=== PATIENT | female | born 1995 | race Caucasian/White ===

== ENCOUNTER 2023-09-02 12:55 | Outpatient (OUT) | payer BC, SELFPAY ==
--- NOTE | 2023-09-02 13:06 | US_ITS ---
The [address] [address] Patient Name: [place] CARTAGENA MRN: [id number] date: 1995 Sex: F Assigned Patient Location: US Current Patient Location: US Accession/Order Number: [id number] Exam Date: 09/02/2023 13:07 Report Date: 09/02/2023 13:57 At the request of: AJ MARSH Procedure: US thyroid EXAMINATION: US thyroid HISTORY: Cervical Lymphadenopathy R59.0 COMPARISON: No relevant comparison available. TECHNIQUE: Sonographic images of the thyroid gland were obtained. FINDINGS: The right thyroid lobe measures 4.5 x 1.9 x 1.9 cm. Heterogeneous echotexture. 2 small colloid cysts measuring up to 4.1 mm The thyroid isthmus measures 3 mm. Heterogeneous. No focal nodule The left thyroid lobe measures 4.8 by 1.5-1.9 m. Heterogeneous echotexture. No focal nodule Or spine to the patient's palpable abnormality along the right parotid gland is a 5.4 x 4.6 mm oval lesion likely representing a lymph node US/US thyroid IMPRESSION: Suspected lymph node in the region of the patient's palpable abnormality No significant thyroid nodule Electronically authenticated by: NELA MEZA Date: 09/02/2023 13:57
== END 2023-09-02 12:56 | disposition home or self-care (01) ==
LOC: US 12:58
PROVIDERS: PCP Family Medicine; Visit Provider Family Medicine
DX: R59.0 Localized enlarged lymph nodes (principal)
CPT/HCPCS: 76536

== ENCOUNTER 2023-12-04 16:24 | Outpatient (OUT) | payer BC, SELFPAY ==
[2023-12-04 16:58] LABS: Basophils Absolute Auto 0.1 10^3/uL (0.0-0.1); Basophils Percent Auto 0.7 % (0.2-2.0); Eosinophils Absolute Auto 0.2 10^3/uL (0.0-0.7); Eosinophils Percent Auto 3.3 % (0.9-7.0); Hematocrit 37.6 % (36.0-48.0); Hemoglobin 12.7 g/dL (12.0-16.0); Immature Granulocytes Abs Auto 0.01 10^3/uL (0.00-0.03); Immature Granulocytes Pct Auto 0.1 % (0.0-0.5); Lymphocytes Percent Auto 28.6 % (20.5-60.0); Mean Corpuscular HGB Conc 33.8 g/dL (29.9-35.2); Mean Corpuscular Hemoglobin 28.1 pg (26.7-34.0); Mean Corpuscular Volume 83.2 fL (81.0-99.0); Mean Platelet Volume 10.2 fL (9.5-13.5); Monocytes Absolute Auto 0.6 10^3/uL (0.3-0.8); Monocytes Percent Auto 7.9 % (1.7-12.0); Neutrophils Absolute Auto 4.2 10^3/uL (1.4-6.5); Neutrophils Percent Auto 59.4 % (43.0-75.0); Platelet Count 275 10^3/uL (150-450); Red Blood Count 4.52 10^6/uL (4.20-5.40); Red Cell Distribution Width 12.9 % (11.0-15.0); White Blood Count 7.1 10^3/uL (4.0-11.0)
[2023-12-04 17:30] LABS: TSH W/ REFLEX FT4 1.374 uIU/mL (0.358-3.740)
[2023-12-08 13:08] LABS: ANA Direct Negative (Negative); Anti-DNA (DS) Ab Qn <1 IU/mL (0-9); Antichromatin Antibodies <0.2 AI (0.0-0.9); Complement C3, Serum 113 mg/dL (82-167); Complement C4, Serum 10 mg/dL (12-38)
[2023-12-08 17:09] LABS: Antinuclear Antibodies, IFA Negative (.)
== END 2023-12-04 16:25 | disposition home or self-care (01) ==
LOC: LAB 16:25
PROVIDERS: PCP Family Medicine; Visit Provider Family Medicine
DX: L65.9 Nonscarring hair loss, unspecified (principal); R76.8 Other specified abnormal immunological findings in serum; R53.83 Other fatigue; R76.0 Raised antibody titer
CPT/HCPCS: 36415; 84443; 85025; 86038; 86160; 86225; 86235

== ENCOUNTER 2024-01-16 06:59 | Outpatient (OUT) | payer BC, SELFPAY ==
--- NOTE | 2024-01-16 07:01 | US_ITS ---
[address] [address] Patient Name: [place] CARTAGENA MRN: [id number] date: 1995 Sex: F Assigned Patient Location: US Current Patient Location: US Accession/Order Number: [id number] Exam Date: 01/16/2024 07:09 Report Date: 01/16/2024 10:51 At the request of: KEKE MEDEL Procedure: US pelvis transvaginal EXAMINATION: US pelvis transvaginal HISTORY: Menorrhagia N92.0 COMPARISON: No relevant comparison available. TECHNIQUE: Transabdominal and/or transvaginal sonographic examination was performed as indicated by examination type. FINDINGS: UTERUS: Normal size and appearance. scar noted within lower anterior uterine wall. A few small nabothian cysts within cervix. Uterus size: 9.6 x 5.1 x 4.3 cm ENDOMETRIUM: Contains a 2 mm hyperdensity, likely dystrophic calcification at posterior endometrial-myometrial junction. Normal thickness and echogenicity of endometrium. Endometrial thickness: 10 mm RIGHT OVARY: Normal size and appearance. Duplex Doppler demonstrates normal waveform and flow; resistive index 0.4. Ovary size: 3.4 x 2.3 x 2.0 cm LEFT OVARY: Contains a 1.6 cm hypoechoic area favoring a cyst. Duplex Doppler demonstrates normal waveform and flow; resistive index 0.6. Ovary size: 3.9 x 2.6 x 2.3 cm CUL-DE-SAC: Unremarkable. No significant free fluid. BLADDER: Unremarkable. OTHER: None. US/US pelvis transvaginal IMPRESSION: 1. No specific findings to account for patient's symptoms. Please see details above. Electronically authenticated by: DI BRIZUELA Date: 01/16/2024 10:51
--- OUTSIDE RECORDS SUMMARY | 2024-01-16 07:03 | XMS_ITS | CCD ---
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 Name Role Phone Sarah Marsh Primary Care Provider [phone] Anson Carson Primary Care Provider Gilbertoconrado RAY Nathan Unavailable Gilberto RAY Nathan Unavailable [phone] CHEMA ., GARRETT Consulting Unavailable MAXIMO, DR SARAH Madrid Primary Care Unavailable CHEMA ., GARRETT Attending Unavailable CHEMA ., GARRETT Admitting Unavailable GIANFRANCO ., DR DAVIES Consulting Unavailable MARSH, DR SARAH [place] Primary Care Unavailable GIANFRANCO ., DR DAVIES Attending Unavailable GIANFRANCO ., DR DAVIES Admitting Unavailable ZIEBER, DR DI Iniguez Consulting Unavailable KARASIK ., DR VILLA Consulting Unavailabl e KARASIK ., DR VILLA Attending Unavailabl e KARASIK ., DR VILLA Admitting Unavailabl e REQUEST, DR NONE LISTED Primary Care Unavaila ble GIANFRANCO ., DR DAVIES Consulting Unavailable ZIEBER, DR DI Iniguez Consulting Unavailable GIANFRANCO ., DR DAVIES Admitting Unavailable GIANFRANCO ., DR DAVIES Attending Unavailable REQUEST, DR NONE LISTED Primary Care Unavaila ble GIANFRANCO ., DR DAVIES Consulting Unavailable ZIEBER, DR DI Iniguez Consulting Unavailable GIANFRANCO ., DR DAVIES Consulting Unavailable REQUEST, NONE LISTED Primary Care Unavaila ble GIANFRANCO ., DR DAVIES Attending Unavailable GIANFRANCO ., DR DAVIES Admitting Unavailable GIANFRANCO ., DR DAVIES Admitting Unavailable GIANFRANCO ., DR DAVIES Attending Unavailable MARSH, DR SARAH Madrid Primary Care Unavailable GIANFRANCO ., DR DAVIES Consulting Unavailable GIANFRANCO ., DR DAVIES Consulting Unavailable REQUEST, DR NONE LISTED Primary Care Unavaila ble GIANFRANCO ., DR DAVIES Attending Unavailable GIANFRANCO ., DR DAVIES Admitting Unavailable ZIEBER, DR DI Iniguez Consulting Unavailable REQUEST, DR NONE LISTED Primary Care Unavaila ble CHEMA ., GARRETT Attending Unavailable CHEMA ., GARRETT Admitting Unavailable CHEMA ., GARRETT Consulting Unavailable KARASIK ., DR VILLA Consulting Unavailabl e KARASIK ., DR VILLA Attending Unavailabl e KARASIK ., DR VILLA Admitting Unavailabl e REQUEST, DR NONE LISTED Primary Care Unavaila ble ZIEBER, DR DI Iniguez Consulting Unavailable CHEMA ., GARRETT Consulting Unavailable KARASIK ., DR VILLA Consulting Unavailabl e KARASIK ., DR VILLA Attending Unavailabl e KARASIK ., DR VILLA Admitting Unavailabl e REQUEST, DR NONE LISTED Primary Care Unavaila ble ZIEBER, DR DI Iniguez Consulting Unavailable CHEMA ., GARRETT Consulting Unavailable WEST, DR NELA Urena Consulting Unavailable GIANFRANCO ., DR DAVIES Attending Unavailable GIANFRANCO ., DR DAVIES Admitting Unavailable REQUEST, DR NONE LISTED Primary Care Unavaila ble GIANFRANCO ., DR DAVIES Consulting Unavailable CHEMA ., GARRETT Consulting Unavailable GIANFRANCO ., DR DAVIES Consulting Unavailable GIANFRANCO ., DR DAVIES Attending Unavailable GIANFRANCO ., DR DAVIES Admitting Unavailable REQUEST, DR NONE LISTED Primary Care Unavaila ble ZIEBER, DR DI Iniguez Consulting Unavailable ZIEBER, DR DI Iniguze Consulting Unavailable MARSH, DR SARAH Madrid Primary Care Unavailable CHEMA ., GARRETT Attending Unavailable CHEMA ., GARRETT Admitting Unavailable CEHMA ., GARRETT Consulting Unavailable REQUEST, DR NONE LISTED Primary Care Unavaila ble GIANFRANCO ., DR DAVIES Attending Unavailable GIANFRANCO ., DR DAVIES Admitting Unavailable GIANFRANCO ., DR DAVIES Consulting Unavailable REQUEST, DR NONE LISTED Primary Care Unavaila ble GIANFRANCO ., DR DAVIES Attending Unavailable GIANFRANCO ., DR DAVIES Admitting Unavailable GIANFRANCO ., DR DAVIES Procedure Practitioner Unavail able SY DE SOUZA Consulting Unavailable ZIEBER, DR DI Iniguez Consulting Unavailable MARSH, DR SARAH [place] Primary Care Unavailable CHEMA ., GARRETT Attending Unavailable CHEMA ., GARRETT Admitting Unavailable CHEMA ., GARRETT Consulting Unavailable GIANFRANCO ., DR DAVIES Consulting Unavailable REQUEST, DR NONE LISTED Primary Care Unavaila ble GIANFRANCO ., DR DAVIES Attending Unavailable GIANFRANCO ., DR DAVIES Admitting Unavailable GIANFRANCO ., DR DAVIES Consulting Unavailable REQUEST, DR NONE LISTED Primary Care Unavaila ble GIANFRANCO ., DR DAVIES Attending Unavailable GIANFRANCO ., DR DAVIES Admitting Unavailable GARRETT PALACIOS Consulting Unavailable REQUEST, NONE LISTED Primary Care Unavaila yani BEAR ., GARRETT Attending Unavailable CHEMA ., GARRETT Admitting Unavailable Chelo Valencia Unavailable TIKA Valencia Attending Provider [phone] MD Sarah Marsh Primary Care Provider [phone] MD Alden Khan Attending Provider Alden Khan Admitting Unavailable Alden Khan Attending Unavailable Sarah Marsh Primary Care Unavailable Chelo Valencia Admitting Unavailable Chelo Valencia Attending Unavailable Sarah Marsh Primary Care Unavailable Allergies Allergy Classification Reported Allergen(s) Allergy Type Date of Onset Reaction(s) Facility Opioid Agonists (1 source) Morphine Drug Allergy 3 Itching, Other: See Comments [facility] (1 source) Morphine Drug Allergy 0 [facility] (2 sources) Morphine Drug Allergy rash [employer] Other (2 sources) Morphine Sulfate (Concentrate) *ANALGESICS - OPIOI Propensity to adverse reactions 0 Unknown [employer] Other (2 sources) Allergies Reconciled Propensity to adverse reactions Unknown [employer] Other (2 sources) patient allergy list reviewed by nurse or physicia Propensity to adverse reactions 4 Comment:Done [employer] Other (1 source) Morphine Drug Allergy 4 [facility] Repository Medications Current Medications Medication Drug Class(es) Dates Sig (Normalized) Sig (Original) Vitamins (2 sources) Start: 04-23-2022 Vitamins Vitamins( Oral ) Active -Hx Entry Oral for 0 *Pick strength-form from [employer] for eRX* Apr, Not-Taking Completed/Discontinued Medications Medication Drug Class(es) Dates Sig (Normalized) Sig (Original) amoxicillin 500 mg oral tablet (2 sources) Penicillin-class Antibacterial Start: 04-23-2022 take 1 capsule by mouth three times daily Amoxicillin 500mg amoxicillin 500mg, 1 (one) Capsule three times daily # 21, 04/23/2022, No Refill. Active oral three times daily for 0 *Pick strength-form from [employer] for eRX* Apr, Not-Taking amoxicillin 875 mg / clavulanate 125 mg oral tablet (3 sources) Penicillin-class Antibacterial Start: 10-21-2023 End: 12-04-2023 take 1 tablet by mouth twice daily Amoxicillin-Pot Clavulanate Discontinued 1 TAB PO Twice daily October 21, 2023 12:00am December 04, 2023 3:55pm aspirin 81 mg delayed release oral tablet (5 sources) Platelet Aggregation Inhibitor, Nonsteroidal Anti-inflammatory Drug Start: 08-06-2023 End: 08-12-2023 Aspirin (Adult Low Dose Aspirin) 81 mg tablet,delayed release (DR/EC) Discontinued 81 MG PO Daily August 06, 2023 1:00am August 12, 2023 12:43pm Start: 04-23-2022 Aspirin Adult Low Dose 81 MG aspirin( 81mg oral 1 daily ) Active -Hx Entry Oral daily for 0 Apr, Not-Taking cefdinir 300 mg oral capsule (3 sources) Cephalosporin Antibacterial Start: 08-12-2023 End: 10-21-2023 take 300 mg by mouth twice daily Cefdinir Discontinued 300 MG PO Twice daily August 12, 2023 1:00am October 21, 2023 3:36pm Compression Socks, Medium Misc (1 source) Start: 03-17-2013 Compression Socks, Medium Misc Knee high at 20-30 mm HG compression stockings for chronic venous insufficiency associated with dizziness: Jobst,Sigvaris or Spa Brand. To be worn while awake and removed while sleeping. 2 Each 3 03/17/2013 Active Comment on above: Knee high at 20-30 m m HG compression stockings for chronic venous insufficiency associated with dizziness: Jobst,Sigvaris or Spa Brand. To be worn while awake and removed while sleeping. Magnesium (3 sources) Start: 08-06-2023 End: 08-12-2023 take 200 mg by mouth once daily Magnesium Discontinued 200 MG PO Daily August 06, 2023 1:00am August 12, 2023 12:43pm Magnesium Oxide 400mg magnesi (2 sources) Start: 03-26-2022 take 1 tablet by mouth once daily Magnesium Oxide 400mg magnesi magnesium oxide 400mg magnesi, 1 (one) tablet tablet daily # 30, 03/26/2022, Ref. x6. Active oral daily for 0 *Pick strength-form from [employer] for eRX* 11 Mar, 2022 Not-Taking oseltamivir 75 mg oral capsule (5 sources) Neuraminidase Inhibitor Start: 08-06-2023 End: 08-12-2023 take 1 capsule by mouth twice daily Oseltamivir (Tamiflu) 75 mg capsule Discontinued 1 CAP PO Twice daily August 06, 2023 1:00am August 12, 2023 12:43pm [employer] capsule Orally Twice a day; Note: Source Status: Not-Taking\PRN; Refills: 0; Provider: Samira Menendez Start: 07-19-2017 take 1 capsule by [facility] every twelve hours Tamiflu 75 MG 1 capsule Orally Twice a day for 5 day(s) Jul, Not-Taking Pnv #05-Gbrp-Nzpcr Acid-Omeg a3 (3 sources) Start: 08-06-2023 End: 08-12-2023 Pnv #40-Hsmf-Yaxjc Acid-Omeg a3 Discontinued CAP PO August 06, 2023 1:00am August 12, 2023 12:43pm Problems Active Problems Problem Classification Problem Date Documented Da te Episodic/Chronic Abdominal pain (3 sources) Abdominal pain; Translations: [Unspecified abdominal pain] Onset: 07-22-2013 07-22-2013 Episodic Anxiety disorders (2 sources) Anxiety disorder; Translations: [Other specified anxiety disorders] Chronic Cardiac dysrhythmias (4 sources) Postural orthostatic tachycardia syndrome ; Translations: [Other specified cardiac arrhythmias] Onset: 01-20-2013 01-20-2013 Chronic Deficiency and other anemia (1 source) Nutritional anemia, unspecified; Translations: [NUTRITIONAL ANEMIA UNSPECIFIED] Onset: 10-07-2022 Episodic Deficiency and other anemia (2 sources) Nutritional anemia; Translations: [Nutritional anemia, unspecified] Episodic Headache; including migraine (8 sources) Migraine with aura; Translations: [Migraine with aura, not intractable, without status migrainosus] Onset: 01-20-2013 01-20-2013 Chronic Immunity disorders (3 sources) Complement 4 deficiency; 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] Onset: 12-16-2023 12-10-2023 Chronic Immunizations and screening for infectious disease (15 sources) Anti-nuclear factor positive; Translations: [Other specified abnormal immunological findings in serum] Onset: 09-18-2012 Resolved: 03-24-2019 09-18-2012 Episodic Lymphadenitis (4 sources) Cervical lymphadenopathy; Translations: [Localized enlarged lymph nodes] 08-12-2023 Episodic Malaise and fatigue (8 sources) Malaise and fatigue; Translations: [Other malaise and fatigue] Onset: 04-28-2014 12-04-2023 Episodic Menstrual disorders (8 sources) Irregular menstruation, unspecified; Translations: [Intermenstrual bleeding - irregular] Onset: 01-30-2022 Chronic Nausea and vomiting (3 sources) Nausea; Translations: [Nausea] Onset: 08-25-2012 08-25-2012 Episodic Other aftercare (2 sources) History and physical examination, follow-up; Translations: [Encounter for follow-up examination after completed treatment for conditions other than malignant neoplasm] Episodic Other circulatory disease (2 sources) Postural orthostatic tachycardia syndrome ; Translations: [Postural orthostatic tachycardia syndrome [POTS]] Episodic Other complications of ; puerperium affecting management of mother (1 source) Other complications of the puerperium, not elsewhere classified; Translations: [OTHER COMPLICATIONS PUERPERIUM NEC] Onset: 10-07-2022 Episodic Other complications of ; puerperium affecting management of mother (1 source) Streptococcus B carrier state complicating childbirth; Translations: [STREP B MÉNDEZ STATE COMP CHILDBIRTH] Onset: 10-07-2022 Episodic Other complications of ; puerperium affecting management of mother (4 sources) Maternal care for other (suspected) abnormality and damage, not applicable or unspecified; Translations: [MAT CARE OTH ABN DAMGE NA/UNS] Onset: 08-07-2022 Episodic Other complications of ; puerperium affecting management of mother (2 sources) Complication of the puerperium; Translations: [Complication of the puerperium, unspecified] Episodic Other complications of (1 source) Anemia complicating , third trimester; Translations: [ANEMIA COMP THIRD TRI] Onset: 10-07-2022 Chronic Other complications of (2 sources) Anemia of ; Translations: [Anemia complicating , second trimester] Chronic Other complications of (1 source) Gestational edema, complicating the puerperium; Translations: [GESTATIONAL EDEMA COMP PUERPERIUM] Onset: 10-07-2022 Episodic Other complications of (5 sources) Other specified related conditions, third trimester; Translations: [OTH SPEC PREG RELATED COND 3RD TRI] Onset: 07-24-2022 Episodic Other complications of (2 sources) Supervision of with history of molar , first trimester; Translations: [Supervision of with history of molar , first trimester] Episodic Other complications of (2 sources) Blighted ovum and nonhydatidiform mole; Translations: [Blighted ovum and nonhydatidiform mole] Episodic Other complications of (2 sources) Vomiting of ; Translations: [Vomiting of , unspecified] Episodic Other connective tissue disease (2 sources) Ganglion cyst of left wrist; Translations: [Ganglion, left wrist] Episodic Other connective tissue disease (5 sources) Fibromyalgia; Translations: [Fibromyalgia] 08-06-2023 Episodic Other female genital disorders (2 sources) Other specified conditions associated with female genital organs and menstrual cycle; Translations: [Oth cond assoc w female genital organs and menstrual cycle] Episodic Other gastrointestinal disorders (5 sources) Irritable bowel syndrome; Translations: [Irritable bowel syndrome without diarrhea] 08-06-2023 Chronic Other gastrointestinal disorders (2 sources) Constipation; Translations: [Constipation] Episodic Other non-traumatic joint disorders (3 sources) Joint pain; Translations: [Pain in unspecified joint] Onset: 09-18-2012 09-18-2012 Episodic Other nutritional; endocrine; and metabolic disorders (1 source) Hyperbilirubinemia; Translations: [Other disorders of bilirubin metabolism] Onset: 07-22-2013 07-22-2013 Chronic Other and delivery including normal (20 sources) Single live ; Translations: [Encounter for supervision of normal , unspecified, unspecified trimester] Onset: 01-09-2022 Episodic Other screening for suspected conditions (not mental disorders or infectious disease) (11 sources) Encounter for screening for malignant neoplasm of cervix; Translations: [Encounter for screening for diabetes mellitus] Onset: 02-15-2022 Resolved: 07-26-2019 Episodic Other skin disorders (2 sources) Loss of hair; Translations: [Nonscarring hair loss, unspecified] 12-04-2023 Episodic Other skin disorders (2 sources) Nonscarring hair loss, unspecified; Translations: [Alopecia, unspecified] 12-04-2023 Episodic Other upper respiratory infections (2 sources) Chronic sinusitis; Translations: [Chronic sinusitis, unspecified] Chronic Other upper respiratory infections (8 sources) Acute upper respiratory infection; Translations: [Acute upper respiratory infection, unspecified] 10-21-2023 Episodic Phlebitis; thrombophlebitis and thromboembolism (1 source) Personal history of other venous thrombosis and embolism; Translations: [PERS HX OTH VENOUS THROMBOSIS AND EMBO] Onset: 10-07-2022 Episodic Previous (3 sources) Maternal care for low transverse scar from previous delivery; Translations: [MAT CARE LW TRANS SCAR PREV C/S DEL] Onset: 09-11-2022 Episodic Residual codes; unclassified (1 source) 39 weeks gestation of ; Translations: [39 WEEKS GESTATION OF ] Onset: 10-07-2022 Episodic Residual codes; unclassified (1 source) 38 weeks gestation of ; Translations: [38 WEEKS GESTATION OF ] Onset: 09-07-2022 Episodic Residual codes; unclassified (1 source) 37 weeks gestation of ; Translations: [37 WEEKS GESTATION OF ] Onset: 09-02-2022 Episodic Residual codes; unclassified (1 source) 36 weeks gestation of ; Translations: [36 WEEKS GESTATION OF ] Onset: 08-23-2022 Episodic Residual codes; unclassified (1 source) 35 weeks gestation of ; Translations: [35 WEEKS GESTATION OF ] Onset: 08-18-2022 Episodic Residual codes; unclassified (1 source) 34 weeks gestation of ; Translations: [34 WEEKS GESTATION OF ] Onset: 08-09-2022 Episodic Residual codes; unclassified (2 sources) Symptom: generalized; Translations: [Other general symptoms and signs] Episodic Residual codes; unclassified (2 sources) Gestation period, 32 weeks; Translations: [32 weeks gestation of ] Episodic Residual codes; unclassified (2 sources) Gestation period, 28 weeks; Translations: [28 weeks gestation of ] Episodic Residual codes; unclassified (2 sources) Gestation period, 30 weeks; Translations: [30 weeks gestation of ] Episodic Residual codes; unclassified (2 sources) Gestation period, 10 weeks; Translations: [10 weeks gestation of ] Episodic Residual codes; unclassified (4 sources) Normal body mass index; Translations: [Body mass index (BMI) 22.0-22.9, adult] Episodic Residual codes; unclassified (2 sources) FH: Arthritis; Translations: [Family history of arthritis] Episodic Residual codes; unclassified (2 sources) Complication occurring during ; Translations: [Personal history of other complications of , childbirth and the puerperium] Episodic Residual codes; unclassified (2 sources) History of uterine scar from previous surgery; Translations: [History of uterine scar from previous surgery] Episodic Residual codes; unclassified (2 sources) FH: Skin disease; Translations: [Family history of diseases of the skin and subcutaneous tissue] Episodic Tuberculosis (3 sources) Tuberculosis of vertebral column; Translations: [Tuberculosis of spine] 08-06-2023 Episodic Unclassified (1 source) POSTURAL ORTHOSTATIC TACHY SYN POTS; Translations: [POSTURAL ORTHOSTATIC TACHY SYN POTS] Onset: 09-07-2022 Unclassified (3 sources) OT SPCF DIS/COND COMPL ; Translations: [OTH SPCF DIS/COND COMPL ] Onset: 08-23-2022 Past or Other Problems Problem Classification Problem Date Documented Date Episodic/Chronic Cardiac dysrhythmias (1 source) Tachycardia; Translations: [Tachycardia, unspecified] Onset: 08-26-2012 08-26-2012 Episodic Contraceptive and procreative management (3 sources) Encounter for sterilization; Translations: [Contraception care education done] Onset: 10-07-2022 Resolved: 11-30-2018 Episodic Deficiency and other anemia (2 sources) Anemia; Translations: [Anemia, unspecified] Onset: 07-05-2013 Resolved: 03-24-2019 Episodic Fever of unknown origin (2 sources) Fever; Translations: [Fever, unspecified] Onset: 04-28-2014 Episodic Genitourinary symptoms and ill-defined conditions (4 sources) Dysuria; Translations: [Dysuria] Onset: 10-12-2013 Resolved: 03-24-2019 Episodic Inflammatory diseases of female pelvic organs (2 sources) Vaginitis and vulvovaginitis; Translations: [Vaginitis and vulvovaginitis in diseases classified elsewhere] Onset: 10-12-2013 Episodic Nervous system congenital anomalies (2 sources) Familial dysautonomia [Jonas-Day]; Translations: [Familial dysautonomia] Onset: 05-30-2015 Resolved: 03-24-2019 Chronic Other circulatory disease (2 sources) Orthostatic hypotension; Translations: [Orthostatic hypotension] Onset: 07-05-2013 Resolved: 03-24-2019 Episodic Other complications of (4 sources) Cervical shortening, third trimester; Translations: [CERVICAL SHORTENING 3RD TRIMESTER] Onset: 07-23-2022 Episodic Other complications of (3 sources) Cervical shortening, second trimester; Translations: [CERVICAL SHORTENING 2ND TRIMESTER] Onset: 07-09-2022 Episodic Other complications of (3 sources) Other specified related conditions, unspecified trimester; Translations: [OTH SPEC PREG RELATED COND UNS TRI] Onset: 06-26-2022 Episodic Other complications of (4 sources) High risk ; Translations: [Supervision of high risk , unspecified, third trimester] Resolved: 12-15-2017 Episodic Other complications of (2 sources) Urinary tract infection in ; Translations: [Unspecified infection of urinary tract in , unspecified trimester] Resolved: 12-15-2017 Episodic Other female genital disorders (2 sources) Noninflammatory disorder of the vagina; Translations: [Other specified noninflammatory disorders of vagina] Resolved: 03-24-2019 Episodic Other nutritional; endocrine; and metabolic disorders (2 sources) Disorders of bilirubin excretion; Translations: [Other disorders of bilirubin metabolism] Onset: 07-05-2013 Resolved: 03-24-2019 Chronic Other nutritional; endocrine; and metabolic disorders (1 source) Weight loss; Translations: [Abnormal weight loss] Onset: 08-25-2012 08-25-2012 Episodic Residual codes; unclassified (1 source) 31 weeks gestation of ; Translations: [31 WEEKS GESTATION OF ] Onset: 07-24-2022 Episodic Residual codes; unclassified (1 source) 29 weeks gestation of ; Translations: [29 WEEKS GESTATION OF ] Onset: 07-10-2022 Episodic Residual codes; unclassified (1 source) 28 weeks gestation of ; Translations: [28 WEEKS GESTATION OF ] Onset: 07-02-2022 Episodic Residual codes; unclassified (1 source) 8 weeks gestation of ; Translations: [8 WEEKS GESTATION OF ] Onset: 02-11-2022 Episodic Residual codes; unclassified (2 sources) Postprocedural state finding; Translations: [Other specified postprocedural states] Resolved: 12-15-2017 Episodic Residual codes; unclassified (2 sources) Gestation period, 36 weeks; Translations: [36 weeks gestation of ] Resolved: 07-26-2019 Episodic Residual codes; unclassified (2 sources) Gestation period, 20 weeks; Translations: [20 weeks gestation of ] Resolved: 04-21-2019 Episodic Residual codes; unclassified (2 sources) Gestation period, 34 weeks; Translations: [34 weeks gestation of ] Resolved: 07-14-2019 Episodic Residual codes; unclassified (2 sources) Gestation period, 11 weeks; Translations: [11 weeks gestation of ] Resolved: 02-24-2019 Episodic Residual codes; unclassified (2 sources) Gestation period, 16 weeks; Translations: [16 weeks gestation of ] Resolved: 03-24-2019 Episodic Unclassified (1 source) OT SPCF DIS/COND COMPL ; Translations: [OTH SPCF DIS/COND COMPL ] Onset: 08-21-2022 Unclassified (2 sources) Acute candidiasis of vulva and vagina; Translations: [Acute candidiasis of vulva and vagina] Results Test Name Value Interpretation Reference Range Facility Anticardiolipin IgG/M/A, Qno n 12-16-2023 Anticardiolipin Ab, IgA,Qn <9 Normal 0-11 [facility] Comment on above: Result Comment: Nega tive: <12 Indeterminate: 12 - 20 Low-Med Positive: >20 - 80 High Positive: >80 Performed at: - [facility] [address] [id number] Float Nurse: Joe Cox PhD, Phone: [phone] Performed By: #### C H50, B2 GLYPROT, LUPANTCOAG, C3, CARDIO GMA, C4, C2 #### [facility] , #### ADDONUAPLUS #### [address] Anticardiolipin Ab, IgG,Qn <9 Normal 0-14 [facility] Comment on above: Result Comment: Nega tive: <15 Indeterminate: 15 - 20 Low-Med Positive: >20 - 80 High Positive: >80 Performed By: #### C H50, B2 GLYPROT, LUPANTCOAG, C3, CARDIO GMA, C4, C2 #### [facility] , #### ADDONUAPLUS #### [facility] [address] [place] [address] [place] Anticardiolipin Ab, IgM,Qn <9 Normal 0-12 [facility] Comment on above: Result Comment: Nega tive: <13 Indeterminate: 13 - 20 Low-Med Positive: >20 - 80 High Positive: >80 Performed By: #### C H50, B2 GLYPROT, LUPANTCOAG, C3, CARDIO GMA, C4, C2 #### [facility] , #### ADDONUAPLUS #### [facility] [address] [place] [address] [place] Bacteria [Presence] in Urine by AutomatedOrdered By: Alden Khan on 12-16-2023 Bacteria Auto Ql (U) Rare [HPF] None Seen [facility] Beta 2 Glycoprotein I Ab IgG /Mon 12-16-2023 Beta 2 Glycoprotein I Ab, IgG <9 Normal 0-20 [facility] Comment on above: Result Comment: Resu lt Units: GPI IgG units The reference interval reflects a 3SD or 99th percentile interval, which is thought to represent a potentially clinically significant result in accordance with the International Consensus Statement on the classification criteria for definitive antiphospholipid syndrome (APS). J Thromb Haem 2006;4:295-306. Performed By: #### C H50, B2 GLYPROT, LUPANTCOAG, C3, CARDIO GMA, C4, C2 #### [facility] , #### ADDONUAPLUS #### [facility] [address] [id number] [place] Beta 2 Glycoprotein I Ab, IgM <9 Normal 0-32 [facility] Comment on above: Result Comment: Resu lt Units: GPI IgM units The reference interval reflects a 3SD or 99th percentile interval, which is thought to represent a potentially clinically significant result in accordance with the International Consensus Statement on the classification criteria for definitive antiphospholipid syndrome (APS). J Thromb Haem 2006;4:295-306. Performed at: [facility] [id number] Float Nurse: Jackson Mccrary MD, Phone: [phone] Performed By: #### C H50, B2 GLYPROT, LUPANTCOAG, C3, CARDIO GMA, C4, C2 #### [facility] , #### ADDONUAPLUS #### [address] Bilirubin Test strip Ql (U)O rdered By: Alden Khan on 12-16-2023 Bilirubin Ql (U) Negative Negative [facility] Color of Urine by AutoOrdere d By: Alden Khan on 12-16-2023 Color (U) Light-yellow Normal Yellow [facility] Comment on above: Order Comment: Name Collection Type:: Clean-Voided Midstream Performed By: #### C H50, B2 GLYPROT, LUPANTCOAG, C3, CARDIO GMA, C4, C2 #### [facility] , #### ADDONUAPLUS #### [facility] [address] [place] [address] Complement C2on 12-16-2023 Complement C2 1.9 mg/dL Normal 1.4-3.3 [facility] Comment on above: Result Comment: Resu lts of this test are labeled for research purposes only by the assay's engagement manager. The performance characteristics of this assay have not been established by the engagement manager. The result should not be used for treatment or for diagnostic purposes without confirmation of the diagnosis by another medically established diagnostic product or procedure. The performance characteristics were determined by [employer]. Performed at: [employer] [id number] Float Nurse: Jackson Mccrary MD, Phone: [phone] PERFORMED BY: [place] [address] PATHOLOGIST REPORTING PROCESS CONSULTANT JIANLAN SUN M.D. Performed By: #### C H50, B2 GLYPROT, LUPANTCOAG, C3, CARDIO GMA, C4, C2 #### [facility] , #### ADDONUAPLUS #### [address] Complement C3on 12-16-2023 Complement C3 137 mg/dL Normal 82-167 [facility] Comment on above: Result Comment: Perf ormed at: [address] [id number] Float Nurse: Joe Cox PhD, Phone: [phone] Performed By: #### C H50, B2 GLYPROT, LUPANTCOAG, C3, CARDIO GMA, C4, C2 #### [facility] , #### ADDONUAPLUS #### [address] Complement C4on 12-16-2023 Complement C4 15 mg/dL Normal 12-38 [facility] Comment on above: Performed By: #### C H50, B2 GLYPROT, LUPANTCOAG, C3, CARDIO GMA, C4, C2 #### [facility] , #### ADDONUAPLUS #### [address] Complement Total (CH50)on Complement Total (CH50) >60 Normal >41 [facility] Comment on above: Result Comment: Age Male Female 1 - 30 days Not Estab. Not Estab. 31 days - 6 months >32 >20 7 months - 17 years >39 >39 >17 years >41 >41 NOTE: The adult ( >17 years ) reference interval range is used to flag abnormals on this report. If the patient is 17 years old or younger, use the table above to determine out of range values. Performed at: [address] [id number] Float Nurse: Joe Cox PhD, Phone: [phone] PERFORMED BY: [place] [address] PATHOLOGIST REPORTING PROCESS CONSULTANT COLEEN ALMANZA M.D. Performed By: #### C H50, B2 GLYPROT, LUPANTCOAG, C3, CARDIO GMA, C4, C2 #### [facility] , #### ADDONUAPLUS #### [address] Dipstick and Microscopicon 0 12-16-2023 Bacteria,Urine Rare Normal None Seen [facility] Comment on above: Order Comment: Name Collection Type:: Clean-Voided Midstream Performed By: #### C H50, B2 GLYPROT, LUPANTCOAG, C3, CARDIO GMA, C4, C2 #### [facility] , #### ADDONUAPLUS #### [address] Bilirubin,Urine Negative Normal Negative [facility] Comment on above: Order Comment: Name Collection Type:: Clean-Voided Midstream Performed By: #### C H50, B2 GLYPROT, LUPANTCOAG, C3, CARDIO GMA, C4, C2 #### [facility] , #### ADDONUAPLUS #### [address] Glucose Ql (U) Normal Normal Normal [facility] Comment on above: Order Comment: Name Collection Type:: Clean-Voided Midstream Performed By: #### C H50, B2 GLYPROT, LUPANTCOAG, C3, CARDIO GMA, C4, C2 #### [facility] , #### ADDONUAPLUS #### [place] [address] [place] Hyaline Casts,Urine None Normal 0-8 [facility] Comment on above: Order Comment: Name Collection Type:: Clean-Voided Midstream Performed By: #### C H50, B2 GLYPROT, LUPANTCOAG, C3, CARDIO GMA, C4, C2 #### [facility] , #### ADDONUAPLUS #### [place] [address] [place] Mucus,Urine Rare Normal [facility] Comment on above: Order Comment: Name Collection Type:: Clean-Voided Midstream Result Comment: PERF ORMED BY: [place] [address] PATHOLOGIST REPORTING PROCESS CONSULTANT COLEEN ALMANZA M.D. Performed By: #### C H50, B2 GLYPROT, LUPANTCOAG, C3, CARDIO GMA, C4, C2 #### [facility] , #### ADDONUAPLUS #### [place] [address] [place] Nitrite,Urine Negative Normal Negative [facility] Comment on above: Order Comment: Name Collection Type:: Clean-Voided Midstream Performed By: #### C H50, B2 GLYPROT, LUPANTCOAG, C3, CARDIO GMA, C4, C2 #### [facility] , #### ADDONUAPLUS #### [place] [address] [place] Occult Blood,Urine Negative Normal Negative [facility] Comment on above: Order Comment: Name Collection Type:: Clean-Voided Midstream Performed By: #### C H50, B2 GLYPROT, LUPANTCOAG, C3, CARDIO GMA, C4, C2 #### [facility] , #### ADDONUAPLUS #### [place] [address] [place] Protein,Urine Negative Normal Negative [facility] Comment on above: Order Comment: Name Collection Type:: Clean-Voided Midstream Performed By: #### C H50, B2 GLYPROT, LUPANTCOAG, C3, CARDIO GMA, C4, C2 #### [facility] , #### ADDONUAPLUS #### [place] [address] [place] RBC,Urine 1-2 Normal 0-4 [facility] Comment on above: Order Comment: Name Collection Type:: Clean-Voided Midstream Performed By: #### C H50, B2 GLYPROT, LUPANTCOAG, C3, CARDIO GMA, C4, C2 #### [facility] , #### ADDONUAPLUS #### [address] Specificy [place],Urine 1.016 Normal 1.001-1.030 [facility] Comment on above: Order Comment: Name Collection Type:: Clean-Voided Midstream Performed By: #### C H50, B2 GLYPROT, LUPANTCOAG, C3, CARDIO GMA, C4, C2 #### [facility] , #### ADDONUAPLUS #### [address] Squamous Epithelial Cell,Urine 5-9 High 0-2 [facility] Comment on above: Order Comment: Name Collection Type:: Clean-Voided Midstream Performed By: #### C H50, B2 GLYPROT, LUPANTCOAG, C3, CARDIO GMA, C4, C2 #### [facility] , #### ADDONUAPLUS #### [address] Urobilinogen,Urine Normal Normal Normal [facility] Comment on above: Order Comment: Name Collection Type:: Clean-Voided Midstream Performed By: #### C H50, B2 GLYPROT, LUPANTCOAG, C3, CARDIO GMA, C4, C2 #### [facility] , #### ADDONUAPLUS #### [address] WBC,Urine 1-2 Normal 0-4 [facility] Comment on above: Order Comment: Name Collection Type:: Clean-Voided Midstream Performed By: #### C H50, B2 GLYPROT, LUPANTCOAG, C3, CARDIO GMA, C4, C2 #### [facility] , #### ADDONUAPLUS #### [address] [address] [place] Epithelial cells.squamous [# /area] in Urine sediment by Automated countOrdered By: Alden Khan on 12-16-2023 Epithelial cells.squamous Auto (Urine sed) [#/Area] 5-9 [HPF] High 0-2 [facility] Erythrocytes [#/area] in Uri ne sediment by Automated countOrdered By: Alden Khan on 12-16-2023 RBC Auto (Urine sed) [#/Area] 1-2 [HPF] 0-4 [facility] Glucose [Mass/volume] in Uri ne by Test stripOrdered By: Alden Khan on 12-16-2023 Glucose Test strip (U) [Mass/Vol] Normal mg/dL Normal [facility] Hemoglobin Test strip Ql (U) Ordered By: Alden Khan on 12-16-2023 Hemoglobin Ql (U) Negative Negative [facility] Hyaline casts [#/area] in Ur ine sediment by Automated countOrdered By: Alden Khan on 12-16-2023 Hyaline casts Auto (Urine sed) [#/Area] None [LPF] 0-8 [facility] Ketones [Presence] in Urine by Test stripOrdered By: Alden Khan on 12-16-2023 Ketones Ql (U) Negative Normal Negative [facility] Comment on above: Order Comment: Name Collection Type:: Clean-Voided Midstream Performed By: #### C H50, B2 GLYPROT, LUPANTCOAG, C3, CARDIO GMA, C4, C2 #### [facility] , #### ADDONUAPLUS #### [facility] [address] [place] [address] [place] Leukocyte esterase [Presence ] in Urine by Test stripOrdered By: Alden Khan on 12-16-2023 Leukocyte esterase Test strip Ql (U) Negative Normal Negative [facility] Comment on above: Order Comment: Name Collection Type:: Clean-Voided Midstream Performed By: #### C H50, B2 GLYPROT, LUPANTCOAG, C3, CARDIO GMA, C4, C2 #### [facility] , #### ADDONUAPLUS #### [address] Leukocytes [#/area] in Urine sediment by Automated countOrdered By: Alden Khan on 12-16-2023 WBC Auto (Urine sed) [#/Area] 1-2 [HPF] 0-4 [facility] Lupus Anticoagulant Compon 0 12-16-2023 Dilute Prothrombin Time (dPt) 35.7 Normal 0.0-47.6 [facility] Comment on above: Performed By: #### C H50, B2 GLYPROT, LUPANTCOAG, C3, CARDIO GMA, C4, C2 #### [facility] , #### ADDONUAPLUS #### [address] dPT Confirm Ratio 1.21 Normal 0.00-1.34 [facility] Comment on above: Performed By: #### C H50, B2 GLYPROT, LUPANTCOAG, C3, CARDIO GMA, C4, C2 #### [facility] , #### ADDONUAPLUS #### [address] DRVVT Lupus 35.4 Normal 0.0-47.0 [facility] Comment on above: Performed By: #### C H50, B2 GLYPROT, LUPANTCOAG, C3, CARDIO GMA, C4, C2 #### [facility] , #### ADDONUAPLUS #### [address] Interpretation Comment: Normal . [facility] Comment on above: Result Comment: No l upus anticoagulant was detected. Performed at: [address] [id number] Float Nurse: Jackson Mccrary MD, Phone: [phone] PERFORMED BY: [place] [address] PATHOLOGIST REPORTING PROCESS CONSULTANT COLEEN ALMANZA M.D. Performed By: #### C H50, B2 GLYPROT, LUPANTCOAG, C3, CARDIO GMA, C4, C2 #### [facility] , #### ADDONUAPLUS #### [address] PTT-LA 33.7 Normal 0.0-43.5 [facility] Comment on above: Performed By: #### C H50, B2 GLYPROT, LUPANTCOAG, C3, CARDIO GMA, C4, C2 #### [facility] , #### ADDONUAPLUS #### [address] Thrombin Time 18.9 Normal 0.0-23.0 [facility] Comment on above: Performed By: #### C H50, B2 GLYPROT, LUPANTCOAG, C3, CARDIO GMA, C4, C2 #### [facility] , #### ADDONUAPLUS #### [address] Mucus [Presence] in Urine by AutomatedOrdered By: Alden Khan on 12-16-2023 Mucus Auto Ql (U) Rare [LPF] [facility] Nitrite Test strip Ql (U)Ord ered By: Alden Khan on 12-16-2023 Nitrite Ql (U) Negative Negative [facility] Protein Test strip (U) [Mass /Vol]Ordered By: Alden Khan on 12-16-2023 Protein (U) [Mass/Vol] Negative Negative [facility] Specific gravity Test strip (U) [Rel density]Ordered By: Alden Khan on 12-16-2023 Specific gravity (U) [Rel density] 1.016 1.001-1.030 [facility] Urine appearanceOrdered By: Alden Khan on 12-16-2023 Appearance (U) Clear Normal Clear [facility] Comment on above: Order Comment: Name Collection Type:: Clean-Voided Midstream Performed By: #### C H50, B2 GLYPROT, LUPANTCOAG, C3, CARDIO GMA, C4, C2 #### [facility] , #### ADDONUAPLUS #### [facility] [address] [id number] [facility] Urobilinogen Test strip (U) [Mass/Vol]Ordered By: Alden Khan on 12-16-2023 Urobilinogen (U) [Mass/Vol] Normal mg/dL Normal [facility] pH of Urine by Test stripOrd ered By: Alden Khan on 12-16-2023 pH (U) 6.5 [pH] Normal 5.0-9.0 [facility] Comment on above: Order Comment: Name Collection Type:: Clean-Voided Midstream Performed By: #### C H50, B2 GLYPROT, LUPANTCOAG, C3, CARDIO GMA, C4, C2 #### [facility] , #### ADDONUAPLUS #### [facility] [address] [id number] [facility] Basophils Auto (Bld) [#/Vol] on 12-04-2023 Basophils (Bld) [#/Vol] 0.1 10 3/uL 0.0-0.1 [facility] Basophils/100 WBC Auto (Bld) on 12-04-2023 Basophils/100 WBC (Bld) 0.7 % 0.2-2.0 [facility] Eosinophils/100 WBC Auto (Bl d)on 12-04-2023 Eosinophils/100 WBC (Bld) 3.3 % 0.9-7.0 [facility] Erythrocyte distribution wid th Auto (RBC) [Ratio]on 12-04-2023 Erythrocyte distribution width (RBC) [Ratio] 12.9 % 11.0-15.0 [facility] Hematocrit Auto (Bld) [Volum e fraction]on 12-04-2023 Hematocrit (Bld) [Volume fraction] 37.6 % 36.0-48.0 [facility] Hemoglobin [Mass/volume] in Bloodon 12-04-2023 Hemoglobin (Bld) [Mass/Vol] 12.7 g/dL 12.0-16.0 [facility] Laboratory - Chemistry and C hemistry - challengeon 12-04-2023 TSH Qn 1.374 m[IU]/L 0.358-3.740 [facility] Laboratory - Hematology and Cell countson 12-04-2023 Immature granulocytes/100 WBC (Bld) 0.1 % 0.0-0.5 [facility] Leukocytes [#/volume] correc ivette for nucleated erythrocytes in Blood by Automated counon 12-04-2023 WBC corrected for nucl RBC Auto (Bld) [#/Vol] 7.1 10 3/uL 4.0-11.0 [facility] Lymphocytes Auto (Bld) [#/Vo l]on 12-04-2023 Lymphocytes (Bld) [#/Vol] 2.0 10 3/uL 1.2-3.8 [facility] Lymphocytes/100 WBC Auto (Bl d)on 12-04-2023 Lymphocytes/100 WBC (Bld) 28.6 % 20.5-60.0 [facility] MCH Auto (RBC) [Entitic mass ]on 12-04-2023 MCH (RBC) [Entitic mass] 28.1 pg 26.7-34.0 [facility] MCHC Auto (RBC) [Mass/Vol]on 12-04-2023 MCHC (RBC) [Mass/Vol] 33.8 g/dL 29.9-35.2 [facility] MCV Auto (RBC) [Entitic vol] on 12-04-2023 MCV (RBC) [Entitic vol] 83.2 fL 81.0-99.0 [facility] Monocytes Auto (Bld) [#/Vol] on 12-04-2023 Monocytes (Bld) [#/Vol] 0.6 10 3/uL 0.3-0.8 [facility] Monocytes/100 WBC Auto (Bld) on 12-04-2023 Monocytes/100 WBC (Bld) 7.9 % 1.7-12.0 [facility] Neutrophils Auto (Bld) [#/Vo l]on 12-04-2023 Neutrophils (Bld) [#/Vol] 4.2 10 3/uL 1.4-6.5 [facility] Neutrophils/100 WBC Auto (Bl d)on 12-04-2023 Neutrophils/100 WBC (Bld) 59.4 % 43.0-75.0 [facility] No Panel Informationon 12-03 Anti-Double Strand DNA Antibody <1 [IU]/mL 0-9 [facility] Comment on above: Negative <5 Equivoca l 5 - 9 Positive >9 Eosinophils # (Auto) 0.2 10 3/uL 0.0-0.7 [facility] Immature Granulocyte # (Auto) 0.01 10 3/uL 0.00-0.03 [facility] Platelet mean volume Auto (B ld) [Entitic vol]on 12-04-2023 Platelet mean volume (Bld) [Entitic vol] 10.2 fL 9.5-13.5 [facility] Platelets Auto (Bld) [#/Vol] on 12-04-2023 Platelets (Bld) [#/Vol] 275 10 3/uL 150-450 [facility] RBC Auto (Bld) [#/Vol]on RBC (Bld) [#/Vol] 4.52 10 6/uL 4.20-5.40 [facility] Serum nuclear antibody titer on 12-04-2023 Nuclear Ab (S) [Titer] Negative Negative [facility] Comment on above: Performed at: - [employer] [address] [id number] Director: Joe Cox PhD, Phone: [phone] Serum or plasma chromatin an tibody assay (units/volume)on 12-04-2023 Chromatin Ab Qn <0.2 AI 0.0-0.9 [facility] Serum or plasma complement C 3 measurement (mass/volume)on 12-04-2023 Complement C3 [Mass/Vol] 113 mg/dL 82-167 [facility] Serum or plasma complement C 4 measurement (mass/volume)on 12-04-2023 Complement C4 [Mass/Vol] 10 mg/dL Abnormal 12-38 [facility] Urinalysis - AUTOMATEDon Appearance (U) clear [employer] Other Bilirubin Ql (U) Negative [employer] Other Color (U) yellow [employer] Other Glucose Ql (U) Negative [employer] Other Hemoglobin Ql (U) [employer] Other Ketones Ql (U) Negative [employer] Other Leukocyte esterase Test strip Ql (U) [employer] Other Nitrite Ql (U) Negative [employer] Other pH (U) 5.5 [pH] [employer] Other Protein Ql (U) Negative [employer] Other Specific gravity (U) [Rel density] 1.025 [employer] Other Urobilinogen (U) [Mass/Vol] 0.2 mg/dL [employer] Other Urinalysis - AUTOMATED [employer] Other Urine Cultureon 04-20-2023 Bacteria identified Cx Nom (U) ORGANISM: Escherichia coli (O:ESCCOL) [place] Count 10,000 Organism Comments Pure Growth Aerobic JANNETTE Charge (NMIC56) ----- SUSCEPTIBILITY ---- ORGANISM: O:ESCCOL ANTIBIOTIC INTERPRETATION JANNETTE Amikacin S <16 Amoxacillin/K Clavulanate S <8 Ampicillin S <8 Ampicillin/Sulbactam S <4 Aztreonam S <4 Cefazolin S <2 Cefepime S <2 Ceftazidime S <1 Ceftazidime/Avibacta m S <4 Ceftolozane/Tazobact am S <2 Ceftriaxone S <1 Cefuroxime S <4 Ciprofloxacin S <0.25 Ertapenem S <0.5 Gentamicin S <2 Levofloxacin S <0.5 Meropenem S <1 Meropenem/Vaborbacta m S <2 Nitrofurantoin S <32 Piperacillin/Tazobac taveras S <8 Tetracycline S <4 Tigecycline S <2 Tobramycin S <2 Trimethoprim/Sulfame thoxazole S <0.5 S = SUSCEPTIBLE I = INTERMEDIATE R = RESISTANT BLANK = DATA NOT AVAILABLE, OR DRUG NOT ADVISABLE OR TESTED R* = RESISTANCE DUE TO EXTENDED SPECTRUM BETA-LACTAMASES ESBL = EXTENDED SPECTRUM BETA-LACTAMASE TFG = THYMIDINE-DEPENDENT STRAIN MARIAH = BETA-LACTAMASE POSITIVE IB = INDUCIBLE BETA-LACTAMASE. APPEARS IN PLACE OF 'S' WITH SPECIES KNOWN TO POSSESS INDUCIBLE BETA-LACTAMASES. POTENTIALLY THEY MAY BECOME RESISTANT TO ALL B-LACTAM DRUGS. PERFORMED BY: [place] [address] PATHOLOGIST REPORTING PROCESS CONSULTANT COLEEN ALMANZA M.D. Normal [facility] Comment on above: Performed By: #### C UU #### [address] FACTOR V LEIDEN MUTATION VIVIEN LYSISon 09-18-2022 Factor V Leiden Comment Normal [facility] Comment on above: Result Comment: Resu lt: c.1601G>A (p.[id number]) - Not Detected . This result is not associated with an increased risk for venous thromboembolism. See Additional Clinical Information and Comments. Additional Clinical Information: Venous thromboembolism is a multifactorial disease influenced by genetic, environmental, and circumstantial risk factors. The c.1601G>A (p. [id number]) variant in the F5 gene, commonly referred to as Factor V Leiden, is a genetic risk factor for venous thromboembolism. Heterozygous carriers of this variant have a 6- to 8-fold increased risk for venous thromboembolism. Individuals homozygous for this variant (ie, with a copy of the variant on each chromosome) have an approximately 80-fold increased risk for venous thromboembolism. Individuals who carry both a c.*97G>A variant in the F2 gene and Factor V Leiden have an approximately 20-fold increased risk for venous thromboembolism. Risks are likely to be even higher in more complex genotype combinations involving the F2 c.*97G>A variant and Factor V Leiden (PMID: 29328850). Additional risk factors include but are not limited to: deficiency of protein C, protein S, or antithrombin III, age, male sex, personal or family history of deep vein thromboembolism, smoking, surgery, prolonged immobilization, malignant neoplasm, tamoxifen treatment, raloxifene treatment, oral contraceptive use, hormone replacement therapy, and . Management of thrombotic risk and thrombotic events should follow established guidelines and fit the clinical circumstance. This result cannot predict the occurrence or recurrence of a thrombotic event. . Comment: Genetic counseling is recommended to discuss the potential clinical implications of positive results, as well as recommendations for testing family members. . Genetic Coordinators are available for health care providers to discuss results at [phone] . Test Details: Variant Analyzed: c.1601G>A (p. [id number]), referred to as Factor V Leiden . Methods/Limitations: DNA analysis of the F5 gene (NM_000130.5) was performed by PCR amplification followed by restriction enzyme analysis. The diagnostic sensitivity is >99%. Results must be combined with clinical information for the most accurate interpretation. Molecular-based testing is highly accurate, but as in any laboratory test, diagnostic errors may occur. False positive or false negative results may occur for reasons that include genetic variants, blood transfusions, bone marrow transplantation, somatic or tissue-specific mosaicism, mislabeled samples, or erroneous representation of family relationships. . This test was developed and its performance characteristics determined by [employer]. It has not been cleared or approved by the Food and Drug Administration. . References: Ashley Levy, Coco CHRISTIAN, Cruz R, Alphonso WW, Satnam JH; [facility] Professional Practice and Guidelines Committee. Addendum: [place] [employer] consensus statement on factor V Leiden mutation testing. Renetta Med. 2020Aug 18. doi: 10.1038/[id number]-s. PMID: 80947299. . Reyna LARSEN. Factor V Leiden Thrombophilia. 1998October 27 (Updated 2017Jun 19). In: Mickey MP, Jia HH, Isaac RA, et al., editors. Marjorie(R) (Internet). [place] [facility], [place]; 5483-2052. Available from: https://www.ncbi.nlm.nih.gov/books/JGY7585/ . Nick Levy, Coco CHRISTIAN, Molina X, Al B, Arvind EB, Sherley P, Austin CS; [facility] Laboratory [place] [employer] Committee. Venous thromboembolism laboratory testing (factor V Leiden and factor II c.*97G>A), 2018 update: a technical standard of the [place] [employer] ([employer]). Renetta Med. 2018 May;20(12):4241-8812. doi: 10.1038/[id number]-k. Epub 2017Mar 20. PMID: 62762584. . Carmella Anderson, PhD, [facility] Zoë Espinoza, PhD Veto Salgado, PhD, [facility] Jarrett Morales, PhD, [facility] Espinoza Mazariegos, PhD, [facility] Michelle Tsang, PhD, [facility] Maegan Yepez, PhD, [facility] Vira Teague, PhD, [facility] Performed By: #### C BC #### [facility] [address] [place] [address] Dr. Brittany Brown FACTOR II DNA ANALYSISon Factor II DNA Analysis Comment Normal [facility] Comment on above: Result Comment: Resu lt: c.*97G>A - Not Detected . This result is not associated with an increased risk for venous thromboembolism. See Additional Clinical Information and Comments. Additional Clinical Information: Venous thromboembolism is a multifactorial disease influenced by genetic, environmental, and circumstantial risk factors. The c.*97G>A variant in the F2 gene is a genetic risk factor for venous thromboembolism. Heterozygous carriers have a 2- to 4-fold increased risk for venous thromboembolism. Homozygotes for the c.*97G>A variant are rare. The annual risk of VTE in homozygotes has been reported to be 1.1%/year. Individuals who carry both a c.*97G>A variant in the F2 gene and a c.1601G>A (p. [id number]) variant in the F5 gene (commonly referred to as Factor V Leiden) have an approximately 20- fold increased risk for venous thromboembolism. Risks are likely to be even higher in more complex genotype combinations involving the F2 c.*97G>A variant and Factor V Leiden (PMID: [id number]). Additional risk factors include but are not limited to: deficiency of protein C, protein S, or antithrombin III, age, male sex, personal or family history of deep vein thromboembolism, smoking, surgery, prolonged immobilization, malignant neoplasm, tamoxifen treatment, raloxifene treatment, oral contraceptive use, hormone replacement therapy, and . Management of thrombotic risk and thrombotic events should follow established guidelines and fit the clinical circumstance. This result cannot predict the occurrence or recurrence of a thrombotic event. . Comments: Genetic counseling is recommended to discuss the potential clinical implications of positive results, as well as recommendations for testing family members. Genetic Coordinators are available for health care providers to discuss results at [phone] ([phone]). . Test Details: Variant analyzed: c.*97G>A, previously referred to as [id number] . Methods/Limitations: DNA analysis of the F2 gene ([id number]) was performed by PCR amplification followed by restriction enzyme analysis. The diagnostic sensitivity is >99%. Results must be combined with clinical information for the most accurate interpretation. Molecular-based testing is highly accurate, but as in any laboratory test, diagnostic errors may occur. False positive or false negative results may occur for reasons that include genetic variants, blood transfusions, bone marrow transplantation, somatic or tissue-specific mosaicism, mislabeled samples, or erroneous representation of family relationships. . This test was developed and its performance characteristics determined by [employer]. It has not been cleared or approved by the Food and Drug Administration. . References: Ashley S, Coco CHRISTIAN, Cruz R, Alphonso WW, Satnam JH; [facility] Professional Practice and Guidelines Committee. Addendum: [place] [employer] consensus statement on factor V Leiden mutation testing. Renetta Med. 2020Aug 18. doi: 10.1038/x56769-038-78919-s. PMID: 71041233. . Reyna LARSEN. Prothrombin Thrombophilia. 2005Jan 07 [Updated 2020Jul 20]. In: Mickey MP, Jia HH, Isaac RA, et al., editors. Marjorie(R) [Internet]. [place]): [facility], [place]; 2414-3124. Available from: https://www.ncbi.nlm.nih.gov/books/XEP5640/ . Nick Levy, Coco CHRISTIAN, Molina X, Al B, Arvind EB, Sherley P, Austin CS; [facility] Laboratory [employer]gage Committee. Venous thromboembolism laboratory testing (factor V Leiden and factor II c.*97G>A), 2018 update: a technical standard of the [place] [employer] ([employer]). Renetta Med. 2018 May;20(12):2715-6184. doi: 10.1038/u51302-567-1119-b. Epub 2017Mar 20. PMID: 18809362. . Carmella Anderson, PhD, FACMG Zoë Espinoza, PhD Veto Salgado, PhD, FACMG Jarrett Morales, PhD, FACMG Espinoza Mazariegos, PhD, FACMG Michelle Tsang, PhD, FACMG Maegan Yepez, PhD, FAC Vira Teague, PhD, FAC Performed By: #### C BC #### [facility] [address] [place] [address] Dr. Brittany Brown CBC AUTO DIFFon 09-12-2022 BASO # 0.1 103/ul Normal 0.0-0.1 [facility] Comment on above: Performed By: #### C BC #### [facility] [address] [place] [address] Dr. Brittany Brown Basophils/100 WBC (Bld) 0.5 % Normal 0.2-2.0 [facility] Comment on above: Performed By: #### C BC #### [facility] [address] [place] [address] Dr. Brittany Brown EO # 0.2 103/ul Normal 0.0-0.7 [facility] Comment on above: Performed By: #### C BC #### [facility] [address] [place] [address] Dr. Brittany Brown Eosinophils/100 WBC (Bld) 1.7 % Normal 0.9-7.0 [facility] Comment on above: Performed By: #### C BC #### [facility] [address] [place] [address] Dr. Brittany Brown Erythrocyte distribution width (RBC) [Ratio] 14.9 % Normal 11.0-15.0 [facility] Comment on above: Performed By: #### C BC #### [facility] [address] [place] [address] Dr. Brittany Brown Hematocrit (Bld) [Volume fraction] 27.1 % Critically low 36.0-48.0 [facility] Comment on above: Performed By: #### C BC #### [facility] [address] [place] [address] Dr. Brittany Brown Hemoglobin (Bld) [Mass/Vol] 8.7 g/dL Critically low 12.0-16.0 [facility] Comment on above: Performed By: #### C BC #### [facility] [address] [address] [address] Brittany Brown IG # 0.10 10e3/ul Critically high 0.00-0.03 [facility] Comment on above: Performed By: #### C BC #### [facility] [address] [place] [address] Dr. Brittany Brown IG % 1.0 % Critically high 0.0-0.5 [facility] Comment on above: Performed By: #### C BC #### [facility] [address] [place] [address] Dr. Brittany Brown LYMPH # 1.6 103/ul Normal 1.2-3.8 [facility] Comment on above: Performed By: #### C BC #### [facility] [address] [place] [address] Dr. Brittany Brown Lymphocytes/100 WBC (Bld) 15.4 % Critically low 20.5-60.0 [facility] Comment on above: Performed By: #### C BC #### [facility] [address] [place] [address] Dr. Brittany Brown MANUAL DIFF REQ NO Normal [facility] Comment on above: Performed By: #### C BC #### [facility] [address] [place] [address] Dr. Brittany Brown MCH (RBC) [Entitic mass] 26.0 pg Critically low 26.7-34.0 [facility] Comment on above: Performed By: #### C BC #### [facility] [address] [place] [address] Dr. Brittany Brown MCHC (RBC) [Mass/Vol] 32.1 g/dL Normal 29.9-35.2 [facility] Comment on above: Performed By: #### C BC #### [facility] [address] [place] [address] Dr. Brittany Brown MCV (RBC) [Entitic vol] 81.1 fL Normal 81.0-99.0 [facility] Comment on above: Performed By: #### C BC #### [facility] [address] [place] [address] Dr. Brittany Brown MONO # 0.7 103/ul Normal 0.3-0.8 [facility] Comment on above: Performed By: #### C BC #### [facility] [address] [place] [address] Dr. Brittany Brown Monocytes/100 WBC (Bld) 7.1 % Normal 1.7-12.0 [facility] Comment on above: Performed By: #### C BC #### [facility] [address] [place] [address] Dr. Brittany Brown NEUT # 7.6 103/ul Critically high 1.4-6.5 [facility] Comment on above: Performed By: #### C BC #### [facility] [address] [place] [address] Dr. Brittany Brown Neutrophils/100 WBC (Bld) 74.3 % Normal 43.0-75.0 [facility] Comment on above: Performed By: #### C BC #### [facility] [address] [place] [address] Dr. Brittany Brown Platelet mean volume (Bld) [Entitic vol] 9.8 fL Normal 9.5-13.5 [facility] Comment on above: Performed By: #### C BC #### [facility] [address] [place] [address] Dr. Brittany Brown PLT 224 103/ul Normal 150-450 [facility] Comment on above: Performed By: #### C BC #### [facility] [address] [place] [address] Dr. Brittany Brown RBC 3.34 106/ul Critically low 4.20-5.40 [facility] Comment on above: Performed By: #### C BC #### [facility] [address] [address] [address] Brittany rBown WBC 10.2 103/ul Normal 4.0-11.0 [facility] Comment on above: Performed By: #### C BC #### [facility] [address] [address] [address] Brittany Brown CBC AUTO DIFFon 09-11-2022 BASO # 0.1 103/ul Normal 0.0-0.1 [facility] Comment on above: Performed By: #### C BC #### [facility] [address] [address] [address] Brittany Brown Basophils/100 WBC (Bld) 0.5 % Normal 0.2-2.0 [facility] Comment on above: Performed By: #### C BC #### [facility] [address] [place] [address] Dr. Brittany Brown EO # 0.1 103/ul Normal 0.0-0.7 [facility] Comment on above: Performed By: #### C BC #### [facility] [address] [place] [address] Dr. Brittany Brown Eosinophils/100 WBC (Bld) 1.1 % Normal 0.9-7.0 [facility] Comment on above: Performed By: #### C BC #### [facility] [address] [place] [address] Dr. Brittany Brown Erythrocyte distribution width (RBC) [Ratio] 14.6 % Normal 11.0-15.0 [facility] Comment on above: Performed By: #### C BC #### [facility] [address] [place] [address] Dr. Brittany Brown Hematocrit (Bld) [Volume fraction] 32.4 % Critically low 36.0-48.0 [facility] Comment on above: Performed By: #### C BC #### [facility] [address] [place] [address] Dr. Brittany Brown Hemoglobin (Bld) [Mass/Vol] 10.6 g/dL Critically low 12.0-16.0 [facility] Comment on above: Performed By: #### C BC #### [facility] [address] [place] [address] Dr. Brittany Brown IG # 0.11 10e3/ul Critically high 0.00-0.03 [facility] Comment on above: Performed By: #### C BC #### [facility] [address] [place] [address] Dr. Brittany Brown IG % 1.1 % Critically high 0.0-0.5 [facility] Comment on above: Performed By: #### C BC #### [facility] [address] [place] [address] Dr. Brittany Brown LYMPH # 1.2 103/ul Normal 1.2-3.8 [facility] Comment on above: Performed By: #### C BC #### [facility] [address] [place] [address] Dr. Brittany Brown Lymphocytes/100 WBC (Bld) 12.8 % Critically low 20.5-60.0 [facility] Comment on above: Performed By: #### C BC #### [facility] [address] [place] [address] Dr. Brittany Brown MANUAL DIFF REQ NO Normal [facility] Comment on above: Performed By: #### C BC #### [facility] [address] [place] [address] Dr. Brittany Brown MCH (RBC) [Entitic mass] 25.8 pg Critically low 26.7-34.0 [facility] Comment on above: Performed By: #### C BC #### [facility] [address] [place] [address] Dr. Brittany Brown MCHC (RBC) [Mass/Vol] 32.7 g/dL Normal 29.9-35.2 [facility] Comment on above: Performed By: #### C BC #### [facility] [address] [place] [address] Dr. Brittany Brown MCV (RBC) [Entitic vol] 78.8 fL Critically low 81.0-99.0 [facility] Comment on above: Performed By: #### C BC #### [facility] [address] [address] [address] Brittany Brown MONO # 0.7 103/ul Normal 0.3-0.8 [facility] Comment on above: Performed By: #### C BC #### [facility] [address] [address] [address] Brittany Brown Monocytes/100 WBC (Bld) 6.8 % Normal 1.7-12.0 [facility] Comment on above: Performed By: #### C BC #### [facility] [address] [address] [address] Brittany Brown NEUT # 7.5 103/ul Critically high 1.4-6.5 [facility] Comment on above: Performed By: #### C BC #### [facility] [address] [place] [address] Dr. Brittany Brown Neutrophils/100 WBC (Bld) 77.7 % Critically high 43.0-75.0 [facility] Comment on above: Performed By: #### C BC #### [facility] [address] [place] [address] Dr. Brittany Brown Platelet mean volume (Bld) [Entitic vol] 10.4 fL Normal 9.5-13.5 [facility] Comment on above: Performed By: #### C BC #### [facility] [address] [place] [address] Dr. Brittany Brown PLT 259 103/ul Normal 150-450 [facility] Comment on above: Performed By: #### C BC #### [facility] [address] [place] [address] Dr. Brittany Brown RBC 4.11 106/ul Critically low 4.20-5.40 [facility] Comment on above: Performed By: #### C BC #### [facility] [address] [address] [address] Brittany Brown WBC 9.7 103/ul Normal 4.0-11.0 [facility] Comment on above: Performed By: #### C BC #### [facility] [id number] Brittany Brown DRUG SCREEN RAPID (URINE)on 09-11-2022 AMP Negative Normal NEGATIVE [facility] Comment on above: Performed By: #### D RUGRPD ####[facility] [address] [address]Dr. Brittany Brown BAR Negative Normal NEGATIVE [facility] Comment on above: Performed By: #### D RUGRPD ####[facility] [address] [address]Dr. Brittany Brown BUP Negative Normal NEGATIVE [facility] Comment on above: Performed By: #### D RUGRPD ####[facility] [address] [address]Dr. Brittany Brown BZO Negative Normal NEGATIVE [facility] Comment on above: Performed By: #### D RUGRPD ####[facility] [address] [address]Dr. Brittany Brown PARAS Negative Normal NEGATIVE [facility] Comment on above: Performed By: #### D RUGRPD ####[facility] [address] [address]Dr. Brittany Brown CUT-OFFS SEE BELOW Normal [facility] Comment on above: Result Comment: AMP (Amphetamine): 500ng/mL, BAR (Barbituates): 200 ng/mL, BZO (Benzodiazepines): 150 ng/mL, BUP (Buprenorphine): 10 ng/mL, PARAS (Cocaine): 150 ng/mL, mAMP (Methamphetamine): 500 ng/mL, MTD (Methadone): 200 ng/mL, OPI (Opiates): 100 ng/mL, OXY (Oxycodone): 100 ng/mL, PCP (Phencyclidine): 25 ng/mL, PPX (Propoxyphene): 300 ng/mL, THC (Cannabinoids): 50 ng/mL, TCA (Trycyclic Antidepressants): 300 ng/mL Performed By: #### D RUGRPD ####[facility] [address] [address]Dr. Brittany Brown DRUG CUT HEADER DRUG CLASS TEST SYSTEM CUT-OFF CONCENTRATIONS ARE FOLLOWS: Normal [facility] Comment on above: Performed By: #### D RUGRPD ####[facility] [address] [address]Dr. Brittany Brown mAMP Negative Normal NEGATIVE [facility] Comment on above: Performed By: #### D RUGRPD ####[facility] [address] [id number]. Yiginger Brown MTD Negative Normal NEGATIVE [facility] Comment on above: Performed By: #### D RUGRPD ####[facility] [address] [address]Dr. Yigigner Brown OPI Negative Normal NEGATIVE [facility] Comment on above: Performed By: #### D RUGRPD ####[facility] [address] [address]Dr. Yiginger Brown OXY Negative Normal NEGATIVE [facility] Comment on above: Performed By: #### D RUGRPD ####[facility] [address] [address]Dr. Yiginger Brown PCP Negative Normal NEGATIVE [facility] Comment on above: Performed By: #### D RUGRPD ####[facility] [address] [address]Dr. Brittany Brown PPX Negative Normal NEGATIVE [facility] Comment on above: Performed By: #### D RUGRPD ####[facility] [address] [address]Dr. Yiginger Brown TCA Negative Normal NEGATIVE [facility] Comment on above: Performed By: #### D RUGRPD ####[facility] [address] [address]Dr. Brittany Brown THC Negative Normal NEGATIVE [facility] Comment on above: Performed By: #### D RUGRPD ####[facility] [address] [address]Dr. Brittany Brown TYPE AND SCREENon 09-11-2022 TYPE AND SCREEN Negative Normal [facility] Comment on above: Performed By: #### C T/NGNA #### [facility] [address] [place] [address] Dr. Brittany Brown PREG BIOPHY W NON STRESSo n 09-04-2022 US PREG BIOPHY W NON STRESS EXAMINATION: US PREG BIOPHY W NON STRESS HISTORY: Postural orthostatic tachycardia syndrome COMPARISON: Ultrasound biophysical 08/28/2022 FINDINGS: BREATHING MOVEMENTS: 2.0 GROSS BODY MOVEMENTS: 2.0 TONE: 2.0 QUALITATIVE AMNIOTIC FLUID VOLUME: 2.0 PRESENTATION: CEPHALIC HEART RATE: 132.4 bpm bpm. AMNIOTIC FLUID VOLUME: 16.1 cm GESTATIONAL AGE: 38 weeks 0 days CONCLUSION: Total biophysical profile score 8.0. Electronically authenticated by: DI BRIZUELA Date: 2022-09-04 16:35 Normal [facility] GROUP B STREP CULTUREon 08-14 S. agalactiae Ag Ql (Unsp spec) Isolate 1 Streptococcus agalactiae Heavy growth of ORGANISM 1 Streptococcus agalactiae ANTIBIOTIC M.I.C RX STATUS Benzylpenicillin <=0.06 S F Ampicillin <=0.25 S F Cefotaxime <=0.12 S F Ceftriaxone <=0.12 S F Levofloxacin 0.5 S F Inducible Clindamycin Resistance Neg NEG F Erythromycin >=8 R F Clindamycin >=1 R F Linezolid <=2 S F Vancomycin 0.5 S F Tetracycline >=16 R F Normal [facility] Comment on above: Performed By: #### G BSCX #### [facility] [address] [place] [address] Dr. Brittany Brown PREG BIOPHY W NON STRESSo n 08-28-2022 US PREG BIOPHY W NON STRESS EXAMINATION: US PREG BIOPHY W NON STRESS HISTORY: Postural orthostatic tachycardia syndrome COMPARISON: Ultrasound patency biophysical 08/21/2022 FINDINGS: BREATHING MOVEMENTS: 2.0 GROSS BODY MOVEMENTS: 2.0 TONE: 2.0 QUALITATIVE AMNIOTIC FLUID VOLUME: 2.0 PRESENTATION: CEPHALIC HEART RATE: 149.2 bpm bpm. AMNIOTIC FLUID VOLUME: 16.4 cm GESTATIONAL AGE: 37 weeks 0 days CONCLUSION: Total biophysical profile score 8.0. Electronically authenticated by: DI BRIZUELA Date: 2022-08-28 16:34 Normal [facility] US PREG BIOPHY W NON STRESSo n 08-21-2022 US PREG BIOPHY W NON STRESS EXAMINATION: US PREG BIOPHY W NON STRESS HISTORY: Postural orthostatic tachycardia syndrome COMPARISON: Ultrasound biophysical 08/14/2022 FINDINGS: BREATHING MOVEMENTS: 2.0 GROSS BODY MOVEMENTS: 2.0 TONE: 2.0 QUALITATIVE AMNIOTIC FLUID VOLUME: 2.0 PRESENTATION: CEPHALIC HEART RATE: 142.9 bpm bpm. AMNIOTIC FLUID VOLUME: 14.3 cm GESTATIONAL AGE: 36 weeks 0 days CONCLUSION: Total biophysical profile score 8.0. Electronically authenticated by: DI BRIZUELA Date: 2022-08-21 17:57 Normal [facility] US PREG BIOPHY W NON STRESSo n 08-14-2022 US PREG BIOPHY W NON STRESS EXAMINATION: US PREG BIOPHY W NON STRESS HISTORY: Postural orthostatic tachycardia syndrome COMPARISON: No relevant comparison available. TECHNIQUE: Ultrasound biophysical profile was performed in the radiology department. non-reactive stress testing was performed by nursing staff in the birthing center. FINDINGS: BREATHING MOVEMENTS: 2.0 GROSS BODY MOVEMENTS: 2.0 TONE: 2.0 QUALITATIVE AMNIOTIC FLUID VOLUME: 2.0 PRESENTATION: CEPHALIC HEART RATE: 140.6 bpm H.B./min AMNIOTIC FLUID VOLUME: 12.4 cm cm GESTATIONAL AGE: 35 weeks 0 days CONCLUSION: Total biophysical profile score: 8.0 Electronically authenticated by: NELA MEZA Date: 2022-08-14 17:30 Normal [facility] PREG BIOPHY W NON STRESSo n 08-08-2022 US PREG BIOPHY W NON STRESS EXAMINATION: US PREG BIOPHY W NON STRESS HISTORY: Postural orthostatic tachycardia syndrome COMPARISON: Ultrasound growth 07/23/2022 FINDINGS: BREATHING MOVEMENTS: 2.0 GROSS BODY MOVEMENTS: 2.0 TONE: 2.0 QUALITATIVE AMNIOTIC FLUID VOLUME: 2.0 PRESENTATION: Cephalic HEART RATE: 127.4 bpm bpm. AMNIOTIC FLUID VOLUME: 17.0 cm GESTATIONAL AGE: 34 weeks 1 days CONCLUSION: Total biophysical profile score 8.0. Electronically authenticated by: DI BRIZUELA Date: 2022-08-08 15:14 Normal [facility] US PREG GROWTHon 08-08-2022 US PREG GROWTH EXAMINATION: US PREG GROWTH HISTORY: Uterine size for dates discrepancy COMPARISON: Ultrasound growth 07/23/2022 FINDINGS: Heart Rate: 144.0 bpm Number: 1.0 Position: Cephalic Amniotic Fluid Volume: 13.9 cm Maximum Vertical Pocket: 3.8 cm BIOMETRY: BPD: 8.5 cm cm; 34 weeks 1 days HC: 31.3 cmcm; 35 weeks 1 days AC: 31.5 cm cm; 35 weeks 3 days FL: 6.6 cm cm; 34 weeks 1 days EFW: 2539.9 grams; 67% FL/AC: 21.0 FL/BPD: 78.2 HC/AC: 1.0 GESTATIONAL AGE: Age by EDC: 34 weeks 1 days TANJA by EDC: 09/18/2022 Age by US: 34 weeks 5 days TANJA by US: 09/14/2022 IMPRESSION: 1. Single live intrauterine with growth detailed above. 2. Mildly dilated renal pelvis bilaterally, 7 mm on right, 10 mm on left. Consider follow-up. Electronically authenticated by: DI BRIZUELA Date: 2022-08-08 15:27 Normal [facility] US PREG GROWTHon 07-23-2022 US PREG GROWTH EXAMINATION: US PREG GROWTH HISTORY: Large for gestation age fetus COMPARISON: Ultrasound growth 06/26/2022 FINDINGS: Heart Rate: 136.0 bpm Number: 1.0 Position: CEPHALIC Amniotic Fluid Volume: 14.4 cm Maximum Vertical Pocket: 6.9 cm Cervix: 3.7 cm in length, closed. BIOMETRY: BPD: 8.0 cm cm; 32 weeks 0 days HC: 29.7 cmcm; 32 weeks 6 days AC: 28.8 cm cm; 32 weeks 6 days FL: 6.5 cm cm; 33 weeks 2 days EFW: 2072.4 grams; 73% FL/AC: 22.4 FL/BPD: 81.0 HC/AC: 1.0 GESTATIONAL AGE: Age by EDC: 31 weeks 6 days TANJA by EDC: 09/18/2022 Age by US: 32 weeks 5 days TANJA by US: 09/12/2022 IMPRESSION: 1. Single live intrauterine with growth detailed above. Electronically authenticated by: DI BRIZUELA Date: 2022-07-23 15:28 Normal [facility] US PREG CERVICAL LENGTHon US PREG CERVICAL LENGTH EXAMINATION: US PREG CERVICAL LENGTH HISTORY: Short cervical length in COMPARISON: Ultrasound growth 06/26/2022 TECHNIQUE: Transabdominal and transvaginal sonographic examination for cervical length. FINDINGS: CERVIX LENGTH: 4.1 cm; closed. POSITION: Cephalic Age by EDC: 29 weeks 6 days TANJA by EDC: 09/18/2022 IMPRESSION: 1. Closed cervix 4.1 cm in length. Electronically authenticated by: DI BRIZUELA Date: 2022-07-09 14:59 Normal [facility] US PREG GROWTHon 06-27-2022 US PREG GROWTH EXAMINATION: US PREG GROWTH HISTORY: Routine care COMPARISON: No relevant comparison available. FINDINGS: Heart Rate: 151.7 bpm Number: 1.0 Position: CEPHALIC Amniotic Fluid Volume: 18.1 cm Maximum Vertical Pocket: 7.8 cm BIOMETRY: BPD: 7.3 cm cm; 29 weeks 2 days HC: 26.2 cmcm; 28 weeks 3 days AC: 25.3 cm cm; 29 weeks 4 days FL: 5.6 cm cm; 29 weeks 4 days EFW: 1385.1 grams; 87% FL/AC: 22.2 FL/BPD: 76.9 HC/AC: 1.0 GESTATIONAL AGE: Age by EDC: 28 weeks 0 days TANJA by EDC: 09/18/2022 Age by US: 29 weeks 2 days TANJA by US: 09/09/2022 IMPRESSION: 1. Single live intrauterine with growth detailed above. Electronically authenticated by: DI BRIZUELA Date: 2022-06-27 08:02 Normal [facility] CBC AUTO DIFFon 06-14-2022 BASO # 0.0 103/ul Normal 0.0-0.1 [facility] Comment on above: Performed By: #### C BC ####[facility] [address] [place] [address]Dr. Brittany Brown Basophils/100 WBC (Bld) 0.4 % Normal 0.2-2.0 [facility] Comment on above: Performed By: #### C BC ####[facility] [address] [place] [address]Dr. Brittany Brown EO # 0.2 103/ul Normal 0.0-0.7 [facility] Comment on above: Performed By: #### C BC ####[facility] [address] [place] [id number]. Brittany Brown Eosinophils/100 WBC (Bld) 2.2 % Normal 0.9-7.0 [facility] Comment on above: Performed By: #### C BC ####[facility] [address] [place] [id number]. Brittany Brown Erythrocyte distribution width (RBC) [Ratio] 13.5 % Normal 11.0-15.0 [facility] Comment on above: Performed By: #### C BC ####[facility] [address] [place], [place] [address]Dr. Brittany Brown Hematocrit (Bld) [Volume fraction] 32.4 % Critically low 36.0-48.0 [facility] Comment on above: Performed By: #### C BC ####[facility] [address] [place], [place] [address]Dr. Brittany Brown Hemoglobin (Bld) [Mass/Vol] 11.2 g/dL Critically low 12.0-16.0 [facility] Comment on above: Performed By: #### C BC ####[facility] [address] [place], [place] [address]Dr. Brittany Brown IG # 0.10 10e3/ul Critically high 0.00-0.03 [facility] Comment on above: Performed By: #### C BC ####[facility] [address] [place], [place] [address]Dr. Brittany Brown IG % 0.9 % Critically high 0.0-0.5 [facility] Comment on above: Performed By: #### C BC ####[facility] [address] [place], [place] [address]Dr. Brittany Brown LYMPH # 1.2 103/ul Normal 1.2-3.8 [facility] Comment on above: Performed By: #### C BC ####[facility] L[address] [place], [place] [address]Dr. Brittany Brown Lymphocytes/100 WBC (Bld) 11.1 % Critically low 20.5-60.0 [facility] Comment on above: Performed By: #### C BC ####[facility] [address] [place] [id number]. Brittany Brown MANUAL DIFF REQ NO Normal [facility] Comment on above: Performed By: #### C BC ####[facility] [address] [place] [id number]. Brittany Brown MCH (RBC) [Entitic mass] 29.9 pg Normal 26.7-34.0 [facility] Comment on above: Performed By: #### C BC ####[facility] [address] [place] [id number]. Brittany Brown MCHC (RBC) [Mass/Vol] 34.6 g/dL Normal 29.9-35.2 [facility] Comment on above: Performed By: #### C BC ####[facility] [address] [place], [place] [address]Dr. Brittany Brown MCV (RBC) [Entitic vol] 86.4 fL Normal 81.0-99.0 [facility] Comment on above: Performed By: #### C BC ####[facility] [address] [place], [place] [address]Dr. Brittany Brown MONO # 0.6 103/ul Normal 0.3-0.8 [facility] Comment on above: Performed By: #### C BC ####[facility] Q[address] [place], [place] [address]Dr. Brittany Brown Monocytes/100 WBC (Bld) 5.4 % Normal 1.7-12.0 [facility] Comment on above: Performed By: #### C BC ####[facility] [address] [place], [place] [address]Dr. Brittany Brown NEUT # 8.5 103/ul Critically high 1.4-6.5 [facility] Comment on above: Performed By: #### C BC ####[facility] [address] [place] [id number]. Brittany Brown Neutrophils/100 WBC (Bld) 80.0 % Critically high 43.0-75.0 [facility] Comment on above: Performed By: #### C BC ####[facility] [address] [place], [place] [address]XoIain Brown Platelet mean volume (Bld) [Entitic vol] 9.6 fL Normal 9.5-13.5 [facility] Comment on above: Performed By: #### C BC ####[facility] [address] [place], [place] [address]OkIain Brown PLT 250 103/ul Normal 150-450 [facility] Comment on above: Performed By: #### C BC ####[facility] [address] [place], [place] [address]CnIain Brown RBC 3.75 106/ul Critically low 4.20-5.40 [facility] Comment on above: Performed By: #### C BC ####[facility] [address] [place] [id number] Brown WBC 10.6 103/ul Normal 4.0-11.0 [facility] Comment on above: Performed By: #### C BC ####[facility] [address] [place], [place] [address]Dr. Brittany Brown GLUCOSE - 1HRon 06-14-2022 Glucose [Mass/Vol] 100 mg/dL Normal 74-106 [facility] Comment on above: Performed By: #### C BC #### [facility] [address] [place], [place] [address] Dr. Brittany Brown PAP ACOG PANEL 2: 21 to 29on 05-21-2022 . . Normal [facility] Comment on above: Performed By: #### 4 [id number] ####[facility] [address] [place] [id number]. Brittany Brown Age Gdln ACOG Testing 19- Normal [facility] Comment on above: Performed By: #### 4 [id number] ####[facility] [address] [place], [place] [address]Dr. Brittany Brown DIAGNOSIS: Comment Normal [facility] Comment on above: Result Comment: NEGA TIVE FOR INTRAEPITHELIAL LESION OR MALIGNANCY. Performed By: #### 4 [id number] ####[facility] [address] [place] [id number] Brown Methodology: Comment Normal [facility] Comment on above: Result Comment: This liquid based ThinPrep(R) pap test was screened with the use of an image guided system. Performed By: #### 4 [id number] ####[facility] [address] [place], [place] [address]DrIain Brown Note: Comment Normal [facility] Comment on above: Result Comment: The Pap smear is a screening test designed to aid in the detection of premalignant and malignant conditions of the uterine cervix. It is not a diagnostic procedure and should not be used as the sole means of detecting cervical cancer. Both false-positive and false-negative reports do occur. . Performed By: #### 4 [id number] ####[place] [address]DrIain Brown Performed by: Comment Normal [facility] Comment on above: Result Comment: James Guerrier, Plaster Helper Performed By: #### 4 [id number] ####[facility] [address] [place], [place] [address]DrIain Brown Reflex Criteria: Comment Normal [facility] Comment on above: Result Comment: The HPV DNA reflex criteria were not met with this specimen result therefore, no HPV testing was performed. . Performed By: #### 4 [id number] ####[facility] [address] [place], [place] [address]DrIain Brown Specimen adequacy: Comment Normal [facility] Comment on above: Result Comment: Sati sfactory for evaluation. Endocervical and/or squamous metaplastic cells (endocervical component) are present. Performed By: #### 4 [id number] ####[facility] [address] [place], [place] [address]DrIain Brown CHLAMYDIA/GONOCOCCUS CALEB (SW AB/URINE/PAPon 05-16-2022 Chlamydia trachomatis, CALEB Negative Normal Negative [facility] Comment on above: Performed By: #### C T/NGNA #### [facility] [address] [place] [address] [address] Brittany Brown Neisseria gonorrhoeae, CALEB Negative Normal Negative [facility] Comment on above: Performed By: #### C T/NGNA #### [facility] [address] [place] [address] [address] Brittany Brown VAGINITIS/VAGINOSIS DNA PROB German 05-15-2022 Briseida species Negative Normal Negative [facility] Comment on above: Performed By: #### C BC #### [facility] [address] [place] [address] [address] Brittany Brown Gardnerella vaginalis Negative Normal Negative [facility] Comment on above: Performed By: #### C BC #### [facility] [address] [place] [address] [address] Brittany Brown Trichomonas vaginalis Negative Normal Negative [facility] Comment on above: Performed By: #### C BC #### [facility] [address] [place] [address] [address] Brittany Brown HEP B SURFACE ANTIGEN SCREEN on 02-15-2022 HBsAg Screen Negative Normal Negative [facility] Comment on above: Performed By: #### H BSANS ####[facility] [address] [place], [place] [address]Dr. Brittany Brown HEPATITIS C VIRUS AB W/ REFL EX QUANTon 02-15-2022 HCV AB <0.1 Normal 0.0-0.9 [facility] Comment on above: Performed By: #### C T/NGNA #### [facility] [address] [place] [address] [address] Brittany Brown Interpretation: Comment Normal [facility] Comment on above: Result Comment: Nega tive Not infected with HCV, unless recent infection is suspected or other evidence exists to indicate HCV infection. Performed By: #### C T/NGNA #### [facility] [address] [place] [address] Dr. Brittany Brown HIV 1 AND 2 WITH REFLEXon HIV Screen 4th Generation wRfx Non-Reactive Normal Non Reactive [facility] Comment on above: Result Comment: HIV Negative HIV-1/HIV-2 antibodies and HIV-1 p24 antigen were NOT detected. There is no laboratory evidence of HIV infection. Performed By: #### C BC #### [facility] [address] [place] [address] Dr. Brittany Brown RPR QUANTon 02-15-2022 Rapid Plasma Reagin, Quant Non-Reactive Normal NonRea<1:1 [facility] Comment on above: Result Comment: Plea se Note: This test does not meet current guidelines for screening and diagnosis of syphilis. This test is intended for following treatment response in patients being treated for syphilis infection. To screen for syphilis infection, a reflex cascade that includes both RPR and a treponema-specific assay should be utilized, such as Treponema pallidum (Syphilis) Screening [place] (554137) or Rapid Plasma Reagin (RPR) Test With Reflex to Quantitative RPR and Confirmatory Treponema pallidum Antibodies (310907). Performed By: #### R PRQ ####[facility] [address] [place] [address]Dr. Brittany Brown RUBELLA AB IGGon 02-15-2022 Rubella Antibodies, IgG 28.20 index Normal Immune >0.99 [facility] Comment on above: Result Comment: Non- immune <0.90 Equivocal 0.90 - 0.99 Immune >0.99 Performed By: #### C BC #### [facility] [address] [place] [address] Dr. Brittany Brown CBC AUTO DIFFon 02-14-2022 BASO # 0.0 103/ul Normal 0.0-0.1 [facility] Comment on above: Performed By: #### C BC #### [facility] [address] [place] [address] Dr. Brittany Brown Basophils/100 WBC (Bld) 0.3 % Normal 0.2-2.0 [facility] Comment on above: Performed By: #### C BC #### [facility] [address] [place] [address] Dr. Brittany Brown EO # 0.1 103/ul Normal 0.0-0.7 [facility] Comment on above: Performed By: #### C BC #### [facility] [address] [place] [address] Dr. Brittany Brown Eosinophils/100 WBC (Bld) 1.2 % Normal 0.9-7.0 [facility] Comment on above: Performed By: #### C BC #### [facility] [address] [place] [address] Dr. Brittany Brown Erythrocyte distribution width (RBC) [Ratio] 13.6 % Normal 11.0-15.0 [facility] Comment on above: Performed By: #### C BC #### [facility] [address] [place] [address] Dr. Brittany Brown Hematocrit (Bld) [Volume fraction] 34.7 % Critically low 36.0-48.0 [facility] Comment on above: Performed By: #### C BC #### [facility] [address] [place] [address] Dr. Brittany Brown Hemoglobin (Bld) [Mass/Vol] 11.8 g/dL Critically low 12.0-16.0 [facility] Comment on above: Performed By: #### C BC #### [facility] [address] [place] [address] Dr. Brittany Brown IG # 0.03 10e3/ul Normal 0.00-0.03 [facility] Comment on above: Performed By: #### C BC #### [facility] [address] [place] [address] Dr. Brittany Brown IG % 0.3 % Normal 0.0-0.5 [facility] Comment on above: Performed By: #### C BC #### [facility] [address] [place] [address] Dr. Brittany Brown LYMPH # 1.2 103/ul Normal 1.2-3.8 [facility] Comment on above: Performed By: #### C BC #### [facility] [address] [place] [address] Dr. Brittany Brown Lymphocytes/100 WBC (Bld) 13.9 % Critically low 20.5-60.0 [facility] Comment on above: Performed By: #### C BC #### [facility] [address] [place] [address] [address] Brittany Brown MANUAL DIFF REQ NO Normal [facility] Comment on above: Performed By: #### C BC #### [facility] [address] [place] [address] Dr. Brittany Brown MCH (RBC) [Entitic mass] 27.8 pg Normal 26.7-34.0 [facility] Comment on above: Performed By: #### C BC #### [facility] [address] [place] [address] Dr. Brittany Brown MCHC (RBC) [Mass/Vol] 34.0 g/dL Normal 29.9-35.2 [facility] Comment on above: Performed By: #### C BC #### [facility] [address] [place] [address] Dr. Brittany Brown MCV (RBC) [Entitic vol] 81.6 fL Normal 81.0-99.0 [facility] Comment on above: Performed By: #### C BC #### [facility] [address] [place] [address] Dr. Brittany Brown MONO # 0.5 103/ul Normal 0.3-0.8 [facility] Comment on above: Performed By: #### C BC #### [facility] [address] [place] [address] Dr. Brittany Brown Monocytes/100 WBC (Bld) 5.9 % Normal 1.7-12.0 [facility] Comment on above: Performed By: #### C BC #### [facility] [address] [place] [address] Dr. Brittany Brown NEUT # 6.8 103/ul Critically high 1.4-6.5 [facility] Comment on above: Performed By: #### C BC #### [facility] [address] [place] [address] Dr. Brittany Brown Neutrophils/100 WBC (Bld) 78.4 % Critically high 43.0-75.0 [facility] Comment on above: Performed By: #### C BC #### [facility] [address] [place] [address] [address] Brittany Brown Platelet mean volume (Bld) [Entitic vol] 9.9 fL Normal 9.5-13.5 [facility] Comment on above: Performed By: #### C BC #### [facility] [address] [place] [address] Dr. Brittany Brown PLT 271 103/ul Normal 150-450 [facility] Comment on above: Performed By: #### C BC #### [facility] [address] [place] [address] Dr. Brittany Brown RBC 4.25 106/ul Normal 4.20-5.40 [facility] Comment on above: Performed By: #### C BC #### [facility] [address] [place] [address] Dr. Brittany Brown WBC 8.7 103/ul Normal 4.0-11.0 [facility] Comment on above: Performed By: #### C BC #### [facility] [address] [place] [address] Dr. Brittany Brown CULTURE URINEon 02-14-2022 CULTURE URINE Culture Observations: NO GROWTH. Normal [facility] Comment on above: Performed By: #### C T/NGNA #### [facility] [address] [place] [address] Dr. Brittany Brown GLYCOHEMOGLOBIN A1Con 2021 ADA RECOMMENDATION SEE BELOW Normal [facility] Comment on above: Result Comment: ADA RECOMMENDED LIMIT 4.0 - 6.0 ADA THERAPEUTIC TARGET < 7.0 ACTION SUGGESTED > 7.0 Performed By: #### A 1C #### [facility] [address] [place] [address] Dr. Brittany Brown Glucose [Mass/Vol] 111 mg/dL Normal [facility] Comment on above: Performed By: #### A 1C #### [facility] [address] [place] [address] Dr. Brittany Brown HbA1c (Bld) [Mass fraction] 5.5 % Normal 4.5-6.2 [facility] Comment on above: Performed By: #### A 1C #### [facility] [address] [place] [address] [address] Brittany Brown TERRELL BOX TEST PT SEND OUTo n 02-14-2022 SENT TO REF LAB 02/14/[address] [facility] Comment on above: Performed By: #### N BOX #### [facility] [address] [place] [address] [address] Brittany Brown TYPE AND SCREENon 02-14-2022 TYPE AND SCREEN Negative Normal [facility] Comment on above: Performed By: #### T NS #### [facility] [address] [place] [address] [address] Brittany Brown US PREG TVon 02-01-2022 US PREG TV EXAMINATION: US PREG TV HISTORY: Irregular periods COMPARISON: No relevant comparison available. FINDINGS: GESTATIONAL SAC: Present and normal appearing. POLE: Present and normal appearing. YOLK SAC: Present. CARDIAC: Present. UTERUS: Subchorionic hematoma, 3.1 x 1.8 x 1.3 cm. OVARIES: Right: Corpus lutein cyst. Left: Normal. CERVIX: 3.5 cm in length and closed. CUL-DE-SAC: Normal. OTHER: None. AGE BY LMP: 8 weeks, 6 days TANJA BY LMP: 09/06/2022 AGE BY US CRL: 7 weeks, 1 day TANJA BY US CRL: 09/18/2022 IMPRESSION: 1. Single live intrauterine . Electronically authenticated by: DI BRIZUELA Date: 2022-01-31 22:14 Normal [facility] HCG-BETA SUBUNIT QUANTon hCG,Beta Subunit,Qnt,Serum 868 mIU/mL Normal [facility] Comment on above: Result Comment: Fema le (Non-) 0 - 5 (Postmenopausal) 0 - 8 . Female () Weeks of Gestation 3 6 - 71 4 10 - 750 5 720 - 8080 6 281 - 57849 7 [phone] [phone] 8 [phone] -[phone] 9 41814 [phone] 10 82090 -[phone] 12 06452 -787325 14 46004 - 78019 15 99882 - 03295 16 2170 - 60424 17 7419 - 93158 18 [phone] [employer] ECLIA methodology Performed By: #### H CGSUB #### [facility] [address] [place] [address] [address] Brittany Brown HCG-BETA SUBUNIT QUANTon hCG,Beta Subunit,Qnt,Serum 364 mIU/mL Normal [facility] Comment on above: Result Comment: Fema le (Non-) 0 - 5 (Postmenopausal) 0 - 8 . Female () Weeks of Gestation 3 6 - 71 4 10 - 750 5 074 - 0364 6 159 - 60801 7 3767 -[phone] 8 34484 -[phone] 9 08382 -[phone] 10 78027 -752476 12 98433 -104422 14 81616 - 72420 15 45576 - 65616 16 9220 - 07897 17 3314 - 79416 18 [phone] - [phone] [employer] ECLIA methodology Performed By: #### C BC #### [facility] [address] [place] [address] [address] Brittany Brown Vital Signs Date Time Vital Sign Value Performing Clinician Facility 12-04-2023 15:48-0400 Body height 160.02 cm [facility] 12-04-2023 15:48-0400 Body mass index (BMI) [Ratio] 24 kg/m2 [facility] 12-04-2023 15:48-0400 Body weight 61.68 kg [facility] 12-04-2023 15:48-0400 Diastolic blood pressure 79 mm[Hg] [facility] 12-04-2023 15:48-0400 Heart rate 77 /min [facility] 12-04-2023 15:48-0400 Systolic blood pressure 108 mm[Hg] [facility] 10-21-2023 15:30-0400 Body height 160.02 cm [facility] 10-21-2023 15:30-0400 Body mass index (BMI) [Ratio] 24.3 kg/m2 [facility] 10-21-2023 15:30-0400 Body temperature 97.8 [degF] [facility] 10-21-2023 15:30-0400 Body weight 62.14 kg [facility] 10-21-2023 15:30-0400 Diastolic blood pressure 83 mm[Hg] [facility] 10-21-2023 15:30-0400 Heart rate 85 /min [facility] 10-21-2023 15:30-0400 Systolic blood pressure 119 mm[Hg] [facility] 08-12-2023 11:33-0500 Body height 160.02 cm [facility] 08-12-2023 11:33-0500 Body mass index (BMI) [Ratio] 24 kg/m2 [facility] 08-12-2023 11:33-0500 Body weight 61.74 kg [facility] 08-12-2023 11:33-0500 Diastolic blood pressure 77 mm[Hg] [facility] 08-12-2023 11:33-0500 Heart rate 81 /min [facility] 08-12-2023 11:33-0500 Systolic blood pressure 108 mm[Hg] [facility] 04-20-2023 09:00-0500 Body height 160.02 cm Chelo Valencia Other [employer] [facility] [employer] Other 04-20-2023 09:00-0500 Body mass index (BMI) [Ratio] 24.23 kg/m2 Chelo Valencia Other [employer] Other 04-20-2023 09:00-0500 Body temperature 98.1 [degF] Chelo Valencia Other [employer] Other 04-20-2023 09:00-0500 Body weight 62.05 kg Chelo Valencia Other [employer] Other 04-20-2023 09:00-0500 Respiratory rate 18 /min Chelo Valencia Other [employer] Other 04-20-2023 09:00-0500 SaO2% (BldA) [Mass fraction] 97 % Chelo Valencia Other [employer] Other Encounters Encounter Date Encounter Type Care Provider Facility Start: 12-16-2023 End: 12-16-2023 Patient encounter procedure MD Sarah Marsh Work Phone: [facility] [address] Work Phone: Start: 12-16-2023 End: 12-16-2023 ambulatory MD Sarah Marsh Work Phone: [facility] Work Phone: Start: 12-04-2023 End: 12-04-2023 ambulatory [facility] Work Phone: Start: 12-04-2023 End: 12-04-2023 Patient encounter procedure [facility] Work Phone: Start: 10-21-2023 End: 10-21-2023 ambulatory [facility] Work Phone: Start: 10-21-2023 End: 10-21-2023 Patient encounter procedure Formerly [facility] Work Phone: Start: 08-12-2023 End: 08-12-2023 Patient encounter procedure Formerly [facility] Work Phone: Start: 04-24-2023 End: 04-24-2023 ambulatory Chelo Valencia Other [employer] Other Start: 04-24-2023 Telephone encounter Chelo Valencia [facility] [address] Start: 04-20-2023 Office outpatient vi sit 15 minutes Chelo Valencia [facility] Start: 04-20-2023 End: 04-20-2023 ambulatory Chelo Valencia [employer] Other Start: 04-20-2023 End: 04-20-2023 Departed Referred CIRCULATING PROCESS INSPECTOR Chelo Valencia Work Phone: [facility] [place] Work Phone: Start: 09-17-2022 ambulatory NONE LISTED REQUEST Facility:[facility] Start: 09-11-2022 End: 09-13-2022 Evaluation and management of inpatient DR KEKE MEJIAS . Facility:[facility] Start: 09-04-2022 End: 09-04-[address] ALLEN PHIPPS . Facility:[facility] Start: 08-28-2022 End: 08-28-[address] ALLEN PHIPPS . Facility:[facility] Start: 08-27-2022 End: 08-27-2022 ambulatory GARRETT BEAR . Facility:[facility] Start: 08-21-2022 End: 08-21-[address] ALLEN PHIPPS . Facility:[facility] Start: 08-14-2022 End: 08-14-[address] NELA MEZA Facility:[facility] Start: 08-08-2022 End: 08-08-[address] KEKE MEJIAS . Facility:[facility] Start: 08-08-2022 End: 08-09-[address] DI BRIZUELA Facility:[facility] Start: 08-07-2022 End: 08-07-[address] KEKE MEJIAS . Facility:[facility] Start: 07-23-2022 End: 07-24-[address] DI BRIZUELA Facility:[facility] Start: 07-09-2022 End: 07-10-[address] KEKE MEJIAS . Facility:[facility] Start: 06-26-2022 End: 06-27-[address] DI BRIZUELA Facility:[facility] Start: 06-14-2022 End: 06-15-2022 ambulatory GARRETT BEAR . Facility:[facility] Start: 05-13-2022 End: 05-13-[address] KEKE MEJIAS . Facility:[facility] Start: 02-14-2022 End: 02-15-[address] KEKE MEJIAS . Facility:[facility] Start: 02-06-2022 End: 02-07-[address] KEKE MEJIAS . Facility:[facility] Start: 01-31-2022 End: 02-01-[address] KEKE MEJIAS . Facility:[facility] Start: 01-09-2022 End: 01-11-[address] KEKE MEJIAS . Facility:[facility] Start: 03-24-2019 End: 03-24-2019 Gynecological examination normal Chelo Valencia Other [employer] Other Start: 07-21-2013 End: 07-21-2013 Telephone encounter Leigh Lawson Work Phone: Gastroenterology Comment on above: Education Of Patient /family Procedures Date Procedure Procedure Detail Performing Clinician Start: 09-11-2022 Extraction of Produc ts of Conception, Low Cervical, Open Approach GARRETT BEAR . Start: 09-11-2022 Resection of Bilater al Fallopian Tubes, Open Approach GARRETT BEAR . Start: 01-30-2022 Diabetes mellitus screening Chelo Valencia Other Start: 02-21-2014 End: 03-24-2019 General examination of patient Chelo Valencia Other End: 03-24-2019 screening Chelo Valencia Other End: 11-30-2018 Contraception care education Chelo Valencia Other Insertion of intraut erine contraceptive device Chelo Valencia Other visit Chelo Valencia Other Removal of intrauter ine device Chelo Valencia Other Plan of Treatment Date Care Activity Detail Author Start: 12-16-2023 Hemolytic complement CH50 level [facility] Start: 12-16-2023 [facility] Start: 12-10-2023 Patient referral [facility] Work Phone: Start: 04-20-2023 Bacteria identified in Urine by Culture Urine Culture [facility] Start: 02-14-2021 Influenza vaccination INFLUENZ A (Season Ended) [facility] Start: 2014 PAP TESTING PAP TESTING [facility] Start: 2012 Urine microalbumin profile DTAP,TDAP,TD (1 - Tdap) [facility] Start: 2005 Adult depression screening assessment DEPRESSION SCREENING [facility] Start: 2004 HPV VACCINE (1 - 2-d ose series) HPV VACCINE (1 - 2-dose series) [facility] Beta 2 glycoprotein 1 IgG Ab [Units/volume] in Serum [facility] Beta 2 glycoprotein 1 IgM Ab [Units/volume] in Serum [facility] Cardiolipin IgA Ab [Units/volume] in Serum by Immunoassay [facility] Cardiolipin IgG Ab [Units/volume] in Serum by Immunoassay [facility] Cardiolipin IgM Ab [Units/volume] in Serum by Immunoassay [facility] Complement C2 [Mass/volume] in Serum or Plasma [facility] Complement C3 [Mass/volume] in Serum or Plasma [facility] Complement C4 [Mass/volume] in Serum or Plasma [facility] Lupus anticoagulant [Interpretation] in Platelet poor plasma [facility] Patient referral [facility] Work Phone: Thrombin time [facility] Payers Date Payer Category Payer Unknown [id number] 2023 Self-pay [id number] 2012 Private Health Insurance AETNA A ETNA CHOICE POS II [id number] 2012-2016 POS [id number] 1993 Unknown [id number] 1993 Unknown [id number] 2.16.840.1.687257.3.579.2.5 1993 Unknown [id number] 2.16.840.1.838628.3.579.2.5 1993 Unknown [id number] 2.16.840.1.748060.3.579.2.5 1993 Unknown [id number] 2.16.840.1.818488.3.579.2.5 1993 Unknown [id number] 2.16.840.1.805947.3.579.2.5 93 1993 Unknown [id number] 2.16.840.1.849711.3.579.2.5 93 1993 Unknown [id number] 2.16.840.1.568048.3.579.2.5 1993 Unknown [id number] 2.16.840.1.248575.3.579.2.5 93 1993 Unknown [id number] 2.16.840.1.251178.3.579.2.5 93 1993 Unknown [id number] 2.16.840.1.589987.3.579.2.5 1993 Unknown [id number] 2.16.840.1.267225.3.579.2.5 1993 Unknown [id number] 2.16.840.1.831219.3.579.2.5 93 1993 Unknown [id number] 2.16.840.1.241728.3.579.2.5 93 1993 Unknown [id number] 2.16.840.1.902082.3.579.2.5 1993 Unknown [id number] 2.16.840.1.668912.3.579.2.5 1993 Unknown [id number] 2.16.840.1.048282.3.579.2.5 93 1993 Unknown [id number] 2.16.840.1.715259.3.579.2.5 93 1959 Self-pay [id number] 1959 Unknown [id number] Unknown [id number] 2.16.840.1.520021.3.579.2.5 93 Unknown [id number] 2.16.840.1.523817.19 Unknown [place] BC/BS [id number] Unknown [id number] 2.16.840.1.830151.3.579.2.5 31 Unknown [id number] 2.16.840.1.807144.3.579.2.5 31 Social History Date Type Detail Facility Start: 07-19-2013 End: 08-05-2023 Tobacco smoking status NHIS Never smoker [facility] Start: 07-19-2013 Tobacco use and exposure Never used [facility] Start: 07-19-2013 Alcohol intake 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 Intrauterine at 39 weeks. 2. Previous . 3. Desires permanent sterilization. 4. Multiparity. 5. 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 PROCEDURE: Repeat low transverse section with bilateral salpingectomy. HOSPITAL COURSE: As expected. Please see chart for full details. LABORATORY DATA: Please see chart. COMPLICATIONS: None. DISCHARGE CONDITION: Stable. CONSULTATION: Anesthesia. DISCHARGE INSTRUCTIONS: 1. Diet: Regular. 2. Medications: a. Percocet 5/325 one to two p.o. every 4-6 hours p.r.n. pain. b. Motrin 800 one p.o. every 8 hours p.r.n. pain. 3. Followup in one week. Restrictions: Pelvic rest for 6 weeks. No heavy lifting. May drive when pain free and no longer on narcotics. [facility] 09-11-2022 Note NOTE DATE: ADDENDUM: Please change discharge date to 09/13/2022. [facility] 09-11-2022 Note DISCHARGE DATE: 08/16 PRIMARY DIAGNOSES: 1. Intrauterine at 39 weeks. 2. Previous . 3. Desires permanent sterilization. 4. Multiparity. 5. 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 PROCEDURE: Repeat low transverse section with bilateral salpingectomy. HOSPITAL COURSE: As expected. Please see chart for full details. LABORATORY DATA: Please see chart. COMPLICATIONS: None. DISCHARGE CONDITION: Stable. CONSULTATION: Anesthesia. DISCHARGE INSTRUCTIONS: 1. Diet: Regular. 2. Medications: a. Percocet 5/325 one to two p.o. every 4-6 hours p.r.n. pain. b. Motrin 800 one p.o. every 8 hours p.r.n. pain. 3. Followup in one week. Restrictions: Pelvic rest for 6 weeks. No heavy lifting. May drive when pain free and no longer on narcotics. [facility] 09-11-2022 Note OPERATIVE NOTE OPERATION DATE: 09/11/2022 PROCEDURE: Repeat low transverse section with bilateral salpingectomy. PREOPERATIVE DIAGNOSIS: 1. Intrauterine at 39 weeks. 2. Previous . 3. Desires permanent sterilization. 4. Multiparity. 5. History of blood clot in the dural venous system of the brain. POSTOPERATIVE DIAGNOSIS: 1. Intrauterine at 39 weeks. 2. Previous . 3. Desires permanent sterilization. 4. Multiparity. 5. History of blood clot in the dural venous system of the brain. ANESTHESIA: Spinal with Duramorph. SURGEON: Keek Mejias D.O. METAL MIXER: MIKE Abreu URINE OUTPUT: Yellow and clear. BLOOD LOSS: 600 mL. SPECIMEN: Placenta. FINDINGS: Viable female. Apgars 4 at 1 and 9 at 5. Weight unknown at this time. PROCEDURE: Patient was taken back to the Operating Room where she was given a spinal anesthesia with Duramorph without difficulty. She was prepped and draped in the normal sterile fashion. A Pfannenstiel skin incision was then made 2 cm above the symphysis pubis and carried down to underlying rectus fascia using a Bovie. The fascia was incised in the midline and extended laterally using Delgado scissors. Two Sharlene clamps were placed on the superior aspect of the fascia and dissected off the underlying rectus muscles. The same was performed on the inferior aspect as well. The muscles were then in the midline. Peritoneum was identified and entered bluntly. The peritoneum was then extended superiorly and inferiorly with good visualization of the bladder. The bladder blade was inserted. Vesicouterine peritoneum was identified, tented up, and entered with Metzenbaum scissors. A bladder flap was then created digitally. The bladder blade was reinserted. A low transverse incision was made on the patient's uterus and extended laterally digitally. The infant was then delivered atraumatically after the bladder blade was removed in the cephalic position. The cord was clamped and cut. Cord blood was obtained. The was handed off to awaiting team. The patient's placenta was spontaneously delivered. The uterus was then exteriorized. The uterus was cleared of all clots and debris. The bladder blade was reinserted. The patient's uterine incision was closed using #0 Vicryl in a running lock fashion. Excellent hemostasis was assured. The uterus was then returned to the patient's abdomen. The patient's abdomen was copiously irrigated using warm saline. Peritoneal gutters were cleared of all clots and debris. Again excellent hemostasis was assured. The tubes were identified, grasped with a Mission, the LigaSure apparatus was used to come across the mesosalpinx and the tube removed in its entirety. Excellent hemostasis was assured. The patient's peritoneum was closed using 3-0 Vicryl in a running fashion. The patient's fascia was closed using #0 Vicryl in a running fashion. The patient's skin was closed using 4-0 Vicryl subcuticularly. The patient tolerated the procedure well. Sponge, lap, and needle counts were correct x2. The patient was taken to the Recovery Room in stable condition. [facility] 10-12-2013 Evaluation note Encounter Date Diagnosis Assessment Notes Sep, Dysuria (ICD-10 - R30.0) Dysuria Discussed diagnosis and dipstick findings with patient. Will hold off on treatment at this time. Advised patient culture was sent today and we will call with her results in 2-5 days. At time of results, treatment plan many change. Patient instructed to push fluids. Patient symptoms should improve in the next 48 hours, if symptoms persist follow up with PCP or UC. Immediate eval by ER if back or flank pain, fever, chills, N/V, or any other concerning symptoms arise. Patient verbalizes understanding and is agreeable to treatment plan [employer] Other Evaluation noteNo assessment information available [facility] Work Phone: [facility]No [facility] [employer] Other Evaluation note* Diagnosis Onset Date Resolution Status Cervical lymphadenopathy acu te [facility] Work Phone: Evaluation note* Diagnosis Onset Date Resolution Status Sinusitis, acute maxillary a cute Fatigue acute Hair loss acute Positive VIVIEN (antinuclear antibody) acute [facility] Work Phone: Evaluation note* Diagnosis Onset Date Resolution Status Sinusitis, acute maxillary a cute Complement 4 deficiency acut e Fatigue acute Hair loss acute Positive VIVIEN (antinuclear antibody) acute [facility] Work Phone: [place] general Narrative - Reported* Type Description Date Medical History Lou disease Surgical History 3 PLASTIC SURGERY Surgical History adnoidectomy Surgical History C section Hospitalization History kidney infection Located [facility] [employer] Other Summary Purpose Family History No Family History Records Found Relationship Condition Age at Onset Recorded Date/T rajesh grandparent Family history of colon cancer Unknown Advance Directives No Advanced Directives Records Found Advance Directive Response Recorded Date/ Time Advance Directives No February 3:44pm Advance Directive Response Recorded Date/ Time Advance Directives No February 4:44pm Chief Complaint and Reason for Visit Chief Complaint Lump on neck sinus infection Reason for Visit Cervical lymphadenop athy Chief Complaint sinus infection hair lost need, levels test Reason for Visit Sinusitis, acute max illary Fatigue Hair loss Positive VIVIEN (antinuclear antibody) Chief Complaint sinus infection hair lost need, levels test Reason for Visit Sinusitis, acute max illary Complement 4 deficiency Fatigue Hair loss Positive VIVIEN (antinuclear antibody) Additional Source Comments Source Comments (unrecognize d section and content) In the event this informatio n is protected by the Federal Confidentiality of Alcohol and Drug Abuse Patient Records regulations: The Federal rules restrict any use of the information to criminally investigate or prosecute any alcohol or drug abuse patient.[facility] Reason for Visit (unrecogniz ed section and content) Reason Onset Date Comments Education Of Patient/family 07/21/2013 INFORMATION SOURCE (unrecogn ized section and content) DATE CREATED AUTHOR 10/27/2022 [facility] DATE CREATED AUTHOR AUTHOR'S ORGANIZ ATION 01/01/2024 [facility] Care Teams (unrecognized sec tion and content) Team Status: Inactive Member Role Status Dates Chelo Valencia APRN Attending Provider Active Team Status: Active Member Role Status Dates Sarah Marsh MD Primary Care Provider Active Team Status: Inactive Member Role Status Dates Sarah Marsh MD Primary Care Provide r, Attending Provider Active Start: August 12, 2023 End: August 12, 2023 Team Status: Inactive Member Role Status Dates Sarah Marsh MD Primary Care Provide r, Attending Provider Active Start: October 21, 2023 End: October 21, 2023 Team Status: Inactive Member Role Status Dates Sarah Marsh MD Primary Care Provide r, Attending Provider Active Start: December 04, 2023 End: December 04, 2023 Team Status: Inactive Member Role Status Dates Sarah Marsh MD Primary Care Provider Active Start: December 16, 2023 End: December 16, 2023 Alden Khan MD Attending Provider Active St art: December 16, 2023 End: December 16, 2023 Goals (unrecognized section and content) Goals may be documented in a n alternate section FOR RECORDS PERTAINING TO PATIENTS WHO ARE OR HAVE BEEN ENROLLED IN A CHEMICAL DEPENDENCY/SUBSTANCEABUSE PROGRAM, SOME INFORMATION MAY BE OMITTED. This clinical summary was aggregated from multiple sources. Caution should be exercised in using it in the provision of clinical care. This summary normalizes information from multiple sources, and as a consequence, information in this document may materially change the coding, format and clinical context of patient data. In addition, data may be omitted in some cases. CLINICAL DECISIONS SHOULD BE BASED ON THE PRIMARY CLINICAL RECORDS. [facility] [employer] [facility]. provides no warranty or guarantee of the accuracy or completeness of information in this document.
== END 2024-01-16 07:00 | disposition home or self-care (01) ==
LOC: US 06:59
PROVIDERS: PCP Family Medicine; Visit Provider Obstetrics & Gynecology
DX: N92.0 Excessive and frequent menstruation with regular cycle (principal)
CPT/HCPCS: 76830

== ENCOUNTER 2024-02-09 07:31 | Outpatient (OUT) | payer BC, SELFPAY ==
--- NOTE | 2024-02-09 07:33 | US_ITS ---
[address] [address] Patient Name: [place] CARTAGENA MRN: [id number] date: 1995 Sex: F Assigned Patient Location: US Current Patient Location: US Accession/Order Number: [id number] Exam Date: 02/09/2024 07:35 Report Date: 02/09/2024 08:46 At the request of: GARRETT BEAR Procedure: US pelvis transvaginal EXAMINATION: US pelvis transvaginal HISTORY: Pelvic pain R10.2 COMPARISON: 01/16/2024 FINDINGS: The uterus is normal in size, contour and echotexture measuring 8.0 x 5.1 x 3.7 cm. No focal myometrial mass. Linear area of echogenicity anterior lower uterine segment consistent with a scar measuring 6.4 mm. The endometrium measures 7.1 mm. Mildly heterogeneous echotexture, nonspecific The right ovary measures 3.5 x 2.1 x 2.7 cm. Normal color and Doppler flow. Normal follicles Left ovary measures 3.0 x 1.9 x 1.8 cm. Normal color and Doppler flow. Normal follicles No free fluid US/US pelvis transvaginal IMPRESSION: scar measuring 6.4 mm Electronically authenticated by: NELA MEZA Date: 02/09/2024 08:46
--- OUTSIDE RECORDS SUMMARY | 2024-02-09 07:38 | XMS_ITS | CCD ---
Author Organization [facility] Care Team Providers Care Bus Attendant Name Role Phone Sarah Marsh Primary Care Provider Anson Carson Primary Care Provider Nathan Macias DO Unavailable Temi Macias DOick Unavailable CHEMA ., GARRETT Consulting Unavailable MAXIMO, DR SARAH [facility] Unavailable CHEMA ., GARRETT Attending Unavailable CHEMA ., GARRETT Admitting Unavailable GIANFRANCO ., DR DAVIES Consulting Unavailable MARSH, DR SARAH [facility] Unavailable GIANFRANCO ., DR DAVIES Attending Unavailable GIANFRANCO ., DR DAVIES Admitting Unavailable ZIEBER, DR DI Iniguez Consulting Unavailable KARASIK ., DR VLILA Consulting Unavailabl e KARASIK ., DR VILLA [...] DI Iniguez Consulting Unavailable ZIEBER, DR DI Iniguez Consulting Unavailable MARSH, DR SARAH [facility] Unavailable CHEMA ., GARRETT Attending Unavailable CHEMA ., GARRETT Admitting Unavailable CHEMA ., GARRETT Consulting Unavailable REQUEST, DR NONE [...] Unavailable GIANFRANCO ., DR DAVIES Admitting Unavailable CHEMA ., GARRETT Consulting Unavailable REQUEST, DR NONE LISTED Primary Care Unavaila ble CHEMA ., GARRETT Attending Unavailable CHEMA ., GARRETT Admitting Unavailable Chelo Valencia Unavailable TIKA Valencia Attending Provider MD Sarah Marsh Primary Care Provider [phone] MD Alden Khan Attending Provider [phone] Alden Khan Admitting Unavailable Alden Khan Attending Unavailable Sarah Marsh Primary Care Unavailable Chelo Valencia Admitting Unavailable Chelo Valencia Attending Unavailable Sarah Marsh Primary Care Unavailable GARRETT BEAR Attending Unavailable GARRETT BEAR Attending Unavailable Allergies Allergy Classification Reported Allergen(s) Allergy Type Date of Onset Reaction(s) Facility Opioid Agonists (1 source) Morphine Drug Allergy 3 Itching, Other: See Comments [facility] (1 source) Morphine Drug Allergy 0 [facility] (2 sources) Morphine Drug Allergy rash [facility] Other (2 sources) Morphine Sulfate (Concentrate) *ANALGESICS - OPIOI Propensity to adverse reactions 0 Unknown [facility] Other (2 sources) Allergies Reconciled Propensity to adverse reactions Unknown [facility] Other (2 sources) patient allergy list reviewed by nurse or physicia Propensity to adverse reactions 4 Comment:Done [facility] Other (1 source) Morphine Drug Allergy 4 [facility] Repository Medications Current Medications Medication Drug Class(es) Dates Sig (Normalized) Sig (Original) Vitamins (2 sources) Start: 04-23-2022 Vitamins Vitamins( Oral ) Active -Hx Entry Oral for 0 *[facility] Apr, Not-Taking Completed/Discontinued Medications Medication Drug Class(es) Dates Sig (Normalized) Sig (Original) amoxicillin 500 mg oral tablet (2 sources) Penicillin-class Antibacterial Start: 04-23-2022 take 1 capsule by mouth three times daily Amoxicillin 500mg amoxicillin 500mg, 1 (one) Capsule three times daily # 21, 04/23/2022, No Refill. Active oral three times daily for 0 *Pick strength-form from [employer] for eRX* Apr, Not-Taking amoxicillin 875 mg [...] oral daily for 0 *Pick strength-form from [employer] for eRX* 11 Mar, 2022 Not-Taking oseltamivir [...] Menendez Start: 07-19-2017 take 1 capsule by [facility] every twelve hours Tamiflu 75 MG 1 capsule Orally Twice a day for 5 day(s) Jul, Not-Taking Pnv #[id number] Acid-Omeg a3 (3 sources) Start: 08-06-2023 End: 08-12-2023 Pnv #[id number] Acid-Omeg a3 Discontinued CAP PO August 06, [...] Translations: [29 WEEKS GESTATION OF ] Onset: 01-25-2023 Episodic Residual codes; unclassified (1 source) 28 [...] ] Resolved: 03-24-2019 Episodic Unclassified (1 source) OTH SPCF DIS/COND COMPL ; Translations: [OTH SPCF DIS/COND COMPL ] Onset: 08-21-2022 Unclassified (2 sources) Acute candidiasis of vulva and vagina; Translations: [Acute candidiasis of vulva and vagina] Results Test Name Value Interpretation Reference Range Facility Anticardiolipin IgG/M/A, Qno n 12-16-2023 Anticardiolipin Ab, IgA,Qn <9 Normal 0-11 [facility] Comment on above: Result Comment: Nega tive: <12 Indeterminate: 12 - 20 Low-Med Positive: >20 - 80 High Positive: >80 Performed at: - [facility] [id number] Registered Physical Therapist: Joe Cox PhD, Phone: [phone] Performed By: #### C H50, B2 GLYPROT, LUPANTCOAG, C3, CARDIO GMA, C4, C2 #### [facility] , #### ADDONUAPLUS #### [facility] [address] [place] [id number] [place] Anticardiolipin Ab, IgG,Qn <9 Normal 0-14 [facility] Comment on above: Result Comment: Nega tive: <15 Indeterminate: 15 - 20 Low-Med Positive: >20 - 80 High Positive: >80 Performed By: #### C H50, B2 GLYPROT, LUPANTCOAG, C3, CARDIO GMA, C4, C2 #### [facility] , #### ADDONUAPLUS #### [facility] [address] [place] [address] [place] Anticardiolipin Ab, IgM,Qn <9 Normal 0-12 [facility] Comment on above: Result Comment: Nega tive: <13 Indeterminate: 13 - 20 Low-Med Positive: >20 - 80 High Positive: >80 Performed By: #### C H50, B2 GLYPROT, LUPANTCOAG, C3, CARDIO GMA, C4, C2 #### [facility] , #### ADDONUAPLUS #### [facility] [address] [place] [address] Bacteria [Presence] in Urine by AutomatedOrdered By: Alden Khan on 12-16-2023 Bacteria Auto Ql (U) Rare [HPF] None Seen [facility] Beta 2 Glycoprotein I Ab IgG /Mon 12-16-2023 Beta 2 Glycoprotein I Ab, IgG <9 Normal 0-20 [facility] Comment on above: Result Comment: [...] C2 #### [facility] , #### ADDONUAPLUS #### [facility] [address] [place] [id number] [place] Beta 2 Glycoprotein I Ab, IgM <9 Normal 0-32 [facility] Comment on above: Result Comment: Resu lt Units: GPI IgM units The reference interval reflects a 3SD or 99th percentile interval, which is thought to represent a potentially clinically significant result in accordance with the International Consensus Statement on the classification criteria for definitive antiphospholipid syndrome (APS). J Thromb Haem 2006;4:295-306. Performed at: - [facility] [id number] Registered Physical Therapist: Jackson Mccrary MD, Phone: [phone] Performed By: #### C H50, B2 GLYPROT, LUPANTCOAG, C3, CARDIO GMA, C4, C2 #### [facility] , #### ADDONUAPLUS #### [facility] [address] [place] [address] Bilirubin Test strip Ql (U)O rdered By: Alden Khan on 12-16-2023 Bilirubin Ql (U) Negative Negative [facility] Color of Urine by AutoOrdere d By: Aldne Khan on 12-16-2023 Color (U) Light-yellow Normal Yellow [facility] Comment on above: Order Comment: Name Collection Type:: Clean-Voided Midstream Performed By: #### C H50, B2 GLYPROT, LUPANTCOAG, C3, CARDIO GMA, C4, C2 #### [facility] , #### ADDONUAPLUS #### [facility] [address] [place] [address] Complement C2on 12-16-2023 Complement C2 1.9 mg/dL Normal 1.4-3.3 [facility] Comment on above: Result Comment: Resu lts of this test are labeled for research purposes only by the assay's sheet rocker. The performance characteristics of this assay have not been established by the sheet rocker. The result should not be used for treatment or for diagnostic purposes without confirmation of the diagnosis by another medically established diagnostic product or procedure. The performance characteristics were determined by [facility]. Performed at: - [facility] [id number] Registered Physical Therapist: Jackson Mccrary MD, Phone: [phone] PERFORMED BY: [place] [address] PATHOLOGIST AIR TECHNICIAN COLEEN ALMANZA M.D. Performed By: #### C H50, B2 GLYPROT, LUPANTCOAG, C3, CARDIO GMA, C4, C2 #### [facility] , #### ADDONUAPLUS #### [address] Complement C3on 12-16-2023 Complement C3 137 mg/dL Normal 82-167 [facility] Comment on above: Result Comment: Perf ormed at: [address] [id number] Registered Physical Therapist: Joe Cox PhD, Phone: [phone] Performed By: #### C H50, B2 GLYPROT, LUPANTCOAG, C3, CARDIO GMA, C4, C2 #### [facility] , #### ADDONUAPLUS #### [address] Complement C4on 12-16-2023 Complement C4 15 mg/dL Normal 12-38 [facility] Comment on above: Performed By: #### C H50, B2 GLYPROT, LUPANTCOAG, C3, CARDIO GMA, C4, C2 #### [facility] , #### ADDONUAPLUS #### [address] Complement Total (CH50)on Complement Total (CH50) >60 Normal >41 [facility] Comment on above: Result Comment: [...] determine out of range values. Performed at: [employer] [id number] Registered Physical Therapist: Joe Cox PhD, Phone: [phone] PERFORMED BY: [place] [address] PATHOLOGIST AIR TECHNICIAN COLEEN ALMANZA M.D. Performed By: #### C H50, B2 GLYPROT, LUPANTCOAG, C3, CARDIO GMA, C4, C2 #### [facility] , #### ADDONUAPLUS #### [address] Dipstick and Microscopicon 0 12-16-2023 Bacteria,Urine Rare Normal None Seen [facility] Comment on above: Order Comment: Name Collection Type:: Clean-Voided Midstream Performed By: #### C H50, B2 GLYPROT, LUPANTCOAG, C3, CARDIO GMA, C4, C2 #### [facility] , #### ADDONUAPLUS #### [address] Bilirubin,Urine Negative Normal Negative [facility] Comment on above: Order Comment: Name Collection Type:: Clean-Voided Midstream Performed By: #### C H50, B2 GLYPROT, LUPANTCOAG, C3, CARDIO GMA, C4, C2 #### [facility] , #### ADDONUAPLUS #### [address] Glucose Ql (U) Normal Normal Normal [facility] Comment on above: Order Comment: Name Collection Type:: Clean-Voided Midstream Performed By: #### C H50, B2 GLYPROT, LUPANTCOAG, C3, CARDIO GMA, C4, C2 #### [facility] , #### ADDONUAPLUS #### [address] Hyaline Casts,Urine None Normal 0-8 [facility] Comment on above: Order Comment: Name Collection Type:: Clean-Voided Midstream Performed By: #### C H50, B2 GLYPROT, LUPANTCOAG, C3, CARDIO GMA, C4, C2 #### [facility] , #### ADDONUAPLUS #### [place] [address] [place] Mucus,Urine Rare Normal [facility] Comment on above: Order Comment: Name Collection Type:: Clean-Voided Midstream Result Comment: PERF ORMED BY: [place] [address] PATHOLOGIST AIR TECHNICIAN COLEEN ALMANZA M.D. Performed By: #### C H50, B2 GLYPROT, LUPANTCOAG, C3, CARDIO GMA, C4, C2 #### [facility] , #### [employer]US #### [place] [address] [place] Nitrite,Urine Negative Normal Negative [facility] Comment on above: Order Comment: Name Collection Type:: Clean-Voided Midstream Performed By: #### C H50, B2 GLYPROT, LUPANTCOAG, C3, CARDIO GMA, C4, C2 #### [facility] , #### ADDONU[employer]LUS #### [place] [address] [place] Occult Blood,Urine Negative Normal Negative [facility] Comment on above: Order Comment: Name Collection Type:: Clean-Voided Midstream Performed By: #### C H50, B2 GLYPROT, LUPANTCOAG, C3, CARDIO GMA, C4, C2 #### [facility] , #### ADDONU[employer]LUS #### [place] [address] [place] Protein,Urine Negative Normal Negative [facility] Comment on above: Order Comment: Name Collection Type:: Clean-Voided Midstream Performed By: #### C H50, B2 GLYPROT, LUPANTCOAG, C3, CARDIO GMA, C4, C2 #### [facility] , #### ADDONUAPLUS #### [employer] [address] RBC,Urine 1-2 Normal 0-4 [facility] Comment on above: Order Comment: Name Collection Type:: Clean-Voided Midstream Performed By: #### C H50, B2 GLYPROT, LUPANTCOAG, C3, CARDIO GMA, C4, C2 #### [facility] , #### ADDONUAPLUS #### [address] Specificy [place],Urine 1.016 Normal 1.001-1.030 [facility] Comment on above: Order Comment: Name Collection Type:: Clean-Voided Midstream Performed By: #### C H50, B2 GLYPROT, LUPANTCOAG, C3, CARDIO GMA, C4, C2 #### [facility] , #### ADDONUAPLUS #### [address] Squamous Epithelial Cell,Urine 5-9 High 0-2 [facility] Comment on above: Order Comment: Name Collection Type:: Clean-Voided Midstream Performed By: #### C H50, B2 GLYPROT, LUPANTCOAG, C3, CARDIO GMA, C4, C2 #### [facility] , #### ADDONUAPLUS #### [address] Urobilinogen,Urine Normal Normal Normal [facility] Comment on above: Order Comment: Name Collection Type:: Clean-Voided Midstream Performed By: #### C H50, B2 GLYPROT, LUPANTCOAG, C3, CARDIO GMA, C4, C2 #### [facility] , #### ADDONUAPLUS #### [place] [address] [place] WBC,Urine 1-2 Normal 0-4 [facility] Comment on above: Order Comment: Name Collection Type:: Clean-Voided Midstream Performed By: #### C H50, B2 GLYPROT, LUPANTCOAG, C3, CARDIO GMA, C4, C2 #### [facility] , #### ADDONUAPLUS #### [facility] [address] [place] [address] [place] Epithelial cells.squamous [# /area] in Urine sediment by Automated countOrdered By: Alden Khan on 12-16-2023 Epithelial cells.squamous Auto (Urine sed) [#/Area] 5-9 [HPF] High 0-2 [facility] Erythrocytes [#/area] in Uri ne sediment by Automated countOrdered By: Alden Khna on 12-16-2023 RBC Auto (Urine sed) [#/Area] 1-2 [HPF] 0-4 [facility] Glucose [Mass/volume] in Uri ne by Test stripOrdered By: Alden Khan on 12-16-2023 Glucose Test strip (U) [Mass/Vol] Normal mg/dL Normal [facility] Hemoglobin Test strip Ql (U) Ordered By: Alden Khan on 12-16-2023 Hemoglobin Ql (U) Negative Negative [facility] Hyaline casts [#/area] in Ur ine sediment by Automated countOrdered By: Alden Khan on 12-16-2023 Hyaline casts Auto (Urine sed) [#/Area] None [LPF] 0-8 [facility] Ketones [Presence] in Urine by Test stripOrdered By: Alden Khan on 12-16-2023 Ketones Ql (U) Negative Normal Negative [facility] Comment on above: Order Comment: Name Collection Type:: Clean-Voided Midstream Performed By: #### C H50, B2 GLYPROT, LUPANTCOAG, C3, CARDIO GMA, C4, C2 #### [facility] , #### ADDONUAPLUS #### [facility] [address] [place] [address] [place] Leukocyte esterase [Presence ] in Urine by Test stripOrdered By: Alden Khan on 12-16-2023 Leukocyte esterase Test strip Ql (U) Negative Normal Negative [facility] Comment on above: Order Comment: Name Collection Type:: Clean-Voided Midstream Performed By: #### C H50, B2 GLYPROT, LUPANTCOAG, C3, CARDIO GMA, C4, C2 #### [facility] , #### ADDONUAPLUS #### [address] Leukocytes [#/area] in Urine sediment by Automated countOrdered By: Alden Khan on 12-16-2023 WBC Auto (Urine sed) [#/Area] 1-2 [HPF] 0-4 [facility] Lupus Anticoagulant Compon 0 12-16-2023 Dilute Prothrombin Time (dPt) 35.7 Normal 0.0-47.6 [facility] Comment on above: Performed By: #### C H50, B2 GLYPROT, LUPANTCOAG, C3, CARDIO GMA, C4, C2 #### [facility] , #### ADDONUAPLUS #### [address] dPT Confirm Ratio 1.21 Normal 0.00-1.34 [facility] Comment on above: Performed By: #### C H50, B2 GLYPROT, LUPANTCOAG, C3, CARDIO GMA, C4, C2 #### [facility] , #### ADDONUAPLUS #### [address] DRVVT Lupus 35.4 Normal 0.0-47.0 [facility] Comment on above: Performed By: #### C H50, B2 GLYPROT, LUPANTCOAG, C3, CARDIO GMA, C4, C2 #### [facility] , #### ADDONUAPLUS #### [address] Interpretation Comment: Normal . [facility] Comment on above: Result Comment: No l upus anticoagulant was detected. Performed at: - [facility] [id number] Registered Physical Therapist: Jackson Mccrary MD, Phone: [phone] PERFORMED BY: [place] [address] PATHOLOGIST AIR TECHNICIAN COLEEN ALMANZA M.D. Performed By: #### C H50, B2 GLYPROT, LUPANTCOAG, C3, CARDIO GMA, C4, C2 #### [facility] , #### ADDONUAPLUS #### [address] PTT-LA 33.7 Normal 0.0-43.5 [facility] Comment on above: Performed By: #### C H50, B2 GLYPROT, LUPANTCOAG, C3, CARDIO GMA, C4, C2 #### [facility] , #### ADDONUAPLUS #### [address] Thrombin Time 18.9 Normal 0.0-23.0 [facility] Comment on above: Performed By: #### C H50, B2 GLYPROT, LUPANTCOAG, C3, CARDIO GMA, C4, C2 #### [facility] , #### ADDONUAPLUS #### [address] Mucus [Presence] in Urine by AutomatedOrdered By: Alden Khan on 12-16-2023 Mucus Auto Ql (U) Rare [LPF] [facility] Nitrite Test strip Ql (U)Ord ered By: Alden Khan on 12-16-2023 Nitrite Ql (U) Negative Negative [facility] Protein Test strip (U) [Mass /Vol]Ordered By: Alden Khan on 12-16-2023 Protein (U) [Mass/Vol] Negative Negative [facility] Specific gravity Test strip (U) [Rel density]Ordered By: Alden Khan on 12-16-2023 Specific gravity (U) [Rel density] 1.016 1.001-1.030 [facility] Urine appearanceOrdered By: Alden Khan on 12-16-2023 Appearance (U) Clear Normal Clear [facility] Comment on above: Order Comment: Name Collection Type:: Clean-Voided Midstream Performed By: #### C H50, B2 GLYPROT, LUPANTCOAG, C3, CARDIO GMA, C4, C2 #### [facility] , #### ADDONUAPLUS #### [facility] [address] Urobilinogen Test strip (U) [Mass/Vol]Ordered By: Alden Khan on 12-16-2023 Urobilinogen (U) [Mass/Vol] Normal mg/dL Normal [facility] pH of Urine by Test stripOrd ered By: Alden Khan on 12-16-2023 pH (U) 6.5 [pH] Normal 5.0-9.0 [facility] Comment on above: Order Comment: Name Collection Type:: Clean-Voided Midstream Performed By: #### C H50, B2 GLYPROT, LUPANTCOAG, C3, CARDIO GMA, C4, C2 #### [facility] , #### ADDONUAPLUS #### [facility] [address] [place] [address] Basophils Auto (Bld) [#/Vol] on 12-04-2023 Basophils (Bld) [#/Vol] 0.1 10 3/uL 0.0-0.1 [facility] Basophils/100 WBC Auto (Bld) on 12-04-2023 Basophils/100 WBC (Bld) 0.7 % 0.2-2.0 [facility] Eosinophils/100 WBC Auto (Bl d)on 12-04-2023 Eosinophils/100 WBC (Bld) 3.3 % 0.9-7.0 [facility] Erythrocyte distribution wid th Auto (RBC) [Ratio]on 12-04-2023 Erythrocyte distribution width (RBC) [Ratio] 12.9 % 11.0-15.0 [facility] Hematocrit Auto (Bld) [Volum e fraction]on 12-04-2023 Hematocrit (Bld) [Volume fraction] 37.6 % 36.0-48.0 [facility] Hemoglobin [Mass/volume] in Bloodon 12-04-2023 Hemoglobin (Bld) [Mass/Vol] 12.7 g/dL 12.0-16.0 [facility] Laboratory - Chemistry and C hemistry - challengeon 12-04-2023 TSH Qn 1.374 m[IU]/L 0.358-3.740 [facility] Laboratory - Hematology and Cell countson 12-04-2023 Immature granulocytes/100 WBC (Bld) 0.1 % 0.0-0.5 [facility] Leukocytes [#/volume] correc ivette for nucleated erythrocytes in Blood by Automated counon 12-04-2023 WBC corrected for nucl RBC Auto (Bld) [#/Vol] 7.1 10 3/uL 4.0-11.0 [facility] Lymphocytes Auto (Bld) [#/Vo l]on 12-04-2023 Lymphocytes (Bld) [#/Vol] 2.0 10 3/uL 1.2-3.8 [facility] Lymphocytes/100 WBC Auto (Bl d)on 12-04-2023 Lymphocytes/100 WBC (Bld) 28.6 % 20.5-60.0 [facility] MCH Auto (RBC) [Entitic mass ]on 12-04-2023 MCH (RBC) [Entitic mass] 28.1 pg 26.7-34.0 [facility] MCHC Auto (RBC) [Mass/Vol]on 12-04-2023 MCHC (RBC) [Mass/Vol] 33.8 g/dL 29.9-35.2 [facility] MCV Auto (RBC) [Entitic vol] on 12-04-2023 MCV (RBC) [Entitic vol] 83.2 fL 81.0-99.0 [facility] Monocytes Auto (Bld) [#/Vol] on 12-04-2023 Monocytes (Bld) [#/Vol] 0.6 10 3/uL 0.3-0.8 [facility] Monocytes/100 WBC Auto (Bld) on 12-04-2023 Monocytes/100 WBC (Bld) 7.9 % 1.7-12.0 [facility] Neutrophils Auto (Bld) [#/Vo l]on 12-04-2023 Neutrophils (Bld) [#/Vol] 4.2 10 3/uL 1.4-6.5 [facility] Neutrophils/100 WBC Auto (Bl d)on 12-04-2023 Neutrophils/100 WBC (Bld) 59.4 % 43.0-75.0 [facility] No Panel Informationon 12-03 Anti-Double Strand DNA Antibody <1 [IU]/mL 0-9 [facility] Comment on above: Negative <5 Equivoca l 5 - 9 Positive >9 Eosinophils # (Auto) 0.2 10 3/uL 0.0-0.7 [facility] Immature Granulocyte # (Auto) 0.01 10 3/uL 0.00-0.03 [facility] Platelet mean volume Auto (B ld) [Entitic vol]on 12-04-2023 Platelet mean volume (Bld) [Entitic vol] 10.2 fL 9.5-13.5 [facility] Platelets Auto (Bld) [#/Vol] on 12-04-2023 Platelets (Bld) [#/Vol] 275 10 3/uL 150-450 [facility] RBC Auto (Bld) [#/Vol]on RBC (Bld) [#/Vol] 4.52 10 6/uL 4.20-5.40 [facility] Serum nuclear antibody titer on 12-04-2023 Nuclear Ab (S) [Titer] Negative Negative [facility] Comment on above: Performed at: - [facility] [place] [id number] Director: Joe Cox PhD, Phone: [phone] Serum or plasma chromatin an tibody assay (units/volume)on 12-04-2023 Chromatin Ab Qn <0.2 AI 0.0-0.9 [facility] Serum or plasma complement C 3 measurement (mass/volume)on 12-04-2023 Complement C3 [Mass/Vol] 113 mg/dL 82-167 [facility] Serum or plasma complement C 4 measurement (mass/volume)on 12-04-2023 Complement C4 [Mass/Vol] 10 mg/dL Abnormal 12-38 [facility] Urinalysis - AUTOMATEDon Appearance (U) clear [employer] Other Bilirubin Ql (U) Negative [facility] Other Color (U) yellow [facility] Other Glucose Ql (U) Negative [employer] Other Hemoglobin Ql (U) [employer] Other Ketones Ql (U) Negative [employer] Other Leukocyte esterase Test strip Ql (U) [employer] Other Nitrite Ql (U) Negative [employer] Other pH (U) 5.5 [pH] [facility] Other Protein Ql (U) Negative [employer] Other Specific gravity (U) [Rel density] 1.025 [facility] Other Urobilinogen (U) [Mass/Vol] 0.2 mg/dL [facility] Other Urinalysis - AUTOMATED [facility] Other Urine Cultureon 04-20-2023 Bacteria identified Cx Nom (U) ORGANISM: Escherichia coli (O:ESCCOL) [place] Count 10,000 Organism Comments Pure Growth Aerobic [...] RESISTANT TO ALL B-LACTAM DRUGS. PERFORMED BY: [facility] [address] [place] [address] PATHOLOGIST AIR TECHNICIAN COLEEN ALMANZA M.D. Normal [facility] Comment on above: Performed By: #### C UU #### [facility] [address] FACTOR V LEIDEN MUTATION VIVIEN LYSISon 09-18-2022 Factor V Leiden Comment Normal [facility] Comment on above: Result Comment: Resu lt: c.1601G>A ([id number]) - Not Detected . This result is not associated with an increased risk for venous thromboembolism. See Additional Clinical Information and Comments. Additional Clinical Information: Venous thromboembolism is a multifactorial disease influenced by genetic, environmental, and circumstantial risk factors. The c.1601G>A (p. [id number]) variant in the F5 gene, commonly referred [...] c.*97G>A variant and Factor V Leiden (PMID: [id number]). Additional risk factors include but are not [...] health care providers to discuss results at [phone] ([phone]). . Test Details: Variant Analyzed: c.1601G>A (p. [id number]), referred to as Factor V Leiden . [...] developed and its performance characteristics determined by [employer]. It has not been cleared or approved by the Food and Drug Administration. . References: Ashley Levy, Coco CHRISTIAN, Cruz R, Grokailyn WW, Satnam JH; [facility] Professional Practice and Guidelines Committee. Addendum: [employer] consensus statement on factor V Leiden mutation testing. Renetta Med. 2020Aug 18. doi: 10.1038/[id number]-o. PMID: 38290263. . Reyna LARSEN. Factor V Leiden Thrombophilia. 1998October 27 (Updated 2017Jun 19). In: Mickey MP, Jia HH, Isaac RA, et al., editors. Marjorie(R) (Internet). [place] ([place]): [facility]; 5131-0009. Available from: https://www.ncbi.nlm.nih.gov/books/NJO8835/ . Coco Marino, Molina X, Al B, Arvind EB, Sherley P, Austin CS; [facility] Laboratory Lean Process Deployment Consultant Committee. Venous thromboembolism laboratory testing (factor V Leiden and factor II c.*97G>A), 2018 update: a technical standard of the [employer] (ACMG). Renetta Med. 2017;20(12):4057-9810. doi: 10.1038/[id number]-x. Epub 2017Mar 20. PMID: 05902065. . Carmella Anderson, PhD, FACMG Zoë Espinoza, PhD Veto Salgado, PhD, FACMG Jarrett Morales, PhD, [facility]AC[facility] Espinoza Mazariegos, PhD, FAC Michelle Tsang, PhD, FAC Maegan Yepez, PhD, FAC Vira Teague, PhD, [facility] Performed By: #### C BC #### [facility] [address] [place] [address] Dr. Brittany Brown FACTOR II DNA ANALYSISon Factor II DNA Analysis Comment Normal [facility] Comment on above: Result Comment: Resu lt: [...] the F2 gene and a c.1601G>A (p. [id number]) variant in the F5 gene (commonly referred to as Factor V Leiden) have an approximately 20- fold increased risk for venous thromboembolism. Risks are likely to be even higher in more complex genotype combinations involving the F2 c.*97G>A variant and Factor V Leiden (PMID: [id number]). Additional risk factors include but are not [...] health care providers to discuss results at [phone] ([phone]). . Test Details: Variant analyzed: c.*97G>A, previously referred to as [id number] . Methods/Limitations: DNA analysis of the F2 [...] developed and its performance characteristics determined by [facility]. It has not been cleared or approved by the Food and Drug Administration. . References: Ashley S, Coco CHRISTIAN, Cruz R, Alphonso WW, Satnam JH; [employer] Professional Practice and Guidelines Committee. Addendum: [employer] consensus statement on factor V Leiden mutation testing. Renetta Med. 2020Aug 18. doi: 10.1038/[id number]-u. PMID: 37465640. . Reyna LARSEN. Prothrombin Thrombophilia. 2005Jan 07 [Updated 2020Jul 20]. In: Mickey MP, Jia HH, Isaac RA, et al., editors. Marjorie(R) [Internet]. [place]): [facility]; 0126-7903. Available from: https://www.ncbi.nlm.nih.gov/books/QBF4237/ . Nick S, Coco CHRISTIAN, Molina X, Al B, Arvind EB, Sherley P, Austin MEMBRENO; [facility] Lean Process Deployment Consultant Committee. Venous thromboembolism laboratory testing (factor V Leiden and factor II c.*97G>A), 2018 update: a technical standard of the [employer] (ACMG). Renetta Med. 2018 May;20(12):8990-4725. doi: 10.1038/[id number]-b. Epub 2017Mar 20. PMID: 61092956. . Carmella Anderson, PhD, FACMG Zoë Espinoza, PhD Veto Salgado, PhD, [facility] Jarrett Morales, PhD, [facility]AC[facility] Espinoza Mazariegos, PhD, FAC W Eloisa Tsang, PhD, FAC Maegan Yepez, PhD, FAC Vira Teague, PhD, FAC Performed By: #### C BC #### [facility] [address] [place] [address] Dr. Brittany Brown CBC AUTO DIFFon 09-12-2022 BASO # 0.1 103/ul Normal 0.0-0.1 [facility] Comment on above: Performed By: #### C BC #### [facility] [address] [place] [address] Dr. Brittany Brown Basophils/100 WBC (Bld) 0.5 % Normal 0.2-2.0 [facility] Comment on above: Performed By: #### C BC #### [facility] [address] [place] [address] Dr. Brittany Brown EO # 0.2 103/ul Normal 0.0-0.7 [facility] Comment on above: Performed By: #### C BC #### [facility] [address] [address] [address] Brittany Brown Eosinophils/100 WBC (Bld) 1.7 % Normal 0.9-7.0 [facility] Comment on above: Performed By: #### C BC #### [facility] [address] [place] [address] Dr. Brittany Brown Erythrocyte distribution width (RBC) [Ratio] 14.9 % Normal 11.0-15.0 [facility] Comment on above: Performed By: #### C BC #### [facility] [address] [place] [address] Dr. Brittany Brown Hematocrit (Bld) [Volume fraction] 27.1 % Critically low 36.0-48.0 [facility] Comment on above: Performed By: #### C BC #### [facility] [address] [place] [address] Dr. Brittany Brown Hemoglobin (Bld) [Mass/Vol] 8.7 g/dL Critically low 12.0-16.0 [facility] Comment on above: Performed By: #### C BC #### [facility] [address] [place] [address] Dr. Brittany Brown IG # 0.10 10e3/ul Critically high 0.00-0.03 [facility] Comment on above: Performed By: #### C BC #### [facility] [address] [place] [address] Dr. Brittany Brown IG % 1.0 % Critically high 0.0-0.5 [facility] Comment on above: Performed By: #### C BC #### [facility] [address] [place] [address] Dr. Brittany Brown LYMPH # 1.6 103/ul Normal 1.2-3.8 [facility] Comment on above: Performed By: #### C BC #### [facility] [address] [place] [address] Dr. Brittany Brown Lymphocytes/100 WBC (Bld) 15.4 % Critically low 20.5-60.0 [facility] Comment on above: Performed By: #### C BC #### [facility] [address] [place] [address] Dr. Brittany Brown MANUAL DIFF REQ NO Normal [facility] Comment on above: Performed By: #### C BC #### [facility] [address] [place] [address] Dr. Brittany Brown MCH (RBC) [Entitic mass] 26.0 pg Critically low 26.7-34.0 [facility] Comment on above: Performed By: #### C BC #### [facility] [address] [address] [address] Brittany Brown MCHC (RBC) [Mass/Vol] 32.1 g/dL Normal 29.9-35.2 [facility] Comment on above: Performed By: #### C BC #### [facility] [address] [address] [address] Brittany Brown MCV (RBC) [Entitic vol] 81.1 fL Normal 81.0-99.0 [facility] Comment on above: Performed By: #### C BC #### [facility] [address] [address] [address] Brittany Brown MONO # 0.7 103/ul Normal 0.3-0.8 [facility] Comment on above: Performed By: #### C BC #### [facility] [address] [place] [address] Dr. Brittany Brown Monocytes/100 WBC (Bld) 7.1 % Normal 1.7-12.0 [facility] Comment on above: Performed By: #### C BC #### [facility] [address] [place] [address] Dr. Brittany Brown NEUT # 7.6 103/ul Critically high 1.4-6.5 [facility] Comment on above: Performed By: #### C BC #### [facility] [address] [place] [address] Dr. Brittany Brown Neutrophils/100 WBC (Bld) 74.3 % Normal 43.0-75.0 [facility] Comment on above: Performed By: #### C BC #### [facility] [address] [address] [address] Brittany Brown Platelet mean volume (Bld) [Entitic vol] 9.8 fL Normal 9.5-13.5 [facility] Comment on above: Performed By: #### C BC #### [facility] [address] [address] [address] Brittany Brown PLT 224 103/ul Normal 150-450 [facility] Comment on above: Performed By: #### C BC #### [facility] [address] [address] [address] Brittany Brown RBC 3.34 106/ul Critically low 4.20-5.40 [facility] Comment on above: Performed By: #### C BC #### [facility] [address] [place] [address] Dr. Brittany Brown WBC 10.2 103/ul Normal 4.0-11.0 [facility] Comment on above: Performed By: #### C BC #### [facility] [address] [place] [address] Dr. Brittany Brown CBC AUTO DIFFon 09-11-2022 BASO # 0.1 103/ul Normal 0.0-0.1 [facility] Comment on above: Performed By: #### C BC #### [facility] [address] [place] [address] Dr. Brittany Brown Basophils/100 WBC (Bld) 0.5 % Normal 0.2-2.0 [facility] Comment on above: Performed By: #### C BC #### [facility] [address] [place] [address] Dr. Brittany Brown EO # 0.1 103/ul Normal 0.0-0.7 [facility] Comment on above: Performed By: #### C BC #### [facility] [address] [place] [address] Dr. Brittany Brown Eosinophils/100 WBC (Bld) 1.1 % Normal 0.9-7.0 [facility] Comment on above: Performed By: #### C BC #### [facility] [address] [place] [address] Dr. Brittany Brown Erythrocyte distribution width (RBC) [Ratio] 14.6 % Normal 11.0-15.0 [facility] Comment on above: Performed By: #### C BC #### [facility] [address] [place] [address] Dr. Brittany Brown Hematocrit (Bld) [Volume fraction] 32.4 % Critically low 36.0-48.0 [facility] Comment on above: Performed By: #### C BC #### [facility] [address] [address] [address] Brittany Brown Hemoglobin (Bld) [Mass/Vol] 10.6 g/dL Critically low 12.0-16.0 [facility] Comment on above: Performed By: #### C BC #### [facility] [address] [address] [address] Brittany Brown IG # 0.11 10e3/ul Critically high 0.00-0.03 [facility] Comment on above: Performed By: #### C BC #### [facility] [address] [address] [address] Brittany Brown IG % 1.1 % Critically high 0.0-0.5 [facility] Comment on above: Performed By: #### C BC #### [facility] [address] [place] [address] Dr. Brittany Brown LYMPH # 1.2 103/ul Normal 1.2-3.8 [facility] Comment on above: Performed By: #### C BC #### [facility] [address] [address] [address] Brittany Brown Lymphocytes/100 WBC (Bld) 12.8 % Critically low 20.5-60.0 [facility] Comment on above: Performed By: #### C BC #### [facility] [address] [place] [address] Dr. Brittany Brown MANUAL DIFF REQ NO Normal [facility] Comment on above: Performed By: #### C BC #### [facility] [address] [address] [address] Brittany Brown MCH (RBC) [Entitic mass] 25.8 pg Critically low 26.7-34.0 [facility] Comment on above: Performed By: #### C BC #### [facility] [address] [address] [address] Brittany Brown MCHC (RBC) [Mass/Vol] 32.7 g/dL Normal 29.9-35.2 [facility] Comment on above: Performed By: #### C BC #### [facility] [address] [address] [address] Brittany Brown MCV (RBC) [Entitic vol] 78.8 fL Critically low 81.0-99.0 [facility] Comment on above: Performed By: #### C BC #### [facility] [address] [place] [address] Dr. Brittany Brown MONO # 0.7 103/ul Normal 0.3-0.8 [facility] Comment on above: Performed By: #### C BC #### [facility] [address] [place] [address] Dr. Brtitany Brown Monocytes/100 WBC (Bld) 6.8 % Normal 1.7-12.0 [facility] Comment on above: Performed By: #### C BC #### [facility] [address] [place] [address] Dr. Brittany Brown NEUT # 7.5 103/ul Critically high 1.4-6.5 [facility] Comment on above: Performed By: #### C BC #### [facility] [address] [place] [address] Dr. Brittany Brown Neutrophils/100 WBC (Bld) 77.7 % Critically high 43.0-75.0 [facility] Comment on above: Performed By: #### C BC #### [facility] [address] [place] [address] Dr. Brittany Brown Platelet mean volume (Bld) [Entitic vol] 10.4 fL Normal 9.5-13.5 [facility] Comment on above: Performed By: #### C BC #### [facility] [address] [place] [address] Dr. Brittany Brown PLT 259 103/ul Normal 150-450 [facility] Comment on above: Performed By: #### C BC #### [facility] [address] [place] [address] Dr. Brittany Brown RBC 4.11 106/ul Critically low 4.20-5.40 [facility] Comment on above: Performed By: #### C BC #### [facility] [address] [place] [address] Dr. Brittany Brown WBC 9.7 103/ul Normal 4.0-11.0 [facility] Comment on above: Performed By: #### C BC #### [facility] [address] [address] [address] Brittany Brown DRUG SCREEN RAPID (URINE)on 09-11-2022 AMP Negative Normal NEGATIVE [facility] Comment on above: Performed By: #### D RUGRPD ####[facility] [address] [address]Dr. Brittany Brown BAR Negative Normal NEGATIVE [facility] Comment on above: Performed By: #### D RUGRPD ####[facility] [address] [address]Dr. Brittany Brown BUP Negative Normal NEGATIVE [facility] Comment on above: Performed By: #### D RUGRPD ####[facility] [address] [address]Dr. Brittany Brown BZO Negative Normal NEGATIVE [facility] Comment on above: Performed By: #### D RUGRPD ####[facility] [address] [address]Dr. Brittany Brown PARAS Negative Normal NEGATIVE [facility] Comment on above: Performed By: #### D RUGRPD ####[facility] [address] [address]Dr. Brittany Brown CUT-OFFS SEE BELOW Normal [facility] Comment on above: Result Comment: AMP (Amphetamine): 500ng/mL, BAR (Barbituates): 200 ng/mL, BZO (Benzodiazepines): 150 ng/mL, BUP (Buprenorphine): 10 ng/mL, PARAS (Cocaine): 150 ng/mL, mAMP (Methamphetamine): 500 ng/mL, MTD (Methadone): 200 ng/mL, OPI (Opiates): 100 ng/mL, OXY (Oxycodone): 100 ng/mL, PCP (Phencyclidine): 25 ng/mL, PPX (Propoxyphene): 300 ng/mL, THC (Cannabinoids): 50 ng/mL, TCA (Trycyclic Antidepressants): 300 ng/mL Performed By: #### D RUGRPD ####[facility] [address] [place], [place] [address]Xk. Brittany Brown DRUG CUT HEADER DRUG CLASS TEST SYSTEM CUT-OFF CONCENTRATIONS ARE FOLLOWS: Normal [facility] Comment on above: Performed By: #### D RUGRPD ####[facility] [address] [place], [place] [address]Uu. Yiginger Brown mAMP Negative Normal NEGATIVE [facility] Comment on above: Performed By: #### D RUGRPD ####[facility] [address] [id number]. Yilan Brown MTD Negative Normal NEGATIVE [facility] Comment on above: Performed By: #### D RUGRPD ####[facility] [address] [phone]. Brittany Brown OPI Negative Normal NEGATIVE [facility] Comment on above: Performed By: #### D RUGRPD ####[facility] [address] [place], [place] [id number]. Yilan Brown OXY Negative Normal NEGATIVE [facility] Comment on above: Performed By: #### D RUGRPD ####[facility] [address] [phone]. Brittany Brown PCP Negative Normal NEGATIVE [facility] Comment on above: Performed By: #### D RUGRPD ####[facility] [address] [phone]. Yilan Brown PPX Negative Normal NEGATIVE [facility] Comment on above: Performed By: #### D RUGRPD ####[facility] [address] [phone]. Yilan Brown TCA Negative Normal NEGATIVE [facility] Comment on above: Performed By: #### D RUGRPD ####[facility] [address] [phone]. Brittany Brown THC Negative Normal NEGATIVE [facility] Comment on above: Performed By: #### D RUGRPD ####[facility] [address] [phone]. Brittany Brown TYPE AND SCREENon 09-11-2022 TYPE AND SCREEN Negative Normal [facility] Comment on above: Performed By: #### C T/NGNA #### [facility] [address] [place] [address] Dr. Brittany Brown PREG BIOPHY W NON [...] by: DI BRIZUELA Date: 2022-09-04 16:35 Normal [facility] GROUP B STREP CULTUREon 08-14 S. agalactiae [...] S F Tetracycline >=16 R F Normal [facility] Comment on above: Performed By: #### G BSCX #### [facility] [address] [place] [address] Dr. Brittany Brown PREG BIOPHY W NON [...] by: DI BRIZUELA Date: 2022-08-28 16:34 Normal [facility] US PREG BIOPHY W NON STRESSo [...] by: DI BRIZUELA Date: 2022-08-21 17:57 Normal [facility] PREG BIOPHY W NON STRESSo n 08-14-2022 [...] by: NELA MEZA Date: 2022-08-14 17:30 Normal [facility] US PREG BIOPHY W NON STRESSo n 08-08-2022 [...] by: DI BRIZUELA Date: 2022-08-08 15:14 Normal [facility] PREG GROWTHon 08-08-2022 US PREG GROWTH EXAMINATION: [...] by: DI BRIZUELA Date: 2022-08-08 15:27 Normal [facility] PREG GROWTHon 07-23-2022 US PREG GROWTH EXAMINATION: [...] DI BRIZUELA Date: 2022-07-23 15:28 Normal [facility] US PREG CERVICAL LENGTHon US PREG CERVICAL [...] by: DI BRIZUELA Date: 2022-07-09 14:59 Normal [facility] US PREG GROWTHon 06-27-2022 US PREG GROWTH [...] by: DI BRIZUELA Date: 2022-06-27 08:02 Normal [facility] CBC AUTO DIFFon 06-14-2022 BASO # 0.0 103/ul Normal 0.0-0.1 [facility] Comment on above: Performed By: #### C BC ####[facility] [address] [address]Dr. Brittany Brown Basophils/100 WBC (Bld) 0.4 % Normal 0.2-2.0 [facility] Comment on above: Performed By: #### C BC ####[facility] [address] [address]Dr. Brittany Brown EO # 0.2 103/ul Normal 0.0-0.7 [facility] Comment on above: Performed By: #### C BC ####[facility] [address] [address]Dr. Brittany Brown Eosinophils/100 WBC (Bld) 2.2 % Normal 0.9-7.0 [facility] Comment on above: Performed By: #### C BC ####[facility] [address] [address]Dr. Brittany Brown Erythrocyte distribution width (RBC) [Ratio] 13.5 % Normal 11.0-15.0 [facility] Comment on above: Performed By: #### C BC ####[facility] [address] [address]Dr. Brittany Brown Hematocrit (Bld) [Volume fraction] 32.4 % Critically low 36.0-48.0 [facility] Comment on above: Performed By: #### C BC ####[facility] [address] [place], [place] [address]Dr. Brittany Brown Hemoglobin (Bld) [Mass/Vol] 11.2 g/dL Critically low 12.0-16.0 [facility] Comment on above: Performed By: #### C BC ####[facility] [address] [place], [place] [address]Dr. Brittany Brown IG # 0.10 10e3/ul Critically high 0.00-0.03 [facility] Comment on above: Performed By: #### C BC ####[facility] [address] [address]Dr. Brittany Brown IG % 0.9 % Critically high 0.0-0.5 [facility] Comment on above: Performed By: #### C BC ####[facility] [address] [address]Dr. Brittany Brown LYMPH # 1.2 103/ul Normal 1.2-3.8 [facility] Comment on above: Performed By: #### C BC ####[facility] [address] [address]Dr. Zenaidaginger Brown Lymphocytes/100 WBC (Bld) 11.1 % Critically low 20.5-60.0 [facility] Comment on above: Performed By: #### C BC ####[facility] [address] [address]Dr. Zenaidaginger Brown MANUAL DIFF REQ NO Normal [facility] Comment on above: Performed By: #### C BC ####[facility] [address] [address]Dr. Zenaidaginger Brown MCH (RBC) [Entitic mass] 29.9 pg Normal 26.7-34.0 [facility] Comment on above: Performed By: #### C BC ####[facility] [address] [place], [place] [address]Dr. Brittany Brown MCHC (RBC) [Mass/Vol] 34.6 g/dL Normal 29.9-35.2 [facility] Comment on above: Performed By: #### C BC ####[facility] [address] [place], [place] [address]Dr. Brittany Brown MCV (RBC) [Entitic vol] 86.4 fL Normal 81.0-99.0 [facility] Comment on above: Performed By: #### C BC ####[facility] [address] [place], [place] [address]Dr. Brittany Brown MONO # 0.6 103/ul Normal 0.3-0.8 [facility] Comment on above: Performed By: #### C BC ####[facility] [address] [place], [place] [address]Dr. Brittany Brown Monocytes/100 WBC (Bld) 5.4 % Normal 1.7-12.0 [facility] Comment on above: Performed By: #### C BC ####[facility] [address] [place], [place] [address]Dr. Brittany Brown NEUT # 8.5 103/ul Critically high 1.4-6.5 [facility] Comment on above: Performed By: #### C BC ####[facility] [address] [place] [address]Hx. Brittany Brown Neutrophils/100 WBC (Bld) 80.0 % Critically high 43.0-75.0 [facility] Comment on above: Performed By: #### C BC ####[facility] [address] [phone] Brown Platelet mean volume (Bld) [Entitic vol] 9.6 fL Normal 9.5-13.5 [facility] Comment on above: Performed By: #### C BC ####[facility] [address] [phone] Brown PLT 250 103/ul Normal 150-450 [facility] Comment on above: Performed By: #### C BC ####[facility] [address] [address]DrIain Brown RBC 3.75 106/ul Critically low 4.20-5.40 [facility] Comment on above: Performed By: #### C BC ####[facility] [address] [phone] Brown WBC 10.6 103/ul Normal 4.0-11.0 [facility] Comment on above: Performed By: #### C BC ####[facility] [address] [phone] Brown GLUCOSE - 1HRon 06-14-2022 Glucose [Mass/Vol] 100 mg/dL Normal 74-106 [facility] Comment on above: Performed By: #### C BC #### [facility] [address] [address] [address] Brittany Brown PAP ACOG PANEL 2: 21 to 29on 05-21-2022 . . Normal [facility] Comment on above: Performed By: #### [id number] ####[facility] [facility] [id number] [id number]. Brittany Brown Age Gdln ACOG Testing 21-29 Normal [facility] Comment on above: Performed By: #### [id number] ####[facility] [address] [id number]. Brittany Brown DIAGNOSIS: Comment Normal [facility] Comment on above: Result Comment: NEGA TIVE FOR INTRAEPITHELIAL LESION OR MALIGNANCY. Performed By: #### [id number] ####[facility] [address] [address]DrIain Brown Methodology: Comment Normal [facility] Comment on above: Result Comment: This liquid based ThinPrep(R) pap test was screened with the use of an image guided system. Performed By: #### [id number] ####[facility] [address] [place], [place] [address]Dr. Brittany Brown Note: Comment Normal [facility] Comment on above: Result Comment: The Pap smear is a screening test designed to aid in the detection of premalignant and malignant conditions of the uterine cervix. It is not a diagnostic procedure and should not be used as the sole means of detecting cervical cancer. Both false-positive and false-negative reports do occur. . Performed By: #### [id number] ####[facility] [address] [place], [place] [address]Dr. Brittany Brown Performed by: Comment Normal [facility] Comment on above: Result Comment: James Guerrier, Can Intake Worker Performed By: #### [id number] ####[facility] [address] [place], [place] [address]Dr. Brittany Brown Reflex Criteria: Comment Normal [facility] Comment on above: Result Comment: The HPV DNA reflex criteria were not met with this specimen result therefore, no HPV testing was performed. . Performed By: #### [id number] ####[facility] [address] [place], [place] [id number]. Brittany Brown Specimen adequacy: Comment Normal [facility] Comment on above: Result Comment: Sati sfactory for evaluation. Endocervical and/or squamous metaplastic cells (endocervical component) are present. Performed By: #### [id number] ####[facility] [address] [address]Dr. Brittany Brown CHLAMYDIA/GONOCOCCUS CALEB (SW AB/URINE/PAPon 05-16-2022 Chlamydia trachomatis, CALEB Negative Normal Negative [facility] Comment on above: Performed By: #### C T/NGNA #### [facility] [address] [address] [address] Brittany Brown Neisseria gonorrhoeae, CALEB Negative Normal Negative [facility] Comment on above: Performed By: #### C T/NGNA #### [facility] [address] [address] [address] Brittany Brown VAGINITIS/VAGINOSIS DNA PROB German 05-15-2022 Briseida species Negative Normal Negative [facility] Comment on above: Performed By: #### C BC #### [facility] [address] [address] [address] Brittany Brown Gardnerella vaginalis Negative Normal Negative [facility] Comment on above: Performed By: #### C BC #### [facility] [address] [address] [address] Brittany Brown Trichomonas vaginalis Negative Normal Negative [facility] Comment on above: Performed By: #### C BC #### [facility] [address] [address] [address] Brittany Brown HEP B SURFACE ANTIGEN SCREEN on 02-15-2022 HBsAg Screen Negative Normal Negative [facility] Comment on above: Performed By: #### H BSANS ####[facility] [address] [address]Dr. Brittany Brown HEPATITIS C VIRUS AB W/ REFL EX QUANTon 02-15-2022 HCV AB <0.1 Normal 0.0-0.9 [facility] Comment on above: Performed By: #### C T/NGNA #### [facility] [address] [address] [address] Brittany Brown Interpretation: Comment Normal [facility] Comment on above: Result Comment: Nega tive Not infected with HCV, unless recent infection is suspected or other evidence exists to indicate HCV infection. Performed By: #### C T/NGNA #### [facility] [address] [address] [address] Brittany Brown HIV 1 AND 2 WITH REFLEXon HIV Screen 4th Generation wRfx Non-Reactive Normal Non Reactive [facility] Comment on above: Result Comment: HIV Negative HIV-1/HIV-2 antibodies and HIV-1 p24 antigen were NOT detected. There is no laboratory evidence of HIV infection. Performed By: #### C BC #### [facility] [address] [place] [address] Dr. Brittany Brown RPR QUANTon 02-15-2022 Rapid Plasma Reagin, Quant Non-Reactive Normal NonRea<1:1 [facility] Comment on above: Result Comment: Plea se Note: This test does not meet current guidelines for screening and diagnosis of syphilis. This test is intended for following treatment response in patients being treated for syphilis infection. To screen for syphilis infection, a reflex cascade that includes both RPR and a treponema-specific assay should be utilized, such as Treponema pallidum (Syphilis) Screening [facility] (448137) or Rapid Plasma Reagin (RPR) Test With Reflex to Quantitative RPR and Confirmatory Treponema pallidum Antibodies (717568). Performed By: #### R PRQ ####[facility] [address] [place], [place] [address]Dr. Brittany Brown RUBELLA AB IGGon 02-15-2022 Rubella Antibodies, IgG 28.20 index Normal Immune >0.99 [facility] Comment on above: Result Comment: Non- immune <0.90 Equivocal 0.90 - 0.99 Immune >0.99 Performed By: #### C BC #### [facility] [address] [place] [address] Dr. Brittany Brown CBC AUTO DIFFon 02-14-2022 BASO # 0.0 103/ul Normal 0.0-0.1 [facility] Comment on above: Performed By: #### C BC #### [facility] [address] [place] [address] Dr. Brittany Brown Basophils/100 WBC (Bld) 0.3 % Normal 0.2-2.0 [facility] Comment on above: Performed By: #### C BC #### [facility] [address] [place] [address] Dr. Brittany Brown EO # 0.1 103/ul Normal 0.0-0.7 [facility] Comment on above: Performed By: #### C BC #### [facility] [address] [place] [address] Dr. Brittany Brown Eosinophils/100 WBC (Bld) 1.2 % Normal 0.9-7.0 [facility] Comment on above: Performed By: #### C BC #### [facility] [address] [place] [address] Dr. Brittany Brown Erythrocyte distribution width (RBC) [Ratio] 13.6 % Normal 11.0-15.0 [facility] Comment on above: Performed By: #### C BC #### [facility] [address] [place] [address] Dr. Brittany Brown Hematocrit (Bld) [Volume fraction] 34.7 % Critically low 36.0-48.0 [facility] Comment on above: Performed By: #### C BC #### [facility] [address] [place] [address] Dr. Brittany Brown Hemoglobin (Bld) [Mass/Vol] 11.8 g/dL Critically low 12.0-16.0 [facility] Comment on above: Performed By: #### C BC #### [facility] [address] [place] [address] Dr. Brittany Brown IG # 0.03 10e3/ul Normal 0.00-0.03 [facility] Comment on above: Performed By: #### C BC #### [facility] [address] [place] [address] Dr. Brittany Brown IG % 0.3 % Normal 0.0-0.5 [facility] Comment on above: Performed By: #### C BC #### [facility] [address] [place] [address] Dr. Brittany Brown LYMPH # 1.2 103/ul Normal 1.2-3.8 [facility] Comment on above: Performed By: #### C BC #### [facility] [address] [place] [address] Dr. Brittany Brown Lymphocytes/100 WBC (Bld) 13.9 % Critically low 20.5-60.0 [facility] Comment on above: Performed By: #### C BC #### [facility] [address] [place] [address] Dr. Brittany Brown MANUAL DIFF REQ NO Normal [facility] Comment on above: Performed By: #### C BC #### [facility] [address] [place] [address] Dr. Brittany Brown MCH (RBC) [Entitic mass] 27.8 pg Normal 26.7-34.0 [facility] Comment on above: Performed By: #### C BC #### [facility] [address] [place] [address] Dr. Brittany Brown MCHC (RBC) [Mass/Vol] 34.0 g/dL Normal 29.9-35.2 [facility] Comment on above: Performed By: #### C BC #### [facility] [address] [place] [address] Dr. Brittany Brown MCV (RBC) [Entitic vol] 81.6 fL Normal 81.0-99.0 [facility] Comment on above: Performed By: #### C BC #### [facility] [address] [place] [address] Dr. Brittany Brown MONO # 0.5 103/ul Normal 0.3-0.8 [facility] Comment on above: Performed By: #### C BC #### [facility] [address] [place] [address] Dr. Brittany Brown Monocytes/100 WBC (Bld) 5.9 % Normal 1.7-12.0 [facility] Comment on above: Performed By: #### C BC #### [facility] [address] [place] [address] Dr. Brittany Brown NEUT # 6.8 103/ul Critically high 1.4-6.5 [facility] Comment on above: Performed By: #### C BC #### [facility] [address] [place] [address] Dr. Brittany Brown Neutrophils/100 WBC (Bld) 78.4 % Critically high 43.0-75.0 [facility] Comment on above: Performed By: #### C BC #### [facility] [address] [address] [address] Brittany Brown Platelet mean volume (Bld) [Entitic vol] 9.9 fL Normal 9.5-13.5 [facility] Comment on above: Performed By: #### C BC #### [facility] [address] [place] [address] Dr. Brittany Brown PLT 271 103/ul Normal 150-450 [facility] Comment on above: Performed By: #### C BC #### [facility] [address] [place] [address] Dr. Brittany Brown RBC 4.25 106/ul Normal 4.20-5.40 [facility] Comment on above: Performed By: #### C BC #### [facility] [address] [place] [address] Dr. Brittany Brown WBC 8.7 103/ul Normal 4.0-11.0 [facility] Comment on above: Performed By: #### C BC #### [facility] [address] [place] [address] Dr. Brittany Brown CULTURE URINEon 02-14-2022 CULTURE URINE Culture Observations: NO GROWTH. Normal [facility] Comment on above: Performed By: #### C T/NGNA #### [facility] [address] [place] [address] Dr. Brittany Brown GLYCOHEMOGLOBIN A1Con 2021 ADA RECOMMENDATION SEE BELOW Normal [facility] Comment on above: Result Comment: ADA RECOMMENDED LIMIT 4.0 - 6.0 ADA THERAPEUTIC TARGET < 7.0 ACTION SUGGESTED > 7.0 Performed By: #### A 1C #### [facility] [address] [place] [address] Dr. Brittany Brown Glucose [Mass/Vol] 111 mg/dL Normal [facility] Comment on above: Performed By: #### A 1C #### [facility] [address] [place] [address] Dr. Brittany Brown HbA1c (Bld) [Mass fraction] 5.5 % Normal 4.5-6.2 [facility] Comment on above: Performed By: #### A 1C #### [facility] [address] [place] [address] Dr. Brittany Brown TERRELL BOX TEST PT SEND OUTo n 02-14-2022 SENT TO REF LAB 02/14/2022 Normal [facility] Comment on above: Performed By: #### N BOX #### [facility] [address] [place] [address] Dr. Brittany Brown TYPE AND SCREENon 02-14-2022 TYPE AND SCREEN Negative Normal [facility] Comment on above: Performed By: #### T NS #### [facility] [address] [place] [address] Dr. Brittany Brown US PREG TVon 02-01-2022 [...] DI BRIZUELA Date: 2022-01-31 22:14 Normal [facility] HCG-BETA SUBUNIT QUANTon hCG,Beta Subunit,Qnt,Serum 868 mIU/mL Normal [facility] Comment on above: Result Comment: Fema le (Non-) 0 - 5 (Postmenopausal) 0 - 8 . Female () Weeks of Gestation 3 6 - 71 4 10 - 750 5 413 - 5053 6 327 - 96899 7 [phone] [phone] 8 13447 -791692 9 45235 -347193 10 38917 -595045 12 96636 -115224 14 76131 - 91703 15 47127 - 69902 16 9040 33679 17 8175 58150 18 8099 - 35367 Magaly ECLIA methodology Performed By: #### H CGSUB #### [facility] [address] [place], [place] [address] Dr. Brittany Brown HCG-BETA SUBUNIT QUANTon hCG,Beta Subunit,Qnt,Serum 364 mIU/mL Normal [facility] Comment on above: Result Comment: Fema le (Non-) 0 - 5 (Postmenopausal) 0 - 8 . Female () Weeks of Gestation 3 6 - 71 4 10 - 750 5 222 - 0878 6 047 - 81132 7 4756 [phone] 8 78029 -048354 9 13859 -465051 10 67454 -313301 12 87614 -288982 14 99652 - 59730 15 87079 - 92971 16 7287 - 31324 17 8175 - [id number] 18 8099 - 01374 Magaly ECLIA methodology Performed By: #### C BC #### [facility] [address] [address] [address] Brittany Brown Vital Signs Date Time Vital Sign Value Performing Clinician Facility 12-04-2023 15:48-0400 Body height 160.02 cm [facility] 12-04-2023 15:48-0400 Body mass index (BMI) [Ratio] 24 kg/m2 [facility] 12-04-2023 15:48-0400 Body weight 61.68 kg [facility] 12-04-2023 15:48-0400 Diastolic blood pressure 79 mm[Hg] [facility] 12-04-2023 15:48-0400 Heart rate 77 /min [facility] 12-04-2023 15:48-0400 Systolic blood pressure 108 mm[Hg] [facility] 10-21-2023 15:30-0400 Body height 160.02 cm [facility] 10-21-2023 15:30-0400 Body mass index (BMI) [Ratio] 24.3 kg/m2 [facility] 10-21-2023 15:30-0400 Body temperature 97.8 [degF] [facility] 10-21-2023 15:30-0400 Body weight 62.14 kg [facility] 10-21-2023 15:30-0400 Diastolic blood pressure 83 mm[Hg] [facility] 10-21-2023 15:30-0400 Heart rate 85 /min [facility] 10-21-2023 15:30-0400 Systolic blood pressure 119 mm[Hg] [facility] 08-12-2023 11:33-0500 Body height 160.02 cm [facility] 08-12-2023 11:33-0500 Body mass index (BMI) [Ratio] 24 kg/m2 [facility] 08-12-2023 11:33-0500 Body weight 61.74 kg [facility] 08-12-2023 11:33-0500 Diastolic blood pressure 77 mm[Hg] [facility] 08-12-2023 11:33-0500 Heart rate 81 /min [facility] 08-12-2023 11:33-0500 Systolic blood pressure 108 mm[Hg] [facility] 04-20-2023 09:00-0500 Body height 160.02 cm Chelo Valencia Other [facility] [employer] Other 04-20-2023 09:00-0500 Body mass index (BMI) [Ratio] 24.23 kg/m2 Chelo Valencia Other [facility] [employer] Other 04-20-2023 09:00-0500 Body temperature 98.1 [degF] Chelo Valencia Other [facility] [employer] Other 04-20-2023 09:00-0500 Body weight 62.05 kg Chelo Valencia Other [facility] [employer] Other 04-20-2023 09:00-0500 Respiratory rate 18 /min Chelo Valencia Other [facility] [employer] Other 04-20-2023 09:00-0500 SaO2% (BldA) [Mass fraction] 97 % Chelo Valencia Other [employer] Other Encounters Encounter Date Encounter Type Care Provider Facility Start: 02-02-2024 End: 02-02-2024 ambulatory [facility]RE[facility]AR Not Available Start: 01-15-2024 End: 01-15-2024 ambulatory GARRETT BEAR Not Available Start: 12-16-2023 End: 12-16-2023 Patient encounter procedure MD Sarah Marsh Work Phone: [facility] [address] Work Phone: Start: 12-16-2023 End: 12-16-2023 ambulatory MD Sarah Marsh Work Phone: [facility] Work Phone: Start: 12-04-2023 End: 12-04-2023 ambulatory [facility] Work Phone: Start: 12-04-2023 End: 12-04-2023 Patient encounter procedure [facility] Work Phone: Start: 10-21-2023 End: 10-21-2023 ambulatory [facility] Work Phone: Start: 10-21-2023 End: 10-21-2023 Patient encounter [facility] Work Phone: Start: 08-12-2023 End: 08-12-2023 Patient encounter procedure [facility] Work Phone: Start: 04-24-2023 End: 04-24-2023 ambulatory Chelo Valencia Other [employer] Other Start: 04-24-2023 Telephone encounter Chelo Valencia [facility] [address] Start: 04-20-2023 Office outpatient vi sit 15 minutes Chelo Valencia [facility] Start: 04-20-2023 End: 04-20-2023 ambulatory Chelo Valencia [facility] [employer] Other Start: 04-20-2023 End: 04-20-2023 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 Facility: Start: 03-24-2019 End: 03-24-2019 Gynecological examination normal Chelo Valencia Other [employer] Other Start: 07-21-2013 End: 07-21-2013 Telephone encounter [...] End: 03-24-2019 General examination of patient Chelo Valenica Other End: 03-24-2019 screening Chelo Valencia Other End: 11-30-2018 Contraception care education Chelo Valencia Other Insertion of intraut erine contraceptive device Chelo Valencia Other visit Chelo Valencia Other Removal of intrauter ine device Chelo Valencia Other Plan of Treatment Date Care Activity Detail Author Start: 12-16-2023 Hemolytic complement CH50 level [facility] Start: 12-16-2023 [facility] Start: 12-10-2023 Patient referral [facility] Work Phone: Start: 04-20-2023 Bacteria identified in Urine by Culture Urine Culture [facility] Start: 02-14-2021 Influenza vaccination INFLUENZ A (Season Ended) [facility] Start: 2014 PAP TESTING PAP TESTING [facility] Start: 2012 Urine microalbumin profile DTAP,TDAP,TD (1 - Tdap) [facility] Start: 2005 Adult depression screening assessment DEPRESSION SCREENING [facility] Start: 2004 HPV VACCINE (1 - 2-d ose series) HPV VACCINE (1 - 2-dose series) [facility] Beta 2 glycoprotein 1 IgG Ab [Units/volume] in Serum [facility] Beta 2 glycoprotein 1 IgM Ab [Units/volume] in Serum [facility] Cardiolipin IgA Ab [Units/volume] in Serum by Immunoassay [facility] Cardiolipin IgG Ab [Units/volume] in Serum by Immunoassay [facility] Cardiolipin IgM Ab [Units/volume] in Serum by Immunoassay [facility] Complement C2 [Mass/volume] in Serum or Plasma [facility] Complement C3 [Mass/volume] in Serum or Plasma [facility] Complement C4 [Mass/volume] in Serum or Plasma [facility] Lupus anticoagulant [Interpretation] in Platelet poor plasma [facility] Patient referral [facility] Work Phone: Thrombin time [facility] Payers Date Payer Category Payer Unknown [id number] 2023 Self-pay [id number] 2012 Private Health Insurance [employer]ET[employer] A ETNA CHOICE POS II [id number] 2012-2016 POS [id number] 1993 Unknown [id number] 2.16.840.1.880803.3.579.2.5 93 1993 Unknown [id number] 2.16.840.1.186508.3.579.2.5 93 1993 Unknown [id number] 2.16.840.1.991220.3.579.2.5 93 1993 Unknown [id number] 2.16.840.1.320873.3.579.2.5 93 1993 Unknown [id number] 2.16.840.1.961562.3.579.2.5 93 1993 Unknown [id number] 2.16.840.1.865153.3.579.2.5 93 1993 Unknown [id number] 2.16.840.1.114283.3.579.2.5 93 1993 Unknown [id number] 2.16.840.1.413094.3.579.2.5 93 1993 Unknown [id number] 2.16.840.1.456336.3.579.2.5 93 1993 Unknown [id number] 2.16.840.1.004448.3.579.2.5 93 1993 Unknown [id number] 2.16.840.1.327436.3.579.2.5 93 1993 Unknown [id number] 2.16.840.1.159065.3.579.2.5 1993 Unknown [id number] 2.16.840.1.542913.3.579.2.5 93 1993 Unknown [id number] 2.16.840.1.633902.3.579.2.5 1993 Unknown [id number] 2.16.840.1.560128.3.579.2.5 93 1993 Unknown [id number] 2.16.840.1.784358.3.579.2.5 93 1993 Unknown [id number] 2.16.840.1.267661.3.579.2.5 93 1993 Unknown [id number] 2.16.840.1.139969.3.579.2.5 93 1993 Unknown [id number] 2.16.840.1.017233.3.579.2.1 259 1993 Unknown [id number] 2.16.840.1.673074.3.579.2.1 259 1959 Self-pay [id number] 1959 Unknown [id number] Unknown [id number] 2.16.840.1.640344.3.579.2.5 93 Unknown [id number] 2.16840.1.325343.19 Unknown [employer] [id number] Unknown [id number] 2.16840.1.143805.3.579.2.5 31 Unknown [id number] 2.16.840.1.752885.3.579.2.5 31 Social History Date Type Detail Facility Start: 07-19-2013 End: 08-05-2023 Tobacco smoking status [facility] Never smoker [facility] Start: 07-19-2013 Tobacco use and exposure Never used [facility] Start: 07-19-2013 Alcohol intake Current non-dr burns of alcohol (finding) [facility] Start: 1993 Sex Assigned At Not on file [facility] Sex Assigned At Sex Assigned At [facility] [employer] Other Start: 1995 Sex Assigned At Female F [facility] Clinical Notes 10-12-2013 to 09-11-2022 Note [...] free and no longer on narcotics. [facility] 09-11-2022 Note NOTE DATE: ADDENDUM: Please change discharge date to 09/13/2022. [facility] 09-11-2022 Note DISCHARGE DATE: 08/16 PRIMARY DIAGNOSES: [...] free and no longer on narcotics. [facility] 09-11-2022 Note OPERATIVE NOTE OPERATION DATE: 09/11/2022 [...] the brain. ANESTHESIA: Spinal with Duramorph. SURGEON: Keke Mejias D.O. [employer] MANAGER: MIKE Abreu URINE OUTPUT: Yellow and clear. [...] patient's uterus and extended laterally digitally. The was then delivered atraumatically after the bladder blade was removed in the cephalic position. The cord was clamped and cut. Cord blood was obtained. The infant was handed off to awaiting team. The [...] The tubes were identified, grasped with a [place], the LigaSure apparatus was used to come [...] the Recovery Room in stable condition. [facility] 10-12-2013 Evaluation note Encounter Date Diagnosis Assessment [...] understanding and is agreeable to treatment plan [facility] [employer] Other Evaluation noteNo assessment information available [facility] Work Phone: Evaluxexsx [facility]No [facility] Other Evaluation note* Diagnosis Onset Date Resolution Status Cervical lymphadenopathy acu te [facility] Work Phone: Evaluation note* Diagnosis Onset Date Resolution Status Sinusitis, acute maxillary a cute Fatigue acute Hair loss acute Positive VIVIEN (antinuclear antibody) acute [facility] Work Phone: Evaluation note* Diagnosis Onset Date Resolution Status Sinusitis, acute maxillary a cute Complement 4 deficiency acut e Fatigue acute Hair loss acute Positive VIVIEN (antinuclear antibody) acute [facility] Work Phone: History general Narrative - Reported* Type Description Date Medical History Lou disease Surgical History 3 PLASTIC SURGERY Surgical History adnoidectomy Surgical History C section Hospitalization History kidney infection [facility]ESI[facility] Other Summary Purpose Family History No Family [...] or prosecute any alcohol or drug abuse patient.[facility] Reason for Visit (unrecogniz ed section and content) Reason Onset Date Comments Education Of Patient/family 07/21/2013 INFORMATION SOURCE (unrecogn ized section and content) DATE CREATED AUTHOR 10/27/2022 [facility] DATE CREATED AUTHOR AUTHOR'S ORGANIZ ATION 01/01/2024 [facility] DATE CREATED AUTHOR AUTHOR'S ORGANIZ ATION 02/03/2024 [facility] EPIC Care Teams (unrecognized sec tion and content) [...] BE BASED ON THE PRIMARY CLINICAL RECORDS. [facility]ublished [facility]. provides no warranty or guarantee of the accuracy or completeness of information in this document.
== END 2024-02-09 07:32 | disposition home or self-care (01) ==
LOC: US 07:31
PROVIDERS: Visit Provider Physician Assistant
DX: R10.2 Pelvic and perineal pain (principal)
CPT/HCPCS: 76830

== ENCOUNTER 2024-02-24 19:46 | Outpatient (REF) | payer BC, SELFPAY ==
--- OUTSIDE RECORDS SUMMARY | 2024-02-24 19:51 | XMS_ITS | CCD ---
Author Organization [facility] Care Team Providers Care Nuclear Instructor Name Role Phone Sarah Marsh Primary Care Provider Anson Carson Primary Care Provider [phone] Nathan Macias DO Unavailable Temi Macias DOick [...] Provider MD Sarah Marsh Primary Care Provider MD Alden Khan Attending Provider [phone] Alden Khan Admitting Unavailable Alden Khan Attending Unavailable Sarah Marsh Primary Care Unavailable Chelo Valencia Admitting Unavailable Chelo Valencia Attending Unavailable Sarah Marsh Primary Care Unavailable GARRETT BEAR Attending Unavailable GARRETT BEAR Attending Unavailable Allergies Allergy Classification Reported Allergen(s) Allergy Type Date of Onset Reaction(s) Facility [facility]io[facility]on[facility] (1 source) Morphine Drug Allergy 3 Itching, Other: See Comments [facility] (1 source) Morphine Drug Allergy 0 [facility] (2 sources) Morphine Drug Allergy rash [facility] Other (2 sources) Morphine Sulfate (Concentrate) *ANALGESICS - OPIOI Propensity to adverse reactions 0 Unknown [facility] Other (2 sources) Allergies Reconciled Propensity to adverse reactions Unknown [facility] Other (2 sources) patient allergy list reviewed by nurse or physicia Propensity to adverse reactions 4 Comment:Done [facility] Other (1 source) Morphine Drug Allergy 4 [facility] Repository Medications Current Medications Medication Drug Class(es) Dates Sig (Normalized) Sig (Original) Vitamins (2 sources) Start: 04-23-2022 Vitamins Vitamins( Oral ) Active -Hx Entry Oral for 0 [facility] Apr, Not-Taking Completed/Discontinued Medications Medication Drug Class(es) Dates Sig (Normalized) Sig (Original) amoxicillin 500 mg oral tablet (2 sources) Penicillin-class Antibacterial Start: 04-23-2022 take 1 capsule by mouth three times daily Amoxicillin 500mg amoxicillin 500mg, 1 (one) Capsule three times daily # 21, 04/23/2022, No Refill. Active oral three times daily for 0 *Pick strength-form from [facility] for eRX* Apr, Not-Taking amoxicillin 875 mg [...] oral daily for 0 *Pick strength-form from [facility] [facility] for eRX* 11 Mar, 2022 Not-Taking oseltamivir [...] Menendez Start: 07-19-2017 take 1 capsule by [facility] every twelve hours Tamiflu 75 MG 1 capsule Orally Twice a day for 5 day(s) Jul, Not-Taking Pnv #[id number] Acid-Omeg a3 (3 sources) Start: 08-06-2023 End: 08-12-2023 Pnv #[id number] Acid-Omeg a3 Discontinued CAP PO August 06, [...] Anticardiolipin Ab, IgA,Qn <9 Normal 0-11 [facility] Comment on above: Result Comment: Nega tive: <12 Indeterminate: 12 - 20 Low-Med Positive: >20 - 80 High Positive: >80 Performed at: - [facility] [id number] Flour Tester: Joe Cox PhD, Phone: [phone] Performed By: #### C H50, B2 GLYPROT, LUPANTCOAG, C3, CARDIO GMA, C4, C2 #### [facility] , #### ADDONUAPLUS #### [facility] [address] [place] [id number] [place] Anticardiolipin Ab, IgG,Qn <9 Normal 0-14 [facility] Comment on above: Result Comment: Nega tive: <15 Indeterminate: 15 - 20 Low-Med Positive: >20 - 80 High Positive: >80 Performed By: #### C H50, B2 GLYPROT, LUPANTCOAG, C3, CARDIO GMA, C4, C2 #### [facility] , #### ADDONUAPLUS #### [facility] [address] [place] [address] [place] Anticardiolipin Ab, IgM,Qn <9 Normal 0-12 [facility] Comment on above: Result Comment: Nega tive: <13 Indeterminate: 13 - 20 Low-Med Positive: >20 - 80 High Positive: >80 Performed By: #### C H50, B2 GLYPROT, LUPANTCOAG, C3, CARDIO GMA, C4, C2 #### [facility] , #### ADDONUAPLUS #### [facility] [address] [place] [address] Bacteria [Presence] in Urine by AutomatedOrdered By: Alden Khan on 12-16-2023 Bacteria Auto Ql (U) Rare [HPF] None Seen [facility] Beta 2 Glycoprotein I Ab IgG /Mon 12-16-2023 Beta 2 Glycoprotein I Ab, IgG <9 Normal 0-20 [facility] Comment on above: Result [...] C2 #### [facility] , #### ADDONUAPLUS #### [facility] [address] [place] [id number] [place] Beta 2 Glycoprotein I Ab, IgM <9 Normal 0-32 [facility] Comment on above: Result Comment: Resu lt Units: GPI IgM units The reference interval reflects a 3SD or 99th percentile interval, which is thought to represent a potentially clinically significant result in accordance with the International Consensus Statement on the classification criteria for definitive antiphospholipid syndrome (APS). J Thromb Haem 2006;4:295-306. Performed at: - [facility] [id number] Flour Tester: Jackson Mccrary MD, Phone: [phone] Performed By: #### C H50, B2 GLYPROT, LUPANTCOAG, C3, CARDIO GMA, C4, C2 #### [facility] , #### ADDONUAPLUS #### [facility] [address] [place] [address] Bilirubin Test strip Ql (U)O rdered By: Alden Khan on 12-16-2023 Bilirubin Ql (U) Negative Negative [facility] Color of Urine by AutoOrdere d By: Alden Khan on 12-16-2023 Color (U) Light-yellow Normal Yellow [facility] Comment on above: Order Comment: Name Collection Type:: Clean-Voided Midstream Performed By: #### C H50, B2 GLYPROT, LUPANTCOAG, C3, CARDIO GMA, C4, C2 #### [facility] , #### ADDONUAPLUS #### [facility] [address] [place] [address] Complement C2on 12-16-2023 Complement C2 1.9 mg/dL Normal 1.4-3.3 [facility] Comment on above: Result Comment: Resu lts of this test are labeled for research purposes only by the assay's mobile qa tester. The performance characteristics of this assay have not been established by the mobile qa tester. The result should not be used for treatment or for diagnostic purposes without confirmation of the diagnosis by another medically established diagnostic product or procedure. The performance characteristics were determined by [facility]. Performed at: - [facility] [id number] Flour Tester: Jackson Mccrary MD, Phone: [phone] PERFORMED BY: [place] [id number] PATHOLOGIST BREAKER UNIT ASSEMBLER COLEEN ALMANZA M.D. Performed By: #### C H50, B2 GLYPROT, LUPANTCOAG, C3, CARDIO GMA, C4, C2 #### [facility] , #### ADDONUAPLUS #### [address] Complement C3on 12-16-2023 Complement C3 137 mg/dL Normal 82-167 [facility] Comment on above: Result Comment: Perf ormed at: [address] [id number] Flour Tester: Joe Cox PhD, Phone: [phone] Performed By: #### C H50, B2 GLYPROT, LUPANTCOAG, C3, CARDIO GMA, C4, C2 #### [facility] , #### ADDONUAPLUS #### [address] Complement C4on 12-16-2023 Complement C4 15 mg/dL Normal 12-38 [facility] Comment on above: Performed By: #### C H50, B2 GLYPROT, LUPANTCOAG, C3, CARDIO GMA, C4, C2 #### [facility] , #### ADDONUAPLUS #### [address] Complement Total (CH50)on Complement Total (CH50) >60 Normal >41 [facility] Comment on above: Result [...] determine out of range values. Performed at: [facility] [id number] Flour Tester: Joe Cox PhD, Phone: [phone] PERFORMED BY: [place] [id number] PATHOLOGIST BREAKER UNIT ASSEMBLER COLEEN ALMANZA M.D. Performed By: #### C H50, B2 GLYPROT, LUPANTCOAG, C3, CARDIO GMA, C4, C2 #### [facility] , #### ADDONUAPLUS #### [address] Dipstick and Microscopicon 0 12-16-2023 Bacteria,Urine Rare Normal None Seen [facility] Comment on above: Order Comment: Name Collection Type:: Clean-Voided Midstream Performed By: #### C H50, B2 GLYPROT, LUPANTCOAG, C3, CARDIO GMA, C4, C2 #### [facility] , #### ADDONUAPLUS #### [address] Bilirubin,Urine Negative Normal Negative [facility] Comment on above: Order Comment: Name Collection Type:: Clean-Voided Midstream Performed By: #### C H50, B2 GLYPROT, LUPANTCOAG, C3, CARDIO GMA, C4, C2 #### [facility] , #### ADDONUAPLUS #### [address] Glucose Ql (U) Normal Normal Normal [facility] Comment on above: Order Comment: Name Collection Type:: Clean-Voided Midstream Performed By: #### C H50, B2 GLYPROT, LUPANTCOAG, C3, CARDIO GMA, C4, C2 #### [facility] , #### ADDONUAPLUS #### [address] Hyaline Casts,Urine None Normal 0-8 [facility] Comment on above: Order Comment: Name Collection Type:: Clean-Voided Midstream Performed By: #### C H50, B2 GLYPROT, LUPANTCOAG, C3, CARDIO GMA, C4, C2 #### [facility] , #### ADDONUAPLUS #### [place] [address] [place] Mucus,Urine Rare Normal [facility] Comment on above: Order Comment: Name Collection Type:: Clean-Voided Midstream Result Comment: PERF ORMED BY: [place] [id number] PATHOLOGIST BREAKER UNIT ASSEMBLER COLEEN ALMANZA M.D. Performed By: #### C H50, B2 GLYPROT, LUPANTCOAG, C3, CARDIO GMA, C4, C2 #### [facility] , #### ADDONUAPLUS #### [place] [address] [place] Nitrite,Urine Negative Normal Negative [facility] Comment on above: Order Comment: Name Collection Type:: Clean-Voided Midstream Performed By: #### C H50, B2 GLYPROT, LUPANTCOAG, C3, CARDIO GMA, C4, C2 #### [facility] , #### ADDONUAPLUS #### [place] [address] [place] Occult Blood,Urine Negative Normal Negative [facility] Comment on above: Order Comment: Name Collection Type:: Clean-Voided Midstream Performed By: #### C H50, B2 GLYPROT, LUPANTCOAG, C3, CARDIO GMA, C4, C2 #### [facility] , #### ADDONUAPLUS #### [place] [address] [place] Protein,Urine Negative Normal Negative [facility] Comment on above: Order Comment: Name Collection Type:: Clean-Voided Midstream Performed By: #### C H50, B2 GLYPROT, LUPANTCOAG, C3, CARDIO GMA, C4, C2 #### [facility] , #### ADDONUAPLUS #### [facility] [address] RBC,Urine 1-2 Normal 0-4 [facility] Comment on above: Order Comment: Name Collection Type:: Clean-Voided Midstream Performed By: #### C H50, B2 GLYPROT, LUPANTCOAG, C3, CARDIO GMA, C4, C2 #### [facility] , #### ADDONUAPLUS #### [address] Specificy Str[place],Urine 1.016 Normal 1.001-1.030 [facility] Comment on above: Order Comment: Name Collection Type:: Clean-Voided Midstream Performed By: #### C H50, B2 GLYPROT, LUPANTCOAG, C3, CARDIO GMA, C4, C2 #### [facility] , #### ADDONUAPLUS #### [address] Squamous Epithelial Cell,Urine 5-9 High 0-2 [facility] Comment on above: Order Comment: Name Collection Type:: Clean-Voided Midstream Performed By: #### C H50, B2 GLYPROT, LUPANTCOAG, C3, CARDIO GMA, C4, C2 #### [facility] , #### ADDONUAPLUS #### [address] Urobilinogen,Urine Normal Normal Normal [facility] Comment on above: Order Comment: Name Collection Type:: Clean-Voided Midstream Performed By: #### C H50, B2 GLYPROT, LUPANTCOAG, C3, CARDIO GMA, C4, C2 #### [facility] , #### ADDONUAPLUS #### [place] [address] [place] WBC,Urine 1-2 Normal 0-4 [facility] Comment on above: Order Comment: Name Collection Type:: Clean-Voided Midstream Performed By: #### C H50, B2 GLYPROT, LUPANTCOAG, C3, CARDIO GMA, C4, C2 #### [facility] , #### ADDONUAPLUS #### [facility] [address] [place] [address] [place] Epithelial cells.squamous [# /area] in Urine sediment by Automated countOrdered By: Alden Khan on 12-16-2023 Epithelial cells.squamous Auto (Urine sed) [#/Area] 5-9 [HPF] High 0-2 [facility] Erythrocytes [#/area] in Uri ne sediment by Automated countOrdered By: Alden Khan on 12-16-2023 RBC Auto (Urine sed) [#/Area] 1-2 [HPF] 0-4 [facility] Glucose [Mass/volume] in Uri ne by Test stripOrdered By: Alden Khan on 12-16-2023 Glucose Test strip (U) [Mass/Vol] Normal mg/dL Normal [facility] Hemoglobin Test strip Ql (U) Ordered By: Alden Khan on 12-16-2023 Hemoglobin Ql (U) Negative Negative [facility] Hyaline casts [#/area] in Ur ine sediment by Automated countOrdered By: Alden Khan on 12-16-2023 Hyaline casts Auto (Urine sed) [#/Area] None [LPF] 0-8 [facility] Ketones [Presence] in Urine by Test stripOrdered By: Alden Khan on 12-16-2023 Ketones Ql (U) Negative Normal Negative [facility] Comment on above: Order Comment: Name Collection Type:: Clean-Voided Midstream Performed By: #### C H50, B2 GLYPROT, LUPANTCOAG, C3, CARDIO GMA, C4, C2 #### [facility] , #### ADDONUAPLUS #### [facility] [address] [place] [address] [place] Leukocyte esterase [Presence ] in Urine by Test stripOrdered By: Alden Khan on 12-16-2023 Leukocyte esterase Test strip Ql (U) Negative Normal Negative [facility] Comment on above: Order Comment: Name Collection Type:: Clean-Voided Midstream Performed By: #### C H50, B2 GLYPROT, LUPANTCOAG, C3, CARDIO GMA, C4, C2 #### [facility] , #### ADDONUAPLUS #### [address] Leukocytes [#/area] in Urine sediment by Automated countOrdered By: Alden Khan on 12-16-2023 WBC Auto (Urine sed) [#/Area] 1-2 [HPF] 0-4 [facility] Lupus Anticoagulant Compon 0 12-16-2023 Dilute Prothrombin Time (dPt) 35.7 Normal 0.0-47.6 [facility] Comment on above: Performed By: #### C H50, B2 GLYPROT, LUPANTCOAG, C3, CARDIO GMA, C4, C2 #### [facility] , #### ADDONUAPLUS #### [address] dPT Confirm Ratio 1.21 Normal 0.00-1.34 [facility] Comment on above: Performed By: #### C H50, B2 GLYPROT, LUPANTCOAG, C3, CARDIO GMA, C4, C2 #### [facility] , #### ADDONUAPLUS #### [address] DRVVT Lupus 35.4 Normal 0.0-47.0 [facility] Comment on above: Performed By: #### C H50, B2 GLYPROT, LUPANTCOAG, C3, CARDIO GMA, C4, C2 #### [facility] , #### ADDONUAPLUS #### [address] Interpretation Comment: Normal . [facility] Comment on above: Result Comment: No l upus anticoagulant was detected. Performed at: - [facility] [id number] Flour Tester: Jackson Mccrary MD, Phone: [phone] PERFORMED BY: [place] [id number] PATHOLOGIST BREAKER UNIT ASSEMBLER COLEEN ALMANZA M.D. Performed By: #### C H50, B2 GLYPROT, LUPANTCOAG, C3, CARDIO GMA, C4, C2 #### [facility] , #### ADDONUAPLUS #### [address] PTT-LA 33.7 Normal 0.0-43.5 [facility] Comment on above: Performed By: #### C H50, B2 GLYPROT, LUPANTCOAG, C3, CARDIO GMA, C4, C2 #### [facility] , #### ADDONUAPLUS #### [address] Thrombin Time 18.9 Normal 0.0-23.0 [facility] Comment on above: Performed By: #### C H50, B2 GLYPROT, LUPANTCOAG, C3, CARDIO GMA, C4, C2 #### [facility] , #### ADDONUAPLUS #### [address] Mucus [Presence] in Urine by AutomatedOrdered By: Alden Khan on 12-16-2023 Mucus Auto Ql (U) Rare [LPF] [facility] Nitrite Test strip Ql (U)Ord ered By: Alden Khan on 12-16-2023 Nitrite Ql (U) Negative Negative [facility] Protein Test strip (U) [Mass /Vol]Ordered By: Alden Khan on 12-16-2023 Protein (U) [Mass/Vol] Negative Negative [facility] Specific gravity Test strip (U) [Rel density]Ordered By: Alden Khan on 12-16-2023 Specific gravity (U) [Rel density] 1.016 1.001-1.030 [facility] Urine appearanceOrdered By: Alden Khan on 12-16-2023 Appearance (U) Clear Normal Clear [facility] Comment on above: Order Comment: Name Collection Type:: Clean-Voided Midstream Performed By: #### C H50, B2 GLYPROT, LUPANTCOAG, C3, CARDIO GMA, C4, C2 #### [facility] , #### ADDONUAPLUS #### [facility] [address] Urobilinogen Test strip (U) [Mass/Vol]Ordered By: Alden Khan on 12-16-2023 Urobilinogen (U) [Mass/Vol] Normal mg/dL Normal [facility] pH of Urine by Test stripOrd ered By: Alden Khan on 12-16-2023 pH (U) 6.5 [pH] Normal 5.0-9.0 [facility] Comment on above: Order Comment: Name Collection Type:: Clean-Voided Midstream Performed By: #### C H50, B2 GLYPROT, LUPANTCOAG, C3, CARDIO GMA, C4, C2 #### [facility] , #### ADDONUAPLUS #### [facility] [address] [place] [address] Basophils Auto (Bld) [#/Vol] on 12-04-2023 Basophils (Bld) [#/Vol] 0.1 10 3/uL 0.0-0.1 [facility] Basophils/100 WBC Auto (Bld) on 12-04-2023 Basophils/100 WBC (Bld) 0.7 % 0.2-2.0 [facility] Eosinophils/100 WBC Auto (Bl d)on 12-04-2023 Eosinophils/100 WBC (Bld) 3.3 % 0.9-7.0 [facility] Erythrocyte distribution wid th Auto (RBC) [Ratio]on 12-04-2023 Erythrocyte distribution width (RBC) [Ratio] 12.9 % 11.0-15.0 [facility] Hematocrit Auto (Bld) [Volum e fraction]on 12-04-2023 Hematocrit (Bld) [Volume fraction] 37.6 % 36.0-48.0 [facility] Hemoglobin [Mass/volume] in Bloodon 12-04-2023 Hemoglobin (Bld) [Mass/Vol] 12.7 g/dL 12.0-16.0 [facility] Laboratory - Chemistry and C hemistry - challengeon 12-04-2023 TSH Qn 1.374 m[IU]/L 0.358-3.740 [facility] Laboratory - Hematology and Cell countson 12-04-2023 Immature granulocytes/100 WBC (Bld) 0.1 % 0.0-0.5 [facility] Leukocytes [#/volume] correc ivette for nucleated erythrocytes in Blood by Automated counon 12-04-2023 WBC corrected for nucl RBC Auto (Bld) [#/Vol] 7.1 10 3/uL 4.0-11.0 [facility] Lymphocytes Auto (Bld) [#/Vo l]on 12-04-2023 Lymphocytes (Bld) [#/Vol] 2.0 10 3/uL 1.2-3.8 [facility] Lymphocytes/100 WBC Auto (Bl d)on 12-04-2023 Lymphocytes/100 WBC (Bld) 28.6 % 20.5-60.0 [facility] MCH Auto (RBC) [Entitic mass ]on 12-04-2023 MCH (RBC) [Entitic mass] 28.1 pg 26.7-34.0 [facility] MCHC Auto (RBC) [Mass/Vol]on 12-04-2023 MCHC (RBC) [Mass/Vol] 33.8 g/dL 29.9-35.2 [facility] MCV Auto (RBC) [Entitic vol] on 12-04-2023 MCV (RBC) [Entitic vol] 83.2 fL 81.0-99.0 [facility] Monocytes Auto (Bld) [#/Vol] on 12-04-2023 Monocytes (Bld) [#/Vol] 0.6 10 3/uL 0.3-0.8 [facility] Monocytes/100 WBC Auto (Bld) on 12-04-2023 Monocytes/100 WBC (Bld) 7.9 % 1.7-12.0 [facility] Neutrophils Auto (Bld) [#/Vo l]on 12-04-2023 Neutrophils (Bld) [#/Vol] 4.2 10 3/uL 1.4-6.5 [facility] Neutrophils/100 WBC Auto (Bl d)on 12-04-2023 Neutrophils/100 WBC (Bld) 59.4 % 43.0-75.0 [facility] No Panel Informationon 12-03 Anti-Double Strand DNA Antibody <1 [IU]/mL 0-9 [facility] Comment on above: Negative <5 Equivoca l 5 - 9 Positive >9 Eosinophils # (Auto) 0.2 10 3/uL 0.0-0.7 [facility] Immature Granulocyte # (Auto) 0.01 10 3/uL 0.00-0.03 [facility] Platelet mean volume Auto (B ld) [Entitic vol]on 12-04-2023 Platelet mean volume (Bld) [Entitic vol] 10.2 fL 9.5-13.5 [facility] Platelets Auto (Bld) [#/Vol] on 12-04-2023 Platelets (Bld) [#/Vol] 275 10 3/uL 150-450 [facility] RBC Auto (Bld) [#/Vol]on RBC (Bld) [#/Vol] 4.52 10 6/uL 4.20-5.40 [facility] Serum nuclear antibody titer on 12-04-2023 Nuclear Ab (S) [Titer] Negative Negative [facility] Comment on above: Performed at: - [facility] [place] [id number] Director: Joe Cox PhD, Phone: [phone] Serum or plasma chromatin an tibody assay (units/volume)on 12-04-2023 Chromatin Ab Qn <0.2 AI 0.0-0.9 [facility] Serum or plasma complement C 3 measurement (mass/volume)on 12-04-2023 Complement C3 [Mass/Vol] 113 mg/dL 82-167 [facility] Serum or plasma complement C 4 measurement (mass/volume)on 12-04-2023 Complement C4 [Mass/Vol] 10 mg/dL Abnormal 12-38 [facility] Urinalysis - AUTOMATEDon Appearance (U) clear [employer] Other Bilirubin Ql (U) Negative [employer] Other Color (U) yellow [employer] Other Glucose Ql (U) Negative [employer] Other Hemoglobin Ql (U) [employer] Other Ketones Ql (U) Negative [employer] Other Leukocyte esterase Test strip Ql (U) [employer] Other Nitrite Ql (U) Negative [employer] Other pH (U) 5.5 [pH] [employer] Other Protein Ql (U) Negative [employer] Other Specific gravity (U) [Rel density] 1.025 [employer] Other Urobilinogen (U) [Mass/Vol] 0.2 mg/dL [employer] Other Urinalysis - AUTOMATED [employer] Other Urine Cultureon 04-20-2023 Bacteria identified Cx Nom (U) ORGANISM: Escherichia coli (O:ESCCOL) Hoffman Count 10,000 Organism Comments Pure Growth Aerobic [...] RESISTANT TO ALL B-LACTAM DRUGS. PERFORMED BY: [facility] [address] [place] [address] PATHOLOGIST BREAKER UNIT ASSEMBLER COLEEN ALMANZA M.D. Normal [facility] Comment on above: Performed By: #### C UU #### [facility] [address] FACTOR V LEIDEN MUTATION VIVIEN LYSISon 09-18-2022 Factor V Leiden Comment Normal [facility] Comment on above: Result Comment: Resu lt: c.1601G>A (p.[id number]) - Not Detected . This result is not associated with an increased risk for venous thromboembolism. See Additional Clinical Information and Comments. Additional Clinical Information: Venous thromboembolism is a multifactorial disease influenced by genetic, environmental, and circumstantial risk factors. The c.1601G>A (p. [id number]) variant in the F5 gene, commonly referred [...] c.*97G>A variant and Factor V Leiden (PMID: 21429774). Additional risk factors include but are not [...] health care providers to discuss results at [phone] ([phone]). . Test Details: Variant Analyzed: c.1601G>A (p. [id number]), referred to as Factor V Leiden . [...] developed and its performance characteristics determined by [employer]. It has not been cleared or approved by the Food and Drug Administration. . References: Ashley Levy, Coco CHRISTIAN, Cruz R, Grokailyn WW, Satnam JH; ACM[employer] Professional Practice and Guidelines Committee. Addendum: [employer] consensus statement on factor V Leiden mutation testing. Renetta Med. 2020Aug 18. doi: 10.1038/a38387-602-93278-j. PMID: 04423787. . Reyna LARSEN. Factor V Leiden Thrombophilia. 1998October 27 (Updated 2017Jun 19). In: Mickey MP, Jia HH, Isaac RA, et al., editors. Marjorie(R) (Internet). [place] ([place]): [facility]; 4807-1862. Available from: https://www.ncbi.nlm.nih.gov/books/CFX8833/ . Coco Marino, Molina X, Al B, Arvind EB, Sherley P, Austin CS; [employer] Laboratory Financial Service Rep Committee. Venous thromboembolism laboratory testing (factor V Leiden and factor II c.*97G>A), 2018 update: a technical standard of the [employer] (ACMG). Renetta Med. 2017;20(12):9390-6355. doi: 10.1038/[id number]-k. Epub 2017Mar 20. PMID: 74826159. . Carmella Anderson, PhD, FACMG Zoë Espinoza, PhD Veto Salgado, PhD, FACMG Jarrett Morales, PhD, FACMG Espinoza Mazariegos, PhD, FAC Michelle Tsang, PhD, FAC Maegan Yepez, PhD, FAC Vira Teague, PhD, [facility] Performed By: #### C BC #### [facility] [address] [place] [address] Dr. Brittany Brown FACTOR II DNA ANALYSISon Factor II DNA Analysis Comment Normal [facility] Comment on above: Result Comment: Resu [...] the F2 gene and a c.1601G>A (p. [id number]) variant in the F5 gene (commonly referred to as Factor V Leiden) have an approximately 20- fold increased risk for venous thromboembolism. Risks are likely to be even higher in more complex genotype combinations involving the F2 c.*97G>A variant and Factor V Leiden (PMID: 26749603). Additional risk factors include but are not [...] health care providers to discuss results at [phone] ([phone]). . Test Details: Variant analyzed: c.*97G>A, previously referred to as [id number] . Methods/Limitations: DNA analysis of the F2 [...] developed and its performance characteristics determined by [facility]. It has not been cleared or approved by the Food and Drug Administration. . References: Ashley S, Coco CHRISTIAN, Cruz R, Alphonso WW, Satnam JH; A[employer] Professional Practice and Guidelines Committee. Addendum: [employer] consensus statement on factor V Leiden mutation testing. Renetta Med. 2020Aug 18. doi: 10.1038/c43465-735-71762-z. PMID: 77237384. . Reyna LARSEN. Prothrombin Thrombophilia. 2005Jan 07 [Updated 2020Jul 20]. In: Mickey MP, Jia HH, Isaac RA, et al., editors. Marjorie(R) [Internet]. [place] ([place]): [facility]; 4308-8534. Available from: https://www.ncbi.nlm.nih.gov/books/CJT8129/ . Nick S, Coco CHRISTIAN, Molina X, Al B, Arvind EB, Sherley P, [place] MEMBRENO; [facility] Financial Service Rep Committee. Venous thromboembolism laboratory testing (factor V Leiden and factor II c.*97G>A), 2018 update: a technical standard of the [employer] ([employer]). Renetta Med. 2018 May;20(12):4175-0618. doi: 10.1038/[id number]-a. Epub 2017Mar 20. PMID: 88656162. . Carmella Anderson, PhD, FACMG Zoë Espinoza, PhD Veto Salgado, PhD, FACMG Jarrett Morales, PhD, FACMG Espinoza Mazariegos, PhD, FAC W Eloisa Tsang, PhD, FAC Maegan Yepez, PhD, FAC Vira Teague, PhD, FAC Performed By: #### C BC #### [facility] [address] [place] [address] Dr. Brittany Brown CBC AUTO DIFFon 09-12-2022 BASO # 0.1 103/ul Normal 0.0-0.1 [facility] Comment on above: Performed By: #### C BC #### [facility] [address] [place] [address] Dr. Brittany Brown Basophils/100 WBC (Bld) 0.5 % Normal 0.2-2.0 [facility] Comment on above: Performed By: #### C BC #### [facility] [address] [place] [address] Dr. Brittany Brown EO # 0.2 103/ul Normal 0.0-0.7 [facility] Comment on above: Performed By: #### C BC #### [facility] [address] [address] [address] Brittany Brown Eosinophils/100 WBC (Bld) 1.7 % Normal 0.9-7.0 [facility] Comment on above: Performed By: #### C BC #### [facility] [address] [place] [address] Dr. Brittany Brown Erythrocyte distribution width (RBC) [Ratio] 14.9 % Normal 11.0-15.0 [facility] Comment on above: Performed By: #### C BC #### [facility] [address] [place] [address] Dr. Brittany Brown Hematocrit (Bld) [Volume fraction] 27.1 % Critically low 36.0-48.0 [facility] Comment on above: Performed By: #### C BC #### [facility] [address] [place] [address] Dr. Brittany Brown Hemoglobin (Bld) [Mass/Vol] 8.7 g/dL Critically low 12.0-16.0 [facility] Comment on above: Performed By: #### C BC #### [facility] [address] [place] [address] Dr. Brittany Brown IG # 0.10 10e3/ul Critically high 0.00-0.[address] [facility] Comment on above: Performed By: #### C BC #### [facility] [address] [place] [address] Dr. Brittany Brown IG % 1.0 % Critically high 0.0-0.5 [facility] Comment on above: Performed By: #### C BC #### [facility] [address] [place] [address] Dr. Brittany Brown LYMPH # 1.6 103/ul Normal 1.2-3.8 [facility] Comment on above: Performed By: #### C BC #### [facility] [address] [place] [address] Dr. Brittany Brown Lymphocytes/100 WBC (Bld) 15.4 % Critically low 20.5-60.0 [facility] Comment on above: Performed By: #### C BC #### [facility] [address] [place] [address] Dr. Brittany Brown MANUAL DIFF REQ NO Normal [facility] Comment on above: Performed By: #### C BC #### [facility] [address] [place] [address] Dr. Brittany Brown MCH (RBC) [Entitic mass] 26.0 pg Critically low 26.7-34.0 [facility] Comment on above: Performed By: #### C BC #### [facility] [address] [address] [address] Brittany Brown MCHC (RBC) [Mass/Vol] 32.1 g/dL Normal 29.9-35.2 [facility] Comment on above: Performed By: #### C BC #### [facility] [address] [address] [address] Brittany Brown MCV (RBC) [Entitic vol] 81.1 fL Normal 81.0-99.0 [facility] Comment on above: Performed By: #### C BC #### [facility] [address] [address] [address] Brittany Brown MONO # 0.7 103/ul Normal 0.3-0.8 [facility] Comment on above: Performed By: #### C BC #### [facility] [address] [place] [address] Dr. Brittany Brown Monocytes/100 WBC (Bld) 7.1 % Normal 1.7-12.0 [facility] Comment on above: Performed By: #### C BC #### [facility] [address] [place] [address] Dr. Brittany Brown NEUT # 7.6 103/ul Critically high 1.4-6.5 [facility] Comment on above: Performed By: #### C BC #### [facility] [address] [place] [address] Dr. Brittany Brown Neutrophils/100 WBC (Bld) 74.3 % Normal 43.0-75.0 [facility] Comment on above: Performed By: #### C BC #### [facility] [address] [address] [address] Brittany Brown Platelet mean volume (Bld) [Entitic vol] 9.8 fL Normal 9.5-13.5 [facility] Comment on above: Performed By: #### C BC #### [facility] [address] [address] [address] Brittany Brown PLT 224 103/ul Normal 150-450 [facility] Comment on above: Performed By: #### C BC #### [facility] [address] [address] [address] Brittany Brown RBC 3.34 106/ul Critically low 4.20-5.40 [facility] Comment on above: Performed By: #### C BC #### [facility] [address] [place] [address] Dr. Brittany Brown WBC 10.2 103/ul Normal 4.0-11.0 [facility] Comment on above: Performed By: #### C BC #### [facility] [address] [place] [address] Dr. Brittany Brown CBC AUTO DIFFon 09-11-2022 BASO # 0.1 103/ul Normal 0.0-0.1 [facility] Comment on above: Performed By: #### C BC #### [facility] [address] [place] [address] Dr. Brittany Brown Basophils/100 WBC (Bld) 0.5 % Normal 0.2-2.0 [facility] Comment on above: Performed By: #### C BC #### [facility] [address] [place] [address] Dr. Brittany Brown EO # 0.1 103/ul Normal 0.0-0.7 [facility] Comment on above: Performed By: #### C BC #### [facility] [address] [place] [address] Dr. Brittany Brown Eosinophils/100 WBC (Bld) 1.1 % Normal 0.9-7.0 [facility] Comment on above: Performed By: #### C BC #### [facility] [address] [place] [address] Dr. Brittany Brown Erythrocyte distribution width (RBC) [Ratio] 14.6 % Normal 11.0-15.0 [facility] Comment on above: Performed By: #### C BC #### [facility] [address] [place] [address] Dr. Brittany Brown Hematocrit (Bld) [Volume fraction] 32.4 % Critically low 36.0-48.0 [facility] Comment on above: Performed By: #### C BC #### [facility] [address] [address] [address] Brittany Brown Hemoglobin (Bld) [Mass/Vol] 10.6 g/dL Critically low 12.0-16.0 [facility] Comment on above: Performed By: #### C BC #### [facility] [address] [address] [address] Brittany Brown IG # 0.11 10e3/ul Critically high 0.00-0.[address] [facility] Comment on above: Performed By: #### C BC #### [facility] [address] [address] [address] Brittany Brown IG % 1.1 % Critically high 0.0-0.5 [facility] Comment on above: Performed By: #### C BC #### [facility] [address] [place] [address] Dr. Brittany Brown LYMPH # 1.2 103/ul Normal 1.2-3.8 [facility] Comment on above: Performed By: #### C BC #### [facility] [address] [address] [address] Brittany Brown Lymphocytes/100 WBC (Bld) 12.8 % Critically low 20.5-60.0 [facility] Comment on above: Performed By: #### C BC #### [facility] [address] [place] [address] Dr. Brittany Brown MANUAL DIFF REQ NO Normal [facility] Comment on above: Performed By: #### C BC #### [facility] [address] [address] [address] Brittany Brown MCH (RBC) [Entitic mass] 25.8 pg Critically low 26.7-34.0 [facility] Comment on above: Performed By: #### C BC #### [facility] [address] [address] [address] Brittany Brown MCHC (RBC) [Mass/Vol] 32.7 g/dL Normal 29.9-35.2 [facility] Comment on above: Performed By: #### C BC #### [facility] [address] [address] [address] Brittany Brown MCV (RBC) [Entitic vol] 78.8 fL Critically low 81.0-99.0 [facility] Comment on above: Performed By: #### C BC #### [facility] [address] [place] [address] Dr. Brittany Brown MONO # 0.7 103/ul Normal 0.3-0.8 [facility] Comment on above: Performed By: #### C BC #### [facility] [address] [place] [address] Dr. Brittany Brown Monocytes/100 WBC (Bld) 6.8 % Normal 1.7-12.0 [facility] Comment on above: Performed By: #### C BC #### [facility] [address] [place] [address] Dr. Brittany Brown NEUT # 7.5 103/ul Critically high 1.4-6.5 [facility] Comment on above: Performed By: #### C BC #### [facility] [address] [place] [address] Dr. Brittany Brown Neutrophils/100 WBC (Bld) 77.7 % Critically high 43.0-75.0 [facility] Comment on above: Performed By: #### C BC #### [facility] [address] [place] [address] Dr. Brittany Brown Platelet mean volume (Bld) [Entitic vol] 10.4 fL Normal 9.5-13.5 [facility] Comment on above: Performed By: #### C BC #### [facility] [address] [place] [address] Dr. Brittany Brown PLT 259 103/ul Normal 150-450 [facility] Comment on above: Performed By: #### C BC #### [facility] [address] [place] [address] Dr. Brittany Brown RBC 4.11 106/ul Critically low 4.20-5.40 [facility] Comment on above: Performed By: #### C BC #### [facility] [address] [place] [address] Dr. Brittany Brown WBC 9.7 103/ul Normal 4.0-11.0 [facility] Comment on above: Performed By: #### C BC #### [facility] [address] [address] [address] Brittany Brown DRUG SCREEN RAPID (URINE)on 09-11-2022 AMP Negative Normal NEGATIVE [facility] Comment on above: Performed By: #### D RUGRPD ####[facility] [address] [address]Dr. Brittany Brown BAR Negative Normal NEGATIVE [facility] Comment on above: Performed By: #### D RUGRPD ####[facility] [address] [address]Dr. Brittany Brown BUP Negative Normal NEGATIVE [facility] Comment on above: Performed By: #### D RUGRPD ####[facility] [address] [address]Dr. Brittany Brown BZO Negative Normal NEGATIVE [facility] Comment on above: Performed By: #### D RUGRPD ####[facility] [address] [address]Dr. Brittany Brown PARAS Negative Normal NEGATIVE [facility] Comment on above: Performed By: #### D RUGRPD ####[facility] [address] [address]Dr. Brittany Brown CUT-OFFS SEE BELOW Normal [facility] Comment on above: Result Comment: AMP (Amphetamine): 500ng/mL, BAR (Barbituates): 200 ng/mL, BZO (Benzodiazepines): 150 ng/mL, BUP (Buprenorphine): 10 ng/mL, PARAS (Cocaine): 150 ng/mL, mAMP (Methamphetamine): 500 ng/mL, MTD (Methadone): 200 ng/mL, OPI (Opiates): 100 ng/mL, OXY (Oxycodone): 100 ng/mL, PCP (Phencyclidine): 25 ng/mL, PPX (Propoxyphene): 300 ng/mL, THC (Cannabinoids): 50 ng/mL, TCA (Trycyclic Antidepressants): 300 ng/mL Performed By: #### D RUGRPD ####[facility] [address] [place], [place] [address]Lq. Brittany Brown DRUG CUT HEADER DRUG CLASS TEST SYSTEM CUT-OFF CONCENTRATIONS ARE FOLLOWS: Normal [facility] Comment on above: Performed By: #### D RUGRPD ####[facility] [address] [place], [place] [address]Me. Yiginger Brown mAMP Negative Normal NEGATIVE [facility] Comment on above: Performed By: #### D RUGRPD ####[facility] [address] [phone]. Yilan Brown MTD Negative Normal NEGATIVE [facility] Comment on above: Performed By: #### D RUGRPD ####[facility] [address] [address]Dr. Brittany Brown OPI Negative Normal NEGATIVE [facility] Comment on above: Performed By: #### D RUGRPD ####[facility] [address] [place], [place] [id number]. Yilan Brown OXY Negative Normal NEGATIVE [facility] Comment on above: Performed By: #### D RUGRPD ####[facility] [address] [address]Dr. Brittany Brown PCP Negative Normal NEGATIVE [facility] Comment on above: Performed By: #### D RUGRPD ####[facility] [address] [address]Dr. Yilan Brown PPX Negative Normal NEGATIVE [facility] Comment on above: Performed By: #### D RUGRPD ####[facility] [address] [address]Dr. Yilan Brown TCA Negative Normal NEGATIVE [facility] Comment on above: Performed By: #### D RUGRPD ####[facility] [address] [address]Dr. Brittany Brown THC Negative Normal NEGATIVE [facility] Comment on above: Performed By: #### D RUGRPD ####[facility] [address] [address]Dr. Brittany Brown TYPE AND SCREENon 09-11-2022 TYPE AND SCREEN Negative Normal [facility] Comment on above: Performed By: #### C T/NGNA #### [facility] [address] [place] [address] Dr. Brittany Brown PREG BIOPHY W NON [...] DI BRIZUELA Date: 2022-09-04 16:35 Normal [facility] GROUP B STREP CULTUREon 08-14 S. [...] F Tetracycline >=16 R F Normal [facility] Comment on above: Performed By: #### G BSCX #### [facility] [address] [place] [address] Dr. Brittany Brown PREG BIOPHY W NON [...] by: DI BRIZUELA Date: 2022-08-28 16:34 Normal [facility] US PREG BIOPHY W NON [...] by: DI BRIZUELA Date: 2022-08-21 17:57 Normal [facility] PREG BIOPHY W NON STRESSo n 08-14-2022 [...] by: NELA MEZA Date: 2022-08-14 17:30 Normal [facility] US PREG BIOPHY W NON [...] by: DI BRIZUELA Date: 2022-08-08 15:14 Normal [facility] PREG GROWTHon 08-08-2022 US PREG GROWTH EXAMINATION: [...] by: DI BRIZUELA Date: 2022-08-08 15:27 Normal [facility] PREG GROWTHon 07-23-2022 US PREG GROWTH EXAMINATION: [...] DI BRIZUELA Date: 2022-07-23 15:28 Normal [facility] US PREG CERVICAL LENGTHon US PREG CERVICAL [...] by: DI BRIZUELA Date: 2022-07-09 14:59 Normal [facility] US PREG GROWTHon 06-27-2022 US [...] by: DI BRIZUELA Date: 2022-06-27 08:02 Normal [facility] CBC AUTO DIFFon 06-14-2022 BASO # 0.0 103/ul Normal 0.0-0.1 [facility] Comment on above: Performed By: #### C BC ####[facility] [address] [address]Dr. Brittany Brown Basophils/100 WBC (Bld) 0.4 % Normal 0.2-2.0 [facility] Comment on above: Performed By: #### C BC ####[facility] [address] [address]Dr. Brittany Brown EO # 0.2 103/ul Normal 0.0-0.7 [facility] Comment on above: Performed By: #### C BC ####[facility] [address] [address]Dr. Brittany Brown Eosinophils/100 WBC (Bld) 2.2 % Normal 0.9-7.0 [facility] Comment on above: Performed By: #### C BC ####[facility] [address] [address]Dr. Brittany Brown Erythrocyte distribution width (RBC) [Ratio] 13.5 % Normal 11.0-15.0 [facility] Comment on above: Performed By: #### C BC ####[facility] [address] [address]Dr. Brittany Brown Hematocrit (Bld) [Volume fraction] 32.4 % Critically low 36.0-48.0 [facility] Comment on above: Performed By: #### C BC ####[facility] [address] [place], [place] [address]Dr. Brittany Brown Hemoglobin (Bld) [Mass/Vol] 11.2 g/dL Critically low 12.0-16.0 [facility] Comment on above: Performed By: #### C BC ####[facility] [address] [place], [place] [address]Dr. Brittany Brown IG # 0.10 10e3/ul Critically high 0.00-0.03 [facility] Comment on above: Performed By: #### C BC ####[facility] [address] [address]Dr. Brittany Brown IG % 0.9 % Critically high 0.0-0.5 [facility] Comment on above: Performed By: #### C BC ####[facility] [address] [address]Dr. Brittany Brown LYMPH # 1.2 103/ul Normal 1.2-3.8 [facility] Comment on above: Performed By: #### C BC ####[facility] [address] [address]Dr. Zenaidaginger Brown Lymphocytes/100 WBC (Bld) 11.1 % Critically low 20.5-60.0 [facility] Comment on above: Performed By: #### C BC ####[facility] [address] [address]Dr. Zenaidaginger Brown MANUAL DIFF REQ NO Normal [facility] Comment on above: Performed By: #### C BC ####[facility] [address] [address]Dr. Zenaidaginger Brown MCH (RBC) [Entitic mass] 29.9 pg Normal 26.7-34.0 [facility] Comment on above: Performed By: #### C BC ####[facility] [address] [place], [place] [address]Dr. Brittany Brown MCHC (RBC) [Mass/Vol] 34.6 g/dL Normal 29.9-35.2 [facility] Comment on above: Performed By: #### C BC ####[facility] [address] [place], [place] [address]Dr. Brittany Brown MCV (RBC) [Entitic vol] 86.4 fL Normal 81.0-99.0 [facility] Comment on above: Performed By: #### C BC ####[facility] [address] [place], [place] [address]Dr. Brittany Brown MONO # 0.6 103/ul Normal 0.3-0.8 [facility] Comment on above: Performed By: #### C BC ####[facility] [address] [place], [place] [address]Dr. Brittany Brown Monocytes/100 WBC (Bld) 5.4 % Normal 1.7-12.0 [facility] Comment on above: Performed By: #### C BC ####[facility] [address] [place], [place] [address]Dr. Brittany Brown NEUT # 8.5 103/ul Critically high 1.4-6.5 [facility] Comment on above: Performed By: #### C BC ####[facility] [address] [place] [address]Cs. Brittany Brown Neutrophils/100 WBC (Bld) 80.0 % Critically high 43.0-75.0 [facility] Comment on above: Performed By: #### C BC ####[facility] [address] [phone] Brown Platelet mean volume (Bld) [Entitic vol] 9.6 fL Normal 9.5-13.5 [facility] Comment on above: Performed By: #### C BC ####[facility] [address] [address]DrIain Brown PLT 250 103/ul Normal 150-450 [facility] Comment on above: Performed By: #### C BC ####[facility] [address] [address]DrIain Brown RBC 3.75 106/ul Critically low 4.20-5.40 [facility] Comment on above: Performed By: #### C BC ####[facility] [address] [place] [address]DrIain Brown WBC 10.6 103/ul Normal 4.0-11.0 [facility] Comment on above: Performed By: #### C BC ####[facility] [address] [place] [phone] Brown GLUCOSE - 1HRon 06-14-2022 Glucose [Mass/Vol] 100 mg/dL Normal 74-106 [facility] Comment on above: Performed By: #### C BC #### [facility] [address] [address] [address] Brittany Brown PAP ACOG PANEL 2: 21 to 29on 05-21-2022 . . Normal [facility] Comment on above: Performed By: #### [id number] ####[facility] [address] [place] [address]Dr. Brittany Brown Age Gdln ACOG Testing 21-29 Normal [facility] Comment on above: Performed By: #### [id number] ####[facility] [address] [place] [address]Dr. Brittany Brown DIAGNOSIS: Comment Normal [facility] Comment on above: Result Comment: NEGA TIVE FOR INTRAEPITHELIAL LESION OR MALIGNANCY. Performed By: #### [id number] ####[facility] [address] [address]DrIain Brown Methodology: Comment Normal [facility] Comment on above: Result Comment: This liquid based ThinPrep(R) pap test was screened with the use of an image guided system. Performed By: #### [id number] ####[facility] [address] [place], [place] [address]Dr. Brittany Brown Note: Comment Normal [facility] Comment on above: Result Comment: The Pap smear is a screening test designed to aid in the detection of premalignant and malignant conditions of the uterine cervix. It is not a diagnostic procedure and should not be used as the sole means of detecting cervical cancer. Both false-positive and false-negative reports do occur. . Performed By: #### [id number] ####[facility] [address] [place], [place] [address]Dr. Brittany Brown Performed by: Comment Normal [facility] Comment on above: Result Comment: James Guerrier, Publications Production Supervisor Performed By: #### [id number] ####[facility] [address] [place], [place] [address]Dr. Brittany Brown Reflex Criteria: Comment Normal [facility] Comment on above: Result Comment: The HPV DNA reflex criteria were not met with this specimen result therefore, no HPV testing was performed. . Performed By: #### [id number] ####[facility] [address] [place], [place] [id number]. Brittany Brown Specimen adequacy: Comment Normal [facility] Comment on above: Result Comment: Sati sfactory for evaluation. Endocervical and/or squamous metaplastic cells (endocervical component) are present. Performed By: #### [id number] ####[facility] [address] [address]Dr. Brittany Brown CHLAMYDIA/GONOCOCCUS CALEB (SW AB/URINE/PAPon 05-16-2022 Chlamydia trachomatis, CALEB Negative Normal Negative [facility] Comment on above: Performed By: #### C T/NGNA #### [facility] [address] [address] [address] Brittany Brown Neisseria gonorrhoeae, CALEB Negative Normal Negative [facility] Comment on above: Performed By: #### C T/NGNA #### [facility] [address] [address] [address] Brittany Brown VAGINITIS/VAGINOSIS DNA PROB German 05-15-2022 Briseida species Negative Normal Negative [facility] Comment on above: Performed By: #### C BC #### [facility] [address] [address] [address] Brittany Brown Gardnerella vaginalis Negative Normal Negative [facility] Comment on above: Performed By: #### C BC #### [facility] [address] [address] [address] Brittany Brown Trichomonas vaginalis Negative Normal Negative [facility] Comment on above: Performed By: #### C BC #### [facility] [address] [address] [address] Brittany Brown HEP B SURFACE ANTIGEN SCREEN on 02-15-2022 HBsAg Screen Negative Normal Negative [facility] Comment on above: Performed By: #### H BSANS ####[facility] [address] [address]Dr. Brittany Brown HEPATITIS C VIRUS AB W/ REFL EX QUANTon 02-15-2022 HCV AB <0.1 Normal 0.0-0.9 [facility] Comment on above: Performed By: #### C T/NGNA #### [facility] [address] [address] [address] Brittany Brown Interpretation: Comment Normal [facility] Comment on above: Result Comment: Nega tive Not infected with HCV, unless recent infection is suspected or other evidence exists to indicate HCV infection. Performed By: #### C T/NGNA #### [facility] [address] [address] [address] Brittany Brown HIV 1 AND 2 WITH REFLEXon HIV Screen 4th Generation wRfx Non-Reactive Normal Non Reactive [facility] Comment on above: Result Comment: HIV Negative HIV-1/HIV-2 antibodies and HIV-1 p24 antigen were NOT detected. There is no laboratory evidence of HIV infection. Performed By: #### C BC #### [facility] [address] [place] [address] Dr. Brittany Brown RPR QUANTon 02-15-2022 Rapid Plasma Reagin, Quant Non-Reactive Normal NonRea<1:1 [facility] Comment on above: Result Comment: Plea se Note: This test does not meet current guidelines for screening and diagnosis of syphilis. This test is intended for following treatment response in patients being treated for syphilis infection. To screen for syphilis infection, a reflex cascade that includes both RPR and a treponema-specific assay should be utilized, such as Treponema pallidum (Syphilis) Screening [place] (895890) or Rapid Plasma Reagin (RPR) Test With Reflex to Quantitative RPR and Confirmatory Treponema pallidum Antibodies (481841). Performed By: #### R PRQ ####[facility] [address] [place], [place] [address]Dr. Brittany Brown RUBELLA AB IGGon 02-15-2022 Rubella Antibodies, IgG 28.20 index Normal Immune >0.99 [facility] Comment on above: Result Comment: Non- immune <0.90 Equivocal 0.90 - 0.99 Immune >0.99 Performed By: #### C BC #### [facility] [address] [place] [address] Dr. Brittany Brown CBC AUTO DIFFon 02-14-2022 BASO # 0.0 103/ul Normal 0.0-0.1 [facility] Comment on above: Performed By: #### C BC #### [facility] [address] [place] [address] Dr. Brittany Brown Basophils/100 WBC (Bld) 0.3 % Normal 0.2-2.0 [facility] Comment on above: Performed By: #### C BC #### [facility] [address] [place] [address] Dr. Brittany Brown EO # 0.1 103/ul Normal 0.0-0.7 [facility] Comment on above: Performed By: #### C BC #### [facility] [address] [place] [address] Dr. Brittany Brown Eosinophils/100 WBC (Bld) 1.2 % Normal 0.9-7.0 [facility] Comment on above: Performed By: #### C BC #### [facility] [address] [place] [address] Dr. Brittany Brown Erythrocyte distribution width (RBC) [Ratio] 13.6 % Normal 11.0-15.0 [facility] Comment on above: Performed By: #### C BC #### [facility] [address] [place] [address] Dr. Brittany Brown Hematocrit (Bld) [Volume fraction] 34.7 % Critically low 36.0-48.0 [facility] Comment on above: Performed By: #### C BC #### [facility] [address] [place] [address] Dr. Brittany Brown Hemoglobin (Bld) [Mass/Vol] 11.8 g/dL Critically low 12.0-16.0 [facility] Comment on above: Performed By: #### C BC #### [facility] [address] [place] [address] Dr. Brittany Brown IG # 0.03 10e3/ul Normal 0.00-0.03 [facility] Comment on above: Performed By: #### C BC #### [facility] [address] [place] [address] Dr. Brittany Brown IG % 0.3 % Normal 0.0-0.5 [facility] Comment on above: Performed By: #### C BC #### [facility] [address] [place] [address] Dr. Brittany Brown LYMPH # 1.2 103/ul Normal 1.2-3.8 [facility] Comment on above: Performed By: #### C BC #### [facility] [address] [place] [address] Dr. Brittany Brown Lymphocytes/100 WBC (Bld) 13.9 % Critically low 20.5-60.0 [facility] Comment on above: Performed By: #### C BC #### [facility] [address] [place] [address] Dr. Brittany Brown MANUAL DIFF REQ NO Normal [facility] Comment on above: Performed By: #### C BC #### [facility] [address] [place] [address] Dr. Brittany Brown MCH (RBC) [Entitic mass] 27.8 pg Normal 26.7-34.0 [facility] Comment on above: Performed By: #### C BC #### [facility] [address] [place] [address] Dr. Brittany Brown MCHC (RBC) [Mass/Vol] 34.0 g/dL Normal 29.9-35.2 [facility] Comment on above: Performed By: #### C BC #### [facility] [address] [place] [address] Dr. Brittany Brown MCV (RBC) [Entitic vol] 81.6 fL Normal 81.0-99.0 [facility] Comment on above: Performed By: #### C BC #### [facility] [address] [place] [address] Dr. Brittany Brown MONO # 0.5 103/ul Normal 0.3-0.8 [facility] Comment on above: Performed By: #### C BC #### [facility] [address] [place] [address] Dr. Brittnay Brown Monocytes/100 WBC (Bld) 5.9 % Normal 1.7-12.0 [facility] Comment on above: Performed By: #### C BC #### [facility] [address] [place] [address] Dr. Brittany Brown NEUT # 6.8 103/ul Critically high 1.4-6.5 [facility] Comment on above: Performed By: #### C BC #### [facility] [address] [place] [address] Dr. Brittany Brown Neutrophils/100 WBC (Bld) 78.4 % Critically high 43.0-75.0 [facility] Comment on above: Performed By: #### C BC #### [facility] [address] [address] [address] Brittany Brown Platelet mean volume (Bld) [Entitic vol] 9.9 fL Normal 9.5-13.5 [facility] Comment on above: Performed By: #### C BC #### [facility] [address] [place] [address] Dr. Brittany Brown PLT 271 103/ul Normal 150-450 [facility] Comment on above: Performed By: #### C BC #### [facility] [address] [place] [address] Dr. Brittany Brown RBC 4.25 106/ul Normal 4.20-5.40 [facility] Comment on above: Performed By: #### C BC #### [facility] [address] [place] [address] Dr. Brittany Brown WBC 8.7 103/ul Normal 4.0-11.0 [facility] Comment on above: Performed By: #### C BC #### [facility] [address] [place] [address] Dr. Brittany Brown CULTURE URINEon 02-14-2022 CULTURE URINE Culture Observations: NO GROWTH. Normal [facility] Comment on above: Performed By: #### C T/NGNA #### [facility] [address] [place] [address] Dr. Brittany Brown GLYCOHEMOGLOBIN A1Con 2021 ADA RECOMMENDATION SEE BELOW Normal [facility] Comment on above: Result Comment: ADA RECOMMENDED LIMIT 4.0 - 6.0 ADA THERAPEUTIC TARGET < 7.0 ACTION SUGGESTED > 7.0 Performed By: #### A 1C #### [facility] [address] [place] [address] Dr. Brittany Brown Glucose [Mass/Vol] 111 mg/dL Normal [facility] Comment on above: Performed By: #### A 1C #### [facility] [address] [place] [address] Dr. Brittany Brown HbA1c (Bld) [Mass fraction] 5.5 % Normal 4.5-6.2 [facility] Comment on above: Performed By: #### A 1C #### [facility] [address] [place] [address] Dr. Brittany Brown TERRELL BOX TEST PT SEND OUTo n 02-14-2022 SENT TO REF LAB 02/14/2022 Normal [facility] Comment on above: Performed By: #### N BOX #### [facility] [address] [place] [address] Dr. Brittany Brown TYPE AND SCREENon 02-14-2022 TYPE AND SCREEN Negative Normal [facility] Comment on above: Performed By: #### T NS #### [facility] [address] [place] [address] Dr. Brittany Brown US PREG TVon 02-01-2022 [...] DI BRIZUELA Date: 2022-01-31 22:14 Normal [facility] HCG-BETA SUBUNIT QUANTon hCG,Beta Subunit,Qnt,Serum 868 mIU/mL Normal [facility] Comment on above: Result Comment: Fema le (Non-) 0 - 5 (Postmenopausal) 0 - 8 . Female () Weeks of Gestation 3 6 - 71 4 10 - 750 5 451 - 7014 6 831 - 57229 7 1157 -862781 8 32411 -689670 9 40464 -811871 10 26903 -352599 12 55127 -368453 14 97327 - 78349 15 05293 - 26917 16 9040 21029 17 8175 21958 18 8099 - 01127 [employer] ECLIA methodology Performed By: #### H CGSUB #### [facility] [address] [place], [place] [address] Dr. Brittany Brown HCG-BETA SUBUNIT QUANTon hCG,Beta Subunit,Qnt,Serum 364 mIU/mL Normal [facility] Comment on above: Result Comment: Fema le (Non-) 0 - 5 (Postmenopausal) 0 - 8 . Female () Weeks of Gestation 3 6 - 71 4 10 - 750 5 115 - 9613 6 836 - 83469 7 5627 -940402 8 89310 -218240 9 74813 -115436 10 18516 -744267 12 46387 -141491 14 60474 - 11630 15 10058 - 82475 16 0992 - 62031 17 8175 - 5398016 18 8099 - 78540 [employer] ECLIA methodology Performed By: #### C BC #### [facility] [address] [address] [address] Brittany Brown Vital Signs Date Time Vital Sign Value Performing Clinician Facility 12-04-2023 15:48-0400 Body height 160.02 cm [facility] 12-04-2023 15:48-0400 Body mass index (BMI) [Ratio] 24 kg/m2 [facility] 12-04-2023 15:48-0400 Body weight 61.68 kg [facility] 12-04-2023 15:48-0400 Diastolic blood pressure 79 mm[Hg] [facility] 12-04-2023 15:48-0400 Heart rate 77 /min [facility] 12-04-2023 15:48-0400 Systolic blood pressure 108 mm[Hg] [facility] 10-21-2023 15:30-0400 Body height 160.02 cm [facility] 10-21-2023 15:30-0400 Body mass index (BMI) [Ratio] 24.3 kg/m2 [facility] 10-21-2023 15:30-0400 Body temperature 97.8 [degF] [facility] 10-21-2023 15:30-0400 Body weight 62.14 kg [facility] 10-21-2023 15:30-0400 Diastolic blood pressure 83 mm[Hg] [facility] 10-21-2023 15:30-0400 Heart rate 85 /min [facility] 10-21-2023 15:30-0400 Systolic blood pressure 119 mm[Hg] [facility] 08-12-2023 11:33-0500 Body height 160.02 cm [facility] 08-12-2023 11:33-0500 Body mass index (BMI) [Ratio] 24 kg/m2 [facility] 08-12-2023 11:33-0500 Body weight 61.74 kg [facility] 08-12-2023 11:33-0500 Diastolic blood pressure 77 mm[Hg] [facility] 08-12-2023 11:33-0500 Heart rate 81 /min [facility] 08-12-2023 11:33-0500 Systolic blood pressure 108 mm[Hg] [facility] 04-20-2023 09:00-0500 Body height 160.02 cm Chelo Valencia Other [facility] [employer] Other 04-20-2023 09:00-0500 Body mass index (BMI) [Ratio] 24.23 kg/m2 Chelo Valencia Other [facility] [employer] Other 04-20-2023 09:00-0500 Body temperature 98.1 [degF] Chelo Valencia Other [employer] [facility] [employer] Other 04-20-2023 09:00-0500 Body weight 62.05 kg Chelo Valencia Other [employer] [facility] [employer] Other 04-20-2023 09:00-0500 Respiratory rate 18 /min Chelo Valencia Other [employer] [facility] [employer] Other 04-20-2023 09:00-0500 SaO2% (BldA) [Mass fraction] 97 % Chelo Valencia Other [employer] Other Encounters Encounter Date Encounter Type Care Provider Facility Start: 02-02-2024 End: 02-02-2024 ambulatory [facility] Not Available Start: 01-15-2024 End: 01-15-2024 ambulatory [facility] Not Available Start: 12-16-2023 End: 12-16-2023 Patient encounter procedure MD Sarah Marsh Work Phone: [facility] [address] Work Phone: Start: 12-16-2023 End: 12-16-2023 ambulatory MD Sarah Marsh Work Phone: [facility] Work Phone: Start: 12-04-2023 End: 12-04-2023 ambulatory [facility] Work Phone: Start: 12-04-2023 End: 12-04-2023 Patient encounter procedure [facility] Work Phone: Start: 10-21-2023 End: 10-21-2023 ambulatory [facility] Work Phone: Start: 10-21-2023 End: 10-21-2023 Patient encounter procedure [facility] Work Phone: Start: 08-12-2023 End: 08-12-2023 Patient encounter procedure [facility] Work Phone: Start: 04-24-2023 End: 04-24-2023 ambulatory Chelo Valencia Other [employer] Other Start: 04-24-2023 Telephone encounter Chelo Valencia [facility] [address] Start: 04-20-2023 Office outpatient vi sit 15 minutes Chelo Valencia [facility] Start: 04-20-2023 End: 04-20-2023 ambulatory Chelo Valencia [facility] [employer] Other Start: 04-20-2023 End: 04-20-2023 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 Start: 09-11-2022 Resection of Bilater al Fallopian Tubes, Open Approach [facility] . Start: 01-30-2022 Diabetes mellitus screening Chelo aVlencia Other Start: 02-21-2014 End: 03-24-2019 General examination of patient Chelo Valencia Other End: 03-24-2019 screening Chelo Valencia Other End: 11-30-2018 Contraception care education Chelo Valencia Other Insertion of intraut erine contraceptive device Chelo Valencia Other visit Chelo Valencia Other Removal of intrauter ine device Chelo Valencia Other Plan of Treatment Date Care Activity Detail Author Start: 12-16-2023 Hemolytic complement CH50 level [facility] Start: 12-16-2023 [facility] Start: 12-10-2023 Patient referral [facility] Work Phone: Start: 04-20-2023 Bacteria identified in Urine by Culture Urine Culture [facility] Start: 02-14-2021 Influenza vaccination INFLUENZ A (Season Ended) [facility] Start: 2014 PAP TESTING PAP TESTING [facility] Start: 2012 Urine microalbumin profile DTAP,TDAP,TD (1 - Tdap) [facility] Start: 2005 Adult depression screening assessment DEPRESSION SCREENING [facility] Start: 2004 HPV VACCINE (1 - 2-d ose series) HPV VACCINE (1 - 2-dose series) [facility] Beta 2 glycoprotein 1 IgG Ab [Units/volume] in Serum [facility] Beta 2 glycoprotein 1 IgM Ab [Units/volume] in Serum [facility] Cardiolipin IgA Ab [Units/volume] in Serum by Immunoassay [facility] Cardiolipin IgG Ab [Units/volume] in Serum by Immunoassay [facility] Cardiolipin IgM Ab [Units/volume] in Serum by Immunoassay [facility] Complement C2 [Mass/volume] in Serum or Plasma [facility] Complement C3 [Mass/volume] in Serum or Plasma [facility] Complement C4 [Mass/volume] in Serum or Plasma [facility] Lupus anticoagulant [Interpretation] in Platelet poor plasma [facility] Patient referral [facility] Work Phone: Thrombin time [facility] Payers Date Payer Category Payer Unknown [id number] 2023 Self-pay [id number] 2012 Private Health Insurance AETNA A ETNA CHOICE POS II [id number] 2012-2016 POS [id number] 1993 Unknown [id number] 2.16.840.1.679021.3.579.2.5 93 1993 Unknown [id number] 2.16.840.1.812197.3.579.2.5 93 1993 Unknown [id number] 2.16.840.1.116664.3.579.2.5 93 1993 Unknown [id number] 2.16.840.1.704108.3.579.2.5 93 1993 Unknown [id number] 2.16.840.1.744896.3.579.2.5 93 1993 Unknown [id number] 2.16.840.1.227751.3.579.2.5 93 1993 Unknown [id number] 2.16.840.1.875522.3.579.2.5 93 1993 Unknown [id number] 2.16.840.1.372095.3.579.2.5 93 1993 Unknown [id number] 2.16.840.1.422848.3.579.2.5 93 1993 Unknown [id number] 2.16.840.1.062270.3.579.2.5 93 1993 Unknown [id number] 2.16.840.1.438765.3.579.2.5 93 1993 Unknown [id number] 2.16.840.1.336894.3.579.2.5 1993 Unknown [id number] 2.16.840.1.503525.3.579.2.5 93 1993 Unknown [id number] 2.16.840.1.333836.3.579.2.5 1993 Unknown [id number] 2.16.840.1.232167.3.579.2.5 93 1993 Unknown [id number] 2.16.840.1.862714.3.579.2.5 93 1993 Unknown [id number] 2.16.840.1.967710.3.579.2.5 93 1993 Unknown [id number] 2.16.840.1.184565.3.579.2.5 93 1993 Unknown [id number] 2.16.840.1.824634.3.579.2.1 259 1993 Unknown [id number] 2.16.840.1.988701.3.579.2.1 259 1959 Self-pay [id number] 1959 Unknown [id number] Unknown [id number] 2.16.840.1.944740.3.579.2.5 93 Unknown [id number] 2.16840.1.475464.19 Unknown [employer] [id number] Unknown [id number] 2.16840.1.739297.3.579.2.5 31 Unknown [id number] 2.16.840.1.799384.3.579.2.5 31 Social History Date Type Detail Facility Start: 07-19-2013 End: 08-05-2023 Tobacco smoking status [facility] Never smoker [facility] Start: 07-19-2013 Tobacco use and exposure Never used [facility] Start: 07-19-2013 Alcohol intake Current non-dr burns of alcohol (finding) [facility] Start: 1993 Sex Assigned At Not on file C [facility] Sex Assigned At Sex Assigned At [facility] [employer] Other Start: 1993 Sex Assigned At Female F [facility] Clinical Notes 10-12-2013 to 09-11-2022 Note Date [...] free and no longer on narcotics. [facility] 09-11-2022 Note NOTE DATE: ADDENDUM: Please change discharge date to 09/13/2022. [facility] 09-11-2022 Note DISCHARGE DATE: 08/16 PRIMARY DIAGNOSES: [...] free and no longer on narcotics. [facility] 09-11-2022 Note OPERATIVE NOTE OPERATION DATE: 09/11/2022 [...] Spinal with Duramorph. SURGEON: Keke Mejias D.O. RURAL SERVICE ENGINEER: MIKE Abreu URINE OUTPUT: Yellow and clear. [...] The tubes were identified, grasped with a Marilu, the LigaSure apparatus was used to come [...] the Recovery Room in stable condition. [facility] 10-12-2013 Evaluation note Encounter Date Diagnosis Assessment [...] understanding and is agreeable to treatment plan [employer] [facility] [employer] Other Evaluation noteNo assessment information available [facility] Work Phone: Evalue[facility]gnc noteNo [facility] [employer] Other Evaluation note* Diagnosis Onset Date Resolution [...] loss acute Positive VIVIEN (antinuclear antibody) acute [facility] Work Phone: History general Narrative - Reported* Type Description Date Medical History Lou disease Surgical History 3 PLASTIC SURGERY Surgical History adnoidectomy Surgical History C section Hospitalization History kidney infection [employer] [facility] [employer] Other Summary Purpose Family History No Family [...] or prosecute any alcohol or drug abuse patient.[facility] Reason for Visit (unrecogniz ed section and content) Reason Onset Date Comments Education Of Patient/family 07/21/2013 INFORMATION SOURCE (unrecogn ized section and content) DATE CREATED AUTHOR 10/27/2022 [facility] DATE CREATED AUTHOR AUTHOR'S ORGANIZ ATION 01/01/2024 [facility] DATE CREATED AUTHOR AUTHOR'S ORGANIZ ATION 02/03/2024 [facility] EPIC Care Teams (unrecognized sec [...] BE BASED ON THE PRIMARY CLINICAL RECORDS. [employer] [facility]. provides no warranty or guarantee of the accuracy or completeness of information in this document.
== END 2024-02-24 19:47 | disposition home or self-care (01) ==
LOC: LAB 19:46
PROVIDERS: Visit Provider Physician Assistant
DX: Z01.419 Encounter for gynecological examination (general) (routine) without abnormal findings (principal)
CPT/HCPCS: 87624; 88175

== ENCOUNTER 2024-04-13 07:48 | Outpatient (OUT) | payer BC, SELFPAY ==
--- OUTSIDE RECORDS SUMMARY | 2024-04-13 07:54 | XMS_ITS | CCD ---
Author Organization [facility] Care Team Providers Care Data Conversion Operator Name Role Phone Aj Marsh Primary Care Provider Anson Carson Primary Care Provider Nathan Macias DO Unavailable Nathan Macias DO Unavailable CHEMA .AYANNA Consulting Unavailable MAXIMO, DR AJ Madrid Primary Care Unavailable CHEMA ., AYANNA Attending Unavailable CHEMA ., AYANNA Admitting Unavailable RANDELL ., DR DAVIES Consulting Unavailable MARSH, DR AJ Madrid Primary Care Unavailable RANDELL ., DR DAVIES Attending Unavailable RANDELL ., DR DAVIES Admitting Unavailable ZIEBER, DR DI Iniguez Consulting Unavailable KARASIK ., DR VILLA Consulting Unavailabl e KARASIK ., DR VILLA Attending Unavailabl e KARASIK ., DR VILLA Admitting Unavailabl e REQUEST, DR NONE LISTED Primary Care Unavaila ble RANDELL ., DR DAVIES Consulting Unavailable ZIEBER, DR DI Iniguez Consulting Unavailable RANDELL ., DR DAVIES Admitting Unavailable RANDELL ., DR DAVIES Attending Unavailable REQUEST, NONE LISTED Primary Care Unavaila ble RANDELL ., DR DAVIES Consulting Unavailable ZIEBER, DR DI Iniguez Consulting Unavailable RANDELL ., DR DAVIES Consulting Unavailable REQUEST, NONE LISTED Primary Care Unavaila ble RANDELL ., DR DAVIES Attending Unavailable RANDELL ., DR DAVIES Admitting Unavailable RANDELL ., DR DAVIES Admitting Unavailable RANDELL ., DR DAVIES Attending Unavailable MARSH, DR AJ Madrid Primary Care Unavailable RANDELL ., DR DAVIES Consulting Unavailable RANDELL ., DR DAVIES Consulting Unavailable REQUEST, DR NONE LISTED Primary Care Unavaila ble RANDELL ., DR DAVIES Attending Unavailable RANDELL ., DR DAVIES Admitting Unavailable ZIEBER, DR DI Iniguez Consulting Unavailable REQUEST, DR NONE LISTED Primary Care Unavaila ble CHEMA ., AYANNA Attending Unavailable CHEMA ., AYANNA Admitting Unavailable CHEMA ., AYANNA Consulting Unavailable KARASIK ., DR VILLA Consulting Unavailabl e KARASIK ., DR VILLA Attending Unavailabl e KARASIK ., DR VILLA Admitting Unavailabl e REQUEST, DR NONE LISTED Primary Care Unavaila ble ZIEBER, DR DI Iniguez Consulting Unavailable CHEMA ., AYANNA Consulting Unavailable KARASIK ., DR VILLA Consulting Unavailabl e KARASIK ., DR VILLA Attending Unavailabl e KARASIK ., DR VILLA Admitting Unavailabl e REQUEST, DR NONE LISTED Primary Care Unavaila ble ZIEBER, DR DI Iniguez Consulting Unavailable CHEMA ., AYANNA Consulting Unavailable WEST, DR NELA Urena Consulting Unavailable RANDELL ., DR DAVIES Attending Unavailable RANDELL ., DR DAVIES Admitting Unavailable REQUEST, DR NONE LISTED Primary Care Unavaila ble RANDELL ., DR DAVIES Consulting Unavailable CHEMA ., AYANNA Consulting Unavailable RANDELL ., DR DAVIES Consulting Unavailable RANDELL ., DR DAVIES Attending Unavailable RANDELL ., DR DAVIES Admitting Unavailable REQUEST, DR NONE LISTED Primary Care Unavaila ble ZIEBER, DR DI Iniguez Consulting Unavailable ZIEBER, DR DI Iniguez Consulting Unavailable MARSH, DR AJ Madrid Primary Care Unavailable CHEMA ., AYANNA Attending Unavailable CHEMA ., AYANNA Admitting Unavailable CHEMA ., AYANNA Consulting Unavailable REQUEST, DR NONE LISTED Primary Care Unavaila ble RANDELL ., DR DAVIES Attending Unavailable RANDELL ., DR DAVIES Admitting Unavailable RANDELL ., DR DAVIES Consulting Unavailable REQUEST, DR NONE LISTED Primary Care Unavaila ble RANDELL ., DR DAVIES Attending Unavailable RANDELL ., DR DAVIES Admitting Unavailable RANDELL ., DR DAVIES Procedure Practitioner Unavail able SY DE SOUZA Consulting Unavailable ZIEBER, DR DI Iniguez Consulting Unavailable MARSH, DR AJ Madrid Primary Care Unavailable CHEMA ., AYANNA Attending Unavailable CHEMA ., AYANNA Admitting Unavailable CHEMA ., AYANNA Consulting Unavailable RANDELL ., DR DAVIES Consulting Unavailable REQUEST, DR NONE LISTED Primary Care Unavaila ble RANDELL ., DR DAVIES Attending Unavailable RANDELL ., DR DAVIES Admitting Unavailable RANDELL ., DR DAVIES Consulting Unavailable REQUEST, DR NONE LISTED Primary Care Unavaila ble RANDELL ., DR DAVIES Attending Unavailable RANDELL ., DR DAVIES Admitting Unavailable CHEMA .AYANNA Consulting Unavailable REQUEST, NONE LISTED Primary Care Unavaila ble CHEMA ., AYANNA Attending Unavailable CHEMA ., AYANNA Admitting Unavailable Chelo Valencia Unavailable TIKA Valencia Attending Provider MD Aj Marsh Primary Care Provider MD Alden Khan Attending Provider Alden Khan Admitting Unavailable Alden Khan Attending Unavailable Aj Marsh Primary Care Unavailable Chelo Valencia Admitting Unavailable Chelo Valencia Attending Unavailable Aj Marhs Primary Care Unavailable Aj Marsh MD Primary Care Provider [phone] YAANNA BEAR Attending Unavailable AYANNA BEAR Attending Unavailable AYANNA BEAR Attending Unavailable JAIDEN MEJIAS Attending Unavailable JAIDEN MEJIAS Attending Unavailable Allergies Allergy Classification Reported Allergen(s) Allergy Type Date of Onset Reaction(s) Facility Opioid Agonists (1 source) Morphine Drug Allergy 3 Itching, Other: See Comments [facility] (1 source) Morphine Drug Allergy 0 [facility] (5 sources) Morphine Drug Allergy 2 rash, Itching [facility] Work Phone: (2 sources) Morphine Sulfate (Concentrate) *ANALGESICS - OPIOI Propensity to adverse reactions 0 Unknown [facility] Other (2 sources) Allergies Reconciled Propensity to adverse reactions Unknown [facility] Other (2 sources) patient allergy list reviewed by nurse or physicia Propensity to adverse reactions 4 Comment:Done [facility] Other (1 source) Morphine Drug Allergy 4 [facility] Repository Medications Current Medications Medication Drug Class(es) Dates Sig (Normalized) Sig (Original) Vitamins (2 sources) Start: 11-08-2022 Vitamins Vitamins( Oral ) Active -Hx Entry Oral for 0 *Pick strength-form from Influx[employer] for eRX* Apr, Not-Taking Completed/Discontinued Medications Medication Drug Class(es) Dates Sig (Normalized) Sig (Original) amoxicillin 500 mg oral tablet (2 sources) Penicillin-class Antibacterial Start: 04-23-2022 take 1 capsule by mouth three times daily Amoxicillin 500mg amoxicillin 500mg, 1 (one) Capsule three times daily # 21, 04/23/2022, No Refill. Active oral three times daily for 0 *Pick strength-form from [facility] for eRX* 08 Apr, 2022 Not-Taking amoxicillin 875 mg / clavulanate 125 [...] oral daily for 0 *Pick strength-form from [facility]flux[facility] for eRX* 11 Mar, 2022 Not-Taking oseltamivir [...] Menendez Start: 07-19-2017 take 1 capsule by [facility] every twelve hours Tamiflu 75 MG 1 capsule Orally Twice a day for 5 day(s) Jul, Not-Taking Pnv #65-Iien-Kheug Acid-Omeg a3 (3 sources) Start: 08-06-2023 End: 08-12-2023 Pnv #81-Oovq-Pslml Acid-Omeg a3 Discontinued CAP PO August 06, 2023 1:00am August 12, 2023 12:43pm Problems Active Problems Problem Classification Problem Date Documented Da te Episodic/Chronic Abdominal pain (4 sources) Abdominal pain; Translations: [Unspecified abdominal pain] [...] Nutritional anemia; Translations: [Nutritional anemia, unspecified] Episodic Endometriosis (1 source) Endometriosis (clinical); Translations: [Endometriosis, unspecified] 03-29-2024 Chronic Headache; including migraine (8 sources) Migraine with [...] [Fibromyalgia] 08-06-2023 Episodic Other female genital disorders (1 source) Pain in female genitalia on intercourse; Translations: [Unspecified dyspareunia] 03-29-2024 Chronic Other female genital disorders (2 sources) Other [...] SYN POTS] Onset: 09-07-2022 Unclassified (3 sources) OTH SPCF DIS/COND COMPL ; Translations: [OTH [...] Anticardiolipin Ab, IgA,Qn <9 Normal 0-11 [facility] Comment on above: Result Comment: Nega tive: <12 Indeterminate: 12 - 20 Low-Med Positive: >20 - 80 High Positive: >80 Performed at: - [facility] [address] [id number] Term[employer] Representative: Joe Cox PhD, Phone: [phone] Performed By: #### C H50, B2 GLYPROT, LUPANTCOAG, C3, CARDIO GMA, C4, C2 #### [facility] , #### ADDONUAPLUS #### [facility] [address] Anticardiolipin Ab, IgG,Qn <9 Normal 0-14 [facility] Comment on above: Result Comment: Nega tive: <15 Indeterminate: 15 - 20 Low-Med Positive: >20 - 80 High Positive: >80 Performed By: #### C H50, B2 GLYPROT, LUPANTCOAG, C3, CARDIO GMA, C4, C2 #### [facility] , #### ADDONUAPLUS #### [address] Anticardiolipin Ab, IgM,Qn <9 Normal 0-12 [facility] Comment on above: Result Comment: Nega tive: <13 Indeterminate: 13 - 20 Low-Med Positive: >20 - 80 High Positive: >80 Performed By: #### C H50, B2 GLYPROT, LUPANTCOAG, C3, CARDIO GMA, C4, C2 #### [facility] , #### ADDONUAPLUS #### [address] Bacteria [Presence] in Urine by AutomatedOrdered By: Alden Khan on 12-16-2023 Bacteria Auto Ql (U) Rare [HPF] None Seen [facility] Beta 2 Glycoprotein I Ab IgG /Mon 12-16-2023 Beta 2 Glycoprotein I Ab, IgG <9 Normal 0-20 [facility] Comment on above: Result [...] C2 #### [facility] , #### ADDONUAPLUS #### [facility] [address] Beta 2 Glycoprotein I Ab, IgM <9 Normal 0-32 [facility] Comment on above: Result Comment: Resu lt Units: GPI IgM units The reference interval reflects a 3SD or 99th percentile interval, which is thought to represent a potentially clinically significant result in accordance with the International Consensus Statement on the classification criteria for definitive antiphospholipid syndrome (APS). J Thromb Haem 2006;4:295-306. Performed at: [facility] [employer] [id number] Term[employer] Representative: Jackson Mccrary MD, Phone: [phone] Performed By: #### C H50, B2 GLYPROT, LUPANTCOAG, C3, CARDIO GMA, C4, C2 #### [facility] , #### ADDONUAPLUS #### [facility] [address] Bilirubin Test strip Ql (U)O rdered By: Alden Khan on 12-16-2023 Bilirubin Ql (U) Negative Negative [facility] Color of Urine by AutoOrdere d By: Alden Khan on 12-16-2023 Color (U) Light-yellow Normal Yellow [facility] Comment on above: Order Comment: Name Collection Type:: Clean-Voided Midstream Performed By: #### C H50, B2 GLYPROT, LUPANTCOAG, C3, CARDIO GMA, C4, C2 #### [facility] , #### ADDONUAPLUS #### [facility] [address] [place] [id number] [place] Complement C2on 12-16-2023 Complement C2 1.9 mg/dL Normal 1.4-3.3 [facility] Comment on above: Result Comment: Resu lts of this test are labeled for research purposes only by the assay's factory helper. The performance characteristics of this assay have not been established by the factory helper. The result should not be used for treatment or for diagnostic purposes without confirmation of the diagnosis by another medically established diagnostic product or procedure. The performance characteristics were determined by [facility]. Performed at: [address] [id number] Term[employer] Representative: Jackson Mccrary MD, Phone: [phone] PERFORMED BY: [place] [address] PATHOLOGIST SEWER PIPE LAYER HELPER COLEEN ALMANZA M.D. Performed By: #### C H50, B2 GLYPROT, LUPANTCOAG, C3, CARDIO GMA, C4, C2 #### [facility] , #### ADDONUAPLUS #### [address] Complement C3on 12-16-2023 Complement C3 137 mg/dL Normal 82-167 [facility] Comment on above: Result Comment: Perf ormed at: [facility] [id number] Termite Control Representative: Joe Cox PhD, Phone: [phone] Performed By: #### C H50, B2 GLYPROT, LUPANTCOAG, C3, CARDIO GMA, C4, C2 #### [facility] , #### ADDONUAPLUS #### [address] Complement C4on 12-16-2023 Complement C4 15 mg/dL Normal 12-38 [facility] Comment on above: Performed By: #### C H50, B2 GLYPROT, LUPANTCOAG, C3, CARDIO GMA, C4, C2 #### [facility] , #### ADDONUAPLUS #### [address] Complement Total (CH50)on Complement Total (CH50) >60 Normal >41 [facility] Comment on above: Result [...] determine out of range values. Performed at: - [facility] [address] [id number] Term[employer] Representative: Joe Cox PhD, Phone: [phone] PERFORMED BY: [place] [address] PATHOLOGIST SEWER PIPE LAYER HELPER COLEEN ALMANZA M.D. Performed By: #### C H50, B2 GLYPROT, LUPANTCOAG, C3, CARDIO GMA, C4, C2 #### [facility] , #### ADDONUAPLUS #### [place] [address] [place] Dipstick and Microscopicon 0 12-16-2023 Bacteria,Urine Rare Normal None Seen [facility] Comment on above: Order Comment: Name Collection Type:: Clean-Voided Midstream Performed By: #### C H50, B2 GLYPROT, LUPANTCOAG, C3, CARDIO GMA, C4, C2 #### [facility] , #### ADDONUAPLUS #### [address] Bilirubin,Urine Negative Normal Negative [facility] Comment on above: Order Comment: Name Collection Type:: Clean-Voided Midstream Performed By: #### C H50, B2 GLYPROT, LUPANTCOAG, C3, CARDIO GMA, C4, C2 #### [facility] , #### ADDONUAPLUS #### [address] Glucose Ql (U) Normal Normal Normal [facility] Comment on above: Order Comment: Name Collection Type:: Clean-Voided Midstream Performed By: #### C H50, B2 GLYPROT, LUPANTCOAG, C3, CARDIO GMA, C4, C2 #### [facility] , #### ADDONUAPLUS #### [place] [address] [place] Hyaline Casts,Urine None Normal 0-8 [facility] Comment on above: Order Comment: Name Collection Type:: Clean-Voided Midstream Performed By: #### C H50, B2 GLYPROT, LUPANTCOAG, C3, CARDIO GMA, C4, C2 #### [facility] , #### ADDONUAPLUS #### [place] [address] [place] Mucus,Urine Rare Normal [facility] Comment on above: Order Comment: Name Collection Type:: Clean-Voided Midstream Result Comment: PERF ORMED BY: [place] [address] PATHOLOGIST SEWER PIPE LAYER HELPER COLEEN ALMANAZ M.D. Performed By: #### C H50, B2 GLYPROT, LUPANTCOAG, C3, CARDIO GMA, C4, C2 #### [facility] , #### ADDONUAPLUS #### [place] [address] [place] Nitrite,Urine Negative Normal Negative [facility] Comment on above: Order Comment: Name Collection Type:: Clean-Voided Midstream Performed By: #### C H50, B2 GLYPROT, LUPANTCOAG, C3, CARDIO GMA, C4, C2 #### [facility] , #### ADDONUAPLUS #### [place] [address] [place] Occult Blood,Urine Negative Normal Negative [facility] Comment on above: Order Comment: Name Collection Type:: Clean-Voided Midstream Performed By: #### C H50, B2 GLYPROT, LUPANTCOAG, C3, CARDIO GMA, C4, C2 #### [facility] , #### ADDONUAPLUS #### [address] Protein,Urine Negative Normal Negative [facility] Comment on above: Order Comment: Name Collection Type:: Clean-Voided Midstream Performed By: #### C H50, B2 GLYPROT, LUPANTCOAG, C3, CARDIO GMA, C4, C2 #### [facility] , #### ADDONUAPLUS #### [address] RBC,Urine 1-2 Normal 0-4 [facility] Comment on above: Order Comment: Name Collection Type:: Clean-Voided Midstream Performed By: #### C H50, B2 GLYPROT, LUPANTCOAG, C3, CARDIO GMA, C4, C2 #### [facility] , #### ADDONUAPLUS #### [address] Specificy [place],Urine 1.016 Normal 1.001-1.030 [facility] Comment on above: Order Comment: Name Collection Type:: Clean-Voided Midstream Performed By: #### C H50, B2 GLYPROT, LUPANTCOAG, C3, CARDIO GMA, C4, C2 #### [facility] , #### ADDONUAPLUS #### [address] Squamous Epithelial Cell,Urine 5-9 High 0-2 [facility] Comment on above: Order Comment: Name Collection Type:: Clean-Voided Midstream Performed By: #### C H50, B2 GLYPROT, LUPANTCOAG, C3, CARDIO GMA, C4, C2 #### [facility] , #### ADDONUAPLUS #### [address] Urobilinogen,Urine Normal Normal Normal [facility] Comment on above: Order Comment: Name Collection Type:: Clean-Voided Midstream Performed By: #### C H50, B2 GLYPROT, LUPANTCOAG, C3, CARDIO GMA, C4, C2 #### [facility] , #### ADDONUAPLUS #### [facility] [address] WBC,Urine 1-2 Normal 0-4 [facility] Comment on above: Order Comment: Name Collection Type:: Clean-Voided Midstream Performed By: #### C H50, B2 GLYPROT, LUPANTCOAG, C3, CARDIO GMA, C4, C2 #### [facility] , #### ADDONUAPLUS #### [facility] [address] Epithelial cells.squamous [# /area] in Urine sediment by Automated countOrdered By: Alden Khan on 12-16-2023 Epithelial cells.squamous Auto (Urine sed) [#/Area] 5-9 [HPF] High 0-2 [facility] Erythrocytes [#/area] in Uri ne sediment by Automated countOrdered By: Alden Khan on 12-16-2023 RBC Auto (Urine sed) [#/Area] 1-2 [HPF] 0-4 [facility] Glucose [Mass/volume] in Uri ne by Test stripOrdered By: Alden Khan on 12-16-2023 Glucose Test strip (U) [Mass/Vol] Normal mg/dL Normal [facility] Hemoglobin Test strip Ql (U) Ordered By: Alden Khan on 12-16-2023 Hemoglobin Ql (U) Negative Negative [facility] Hyaline casts [#/area] in Ur ine sediment by Automated countOrdered By: Alden Khan on 12-16-2023 Hyaline casts Auto (Urine sed) [#/Area] None [LPF] 0-8 [facility] Ketones [Presence] in Urine by Test stripOrdered By: Alden Khan on 12-16-2023 Ketones Ql (U) Negative Normal Negative [facility] Comment on above: Order Comment: Name Collection Type:: Clean-Voided Midstream Performed By: #### C H50, B2 GLYPROT, LUPANTCOAG, C3, CARDIO GMA, C4, C2 #### [facility] , #### ADDONUAPLUS #### [facility] [address] Leukocyte esterase [Presence ] in Urine by Test stripOrdered By: Alden Khan on 12-16-2023 Leukocyte esterase Test strip Ql (U) Negative Normal Negative [facility] Comment on above: Order Comment: Name Collection Type:: Clean-Voided Midstream Performed By: #### C H50, B2 GLYPROT, LUPANTCOAG, C3, CARDIO GMA, C4, C2 #### [facility] , #### ADDONUAPLUS #### [address] Leukocytes [#/area] in Urine sediment by Automated countOrdered By: Alden Khan on 12-16-2023 WBC Auto (Urine sed) [#/Area] 1-2 [HPF] 0-4 [facility] Lupus Anticoagulant Compon 0 12-16-2023 Dilute Prothrombin Time (dPt) 35.7 Normal 0.0-47.6 [facility] Comment on above: Performed By: #### C H50, B2 GLYPROT, LUPANTCOAG, C3, CARDIO GMA, C4, C2 #### [facility] , #### ADDONUAPLUS #### [address] dPT Confirm Ratio 1.21 Normal 0.00-1.34 [facility] Comment on above: Performed By: #### C H50, B2 GLYPROT, LUPANTCOAG, C3, CARDIO GMA, C4, C2 #### [facility] , #### ADDONUAPLUS #### [address] DRVVT Lupus 35.4 Normal 0.0-47.0 [facility] Comment on above: Performed By: #### C H50, B2 GLYPROT, LUPANTCOAG, C3, CARDIO GMA, C4, C2 #### [facility] , #### ADDONUAPLUS #### [address] Interpretation Comment: Normal . [facility] Comment on above: Result Comment: No l upus anticoagulant was detected. Performed at: - [facility] [id number] Termite [employer] Representative: Jackson Mccrary MD, Phone: [phone] PERFORMED BY: [place] [address] PATHOLOGIST SEWER PIPE LAYER HELPER COLEEN ALMANZA M.D. Performed By: #### C H50, B2 GLYPROT, LUPANTCOAG, C3, CARDIO GMA, C4, C2 #### [facility] , #### ADDONUAPLUS #### [address] PTT-LA 33.7 Normal 0.0-43.5 [facility] Comment on above: Performed By: #### C H50, B2 GLYPROT, LUPANTCOAG, C3, CARDIO GMA, C4, C2 #### [facility] , #### ADDONUAPLUS #### [address] Thrombin Time 18.9 Normal 0.0-23.0 [facility] Comment on above: Performed By: #### C H50, B2 GLYPROT, LUPANTCOAG, C3, CARDIO GMA, C4, C2 #### [facility] , #### ADDONUAPLUS #### [address] Mucus [Presence] in Urine by AutomatedOrdered By: Alden Khan on 12-16-2023 Mucus Auto Ql (U) Rare [LPF] [facility] Nitrite Test strip Ql (U)Ord ered By: Alden Khan on 12-16-2023 Nitrite Ql (U) Negative Negative [facility] Protein Test strip (U) [Mass /Vol]Ordered By: Alden Khan on 12-16-2023 Protein (U) [Mass/Vol] Negative Negative [facility] Specific gravity Test strip (U) [Rel density]Ordered By: Alden Khan on 12-16-2023 Specific gravity (U) [Rel density] 1.016 1.001-1.030 [facility] Urine appearanceOrdered By: Alden Khan on 12-16-2023 Appearance (U) Clear Normal Clear [facility] Comment on above: Order Comment: Name Collection Type:: Clean-Voided Midstream Performed By: #### C H50, B2 GLYPROT, LUPANTCOAG, C3, CARDIO GMA, C4, C2 #### [facility] , #### ADDONUAPLUS #### [facility] [address] Urobilinogen Test strip (U) [Mass/Vol]Ordered By: Alden Khan on 12-16-2023 Urobilinogen (U) [Mass/Vol] Normal mg/dL Normal [facility] pH of Urine by Test stripOrd ered By: Alden Khan on 12-16-2023 pH (U) 6.5 [pH] Normal 5.0-9.0 [facility] Comment on above: Order Comment: Name Collection Type:: Clean-Voided Midstream Performed By: #### C H50, B2 GLYPROT, LUPANTCOAG, C3, CARDIO GMA, C4, C2 #### [facility] , #### ADDONUAPLUS #### [facility] [address] Basophils Auto (Bld) [#/Vol] on 12-04-2023 Basophils (Bld) [#/Vol] 0.1 10 3/uL 0.0-0.1 [facility] Basophils/100 WBC Auto (Bld) on 12-04-2023 Basophils/100 WBC (Bld) 0.7 % 0.2-2.0 [facility] Eosinophils/100 WBC Auto (Bl d)on 12-04-2023 Eosinophils/100 WBC (Bld) 3.3 % 0.9-7.0 [facility] Erythrocyte distribution wid th Auto (RBC) [Ratio]on 12-04-2023 Erythrocyte distribution width (RBC) [Ratio] 12.9 % 11.0-15.0 [facility] Hematocrit Auto (Bld) [Volum e fraction]on 12-04-2023 Hematocrit (Bld) [Volume fraction] 37.6 % 36.0-48.0 [facility] Hemoglobin [Mass/volume] in Bloodon 12-04-2023 Hemoglobin (Bld) [Mass/Vol] 12.7 g/dL 12.0-16.0 [facility] Laboratory - Chemistry and C hemistry - challengeon 12-04-2023 TSH Qn 1.374 m[IU]/L 0.358-3.740 [facility] Laboratory - Hematology and Cell countson 12-04-2023 Immature granulocytes/100 WBC (Bld) 0.1 % 0.0-0.5 [facility] Leukocytes [#/volume] correc ivette for nucleated erythrocytes in Blood by Automated counon 12-04-2023 WBC corrected for nucl RBC Auto (Bld) [#/Vol] 7.1 10 3/uL 4.0-11.0 [facility] Lymphocytes Auto (Bld) [#/Vo l]on 12-04-2023 Lymphocytes (Bld) [#/Vol] 2.0 10 3/uL 1.2-3.8 [facility] Lymphocytes/100 WBC Auto (Bl d)on 12-04-2023 Lymphocytes/100 WBC (Bld) 28.6 % 20.5-60.0 [facility] MCH Auto (RBC) [Entitic mass ]on 12-04-2023 MCH (RBC) [Entitic mass] 28.1 pg 26.7-34.0 [facility] MCHC Auto (RBC) [Mass/Vol]on 12-04-2023 MCHC (RBC) [Mass/Vol] 33.8 g/dL 29.9-35.2 [facility] MCV Auto (RBC) [Entitic vol] on 12-04-2023 MCV (RBC) [Entitic vol] 83.2 fL 81.0-99.0 [facility] Monocytes Auto (Bld) [#/Vol] on 12-04-2023 Monocytes (Bld) [#/Vol] 0.6 10 3/uL 0.3-0.8 [facility] Monocytes/100 WBC Auto (Bld) on 12-04-2023 Monocytes/100 WBC (Bld) 7.9 % 1.7-12.0 [facility] Neutrophils Auto (Bld) [#/Vo l]on 12-04-2023 Neutrophils (Bld) [#/Vol] 4.2 10 3/uL 1.4-6.5 [facility] Neutrophils/100 WBC Auto (Bl d)on 12-04-2023 Neutrophils/100 WBC (Bld) 59.4 % 43.0-75.0 [facility] No Panel Informationon 12-03 Anti-Double Strand DNA Antibody <1 [IU]/mL 0-9 [facility] Comment on above: Negative <5 Equivoca l 5 - 9 Positive >9 Eosinophils # (Auto) 0.2 10 3/uL 0.0-0.7 [facility] Immature Granulocyte # (Auto) 0.01 10 3/uL 0.00-0.03 [facility] Platelet mean volume Auto (B ld) [Entitic vol]on 12-04-2023 Platelet mean volume (Bld) [Entitic vol] 10.2 fL 9.5-13.5 [facility] Platelets Auto (Bld) [#/Vol] on 12-04-2023 Platelets (Bld) [#/Vol] 275 10 3/uL 150-450 [facility] RBC Auto (Bld) [#/Vol]on RBC (Bld) [#/Vol] 4.52 10 6/uL 4.20-5.40 [facility] Serum nuclear antibody titer on 12-04-2023 Nuclear Ab (S) [Titer] Negative Negative [facility] Comment on above: Performed at: [facility] [address] [id number] Director: Joe Cox PhD, Phone: [phone] Serum or plasma chromatin an tibody assay (units/volume)on 12-04-2023 Chromatin Ab Qn <0.2 AI 0.0-0.9 [facility] Serum or plasma complement C 3 measurement (mass/volume)on 12-04-2023 Complement C3 [Mass/Vol] 113 mg/dL 82-167 [facility] Serum or plasma complement C 4 measurement (mass/volume)on 12-04-2023 Complement C4 [Mass/Vol] 10 mg/dL Abnormal 12-38 [facility] Urinalysis - AUTOMATEDon Appearance (U) clear [employer] Other Bilirubin Ql (U) Negative [employer] Other Color (U) yellow [facility] Other Glucose Ql (U) Negative [employer] Other Hemoglobin Ql (U) [employer] Other Ketones Ql (U) Negative [employer] Other Leukocyte esterase Test strip Ql (U) [employer] Other Nitrite Ql (U) Negative [employer] Other pH (U) 5.5 [pH] [facility] Other Protein Ql (U) Negative [employer] Other Specific gravity (U) [Rel density] 1.025 [facility] Other Urobilinogen (U) [Mass/Vol] 0.2 mg/dL [facility] Other Urinalysis - AUTOMATED [facility] Other Urine Cultureon 04-20-2023 Bacteria identified Cx Nom (U) ORGANISM: Escherichia coli (O:ESCCOL) [place] Count 10,000 Organism Comments Pure Growth Aerobic [...] RESISTANT TO ALL B-LACTAM DRUGS. PERFORMED BY: [place] [address] PATHOLOGIST SEWER PIPE LAYER HELPER COLEEN ALMANZA M.D. Normal [facility] Comment on above: Performed By: #### C UU #### [address] FACTOR V LEIDEN MUTATION VIVIEN LYSISon 09-18-2022 Factor V Leiden Comment Normal [facility] Comment on above: Result Comment: Resu lt: c.1601G>A (p.[id number]) - Not Detected . This result is not associated with an increased risk for venous thromboembolism. See Additional Clinical Information and Comments. Additional Clinical Information: Venous thromboembolism is a multifactorial disease influenced by genetic, environmental, and circumstantial risk factors. The c.1601G>A (p. Thy119Jeh) variant in the F5 gene, commonly referred [...] c.*97G>A variant and Factor V Leiden (PMID: 23382713). Additional risk factors include but are not [...] health care providers to discuss results at [phone] ([phone]). . Test Details: Variant Analyzed: c.1601G>A (p. [id number]), referred to as Factor V Leiden . [...] developed and its performance characteristics determined by [employer]. It has not been cleared or approved by the Food and Drug Administration. . References: Ashley S, Coco AK, Cruz R, Alphonso WW, Satnam JH; ACMG Professional Practice and Guidelines Committee. Addendum: [employer] consensus statement on factor V Leiden mutation testing. Renetta Med. 2020 5. doi: 10.1038/h55363-486-97417-y. PMID: 64527332. . Reyna LARSEN. Factor V Leiden Thrombophilia. 1998October 27 (Updated 2017Jun 19). In: Mickey MP, Jia HH, Isaac RA, et al., editors. Marjorie(Geetha) (Internet). [place] ([place]): [employer]; 9152-7965. Available from: https://www.ncbi.nlm.nih.gov/books/BRQ1910/ . Nick S, Coco AK, Molina X, Al B, Arvind EB, Sherley P, Austin CS; [employer] Laboratory Experienced Truck Driver Committee. Venous thromboembolism laboratory testing (factor V Leiden and factor II c.*97G>A), 2018 update: a technical standard of the [employer] and Genomics (ACMG). Renetta Med. 2018 May;20(12):3523-7989. doi: 10.1038/h54555-773-4245-m. Epub 2017Mar 20. PMID: 34509444. . Carmella Anderson, PhD, FACMG Zoë Espinoza, PhD Veto Salgado, PhD, FACMG Jarrett Morales, PhD, FACMG Espinoza Mazariegos, PhD, FAC W Eloisa Tsang, PhD, FAC Maegan Yepez, PhD, [facility] Vira Teague, PhD, [facility] Performed By: #### C BC #### [facility] [address] [place] [address] Dr. Brittany Brown FACTOR II DNA ANALYSISon Factor II DNA Analysis Comment Normal [facility] Comment on above: Result Comment: Resu [...] the F2 gene and a c.1601G>A (p. [id number]) variant in the F5 gene (commonly referred to as Factor V Leiden) have an approximately 20- fold increased risk for venous thromboembolism. Risks are likely to be even higher in more complex genotype combinations involving the F2 c.*97G>A variant and Factor V Leiden (PMID: 80621892). Additional risk factors include but are not [...] health care providers to discuss results at [phone] ([phone]). . Test Details: Variant analyzed: c.*97G>A, previously referred to as [id number] . Methods/Limitations: DNA analysis of the F2 [...] developed and its performance characteristics determined by [employer]. It has not been cleared or approved by the Food and Drug Administration. . References: Ashley S, Coco AK, Cruz R, Alphonso WW, Satnam JH; [employer] Professional Practice and Guidelines Committee. Addendum: [employer] [employer] consensus statement on factor V Leiden mutation testing. Renetta Med. 2020Aug 18. doi: 10.1038/[id number]-n. PMID: 03992306. . Reyna LARSEN. Prothrombin Thrombophilia. 2005Jan 07 [Updated 2020Jul 20]. In: Mickey MP, Jia HH, Isaac RA, et al., editors. Marjorie(Geetha) [Internet]. [place] ([place]): [employer] [facility]; 4258-1435. Available from: https://www.ncbi.nlm.nih.gov/books/KAQ4679/ . Nick S, Coco AK, Molina X, Al B, Arvind EB, Sherley P, Austin CS; [employer] Laboratory Experienced Truck Driver Committee. Venous thromboembolism laboratory testing (factor V Leiden and factor II c.*97G>A), 2018 update: a technical standard of the [employer] and Gen[employer] (ACMG). Renetta Med. 2018 May;20(12):1409-9741. doi: 10.1038/v32226-291-2612-l. Epub 2017Mar 20. PMID: 56975156. . Carmella Anderson, PhD, FACMG Zoë Espinoza, PhD Veto Salgado, PhD, FACMG Jarrett Morales, PhD, FACMG Espinoza Mazariegos, PhD, FACMG W Eloisa Tsang, PhD, FACMG Maegan Yepez, PhD, FACMG Vira Teague, PhD, FAC Performed By: #### C BC #### [facility] [address] [place] [address] Dr. Brittany Brown CBC AUTO DIFFon 09-12-2022 BASO # 0.1 103/ul Normal 0.0-0.1 [facility] Comment on above: Performed By: #### C BC #### [facility] [address] [place] [address] Dr. Brittany Brown Basophils/100 WBC (Bld) 0.5 % Normal 0.2-2.0 [facility] Comment on above: Performed By: #### C BC #### [facility] [address] [place] [address] Dr. Brittany Brown EO # 0.2 103/ul Normal 0.0-0.7 [facility] Comment on above: Performed By: #### C BC #### [facility] [address] [place] [address] Dr. Brittany Brown Eosinophils/100 WBC (Bld) 1.7 % Normal 0.9-7.0 [facility] Comment on above: Performed By: #### C BC #### [facility] [address] [address] [address] Brittany Brown Erythrocyte distribution width (RBC) [Ratio] 14.9 % Normal 11.0-15.0 [facility] Comment on above: Performed By: #### C BC #### [facility] [address] [address] [address] Brittany Brown Hematocrit (Bld) [Volume fraction] 27.1 % Critically low 36.0-48.0 [facility] Comment on above: Performed By: #### C BC #### [facility] [address] [place] [address] Dr. Brittany Brown Hemoglobin (Bld) [Mass/Vol] 8.7 g/dL Critically low 12.0-16.0 [facility] Comment on above: Performed By: #### C BC #### [facility] [address] [address] [address] Brittany Brown IG # 0.10 10e3/ul Critically high 0.00-0.03 [facility] Comment on above: Performed By: #### C BC #### [facility] [address] [place] [address] Dr. Brittany Brown IG % 1.0 % Critically high 0.0-0.5 [facility] Comment on above: Performed By: #### C BC #### [facility] [address] [place] [address] Dr. Brittany Brown LYMPH # 1.6 103/ul Normal 1.2-3.8 [facility] Comment on above: Performed By: #### C BC #### [facility] [address] [address] [address] Brittany Brown Lymphocytes/100 WBC (Bld) 15.4 % Critically low 20.5-60.0 [facility] Comment on above: Performed By: #### C BC #### [facility] [address] [place] [address] Dr. Brittany Brown MANUAL DIFF REQ NO Normal [facility] Comment on above: Performed By: #### C BC #### [facility] [address] [place] [address] Dr. Brittany Brown MCH (RBC) [Entitic mass] 26.0 pg Critically low 26.7-34.0 [facility] Comment on above: Performed By: #### C BC #### [facility] [address] [place] [address] Dr. Brittany Brown MCHC (RBC) [Mass/Vol] 32.1 g/dL Normal 29.9-35.2 [facility] Comment on above: Performed By: #### C BC #### [facility] [address] [place] [address] Dr. Brittany Brown MCV (RBC) [Entitic vol] 81.1 fL Normal 81.0-99.0 [facility] Comment on above: Performed By: #### C BC #### [facility] [address] [place] [address] Dr. Brittany Brown MONO # 0.7 103/ul Normal 0.3-0.8 [facility] Comment on above: Performed By: #### C BC #### [facility] [address] [place] [address] Dr. Brittany Brown Monocytes/100 WBC (Bld) 7.1 % Normal 1.7-12.0 [facility] Comment on above: Performed By: #### C BC #### [facility] [address] [place] [address] Dr. Brittany Brown NEUT # 7.6 103/ul Critically high 1.4-6.5 [facility] Comment on above: Performed By: #### C BC #### [facility] [address] [place] [address] Dr. Brittany Brown Neutrophils/100 WBC (Bld) 74.3 % Normal 43.0-75.0 [facility] Comment on above: Performed By: #### C BC #### [facility] [address] [place] [address] Dr. Brittany Brown Platelet mean volume (Bld) [Entitic vol] 9.8 fL Normal 9.5-13.5 [facility] Comment on above: Performed By: #### C BC #### [facility] [address] [place] [address] Dr. Brittany Brown PLT 224 103/ul Normal 150-450 [facility] Comment on above: Performed By: #### C BC #### [facility] [address] [place] [address] Dr. Brittany Brown RBC 3.34 106/ul Critically low 4.20-5.40 [facility] Comment on above: Performed By: #### C BC #### [facility] [address] [place] [address] Dr. Brittany Brown WBC 10.2 103/ul Normal 4.0-11.0 [facility] Comment on above: Performed By: #### C BC #### [facility] [address] [place] [address] Dr. Brittany Brown CBC AUTO DIFFon 09-11-2022 BASO # 0.1 103/ul Normal 0.0-0.1 [facility] Comment on above: Performed By: #### C BC #### [facility] [address] [place] [address] Dr. Brittany Brown Basophils/100 WBC (Bld) 0.5 % Normal 0.2-2.0 [facility] Comment on above: Performed By: #### C BC #### [facility] [address] [place] [address] Dr. Brittany Brown EO # 0.1 103/ul Normal 0.0-0.7 [facility] Comment on above: Performed By: #### C BC #### [facility] [address] [place] [address] Dr. Brittany Brown Eosinophils/100 WBC (Bld) 1.1 % Normal 0.9-7.0 [facility] Comment on above: Performed By: #### C BC #### [facility] [address] [place] [address] Dr. Brittany Brown Erythrocyte distribution width (RBC) [Ratio] 14.6 % Normal 11.0-15.0 [facility] Comment on above: Performed By: #### C BC #### [facility] [address] [place] [address] Dr. Brittany Brown Hematocrit (Bld) [Volume fraction] 32.4 % Critically low 36.0-48.0 [facility] Comment on above: Performed By: #### C BC #### [facility] [address] [place] [address] Dr. Brittany Brown Hemoglobin (Bld) [Mass/Vol] 10.6 g/dL Critically low 12.0-16.0 [facility] Comment on above: Performed By: #### C BC #### [facility] [address] [place] [address] Dr. Brittany Brown IG # 0.11 10e3/ul Critically high 0.00-0.03 [facility] Comment on above: Performed By: #### C BC #### [facility] [address] [place] [address] Dr. Brittany Brown IG % 1.1 % Critically high 0.0-0.5 [facility] Comment on above: Performed By: #### C BC #### [facility] [address] [place] [address] Dr. Brittany Brown LYMPH # 1.2 103/ul Normal 1.2-3.8 [facility] Comment on above: Performed By: #### C BC #### [facility] [address] [place] [address] Dr. Brittany Brown Lymphocytes/100 WBC (Bld) 12.8 % Critically low 20.5-60.0 [facility] Comment on above: Performed By: #### C BC #### [facility] [address] [place] [address] Dr. Brittany Brown MANUAL DIFF REQ NO Normal [facility] Comment on above: Performed By: #### C BC #### [facility] [address] [place] [address] Dr. Brittany Brown MCH (RBC) [Entitic mass] 25.8 pg Critically low 26.7-34.0 [facility] Comment on above: Performed By: #### C BC #### [facility] [address] [place] [address] Dr. Brittany Brown MCHC (RBC) [Mass/Vol] 32.7 g/dL Normal 29.9-35.2 [facility] Comment on above: Performed By: #### C BC #### [facility] [address] [place] [address] Dr. Brittany Brown MCV (RBC) [Entitic vol] 78.8 fL Critically low 81.0-99.0 [facility] Comment on above: Performed By: #### C BC #### [facility] [address] [place] [address] Dr. Brittany Brown MONO # 0.7 103/ul Normal 0.3-0.8 [facility] Comment on above: Performed By: #### C BC #### [facility] [address] [place] [address] Dr. Brittany Brown Monocytes/100 WBC (Bld) 6.8 % Normal 1.7-12.0 [facility] Comment on above: Performed By: #### C BC #### [facility] [address] [place] [address] Dr. Brittany Brown NEUT # 7.5 103/ul Critically high 1.4-6.5 [facility] Comment on above: Performed By: #### C BC #### [facility] [address] [place] [address] Dr. Brittany Brown Neutrophils/100 WBC (Bld) 77.7 % Critically high 43.0-75.0 [facility] Comment on above: Performed By: #### C BC #### [facility] [address] [place] [address] Dr. Brittany Brown Platelet mean volume (Bld) [Entitic vol] 10.4 fL Normal 9.5-13.5 [facility] Comment on above: Performed By: #### C BC #### [facility] [address] [place] [address] Dr. Brittany Brown PLT 259 103/ul Normal 150-450 [facility] Comment on above: Performed By: #### C BC #### [facility] [address] [address] [address] Brittany Brown RBC 4.11 106/ul Critically low 4.20-5.40 [facility] Comment on above: Performed By: #### C BC #### [facility] [address] [address] [address] Brittany Brown WBC 9.7 103/ul Normal 4.0-11.0 [facility] Comment on above: Performed By: #### C BC #### [facility] [address] [address] [address] Brittany Brown DRUG SCREEN RAPID (URINE)on 09-11-2022 AMP Negative Normal NEGATIVE [facility] Comment on above: Performed By: #### D RUGRPD ####[facility] [address] [address]Dr. Brittany Brown BAR Negative Normal NEGATIVE [facility] Comment on above: Performed By: #### D RUGRPD ####[facility] [address] [address]Dr. Brittany Brown BUP Negative Normal NEGATIVE [facility] Comment on above: Performed By: #### D RUGRPD ####[facility] [address] [address]Dr. Brittany Brown BZO Negative Normal NEGATIVE [facility] Comment on above: Performed By: #### D RUGRPD ####[facility] [address] [address]Dr. Brittany Brown PARAS Negative Normal NEGATIVE [facility] Comment on above: Performed By: #### D RUGRPD ####[facility] [address] [place], [place] [address]Dr. Brittany Brown CUT-OFFS SEE BELOW Normal [facility] Comment on above: Result Comment: AMP (Amphetamine): 500ng/mL, BAR (Barbituates): 200 ng/mL, BZO (Benzodiazepines): 150 ng/mL, BUP (Buprenorphine): 10 ng/mL, PARAS (Cocaine): 150 ng/mL, mAMP (Methamphetamine): 500 ng/mL, MTD (Methadone): 200 ng/mL, OPI (Opiates): 100 ng/mL, OXY (Oxycodone): 100 ng/mL, PCP (Phencyclidine): 25 ng/mL, PPX (Propoxyphene): 300 ng/mL, THC (Cannabinoids): 50 ng/mL, TCA (Trycyclic Antidepressants): 300 ng/mL Performed By: #### D RUGRPD ####[facility] [address] [place], [place] [address]Dr. [facility] DRUG CUT HEADER DRUG CLASS TEST SYSTEM CUT-OFF CONCENTRATIONS ARE FOLLOWS: Normal [facility] Comment on above: Performed By: #### D RUGRPD ####[facility] [address] [place], [place] [address]Dr. Zenaidaginger Brown mAMP Negative Normal NEGATIVE [facility] Comment on above: Performed By: #### D RUGRPD ####[facility] [address] [place], [place] [address]Dr. Zenaidaginger Brown MTD Negative Normal NEGATIVE [facility] Comment on above: Performed By: #### D RUGRPD ####[facility] [address] [place], [place] [address]Dr. Brittany Brown OPI Negative Normal NEGATIVE [facility] Comment on above: Performed By: #### D RUGRPD ####[facility] [address] [place], [place] [address]Dr. Zenaidaginger Brown OXY Negative Normal NEGATIVE [facility] Comment on above: Performed By: #### D RUGRPD ####[facility] [address] [place], [place] [address]Dr. Zenaidaginger Brown PCP Negative Normal NEGATIVE [facility] Comment on above: Performed By: #### D RUGRPD ####[facility] [address] [place], [place] [address]Dr. Zenaidaginger [facility] PPX Negative Normal NEGATIVE [facility] Comment on above: Performed By: #### D RUGRPD ####[facility] [address] [place], [place] [address]Dr. Brittany Brown TCA Negative Normal NEGATIVE [facility] Comment on above: Performed By: #### D RUGRPD ####[facility] [address] [place], [place] [address]Jb. Brittany Brown THC Negative Normal NEGATIVE [facility] Comment on above: Performed By: #### D RUGRPD ####[facility] [address] [place], [place] [address]Bf. Brittany Brown TYPE AND SCREENon 09-11-2022 TYPE AND SCREEN Negative Normal [facility] Comment on above: Performed By: #### C T/NGNA #### [facility] [address] [address] [address] Brittany Brown PREG BIOPHY W NON [...] DI BRIZUELA Date: 2022-09-04 16:35 Normal [facility] GROUP B STREP CULTUREon 08-14 S. [...] F Tetracycline >=16 R F Normal [facility] Comment on above: Performed By: #### G BSCX #### [facility] [address] [address] [address] Brittany Brown PREG BIOPHY W NON [...] by: DI BRIZUELA Date: 2022-08-28 16:34 Normal [facility] US PREG BIOPHY W NON STRESSo [...] by: DI BRIZUELA Date: 2022-08-21 17:57 Normal [facility] US PREG BIOPHY W NON STRESSo [...] by: NELA MEZA Date: 2022-08-14 17:30 Normal [facility] US PREG BIOPHY W NON STRESSo [...] by: DI BRIZUELA Date: 2022-08-08 15:14 Normal [facility] US PREG GROWTHon 08-08-2022 US PREG [...] by: DI BRIZUELA Date: 2022-08-08 15:27 Normal [facility] US PREG GROWTHon 07-23-2022 US PREG [...] by: DI BRIZUELA Date: 2022-07-23 15:28 Normal [facility] US PREG CERVICAL LENGTHon US PREG [...] by: DI BRIZUELA Date: 2022-07-09 14:59 Normal [facility] US PREG GROWTHon 06-27-2022 US PREG [...] by: DI BRIZUELA Date: 2022-06-27 08:02 Normal [facility] CBC AUTO DIFFon 06-14-2022 BASO # 0.0 103/ul Normal 0.0-0.1 [facility] Comment on above: Performed By: #### C BC ####[facility] [address] [address]Dr. Brittany Brown Basophils/100 WBC (Bld) 0.4 % Normal 0.2-2.0 [facility] Comment on above: Performed By: #### C BC ####[facility] [address] [address]Dr. Brittany Brown EO # 0.2 103/ul Normal 0.0-0.7 [facility] Comment on above: Performed By: #### C BC ####[facility] [address] [place], [place] [address]Dr. Brittany Brown Eosinophils/100 WBC (Bld) 2.2 % Normal 0.9-7.0 [facility] Comment on above: Performed By: #### C BC ####[facility] [address] [place], [place] [address]Dr. Brittany Brown Erythrocyte distribution width (RBC) [Ratio] 13.5 % Normal 11.0-15.0 [facility] Comment on above: Performed By: #### C BC ####[facility] [address] [place], [place] [address]Dr. Brittany Brown Hematocrit (Bld) [Volume fraction] 32.4 % Critically low 36.0-48.0 [facility] Comment on above: Performed By: #### C BC ####[facility] [address] [place], [place] [address]Dr. Brittany Brown Hemoglobin (Bld) [Mass/Vol] 11.2 g/dL Critically low 12.0-16.0 [facility] Comment on above: Performed By: #### C BC ####[facility] [address] [place], [place] [address]Dr. Brittany Brown IG # 0.10 10e3/ul Critically high 0.00-0.03 [facility] Comment on above: Performed By: #### C BC ####[facility] [address] [place], [place] [address]Dr. Yiginger Brown IG % 0.9 % Critically high 0.0-0.5 [facility] Comment on above: Performed By: #### C BC ####[facility] [address] [address]Dr. Brittany Brown LYMPH # 1.2 103/ul Normal 1.2-3.8 [facility] Comment on above: Performed By: #### C BC ####[facility] [address] [place], [place] [address]Dr. Brittany Brown Lymphocytes/100 WBC (Bld) 11.1 % Critically low 20.5-60.0 [facility] Comment on above: Performed By: #### C BC ####[facility] [address] [address] [place], [place] [address]Dr. Brittany Brown MANUAL DIFF REQ NO Normal [facility] Comment on above: Performed By: #### C BC ####[facility] [address] [place], [place] [address]Dr. Brittany Brown MCH (RBC) [Entitic mass] 29.9 pg Normal 26.7-34.0 [facility] Comment on above: Performed By: #### C BC ####[facility] [address] [place], [place] [address]Dr. Brittany Kevin MCHC (RBC) [Mass/Vol] 34.6 g/dL Normal 29.9-35.2 [facility] Comment on above: Performed By: #### C BC ####[facility] [address] [place], [place] [address]Dr. Brittany Brown MCV (RBC) [Entitic vol] 86.4 fL Normal 81.0-99.0 [facility] Comment on above: Performed By: #### C BC ####[facility] [address] [place], [place] [address]DrIain Brown MONO # 0.6 103/ul Normal 0.3-0.8 [facility] Comment on above: Performed By: #### C BC ####[facility] [address] [place], [place] [address]Dr. Brittany Brown Monocytes/100 WBC (Bld) 5.4 % Normal 1.7-12.0 [facility] Comment on above: Performed By: #### C BC ####[facility] [address] [id number] Brown NEUT # 8.5 103/ul Critically high 1.4-6.5 [facility] Comment on above: Performed By: #### C BC ####[facility] [address] [address]DrIain Brown Neutrophils/100 WBC (Bld) 80.0 % Critically high 43.0-75.0 [facility] Comment on above: Performed By: #### C BC ####[facility] [address] [address]Dr. Brittany Brown Platelet mean volume (Bld) [Entitic vol] 9.6 fL Normal 9.5-13.5 [facility] Comment on above: Performed By: #### C BC ####[facility] [address] [address]Dr. Brittany Brown PLT 250 103/ul Normal 150-450 [facility] Comment on above: Performed By: #### C BC ####[facility] [address] [id number]. Brittany Brown RBC 3.75 106/ul Critically low 4.20-5.40 [facility] Comment on above: Performed By: #### C BC ####[facility] [address] [address]Dr. Brittany Brown WBC 10.6 103/ul Normal 4.0-11.0 [facility] Comment on above: Performed By: #### C BC ####[facility] [address] [id number]. Brittany Brown GLUCOSE - 1HRon 06-14-2022 Glucose [Mass/Vol] 100 mg/dL Normal 74-106 [facility] Comment on above: Performed By: #### C BC #### [facility] [id number] Brittany Brown PAP ACOG PANEL 2: 21 to 29on 05-21-2022 . . Normal [facility] Comment on above: Performed By: #### 4 [id number] ####[facility] [address] [address]DrIain Brown Age Gdln ACOG Testing - [facility] Comment on above: Performed By: #### 4 [id number] ####[facility] [address] [place], [place] [address]DrIain Brown DIAGNOSIS: Comment Normal [facility] Comment on above: Result Comment: NEGA TIVE FOR INTRAEPITHELIAL LESION OR MALIGNANCY. Performed By: #### 4 [id number] ####[facility] [address] [place], [place] [address]DrIain Brown Methodology: Comment [facility] Comment on above: Result Comment: This liquid based ThinPrep(R) pap test was screened with the use of an image guided system. Performed By: #### 4 [id number] ####[facility] [address] [place], [place] [address]DrIain Brown Note: Comment [facility] Comment on above: Result Comment: The Pap smear is a screening test designed to aid in the detection of premalignant and malignant conditions of the uterine cervix. It is not a diagnostic procedure and should not be used as the sole means of detecting cervical cancer. Both false-positive and false-negative reports do occur. . Performed By: #### 4 [id number] ####[facility] [address] [place], [place] [address]DrIain Brown Performed by: Comment Normal [facility] Comment on above: Result Comment: James Guerrier, Diversity Manager Performed By: #### 4 [id number] ####[facility] [address] [place], [place] [address]DrIain Brown Reflex Criteria: Comment [facility] Comment on above: Result Comment: The HPV DNA reflex criteria were not met with this specimen result therefore, no HPV testing was performed. . Performed By: #### 4 [id number] ####[facility] [address] [place], [place] [address]Dr. Brittany Brown Specimen adequacy: Comment Normal [facility] Comment on above: Result Comment: Sati sfactory for evaluation. Endocervical and/or squamous metaplastic cells (endocervical component) are present. Performed By: #### 4 [id number] ####[facility] [address] [address]Dr. Brittany Brown CHLAMYDIA/GONOCOCCUS CALEB (SW AB/URINE/PAPon 05-16-2022 Chlamydia trachomatis, CALEB Negative Normal Negative [facility] Comment on above: Performed By: #### C T/NGNA #### [facility] [address] [address] [address] Brittany Brown Neisseria gonorrhoeae, CALEB Negative Normal Negative [facility] Comment on above: Performed By: #### C T/NGNA #### [facility] [address] [place] [address] Dr. Brittany Brown VAGINITIS/VAGINOSIS DNA PROB German 05-15-2022 Briseida species Negative Normal Negative [facility] Comment on above: Performed By: #### C BC #### [facility] [address] [place] [address] Dr. Brittany Brown Gardnerella vaginalis Negative Normal Negative [facility] Comment on above: Performed By: #### C BC #### [facility] [address] [place] [address] Dr. Brittany Brown Trichomonas vaginalis Negative Normal Negative [facility] Comment on above: Performed By: #### C BC #### [facility] [address] [address] [address] Brittany Brown HEP B SURFACE ANTIGEN SCREEN on 02-15-2022 HBsAg Screen Negative Normal Negative [facility] Comment on above: Performed By: #### H BSANS ####[facility] [address] [address]Dr. Brittany Brown HEPATITIS C VIRUS AB W/ REFL EX QUANTon 02-15-2022 HCV AB <0.1 Normal 0.0-0.9 [facility] Comment on above: Performed By: #### C T/NGNA #### [facility] [address] [address] [address] Brittany Brown Interpretation: Comment Normal [facility] Comment on above: Result Comment: Nega tive Not infected with HCV, unless recent infection is suspected or other evidence exists to indicate HCV infection. Performed By: #### C T/NGNA #### [facility] [address] [place], [place] [address] Dr. Brittany Brown HIV 1 AND 2 WITH REFLEXon HIV Screen 4th Generation wRfx Non-Reactive Normal Non Reactive [facility] Comment on above: Result Comment: HIV Negative HIV-1/HIV-2 antibodies and HIV-1 p24 antigen were NOT detected. There is no laboratory evidence of HIV infection. Performed By: #### C BC #### [facility] [address] [address] [address] Brittany Brown RPR QUANTon 02-15-2022 Rapid Plasma Reagin, Quant Non-Reactive Normal NonRea<1:1 [facility] Comment on above: Result Comment: Plea se Note: This test does not meet current guidelines for screening and diagnosis of syphilis. This test is intended for following treatment response in patients being treated for syphilis infection. To screen for syphilis infection, a reflex cascade that includes both RPR and a treponema-specific assay should be utilized, such as Treponema pallidum (Syphilis) Screening Rhea (043283) or Rapid Plasma Reagin (RPR) Test With Reflex to Quantitative RPR and Confirmatory Treponema pallidum Antibodies (537767). Performed By: #### R PRQ ####[facility] [address] [place] [id number]. Brittany Brown RUBELLA AB IGGon 02-15-2022 Rubella Antibodies, IgG 28.20 index Normal Immune >0.99 [facility] Comment on above: Result Comment: Non- immune <0.90 Equivocal 0.90 - 0.99 Immune >0.99 Performed By: #### C BC #### [facility] [id number] Brtitany Brown CBC AUTO DIFFon 02-14-2022 BASO # 0.0 103/ul Normal 0.0-0.1 [facility] Comment on above: Performed By: #### C BC #### [facility] [address] [address] [address] Brittany Brown Basophils/100 WBC (Bld) 0.3 % Normal 0.2-2.0 [facility] Comment on above: Performed By: #### C BC #### [facility] [address] [address] [address] Brittany Brown EO # 0.1 103/ul Normal 0.0-0.7 [facility] Comment on above: Performed By: #### C BC #### [facility] [address] [address] [address] Brittany Brown Eosinophils/100 WBC (Bld) 1.2 % Normal 0.9-7.0 [facility] Comment on above: Performed By: #### C BC #### [facility] [address] [place] [address] Dr. Brittany Brown Erythrocyte distribution width (RBC) [Ratio] 13.6 % Normal 11.0-15.0 [facility] Comment on above: Performed By: #### C BC #### [facility] [address] [place] [address] Dr. Brittany Brown Hematocrit (Bld) [Volume fraction] 34.7 % Critically low 36.0-48.0 [facility] Comment on above: Performed By: #### C BC #### [facility] [address] [place] [address] Dr. Brittany Brown Hemoglobin (Bld) [Mass/Vol] 11.8 g/dL Critically low 12.0-16.0 [facility] Comment on above: Performed By: #### C BC #### [facility] [address] [place] [address] Dr. Brittany Brown IG # 0.03 10e3/ul Normal 0.00-0.03 [facility] Comment on above: Performed By: #### C BC #### [facility] [address] [address] [address] Brittany Brown IG % 0.3 % Normal 0.0-0.5 [facility] Comment on above: Performed By: #### C BC #### [facility] [address] [place] [address] Dr. Brittany Brown LYMPH # 1.2 103/ul Normal 1.2-3.8 [facility] Comment on above: Performed By: #### C BC #### [facility] [address] [place] [address] Dr. Brittany Brown Lymphocytes/100 WBC (Bld) 13.9 % Critically low 20.5-60.0 [facility] Comment on above: Performed By: #### C BC #### [facility] [address] [place] [address] Dr. Brittany Brown MANUAL DIFF REQ NO Normal [facility] Comment on above: Performed By: #### C BC #### [facility] [address] [place] [address] Dr. Brittany Brown MCH (RBC) [Entitic mass] 27.8 pg Normal 26.7-34.0 [facility] Comment on above: Performed By: #### C BC #### [facility] [address] [place] [address] Dr. Brittany Brown MCHC (RBC) [Mass/Vol] 34.0 g/dL Normal 29.9-35.2 [facility] Comment on above: Performed By: #### C BC #### [facility] [address] [place] [address] Dr. Brittany Brown MCV (RBC) [Entitic vol] 81.6 fL Normal 81.0-99.0 [facility] Comment on above: Performed By: #### C BC #### [facility] [address] [place] [address] Dr. Brittany Brown MONO # 0.5 103/ul Normal 0.3-0.8 [facility] Comment on above: Performed By: #### C BC #### [facility] [address] [place] [address] Dr. Brittany Brown Monocytes/100 WBC (Bld) 5.9 % Normal 1.7-12.0 [facility] Comment on above: Performed By: #### C BC #### [facility] [address] [address] [address] Brittany Brown NEUT # 6.8 103/ul Critically high 1.4-6.5 [facility] Comment on above: Performed By: #### C BC #### [facility] [address] [place] [address] Dr. Brittany Brown Neutrophils/100 WBC (Bld) 78.4 % Critically high 43.0-75.0 [facility] Comment on above: Performed By: #### C BC #### [facility] [address] [place] [address] Dr. Brittany Brown Platelet mean volume (Bld) [Entitic vol] 9.9 fL Normal 9.5-13.5 [facility] Comment on above: Performed By: #### C BC #### [facility] [address] [place] [address] Dr. Brittany Brown PLT 271 103/ul Normal 150-450 [facility] Comment on above: Performed By: #### C BC #### [facility] [address] [place] [address] Dr. Brittany Brown RBC 4.25 106/ul Normal 4.20-5.40 [facility] Comment on above: Performed By: #### C BC #### [facility] [address] [place] [address] Dr. Brittany Brown WBC 8.7 103/ul Normal 4.0-11.0 [facility] Comment on above: Performed By: #### C BC #### [facility] [address] [place] [address] Dr. Brittany Brown CULTURE URINEon 02-14-2022 CULTURE URINE Culture Observations: NO GROWTH. Normal [facility] Comment on above: Performed By: #### C T/NGNA #### [facility] [address] [place] [address] Dr. Brittany Brown GLYCOHEMOGLOBIN A1Con 2021 ADA RECOMMENDATION SEE BELOW Normal [facility] Comment on above: Result Comment: ADA RECOMMENDED LIMIT 4.0 - 6.0 ADA THERAPEUTIC TARGET < 7.0 ACTION SUGGESTED > 7.0 Performed By: #### A 1C #### [facility] [address] [address] [address] Brittany Brown Glucose [Mass/Vol] 111 mg/dL Normal [facility] Comment on above: Performed By: #### A 1C #### [facility] [address] [place], [place] [address] Dr. Brittany Brown HbA1c (Bld) [Mass fraction] 5.5 % Normal 4.5-6.2 [facility] Comment on above: Performed By: #### A 1C #### [facility] [address] [address] [address] Brittany Brown TERRELL BOX TEST PT SEND OUTo n 02-14-2022 SENT TO REF LAB 02/14/2022 Normal [facility] Comment on above: Performed By: #### N BOX #### [facility] [address] [address] [address] Britatny Brown TYPE AND SCREENon 02-14-2022 TYPE AND SCREEN Negative Normal [facility] Comment on above: Performed By: #### T NS #### [facility] [address] [address] [address] Brittany Brown US PREG TVon 02-01-2022 [...] DI BRIZUELA Date: 2022-01-31 22:14 Normal [facility] HCG-BETA SUBUNIT QUANTon hCG,Beta Subunit,Qnt,Serum 868 mIU/mL Normal [facility] Comment on above: Result Comment: Fema le (Non-) 0 - 5 (Postmenopausal) 0 - 8 . Female () Weeks of Gestation 3 6 - 71 4 10 - 750 5 217 - 7138 6 158 - 44405 7 [phone] [phone] 8 06848 -930502 9 85668 -366073 10 93852 -540425 12 50439 -846808 14 10773 - 98536 15 29200 - 82950 16 9040 - 08139 17 8175 - 70053 18 8099 - 31053 [employer] ECLIA methodology Performed By: #### H CGSUB #### [facility] [address] [place] [address] Dr. Brittany Brown HCG-BETA SUBUNIT QUANTon hCG,Beta Subunit,Qnt,Serum 364 mIU/mL Normal [facility] Comment on above: Result Comment: Fema le (Non-) 0 - 5 (Postmenopausal) 0 - 8 . Female () Weeks of Gestation 3 6 - 71 4 10 - 750 5 217 - 7138 6 158 - 98882 7 3697 [phone] 8 57055 -890420 9 77908 -814726 10 90530 -904827 12 01851 -648628 14 75476 - 43348 15 55303 - 88133 16 9040 - 50233 17 8175 - 68512 18 8099 - 13789 [employer] ECLIA methodology Performed By: #### C BC #### [facility] [address] [place] [address] Dr. Brittany Brown Vital Signs Date Time Vital Sign Value Performing Clinician Facility 03-29-2024 10:18040 Body mass index (BMI) [Ratio] 23 kg/m2 [employer] Work Phone: [facility] [employer] 03-29-2024 10:18040 Body weight 60.78 kg [employer] Work Phone: [facility] 03-29-2024 10:18-0400 Diastolic blood pressure 60 mm[Hg] [employer] Work Phone: [facility] 03-29-2024 10:18-0400 Systolic blood pressure 100 mm[Hg] Jaiden Mejias DO Work Phone: [facility] 12-04-2023 15:48-0400 Body height 160.02 cm [facility] 12-04-2023 15:48-0400 Body mass index (BMI) [Ratio] 24 kg/m2 [facility] 12-04-2023 15:48-0400 Body weight 61.68 kg [facility] 12-04-2023 15:48-0400 Diastolic blood pressure 79 mm[Hg] [facility] 12-04-2023 15:48-0400 Heart rate 77 /min [facility] 12-04-2023 15:48-0400 Systolic blood pressure 108 mm[Hg] [facility] 10-21-2023 15:30-0400 Body height 160.02 cm [facility] 10-21-2023 15:30-0400 Body mass index (BMI) [Ratio] 24.3 kg/m2 [facility] 10-21-2023 15:30-0400 Body temperature 97.8 [degF] [facility] 10-21-2023 15:30-0400 Body weight 62.14 kg [facility] 10-21-2023 15:30-0400 Diastolic blood pressure 83 mm[Hg] [facility] 10-21-2023 15:30-0400 Heart rate 85 /min [facility] 10-21-2023 15:30-0400 Systolic blood pressure 119 mm[Hg] [facility] 08-12-2023 11:33-0500 Body height 160.02 cm [facility] 08-12-2023 11:33-0500 Body mass index (BMI) [Ratio] 24 kg/m2 [facility] 08-12-2023 11:33-0500 Body weight 61.74 kg [facility] 08-12-2023 11:33-0500 Diastolic blood pressure 77 mm[Hg] [facility] 08-12-2023 11:33-0500 Heart rate 81 /min [facility] 02-27-2024 11:33-0500 Systolic blood pressure 108 mm[Hg] [facility] 04-20-2023 09:00-0500 Body height 160.02 cm Chelo Valencia Other [facility] Other 04-20-2023 09:00-0500 Body mass index (BMI) [Ratio] 24.23 kg/m2 Chelo Valencia Other [facility] Other 04-20-2023 09:00-0500 Body temperature 98.1 [degF] Chelo Valencia Other [facility] Other 04-20-2023 09:00-0500 Body weight 62.05 kg Chelo Valencia Other [facility] Other 04-20-2023 09:00-0500 Respiratory rate 18 /min Chelo Valencia Other [facility] Other 04-20-2023 09:00-0500 SaO2% (BldA) [Mass fraction] 97 % Chelo Valencia Other [facility] Other Encounters Encounter Date Encounter Type Care Provider Facility Start: 03-29-2024 End: 03-29-2024 Bamboo flowsheet Jaiden Randell DO Work Phone: [facility] Start: 03-29-2024 End: 03-29-2024 Bamboo flowsheet Jaiden Randell DO Work Phone: [facility] Start: 03-29-2024 End: 03-29-2024 ambulatory JAIDEN RANDELL Not Available Start: 03-29-2024 End: 03-29-2024 Office outpatient visit 15 minutes Jaiden Randell DO Work Phone: [facility] Comment on above: Pre-operative exam; Endometriosis; Pelvic pain in female; Dyspareunia in female Start: 03-29-2024 End: 03-29-2024 Preprocedural examination done Jaiden Randell DO Work Phone: [facility] Work Phone: Start: 03-02-2024 End: 03-02-2024 ambulatory JAIDEN CALIO Not Available Start: 02-24-2024 End: 02-24-2024 Bamboo flowsheet Ayanna Bear PA Work Phone: [facility] Start: 02-24-2024 End: 02-24-2024 Bamboo flowsheet Ayanna Bear PA Work Phone: [facility] Start: 02-24-2024 End: 02-24-2024 ambulatory AYANNA CHEMA Not Available Start: 02-02-2024 End: 02-02-2024 ambulatory AYANNA CHEMA Not Available Start: 01-15-2024 End: 01-15-2024 ambulatory AYANNA CHEMA Not Available Start: 12-16-2023 End: 12-16-2023 Patient encounter procedure MD Aj Marsh Work Phone: [facility] [address] Work Phone: Start: 12-16-2023 End: 12-16-2023 ambulatory MD Aj Marsh Work Phone: [facility] Work Phone: Start: 12-04-2023 End: 12-04-2023 ambulatory [facility] Work Phone: Start: 12-04-2023 End: 12-04-2023 Patient encounter procedure [facility] Work Phone: Start: 10-21-2023 End: 10-21-2023 ambulatory [facility] Work Phone: Start: 10-21-2023 End: 10-21-2023 Patient encounter procedure [facility] Work Phone: Start: 08-12-2023 End: 08-12-2023 Patient encounter procedure [facility] Work Phone: Start: 04-24-2023 End: 04-24-2023 ambulatory Chelo Valencia Other [place] [employer] Other Start: 04-24-2023 Telephone encounter Chelo Valencia [facility] [address] Start: 04-20-2023 Office outpatient vi sit 15 minutes Chelo Valencia [facility] Start: 04-20-2023 End: 04-20-2023 ambulatory Chelo Valencia [facility] [employer] Other Start: 04-20-2023 End: 04-20-2023 Departed Referred CHERRY SORTER Chelo Valencia Work Phone: [facility] Work Phone: Start: 09-17-2022 ambulatory NONE LISTED REQUEST Facility:[facility] Start: 09-11-2022 End: 09-13-2022 Evaluation and management of inpatient DR JAIDEN MEJIAS . Facility:[facility] Start: 09-04-2022 End: 09-04-[address] ALLEN PHIPPS . Facility:[facility] Start: 08-28-2022 End: 08-28-[address] ALLEN PHIPPS . Facility:[facility] Start: 08-27-2022 End: 08-27-2022 ambulatory AYANNA BEAR . Facility:[facility] Start: 08-21-2022 End: 08-21-[address] ALLEN PHIPPS . Facility:[facility] Start: 08-14-2022 End: 08-14-[address] NELA MEZA Facility:[facility] Start: 08-08-2022 End: 08-08-[address] JAIDEN MEJIAS . Facility:[facility] Start: 08-08-2022 End: 08-09-[address] DI BRIZUELA Facility:[facility] Start: 08-07-2022 End: 08-07-[address] JAIDEN MEJIAS . Facility:[facility] Start: 07-23-2022 End: 07-24-[address] DI BRIZUELA Facility:[facility] Start: 07-09-2022 End: 07-10-[address] JAIDEN MEJIAS . Facility: Start: 06-26-2022 End: 06-27-[address] DI BRIZUELA Facility:[facility] Start: 06-14-2022 End: 06-15-2022 ambulatory AYANNA BEAR . Facility:[facility] Start: 05-13-2022 End: 05-13-[address] JAIDEN MEJIAS . Facility:[facility] Start: 02-14-2022 End: 02-15-[address] JAIDEN MEJIAS . Facility:[facility] Start: 02-06-2022 End: 02-07-[address] JAIDEN MEJIAS . Facility:[facility] Start: 01-31-2022 End: 02-01-[address] JAIDEN MEJIAS . Facility:[facility] Start: 01-09-2022 End: 01-11-[address] JAIDEN MEJIAS . Facility: Start: 03-24-2019 End: 03-24-2019 Gynecological examination normal Chelo Valencia Other [facility] Other Start: 07-21-2013 End: 07-21-2013 Telephone encounter Leigh Kennedy Lawson Work Phone: Gastroenterology Comment on above: Education Of Patient /family Procedures Date Procedure Procedure Detail Performing Clinician Start: 09-11-2022 Extraction of Produc ts of Conception, Low Cervical, Open Approach AYANNA BEAR . Start: 09-11-2022 Resection of Bilater al Fallopian Tubes, Open Approach AYANNA BEAR . Start: 01-30-2022 Diabetes mellitus screening Chelo Valencia Other Start: 02-21-2014 End: 03-24-2019 General examination of patient Chelo Majorler Other End: 03-24-2019 screening Chelo Valencia Other End: 11-30-2018 Contraception care education Chelo Valencia Other Insertion of intraut erine contraceptive device Chelo Valencia Other visit Chelo Valencia Other Removal of intrauter ine device Chelo Valencia Other Plan of Treatment Date Care Activity Detail Author Start: 03-02-2024 End: 03-02-2024 Patient encounter procedure 03/02/2024 8:50 AM EDT Office Visit [facility] [address] [place] [address] Jaiden Mejias DO [address] [place], [place] [id number] [facility] Start: 02-24-2024 End: 02-24-2024 Patient encounter procedure 02/24/2024 11:00 AM EDT Office Visit [facility] [address] [place] [address] Ayanna Bear PA [address] [place], [place] [id number] Arrived [facility] Comment on above: Arrived Start: 12-16-2023 Hemolytic complement CH50 level [facility] Start: 12-16-2023 [facility] Start: 12-10-2023 Patient referral [facility] Work Phone: Start: 04-20-2023 Bacteria identified in Urine by Culture Urine Culture [facility] Start: 02-14-2021 Influenza vaccination INFLUENZ A (Season Ended) [facility] Start: 2014 PAP TESTING PAP TESTING [facility] Start: 2012 Urine microalbumin profile DTAP,TDAP,TD (1 - Tdap) [facility] Start: 2005 Adult depression screening assessment DEPRESSION SCREENING [facility] Start: 2004 HPV VACCINE (1 - 2-d ose series) HPV VACCINE (1 - 2-dose series) [facility] Beta 2 glycoprotein 1 IgG Ab [Units/volume] in Serum [facility] Beta 2 glycoprotein 1 IgM Ab [Units/volume] in Serum [facility] Cardiolipin IgA Ab [Units/volume] in Serum by Immunoassay [facility] Cardiolipin IgG Ab [Units/volume] in Serum by Immunoassay [facility] Cardiolipin IgM Ab [Units/volume] in Serum by Immunoassay [facility] Complement C2 [Mass/volume] in Serum or Plasma [facility] Complement C3 [Mass/volume] in Serum or Plasma [facility] Complement C4 [Mass/volume] in Serum or Plasma [facility] Lupus anticoagulant [Interpretation] in Platelet poor plasma [facility] Patient referral [facility] Work Phone: Thrombin time [facility] Payers Date Payer Category Payer Blue [facility] BCBS [id number] 2023 Unknown BCBS BCBS xxxxxx [id number] 2023-Present [phone] [address] [place] [address] [id number]. [id number] 2023 Unknown [id number] 2023 Self-pay [id number] 2012 Private Health Insurance AETNA A ETNA CHOICE POS II [id number] 2012-2016 POS [id number] [id number]. 7.3.603157.315 1993 Unknown [id number] 2.16.840.1.254727.3.579.2. 593 1993 Unknown [id number] 2.16.840.1.521703.3.579.2. 593 1993 Unknown [id number] 2.16.840.1.274049.3.579.2. 593 1993 Unknown [id number] 2.16.840.1.420297.3.579.2. 593 1993 Unknown [id number] 2.16.840.1.605210.3.579.2. 593 1993 Unknown [id number] 2.16.840.1.853014.3.579.2. 593 1993 Unknown [id number] 2.16.840.1.901950.3.579.2. 593 1993 Unknown [id number] 2.16.840.1.571500.3.579.2. 593 1993 Unknown [id number] 2.16.840.1.278716.3.579.2. 593 1993 Unknown [id number] 2.16.840.1.156661.3.579.2. 593 1993 Unknown [id number] 2.16.840.1.356394.3.579.2. 593 1993 Unknown [id number] 2.16.840.1.961983.3.579.2. 593 1993 Unknown [id number] 2.16.840.1.518048.3.579.2. 593 1993 Unknown [id number] 2.16.840.1.789437.3.579.2. 593 1993 Unknown [id number] 2.16.840.1.726209.3.579.2. 593 1993 Unknown [id number] 2.16.840.1.251532.3.579.2. 593 1993 Unknown [id number] 2.16.840.1.556680.3.579.2. 593 1993 Unknown [id number] 2.16.840.1.008178.3.579.2. 593 1993 Unknown [id number] 2.16.840.1.081717.3.579.2. 1259 1993 Unknown [id number] 2.16.840.1.911030.3.579.2. 9 1993 Unknown [id number] 2.16840.1.660443.3.579.2. 1259 1993 Unknown [id number] 2.16.840.1.194962.3.579.2. 9 1993 Unknown [id number] 2.16840.1.824430.3.579.2. 1259 1959 Self-pay [id number] 1959 Unknown [id number] Unknown [id number] 2.840.1.373403.3.579.2. 593 Unknown [id number] 2.840.1.911810.19 Unknown [employer] BC/BS [id number] Unknown [id number] 2.16840.1.084001.3.579.2. 531 Unknown [id number] 2.0.1.553913.3.579.2. 531 Social History Date Type Detail Facility Start: 07-19-2013 End: 08-05-2023 Tobacco smoking status NHIS Never smoker [facility] Start: 07-19-2013 Tobacco use and exposure Never used [facility] Start: 07-19-2013 Alcohol intake Current non-dr electro tech of alcohol (finding) [facility] Start: 1995 Sex Assigned At Not on file [facility] Sex Assigned At [facility] Other Start: 1995 Sex Assigned At Female [facility] Tobacco smoking status MEIS Tobacco smoking consumption unknown [facility] Clinical Notes 10-12-2013 to 03-29-2024 Katelyn Ruiz - 03/29/2024 9:50 AM EDT Note Date & Type Note Facility 03-29-2024 History of Presen t illness Narrative Reason for Appointment: Patient ID: Emma Fernandez is a 28 y.o. female who presents for Pre-op Visit Patient presents today for Pre Op appointment. Patient is scheduled to undergo Diagnostic Laparoscopy, possible ORESTES, possible FOE, possible BSO and D&C Hysteroscopy, possible Myosure on 04/23/[address] Mejias at [facility]. MEDICATIONS No current outpatient medications ALLERGIES Allergies Allergen Reactions Morphine Itching Other Reaction(s): Itching/headaches, Unknown Reaction PROBLEMS Active Ambulatory Problems Diagnosis Date Noted No Active Ambulatory Problems Resolved Ambulatory Problems Diagnosis Date Noted No Resolved Ambulatory Problems No Additional Past Medical History HISTORY PAST MEDICAL HISTORY SOCIAL HISTORY History reviewed. No pertinent past medical history. Social History Tobacco Use Smoking status: Not on file Smokeless tobacco: Not on file Substance Use Topics Alcohol use: Not on file Drug use: Not on file FAMILY HISTORY No family history on file. SURGICAL HISTORY Past Surgical History: Procedure Laterality Date SECTION, LOW TRANSVERSE 05/28/2016 SECTION, LOW TRANSVERSE 07/17/2019 SECTION, LOW TRANSVERSE 09/11/2022 TUBAL LIGATION 09/11/2022 with REVIEW OF SYSTEMS Review of Systems: Review of Systems Constitutional: Negative. HENT: Negative. Eyes: Negative. Respiratory: Negative. Cardiovascular: Negative. Gastrointestinal: Negative. Genitourinary: Positive for dyspareunia and pelvic pain. Musculoskeletal: Negative. Skin: Negative. Neurological: Negative. All other systems reviewed and are negative. Hematological: Negative. Endocrine: Negative. Allergic/Immunologic: Negative. OBJECTIVE Objective: Physical Exam Constitutional: Appearance: Normal appearance. She is well-developed. Cardiovascular: Rate and Rhythm: Normal rate and regular rhythm. Pulmonary: Effort: Pulmonary effort is normal. Breath sounds: Normal breath sounds. Abdominal: General: Bowel sounds are normal. There is no distension. Palpations: Abdomen is soft. Tenderness: There is no abdominal tenderness. There is no guarding or rebound. Musculoskeletal: General: No swelling. Normal range of motion. Right lower leg: No edema. Left lower leg: No edema. Neurological: Mental Status: She is alert and oriented to person, place, and time. Skin: General: Skin is warm and dry. Psychiatric: Mood and Affect: Mood normal. Behavior: Behavior normal. Vitals and nursing note reviewed. Exam conducted with a net web developer present. Vitals: Estimated body mass index is 23 kg/m as calculated from the following: Height as of 09/03/22: 5' 4 . Weight as of this encounter: 134 lb. BP: No LMP recorded. ASSESSMENT & PLAN ICD-10-CM 1. Pre-operative exam Z01.818 2. Endometriosis N80.9 3. Pelvic pain in female R10.2 4. Dyspareunia in female N94.10 Pre Op: Patient is doing well but has complaints of pelvic pain. I have discussed conservative management vs. surgical management with the patient in detail and patient desires surgical management at this time. Patient will undergo Diagnostic Laparoscopy, possible ORESTES, possible FOE, possible BSO and D&C Hysteroscopy, possible Myosure on 04/23/2024. Surgical consents were signed, mmc was reviewed, and patient is to proceed to [facility] OR. Follow Up: Patient is to follow up between 1-2 weeks post operative to assess proper healing and recovery from procedure. Documented by Abril Ospina LPN on behalf of: Jaiden Mejias DO documented in this encounter [facility] 09-11-2022 Note DISCHARGE SUMMARY DISCHARGE DATE: 09/27/2022 [...] free and no longer on narcotics. [facility] 09-11-2022 Note NOTE DATE: ADDENDUM: Please change discharge date to 09/13/2022. [facility] 09-11-2022 Note DISCHARGE DATE: 08/16 PRIMARY [...] free and no longer on narcotics. [facility] 09-11-2022 Note OPERATIVE NOTE OPERATION DATE: [...] the brain. ANESTHESIA: Spinal with Duramorph. SURGEON: Jaiden Mejias D.O. RESEARCH PROFESSIONAL: MIKE Abreu URINE OUTPUT: Yellow and clear. [...] The tubes were identified, grasped with a Donovan, the LigaSure apparatus was used to come [...] the Recovery Room in stable condition. [facility] 10-12-2013 Evaluation note Encounter Date Diagnosis [...] understanding and is agreeable to treatment plan [facility] Other Evaluation noteNo assessment information available [facility] Work Phone: [facility] Other Evaluation note* Diagnosis Onset Date Resolution Status Cervical lymphadenopathy acu te [facility] Work Phone: Evaluation note* Diagnosis Onset Date Resolution Status Sinusitis, acute maxillary a cute Fatigue acute Hair loss acute Positive VIVIEN (antinuclear antibody) [facility] Work Phone: Evaluation note* Diagnosis Onset Date Resolution Status Sinusitis, acute maxillary a cute Complement 4 deficiency acut e Fatigue acute Hair loss acute Positive VIVIEN (antinuclear antibody) [facility] Work Phone: Evaluation note* Diagnosis Pre-operative exam Unspecified pre-operative examination Endometriosis Endometriosis, site unspecified Pelvic pain in female Unspecified symptom associated with female genital organs Dyspareunia in female documented in this encounter [facility] - Reported* Type Description Date Medical History Lou disease Surgical History 3 PLASTIC SURGERY Surgical History adnoidectomy Surgical History C section Hospitalization History kidney infection [facility] Other Summary Purpose Family History Relationship Condition Age at Onset Recorded Date/T rajesh grandparent Family history of colon cancer Unknown Advance Directives Advance Directive Response Recorded Date/ Time Advance [...] any alcohol or drug abuse patient.[facility] Reason for Visit (unrecogniz ed section and content) Reason Onset Date Comments Education Of Patient/family 07/21/2013 Reason Comments Pre-op Visit INFORMATION SOURCE (unrecogn ized section and content) DATE CREATED AUTHOR 10/27/2022 [facility] DATE CREATED AUTHOR AUTHOR'S ORGANIZ ATION 01/01/2024 [facility] DATE CREATED AUTHOR AUTHOR'S ORGANIZ ATION 03/30/2024 [facility] EPIC Care Teams (unrecognized sec tion and content) Team Status: Inactive Member Role Status Dates Chelo Valencia APRN Attending Provider Active Team Status: Active Member Role Status Dates Aj Marsh MD Primary Care Provider Active Team Status: Inactive Member Role Status Dates Aj Marsh MD Primary Care Provide r, Attending Provider Active Start: August 12, 2023 End: August 12, 2023 Team Status: Inactive Member Role Status Dates Aj Marsh MD Primary Care Provide r, Attending Provider Active Start: October 21, 2023 End: October 21, 2023 Team Status: Inactive Member Role Status Dates Aj Marsh MD Primary Care Provide r, Attending Provider Active Start: December 04, 2023 End: December 04, 2023 Team Status: Inactive Member Role Status Dates Aj Marsh MD Primary Care Provider Active Start: December 16, 2023 End: December 16, 2023 Alden Khan MD Attending Provider Active St art: December 16, 2023 End: December 16, 2023 Data Conversion Operator Relationship Specialty Start Date End Date Aj Marsh MD [address] [place] [address] PCP - General Family Medicine 02/24/24 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 [employer] [facility]. provides no warranty or guarantee of the accuracy or completeness of information in this document.
--- NOTE | 2024-04-13 08:32 | ECG_ITS ---
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
== END 2024-04-13 07:49 | disposition home or self-care (01) ==
LOC: PST 07:51
PROVIDERS: Visit Provider Obstetrics & Gynecology
DX: Z01.810 Encounter for preprocedural cardiovascular examination (principal); N80.9 Endometriosis, unspecified; R10.2 Pelvic and perineal pain; N94.10 Unspecified dyspareunia
CPT/HCPCS: 93005

== ENCOUNTER 2024-04-23 07:18 | Day surgery (SDC) | payer BC, SELFPAY ==
[2024-04-13 08:40] VITALS: BP 113/71; PULSE 99; TEMP 36.3; O2SAT 99; BMI 23.5
[2024-04-23] VITALS (11 sets, daily range): BP systolic 97–121; BP diastolic 67–87; PULSE 60–87; TEMP 36.3–36.6; O2SAT 97–99; BMI 23.3
--- OUTSIDE RECORDS SUMMARY | 2024-04-23 07:20 | XMS_ITS | CCD ---
Author Organization [facility] Care Team Providers Care Riveter Name Role Phone Aj Marsh Primary Care Provider Anson Carson Primary Care Provider Nathan Macias DO Unavailable Nathan Macias DO Unavailable [phone] CHEMA .AYANNA Consulting Unavailable MAXIMO, DR AJ [...] Unavailable RANDELL ., DR DAVIES Admitting Unavailable RNADELL ., DR DAVIES Attending Unavailable MARSH, DR [...] Chelo Valencia Unavailable TIKA Valencia Attending Provider [phone] MD Aj Marsh Primary Care Provider MD Alden Khan Attending Provider Aj Marsh MD Primary Care Provider AYANNA BEAR Attending Unavailable CHEMAAYANNA Attending Unavailable AYANNA BEAR Attending Unavailable RANDELLJAIDEN JOSE Attending Unavailable JAIDEN MEJIAS Attending Unavailable Alden Khan Admitting Unavailable Aj Marsh Primary Care Unavailable Alden Khan Attending Unavailable Chelo Valencia Attending Unavailable Chelo Valencia Admitting Unavailable Aj Marsh Primary Care Unavailable Allergies Allergy Classification Reported Allergen(s) Allergy Type Date of Onset Reaction(s) Facility Opioid Agonists (1 source) Morphine Drug Allergy 3 Itching, Other: See Comments [place] (1 source) Morphine Drug Allergy 0 [facility] Repository (5 sources) Morphine Drug Allergy 2 rash, Itching [facility] Work Phone: (2 sources) Morphine Sulfate (Concentrate) *ANALGESICS - OPIOI Propensity to adverse reactions 0 Unknown [place] Other (2 sources) Allergies Reconciled Propensity to adverse reactions Unknown [place] Other (2 sources) patient allergy list reviewed by nurse or physicia Propensity to adverse reactions 4 Comment:Done [place] Other (1 source) Morphine Drug Allergy 4 [facility] Repository Medications Current Medications Medication Drug Class(es) Dates Sig (Normalized) Sig (Original) Vitamins (2 sources) Start: 11-08-2022 Vitamins Vitamins( Oral ) Active -Hx Entry Oral for 0 *Pick strength-form from [facility] for eRX* Apr, Not-Taking Completed/Discontinued Medications Medication Drug Class(es) Dates Sig (Normalized) Sig (Original) amoxicillin 500 mg oral tablet (2 sources) Penicillin-class Antibacterial Start: 04-23-2022 take 1 capsule by mouth three times daily Amoxicillin 500mg amoxicillin 500mg, 1 (one) Capsule three times daily # 21, 04/23/2022, No Refill. Active oral three times daily for 0 *Pick strength-form from [facility] for eRX* 08 Apr, 2022 Not-Taking amoxicillin [...] oral daily for 0 *Pick strength-form from [facility] for eRX* 11 Mar, 2022 Not-Taking oseltamivir [...] Menendez Start: 07-19-2017 take 1 capsule by [facility] every twelve hours Tamiflu 75 MG 1 capsule Orally Twice a day for 5 day(s) Jul, Not-Taking Pnv #45-Aouk-Tayhu Acid-Omeg a3 (3 sources) Start: 08-06-2023 End: 08-12-2023 Pnv #24-Pgiw-Msucm Acid-Omeg a3 Discontinued CAP PO August 06, [...] Anticardiolipin Ab, IgA,Qn <9 Normal 0-11 [facility] Comment on above: Result Comment: Nega tive: <12 Indeterminate: 12 - 20 Low-Med Positive: >20 - 80 High Positive: >80 Performed at: - [facility] [address] [id number] Casket Inspector: Joe Cox PhD, Phone: [phone] Performed By: #### C H50, B2 GLYPROT, LUPANTCOAG, C3, CARDIO GMA, C4, C2 #### [facility] , #### ADDONUAPLUS #### [facility] [address] Anticardiolipin Ab, IgG,Qn <9 Normal 0-14 [facility] Comment on above: Result Comment: Nega tive: <15 Indeterminate: 15 - 20 Low-Med Positive: >20 - 80 High Positive: >80 Performed By: #### C H50, B2 GLYPROT, LUPANTCOAG, C3, CARDIO GMA, C4, C2 #### [facility] , #### ADDONUAPLUS #### [address] Anticardiolipin Ab, IgM,Qn <9 Normal 0-12 [facility] Comment on above: Result Comment: Nega tive: <13 Indeterminate: 13 - 20 Low-Med Positive: >20 - 80 High Positive: >80 Performed By: #### C H50, B2 GLYPROT, LUPANTCOAG, C3, CARDIO GMA, C4, C2 #### [facility] , #### ADDONUAPLUS #### [address] Bacteria [Presence] in Urine by AutomatedOrdered By: Alden Khan on 12-16-2023 Bacteria Auto Ql (U) Rare [HPF] None Seen [facility] Beta 2 Glycoprotein I Ab IgG /Mon 12-16-2023 Beta 2 Glycoprotein I Ab, IgG <9 Normal 0-20 [facility] Comment on above: Result [...] C2 #### [facility] , #### ADDONUAPLUS #### [facility] [address] Beta 2 Glycoprotein I Ab, IgM <9 Normal 0-32 [facility] Comment on above: Result Comment: Resu lt Units: GPI IgM units The reference interval reflects a 3SD or 99th percentile interval, which is thought to represent a potentially clinically significant result in accordance with the International Consensus Statement on the classification criteria for definitive antiphospholipid syndrome (APS). J Thromb Haem 2006;4:295-306. Performed at: [facility] [address] [id number] Casket Inspector: Jackson Mccrary MD, Phone: [phone] Performed By: #### C H50, B2 GLYPROT, LUPANTCOAG, C3, CARDIO GMA, C4, C2 #### [facility] , #### ADDONUAPLUS #### [facility] [address] Bilirubin Test strip Ql (U)O rdered By: Alden Khan on 12-16-2023 Bilirubin Ql (U) Negative Negative [facility] Color of Urine by AutoOrdere d By: Alden Khan on 12-16-2023 Color (U) Light-yellow Normal Yellow [facility] Comment on above: Order Comment: Name Collection Type:: Clean-Voided Midstream Performed By: #### C H50, B2 GLYPROT, LUPANTCOAG, C3, CARDIO GMA, C4, C2 #### [facility] , #### ADDONUAPLUS #### [facility] [address] [place] [id number] [place] Complement C2on 12-16-2023 Complement C2 1.9 mg/dL Normal 1.4-3.3 [facility] Comment on above: Result Comment: Resu lts of this test are labeled for research purposes only by the assay's shell machine operator. The performance characteristics of this assay have not been established by the shell machine operator. The result should not be used for treatment or for diagnostic purposes without confirmation of the diagnosis by another medically established diagnostic product or procedure. The performance characteristics were determined by [facility]. Performed at: [address] [id number] Casket Inspector: Jackson Mccrary MD, Phone: [phone] PERFORMED BY: [place] [address] PATHOLOGIST HOSPITAL CLERK COLEEN ALMANZA M.D. Performed By: #### C H50, B2 GLYPROT, LUPANTCOAG, C3, CARDIO GMA, C4, C2 #### [facility] , #### ADDONUAPLUS #### [address] Complement C3on 12-16-2023 Complement C3 137 mg/dL Normal 82-167 [facility] Comment on above: Result Comment: Perf ormed at: [facility] [address] [id number] Casket Inspector: Joe Cox PhD, Phone: [phone] Performed By: #### C H50, B2 GLYPROT, LUPANTCOAG, C3, CARDIO GMA, C4, C2 #### [facility] , #### ADDONUAPLUS #### [address] Complement C4on 12-16-2023 Complement C4 15 mg/dL Normal 12-38 [facility] Comment on above: Performed By: #### C H50, B2 GLYPROT, LUPANTCOAG, C3, CARDIO GMA, C4, C2 #### [facility] , #### ADDONUAPLUS #### [address] Complement Total (CH50)on Complement Total (CH50) >60 Normal >41 [facility] Comment on above: Result [...] of range values. Performed at: - [facility] [address] [id number] Casket Inspector: Joe Cox PhD, Phone: [phone] PERFORMED BY: [place] [address] PATHOLOGIST HOSPITAL CLERK COLEEN ALMANZA M.D. Performed By: #### C H50, B2 GLYPROT, LUPANTCOAG, C3, CARDIO GMA, C4, C2 #### [facility] , #### ADDONUAPLUS #### [place] [address] [place] Dipstick and Microscopicon 0 12-16-2023 Bacteria,Urine Rare Normal None Seen [facility] Comment on above: Order Comment: Name Collection Type:: Clean-Voided Midstream Performed By: #### C H50, B2 GLYPROT, LUPANTCOAG, C3, CARDIO GMA, C4, C2 #### [facility] , #### ADDONUAPLUS #### [address] Bilirubin,Urine Negative Normal Negative [facility] Comment on above: Order Comment: Name Collection Type:: Clean-Voided Midstream Performed By: #### C H50, B2 GLYPROT, LUPANTCOAG, C3, CARDIO GMA, C4, C2 #### [facility] , #### ADDONUAPLUS #### [address] Glucose Ql (U) Normal Normal Normal [facility] Comment on above: Order Comment: Name Collection Type:: Clean-Voided Midstream Performed By: #### C H50, B2 GLYPROT, LUPANTCOAG, C3, CARDIO GMA, C4, C2 #### [facility] , #### ADDONUAPLUS #### [place] [address] [place] Hyaline Casts,Urine None Normal 0-8 [facility] Comment on above: Order Comment: Name Collection Type:: Clean-Voided Midstream Performed By: #### C H50, B2 GLYPROT, LUPANTCOAG, C3, CARDIO GMA, C4, C2 #### [facility] , #### ADDONUAPLUS #### [place] [address] [place] Mucus,Urine Rare Normal [facility] Comment on above: Order Comment: Name Collection Type:: Clean-Voided Midstream Result Comment: PERF ORMED BY: [place] [address] PATHOLOGIST HOSPITAL CLERK COLEEN ALMANZA M.D. Performed By: #### C H50, B2 GLYPROT, LUPANTCOAG, C3, CARDIO GMA, C4, C2 #### [facility] , #### ADDONUAPLUS #### [place] [address] [place] Nitrite,Urine Negative Normal Negative [facility] Comment on above: Order Comment: Name Collection Type:: Clean-Voided Midstream Performed By: #### C H50, B2 GLYPROT, LUPANTCOAG, C3, CARDIO GMA, C4, C2 #### [facility] , #### ADDONUAPLUS #### [place] [address] [place] Occult Blood,Urine Negative Normal Negative [facility] Comment on above: Order Comment: Name Collection Type:: Clean-Voided Midstream Performed By: #### C H50, B2 GLYPROT, LUPANTCOAG, C3, CARDIO GMA, C4, C2 #### [facility] , #### ADDONUAPLUS #### [address] Protein,Urine Negative Normal Negative [facility] Comment on above: Order Comment: Name Collection Type:: Clean-Voided Midstream Performed By: #### C H50, B2 GLYPROT, LUPANTCOAG, C3, CARDIO GMA, C4, C2 #### [facility] , #### ADDONUAPLUS #### [address] RBC,Urine 1-2 Normal 0-4 [facility] Comment on above: Order Comment: Name Collection Type:: Clean-Voided Midstream Performed By: #### C H50, B2 GLYPROT, LUPANTCOAG, C3, CARDIO GMA, C4, C2 #### [facility] , #### ADDONUAPLUS #### [address] Specificy [place],Urine 1.016 Normal 1.001-1.030 [facility] Comment on above: Order Comment: Name Collection Type:: Clean-Voided Midstream Performed By: #### C H50, B2 GLYPROT, LUPANTCOAG, C3, CARDIO GMA, C4, C2 #### [facility] , #### ADDONUAPLUS #### [address] Squamous Epithelial Cell,Urine 5-9 High 0-2 [facility] Comment on above: Order Comment: Name Collection Type:: Clean-Voided Midstream Performed By: #### C H50, B2 GLYPROT, LUPANTCOAG, C3, CARDIO GMA, C4, C2 #### [facility] , #### ADDONUAPLUS #### [address] Urobilinogen,Urine Normal Normal Normal [facility] Comment on above: Order Comment: Name Collection Type:: Clean-Voided Midstream Performed By: #### C H50, B2 GLYPROT, LUPANTCOAG, C3, CARDIO GMA, C4, C2 #### [facility] , #### ADDONUAPLUS #### [facility] [address] WBC,Urine 1-2 Normal 0-4 [facility] Comment on above: Order Comment: Name Collection Type:: Clean-Voided Midstream Performed By: #### C H50, B2 GLYPROT, LUPANTCOAG, C3, CARDIO GMA, C4, C2 #### [facility] , #### ADDONUAPLUS #### [facility] [address] Epithelial cells.squamous [# /area] in Urine sediment by Automated countOrdered By: Alden Khan on 12-16-2023 Epithelial cells.squamous Auto (Urine sed) [#/Area] 5-9 [HPF] High 0-2 [facility] Erythrocytes [#/area] in Uri ne sediment by Automated countOrdered By: Alden Khan on 12-16-2023 RBC Auto (Urine sed) [#/Area] 1-2 [HPF] 0-4 [facility] Glucose [Mass/volume] in Uri ne by Test stripOrdered By: Alden Khan on 12-16-2023 Glucose Test strip (U) [Mass/Vol] Normal mg/dL Normal [facility] Hemoglobin Test strip Ql (U) Ordered By: Alden Khan on 12-16-2023 Hemoglobin Ql (U) Negative Negative [facility] Hyaline casts [#/area] in Ur ine sediment by Automated countOrdered By: Alden Khan on 12-16-2023 Hyaline casts Auto (Urine sed) [#/Area] None [LPF] 0-8 [facility] Ketones [Presence] in Urine by Test stripOrdered By: Alden Khan on 12-16-2023 Ketones Ql (U) Negative Normal Negative [facility] Comment on above: Order Comment: Name Collection Type:: Clean-Voided Midstream Performed By: #### C H50, B2 GLYPROT, LUPANTCOAG, C3, CARDIO GMA, C4, C2 #### [facility] , #### ADDONUAPLUS #### [facility] [address] Leukocyte esterase [Presence ] in Urine by Test stripOrdered By: Alden Khan on 12-16-2023 Leukocyte esterase Test strip Ql (U) Negative Normal Negative [facility] Comment on above: Order Comment: Name Collection Type:: Clean-Voided Midstream Performed By: #### C H50, B2 GLYPROT, LUPANTCOAG, C3, CARDIO GMA, C4, C2 #### [facility] , #### ADDONUAPLUS #### [address] Leukocytes [#/area] in Urine sediment by Automated countOrdered By: Alden Khan on 12-16-2023 WBC Auto (Urine sed) [#/Area] 1-2 [HPF] 0-4 [facility] Lupus Anticoagulant Compon 0 12-16-2023 Dilute Prothrombin Time (dPt) 35.7 Normal 0.0-47.6 [facility] Comment on above: Performed By: #### C H50, B2 GLYPROT, LUPANTCOAG, C3, CARDIO GMA, C4, C2 #### [facility] , #### ADDONUAPLUS #### [address] dPT Confirm Ratio 1.21 Normal 0.00-1.34 [facility] Comment on above: Performed By: #### C H50, B2 GLYPROT, LUPANTCOAG, C3, CARDIO GMA, C4, C2 #### [facility] , #### ADDONUAPLUS #### [address] DRVVT Lupus 35.4 Normal 0.0-47.0 [facility] Comment on above: Performed By: #### C H50, B2 GLYPROT, LUPANTCOAG, C3, CARDIO GMA, C4, C2 #### [facility] , #### ADDONUAPLUS #### [address] Interpretation Comment: Normal . [facility] Comment on above: Result Comment: No l upus anticoagulant was detected. Performed at: - [facility] [id number] Casket Inspector: Jackson Mccrary MD, Phone: [phone] PERFORMED BY: [place] [address] PATHOLOGIST HOSPITAL CLERK COLEEN ALMANZA M.D. Performed By: #### C H50, B2 GLYPROT, LUPANTCOAG, C3, CARDIO GMA, C4, C2 #### [facility] , #### ADDONUAPLUS #### [address] PTT-LA 33.7 Normal 0.0-43.5 [facility] Comment on above: Performed By: #### C H50, B2 GLYPROT, LUPANTCOAG, C3, CARDIO GMA, C4, C2 #### [facility] , #### ADDONUAPLUS #### [address] Thrombin Time 18.9 Normal 0.0-23.0 [facility] Comment on above: Performed By: #### C H50, B2 GLYPROT, LUPANTCOAG, C3, CARDIO GMA, C4, C2 #### [facility] , #### ADDONUAPLUS #### [address] Mucus [Presence] in Urine by AutomatedOrdered By: Alden Khan on 12-16-2023 Mucus Auto Ql (U) Rare [LPF] [facility] Nitrite Test strip Ql (U)Ord ered By: Alden Khan on 12-16-2023 Nitrite Ql (U) Negative Negative [facility] Protein Test strip (U) [Mass /Vol]Ordered By: Alden Khna on 12-16-2023 Protein (U) [Mass/Vol] Negative Negative [facility] Specific gravity Test strip (U) [Rel density]Ordered By: Alden Khan on 12-16-2023 Specific gravity (U) [Rel density] 1.016 1.001-1.030 [facility] Urine appearanceOrdered By: Alden Khan on 12-16-2023 Appearance (U) Clear Normal Clear [facility] Comment on above: Order Comment: Name Collection Type:: Clean-Voided Midstream Performed By: #### C H50, B2 GLYPROT, LUPANTCOAG, C3, CARDIO GMA, C4, C2 #### [facility] , #### ADDONUAPLUS #### [facility] [address] Urobilinogen Test strip (U) [Mass/Vol]Ordered By: Alden Khan on 12-16-2023 Urobilinogen (U) [Mass/Vol] Normal mg/dL Normal [facility] pH of Urine by Test stripOrd ered By: Alden Khan on 12-16-2023 pH (U) 6.5 [pH] Normal 5.0-9.0 [facility] Comment on above: Order Comment: Name Collection Type:: Clean-Voided Midstream Performed By: #### C H50, B2 GLYPROT, LUPANTCOAG, C3, CARDIO GMA, C4, C2 #### [facility] , #### ADDONUAPLUS #### [facility] [address] Basophils Auto (Bld) [#/Vol] on 12-04-2023 Basophils (Bld) [#/Vol] 0.1 10 3/uL 0.0-0.1 [facility] Basophils/100 WBC Auto (Bld) on 12-04-2023 Basophils/100 WBC (Bld) 0.7 % 0.2-2.0 [facility] Eosinophils/100 WBC Auto (Bl d)on 12-04-2023 Eosinophils/100 WBC (Bld) 3.3 % 0.9-7.0 [facility] Erythrocyte distribution wid th Auto (RBC) [Ratio]on 12-04-2023 Erythrocyte distribution width (RBC) [Ratio] 12.9 % 11.0-15.0 [facility] Hematocrit Auto (Bld) [Volum e fraction]on 12-04-2023 Hematocrit (Bld) [Volume fraction] 37.6 % 36.0-48.0 [facility] Hemoglobin [Mass/volume] in Bloodon 12-04-2023 Hemoglobin (Bld) [Mass/Vol] 12.7 g/dL 12.0-16.0 [facility] Laboratory - Chemistry and C hemistry - challengeon 12-04-2023 TSH Qn 1.374 m[IU]/L 0.358-3.740 [facility] Laboratory - Hematology and Cell countson 12-04-2023 Immature granulocytes/100 WBC (Bld) 0.1 % 0.0-0.5 [facility] Leukocytes [#/volume] correc ivette for nucleated erythrocytes in Blood by Automated counon 12-04-2023 WBC corrected for nucl RBC Auto (Bld) [#/Vol] 7.1 10 3/uL 4.0-11.0 [facility] Lymphocytes Auto (Bld) [#/Vo l]on 12-04-2023 Lymphocytes (Bld) [#/Vol] 2.0 10 3/uL 1.2-3.8 [facility] Lymphocytes/100 WBC Auto (Bl d)on 12-04-2023 Lymphocytes/100 WBC (Bld) 28.6 % 20.5-60.0 [facility] MCH Auto (RBC) [Entitic mass ]on 12-04-2023 MCH (RBC) [Entitic mass] 28.1 pg 26.7-34.0 [facility] MCHC Auto (RBC) [Mass/Vol]on 12-04-2023 MCHC (RBC) [Mass/Vol] 33.8 g/dL 29.9-35.2 [facility] MCV Auto (RBC) [Entitic vol] on 12-04-2023 MCV (RBC) [Entitic vol] 83.2 fL 81.0-99.0 [facility] Monocytes Auto (Bld) [#/Vol] on 12-04-2023 Monocytes (Bld) [#/Vol] 0.6 10 3/uL 0.3-0.8 [facility] Monocytes/100 WBC Auto (Bld) on 12-04-2023 Monocytes/100 WBC (Bld) 7.9 % 1.7-12.0 [facility] Neutrophils Auto (Bld) [#/Vo l]on 12-04-2023 Neutrophils (Bld) [#/Vol] 4.2 10 3/uL 1.4-6.5 [facility] Neutrophils/100 WBC Auto (Bl d)on 12-04-2023 Neutrophils/100 WBC (Bld) 59.4 % 43.0-75.0 [facility] No Panel Informationon 12-03 Anti-Double Strand DNA Antibody <1 [IU]/mL 0-9 [facility] Comment on above: Negative <5 Equivoca l 5 - 9 Positive >9 Eosinophils # (Auto) 0.2 10 3/uL 0.0-0.7 [facility] Immature Granulocyte # (Auto) 0.01 10 3/uL 0.00-0.03 [facility] Platelet mean volume Auto (B ld) [Entitic vol]on 12-04-2023 Platelet mean volume (Bld) [Entitic vol] 10.2 fL 9.5-13.5 [facility] Platelets Auto (Bld) [#/Vol] on 12-04-2023 Platelets (Bld) [#/Vol] 275 10 3/uL 150-450 [facility] RBC Auto (Bld) [#/Vol]on RBC (Bld) [#/Vol] 4.52 10 6/uL 4.20-5.40 [facility] Serum nuclear antibody titer on 12-04-2023 Nuclear Ab (S) [Titer] Negative Negative [facility] Comment on above: Performed at: [facility] [address] [id number] Director: Joe Cox PhD, Phone: [phone] Serum or plasma chromatin an tibody assay (units/volume)on 12-04-2023 Chromatin Ab Qn <0.2 AI 0.0-0.9 [facility] Serum or plasma complement C 3 measurement (mass/volume)on 12-04-2023 Complement C3 [Mass/Vol] 113 mg/dL 82-167 [facility] Serum or plasma complement C 4 measurement (mass/volume)on 12-04-2023 Complement C4 [Mass/Vol] 10 mg/dL Abnormal 12-38 [facility] Urinalysis - AUTOMATEDon Appearance (U) clear [facility] Other Bilirubin Ql (U) Negative [facility] Other Color (U) yellow [facility] Other Glucose Ql (U) Negative [facility] Other Hemoglobin Ql (U) [facility] Other Ketones Ql (U) Negative [facility] Other Leukocyte esterase Test strip Ql (U) [facility] Other Nitrite Ql (U) Negative [facility] Other pH (U) 5.5 [pH] [facility] Other Protein Ql (U) Negative [facility] Other Specific gravity (U) [Rel density] 1.025 [facility] Other Urobilinogen (U) [Mass/Vol] 0.2 mg/dL [facility] Other Urinalysis - AUTOMATED [facility] Other Urine Cultureon 04-20-2023 Bacteria identified Cx Nom (U) ORGANISM: Escherichia coli (O:ESCCOL) Renick Count 10,000 Organism Comments Pure Growth Aerobic [...] RESISTANT TO ALL B-LACTAM DRUGS. PERFORMED BY: [place] [address] PATHOLOGIST HOSPITAL CLERK COLEEN ALMANZA M.D. Normal [facility] Comment on above: Performed By: #### C UU #### [address] FACTOR V LEIDEN MUTATION VIVIEN LYSISon 09-18-2022 Factor V Leiden Comment Normal [facility] Comment on above: Result Comment: Resu lt: c.1601G>A (p.Gen877Voz) - Not Detected . This result is not associated with an increased risk for venous thromboembolism. See Additional Clinical Information and Comments. Additional Clinical Information: Venous thromboembolism is a multifactorial disease influenced by genetic, environmental, and circumstantial risk factors. The c.1601G>A (p. Lhg924Buf) variant in the F5 gene, commonly referred [...] c.*97G>A variant and Factor V Leiden (PMID: 88577608). Additional risk factors include but are not [...] health care providers to discuss results at [phone] ([phone]). . Test Details: Variant Analyzed: c.1601G>A (p. Wii006Aml), referred to as Factor V Leiden . [...] developed and its performance characteristics determined by [facility]. It has not been cleared or approved by the Food and Drug Administration. . References: Ashley S, Coco AK, Cruz R, Alphonso WW, Satnam JH; [facility] Professional Practice and Guidelines Committee. Addendum: [employer] consensus statement on factor V Leiden mutation testing. Renetta Med. 2020 5. doi: 10.1038/p29841-178-44716-c. PMID: 55758638. . Reyna LARSEN. Factor V Leiden Thrombophilia. 1998October 27 (Updated 2017Jun 19). In: Mickey MP, Jia HH, Isaac RA, et al., editors. Marjorie(Geetha) (Internet). [place] ([place]): [facility]; 4148-5417. Available from: https://www.ncbi.nlm.nih.gov/books/DFN2830/ . Nick S, Coco AK, Molina X, Al B, Arvind EB, Sherley P, Austin CS; [employer] Laboratory Medicare Interviewer Committee. Venous thromboembolism laboratory testing (factor V Leiden and factor II c.*97G>A), 2018 update: a technical standard of the [employer] ([employer]). Renetta Med. 2018 May;20(12):2444-1645. doi: 10.1038/f52653-529-0327-u. Epub 2017Mar 20. PMID: 93678284. . Carmella Anderson, PhD, FACMG Zoë Espinoza, PhD Veto Salgado, PhD, [facility] Jarrett Morales, PhD, [employer] Espinoza Mazariegos, PhD, FAC W Eloisa Tsang, PhD, FAC Maegan Yepez, PhD, [facility] Vira Teague, PhD, [facility] Performed By: #### C BC #### [facility] [address] [place] [address] Dr. Brittany Brown FACTOR II DNA ANALYSISon Factor II DNA Analysis Comment Normal [facility] Comment on above: Result Comment: [...] the F2 gene and a c.1601G>A (p. Vbr455Per) variant in the F5 gene (commonly referred to as Factor V Leiden) have an approximately 20- fold increased risk for venous thromboembolism. Risks are likely to be even higher in more complex genotype combinations involving the F2 c.*97G>A variant and Factor V Leiden (PMID: 81071740). Additional risk factors include but are not [...] health care providers to discuss results at [id number] . Test Details: Variant analyzed: c.*97G>A, previously referred to as [id number] . Methods/Limitations: DNA analysis of the F2 [...] developed and its performance characteristics determined by [facility]. It has not been cleared or approved by the Food and Drug Administration. . References: Ashley S, Coco AK, Cruz R, Alphonso WW, Satnam JH; A[employer] Professional Practice and Guidelines Committee. Addendum: [employer] consensus statement on factor V Leiden mutation testing. Renetta Med. 2020Aug 18. doi: 10.1038/o36595-758-09934-i. PMID: 76093898. . Reyna LARSEN. Prothrombin Thrombophilia. 2005Jan 07 [Updated 2020Jul 20]. In: Mickey MP, Jia HH, Isaac RA, et al., editors. Marjorie(Geetha) [Internet]. [place] ([place]): [facility]; 2688-1894. Available from: https://www.ncbi.nlm.nih.gov/books/SDS7997/ . Nick S, Coco AK, Molina X, Al B, Arvind EB, Sherley P, Austin CS; [employer] Laboratory Medicare Interviewer Committee. Venous thromboembolism laboratory testing (factor V Leiden and factor II c.*97G>A), 2018 update: a technical standard of the [employer] (ACMG). Renetta Med. 2018 May;20(12):3893-0581. doi: 10.1038/[id number]-u. Epub 2017Mar 20. PMID: 46605569. . Carmella Anderson, PhD, FACMG Zoë Espinoza, PhD Veto Salgado, PhD, FACMG Jarrett Morales, PhD, FACMG Espinoza Mazariegos, PhD, FACMG W Eloisa Tsang, PhD, FACMG Maegan Yepez, PhD, FACMG Vira Teague, PhD, FAC Performed By: #### C BC #### [facility] [address] [place] [address] Dr. Brittany Brown CBC AUTO DIFFon 09-12-2022 BASO # 0.1 103/ul Normal 0.0-0.1 [facility] Comment on above: Performed By: #### C BC #### [facility] [address] [place] [address] Dr. Brittany Brown Basophils/100 WBC (Bld) 0.5 % Normal 0.2-2.0 [facility] Comment on above: Performed By: #### C BC #### [facility] [address] [place] [address] Dr. Brittany Brown EO # 0.2 103/ul Normal 0.0-0.7 [facility] Comment on above: Performed By: #### C BC #### [facility] [address] [place] [address] Dr. Brittany Brown Eosinophils/100 WBC (Bld) 1.7 % Normal 0.9-7.0 [facility] Comment on above: Performed By: #### C BC #### [facility] [address] [address] [address] Brittany Brown Erythrocyte distribution width (RBC) [Ratio] 14.9 % Normal 11.0-15.0 [facility] Comment on above: Performed By: #### C BC #### [facility] [address] [address] [address] Brittany Brown Hematocrit (Bld) [Volume fraction] 27.1 % Critically low 36.0-48.0 [facility] Comment on above: Performed By: #### C BC #### [facility] [address] [place] [address] Dr. Brittany Brown Hemoglobin (Bld) [Mass/Vol] 8.7 g/dL Critically low 12.0-16.0 [facility] Comment on above: Performed By: #### C BC #### [facility] [address] [address] [address] Brittany Brown IG # 0.10 10e3/ul Critically high 0.00-0.03 [facility] Comment on above: Performed By: #### C BC #### [facility] [address] [place] [address] Dr. Brittany Brown IG % 1.0 % Critically high 0.0-0.5 [facility] Comment on above: Performed By: #### C BC #### [facility] [address] [place] [address] Dr. Brittany Brown LYMPH # 1.6 103/ul Normal 1.2-3.8 [facility] Comment on above: Performed By: #### C BC #### [facility] [address] [address] [address] Brittany Brown Lymphocytes/100 WBC (Bld) 15.4 % Critically low 20.5-60.0 [facility] Comment on above: Performed By: #### C BC #### [facility] [address] [place] [address] Dr. Brittany Brown MANUAL DIFF REQ NO Normal [facility] Comment on above: Performed By: #### C BC #### [facility] [address] [place] [address] Dr. Brittany Brown MCH (RBC) [Entitic mass] 26.0 pg Critically low 26.7-34.0 [facility] Comment on above: Performed By: #### C BC #### [facility] [address] [place] [address] Dr. Brittany Brown MCHC (RBC) [Mass/Vol] 32.1 g/dL Normal 29.9-35.2 [facility] Comment on above: Performed By: #### C BC #### [facility] [address] [place] [address] Dr. Brittany Brown MCV (RBC) [Entitic vol] 81.1 fL Normal 81.0-99.0 [facility] Comment on above: Performed By: #### C BC #### [facility] [address] [place] [address] Dr. Brittany Brown MONO # 0.7 103/ul Normal 0.3-0.8 [facility] Comment on above: Performed By: #### C BC #### [facility] [address] [place] [address] Dr. Brittany Brown Monocytes/100 WBC (Bld) 7.1 % Normal 1.7-12.0 [facility] Comment on above: Performed By: #### C BC #### [facility] [address] [place] [address] Dr. Brittany Brown NEUT # 7.6 103/ul Critically high 1.4-6.5 [facility] Comment on above: Performed By: #### C BC #### [facility] [address] [place] [address] Dr. Brittany Brown Neutrophils/100 WBC (Bld) 74.3 % Normal 43.0-75.0 [facility] Comment on above: Performed By: #### C BC #### [facility] [address] [place] [address] Dr. Brittany Brown Platelet mean volume (Bld) [Entitic vol] 9.8 fL Normal 9.5-13.5 [facility] Comment on above: Performed By: #### C BC #### [facility] [address] [place] [address] Dr. Brittany Brown PLT 224 103/ul Normal 150-450 [facility] Comment on above: Performed By: #### C BC #### [facility] [address] [place] [address] Dr. Brittany Brown RBC 3.34 106/ul Critically low 4.20-5.40 [facility] Comment on above: Performed By: #### C BC #### [facility] [address] [place] [address] Dr. Brittany Brown WBC 10.2 103/ul Normal 4.0-11.0 [facility] Comment on above: Performed By: #### C BC #### [facility] [address] [place] [address] Dr. Brittany Brown CBC AUTO DIFFon 09-11-2022 BASO # 0.1 103/ul Normal 0.0-0.1 [facility] Comment on above: Performed By: #### C BC #### [facility] [address] [place] [address] Dr. Brittany Brown Basophils/100 WBC (Bld) 0.5 % Normal 0.2-2.0 [facility] Comment on above: Performed By: #### C BC #### [facility] [address] [place] [address] Dr. Brittany Brown EO # 0.1 103/ul Normal 0.0-0.7 [facility] Comment on above: Performed By: #### C BC #### [facility] [address] [place] [address] Dr. Brittany Brown Eosinophils/100 WBC (Bld) 1.1 % Normal 0.9-7.0 [facility] Comment on above: Performed By: #### C BC #### [facility] [address] [place] [address] Dr. Brittany Brown Erythrocyte distribution width (RBC) [Ratio] 14.6 % Normal 11.0-15.0 [facility] Comment on above: Performed By: #### C BC #### [facility] [address] [place] [address] Dr. Brittany Brown Hematocrit (Bld) [Volume fraction] 32.4 % Critically low 36.0-48.0 [facility] Comment on above: Performed By: #### C BC #### [facility] [address] [place] [address] Dr. Brittany Brown Hemoglobin (Bld) [Mass/Vol] 10.6 g/dL Critically low 12.0-16.0 [facility] Comment on above: Performed By: #### C BC #### [facility] [address] [place] [address] Dr. Brittany Brown IG # 0.11 10e3/ul Critically high 0.00-0.03 [facility] Comment on above: Performed By: #### C BC #### [facility] [address] [place] [address] Dr. Brittany Brown IG % 1.1 % Critically high 0.0-0.5 [facility] Comment on above: Performed By: #### C BC #### [facility] [address] [place] [address] Dr. Brittany Brown LYMPH # 1.2 103/ul Normal 1.2-3.8 [facility] Comment on above: Performed By: #### C BC #### [facility] [address] [place] [address] Dr. Brittany Brown Lymphocytes/100 WBC (Bld) 12.8 % Critically low 20.5-60.0 [facility] Comment on above: Performed By: #### C BC #### [facility] [address] [place] [address] Dr. Brittany Brown MANUAL DIFF REQ NO Normal [facility] Comment on above: Performed By: #### C BC #### [facility] [address] [place] [address] Dr. Brittany Brown MCH (RBC) [Entitic mass] 25.8 pg Critically low 26.7-34.0 [facility] Comment on above: Performed By: #### C BC #### [facility] [address] [place] [address] Dr. Brittany Brown MCHC (RBC) [Mass/Vol] 32.7 g/dL Normal 29.9-35.2 [facility] Comment on above: Performed By: #### C BC #### [facility] [address] [place] [address] Dr. Brittany Brown MCV (RBC) [Entitic vol] 78.8 fL Critically low 81.0-99.0 [facility] Comment on above: Performed By: #### C BC #### [facility] [address] [place] [address] Dr. Brittany Brown MONO # 0.7 103/ul Normal 0.3-0.8 [facility] Comment on above: Performed By: #### C BC #### [facility] [address] [place] [address] Dr. Brittany Brown Monocytes/100 WBC (Bld) 6.8 % Normal 1.7-12.0 [facility] Comment on above: Performed By: #### C BC #### [facility] [address] [place] [address] Dr. Brittany Brown NEUT # 7.5 103/ul Critically high 1.4-6.5 [facility] Comment on above: Performed By: #### C BC #### [facility] [address] [place] [address] Dr. Brittany Brown Neutrophils/100 WBC (Bld) 77.7 % Critically high 43.0-75.0 [facility] Comment on above: Performed By: #### C BC #### [facility] [address] [place] [address] Dr. Brittany Brown Platelet mean volume (Bld) [Entitic vol] 10.4 fL Normal 9.5-13.5 [facility] Comment on above: Performed By: #### C BC #### [facility] [address] [place] [address] Dr. Brittany Brown PLT 259 103/ul Normal 150-450 [facility] Comment on above: Performed By: #### C BC #### [facility] [address] [address] [address] Brittany Brown RBC 4.11 106/ul Critically low 4.20-5.40 [facility] Comment on above: Performed By: #### C BC #### [facility] [address] [address] [address] Brittany Brown WBC 9.7 103/ul Normal 4.0-11.0 [facility] Comment on above: Performed By: #### C BC #### [facility] [address] [address] [address] Brittany Brown DRUG SCREEN RAPID (URINE)on 09-11-2022 AMP Negative Normal NEGATIVE [facility] Comment on above: Performed By: #### D RUGRPD ####[facility] [address] [address]Dr. Brittany Brown BAR Negative Normal NEGATIVE [facility] Comment on above: Performed By: #### D RUGRPD ####[facility] [address] [address]Dr. Brittany Brown BUP Negative Normal NEGATIVE [facility] Comment on above: Performed By: #### D RUGRPD ####[facility] [address] [address]Dr. Brittany Brown BZO Negative Normal NEGATIVE [facility] Comment on above: Performed By: #### D RUGRPD ####[facility] [address] [address]Dr. Brittany Brown PARAS Negative Normal NEGATIVE [facility] Comment on above: Performed By: #### D RUGRPD ####[facility] [address] [place], [place] [address]Dr. Brittany Brown CUT-OFFS SEE BELOW Normal [facility] Comment on above: Result Comment: [...] 300 ng/mL Performed By: #### D RUGRPD ####[facility] [address] [place], [place] [address]Dr. [facility] DRUG CUT HEADER DRUG CLASS TEST SYSTEM CUT-OFF CONCENTRATIONS ARE FOLLOWS: Normal [facility] Comment on above: Performed By: #### D RUGRPD ####[facility] [address] [place], [place] [address]Dr. Zenaidaginger Brown mAMP Negative Normal NEGATIVE [facility] Comment on above: Performed By: #### D RUGRPD ####[facility] [address] [place], [place] [address]Dr. Zenaidaginger Brown MTD Negative Normal NEGATIVE [facility] Comment on above: Performed By: #### D RUGRPD ####[facility] [address] [place], [place] [address]Dr. Brittany Brown OPI Negative Normal NEGATIVE [facility] Comment on above: Performed By: #### D RUGRPD ####[facility] [address] [place], [place] [address]Dr. Zenaidaginger Brown OXY Negative Normal NEGATIVE [facility] Comment on above: Performed By: #### D RUGRPD ####[facility] [address] [place], [place] [address]Dr. Zenaidaginger Brown PCP Negative Normal NEGATIVE [facility] Comment on above: Performed By: #### D RUGRPD ####[facility] [address] [place], [place] [address]Dr. Zenaidaginger [facility] PPX Negative Normal NEGATIVE [facility] Comment on above: Performed By: #### D RUGRPD ####[facility] [address] [place], [place] [address]Dr. Brittany Brown TCA Negative Normal NEGATIVE [facility] Comment on above: Performed By: #### D RUGRPD ####[facility] [address] [place], [place] [address]Ty. Brittany Brown THC Negative Normal NEGATIVE [facility] Comment on above: Performed By: #### D RUGRPD ####[facility] [address] [place], [place] [address]Cj. Brittany Brown TYPE AND SCREENon 09-11-2022 TYPE AND SCREEN Negative Normal [facility] Comment on above: Performed By: #### C T/NGNA #### [facility] [address] [address] [address] Brittany Brown PREG BIOPHY W NON [...] DI BRIZUELA Date: 2022-09-04 16:35 Normal [facility] GROUP B STREP CULTUREon 08-14 [...] F Tetracycline >=16 R F Normal [facility] Comment on above: Performed By: #### G BSCX #### [facility] [address] [address] [address] Brittany Brown PREG BIOPHY W NON [...] by: DI BRIZUELA Date: 2022-08-28 16:34 Normal [facility] US PREG BIOPHY W NON [...] by: DI BRIZUELA Date: 2022-08-21 17:57 Normal [facility] US PREG BIOPHY W NON [...] by: NELA MEZA Date: 2022-08-14 17:30 Normal [facility] US PREG BIOPHY W NON [...] DI BRIZUELA Date: 2022-08-08 15:14 Normal [facility] US PREG GROWTHon 08-08-2022 US PREG [...] DI BRIZUELA Date: 2022-08-08 15:27 Normal [facility] US PREG GROWTHon 07-23-2022 US PREG [...] by: DI BRIZUELA Date: 2022-07-23 15:28 Normal [facility] US PREG CERVICAL LENGTHon US [...] by: DI BRIZUELA Date: 2022-07-09 14:59 Normal [facility] US PREG GROWTHon 06-27-2022 US [...] by: DI BRIZUELA Date: 2022-06-27 08:02 Normal [facility] CBC AUTO DIFFon 06-14-2022 BASO # 0.0 103/ul Normal 0.0-0.1 [facility] Comment on above: Performed By: #### C BC ####[facility] [address] [address]Dr. Brittany Brown Basophils/100 WBC (Bld) 0.4 % Normal 0.2-2.0 [facility] Comment on above: Performed By: #### C BC ####[facility] [address] [address]Dr. Brittany Brown EO # 0.2 103/ul Normal 0.0-0.7 [facility] Comment on above: Performed By: #### C BC ####[facility] [address] [place], [place] [address]Dr. Brittany Brown Eosinophils/100 WBC (Bld) 2.2 % Normal 0.9-7.0 [facility] Comment on above: Performed By: #### C BC ####[facility] [address] [place], [place] [address]Dr. Brittany Brown Erythrocyte distribution width (RBC) [Ratio] 13.5 % Normal 11.0-15.0 [facility] Comment on above: Performed By: #### C BC ####[facility] [address] [place], [place] [address]Dr. Brittany Brown Hematocrit (Bld) [Volume fraction] 32.4 % Critically low 36.0-48.0 [facility] Comment on above: Performed By: #### C BC ####[facility] [address] [place], [place] [address]Dr. Brittany Brown Hemoglobin (Bld) [Mass/Vol] 11.2 g/dL Critically low 12.0-16.0 [facility] Comment on above: Performed By: #### C BC ####[facility] [address] [place], [place] [address]Dr. Brittany Brown IG # 0.10 10e3/ul Critically high 0.00-0.03 [facility] Comment on above: Performed By: #### C BC ####[facility] [address] [place], [place] [address]Dr. Yiginger Brown IG % 0.9 % Critically high 0.0-0.5 [facility] Comment on above: Performed By: #### C BC ####[facility] [address] [address]Dr. Brittany Brown LYMPH # 1.2 103/ul Normal 1.2-3.8 [facility] Comment on above: Performed By: #### C BC ####[facility] [address] [place], [place] [address]Dr. Brittany Brown Lymphocytes/100 WBC (Bld) 11.1 % Critically low 20.5-60.0 [facility] Comment on above: Performed By: #### C BC ####[facility] [address] [place], [place] [address]Dr. Brittany Brown MANUAL DIFF REQ NO Normal [facility] Comment on above: Performed By: #### C BC ####[facility] [address] [place], [place] [address]Dr. Brittany Brown MCH (RBC) [Entitic mass] 29.9 pg Normal 26.7-34.0 [facility] Comment on above: Performed By: #### C BC ####[facility] [address] [place], [place] [address]Dr. Brittany Kevin MCHC (RBC) [Mass/Vol] 34.6 g/dL Normal 29.9-35.2 [facility] Comment on above: Performed By: #### C BC ####[facility] [address] [place], [place] [address]Dr. Brittany Brown MCV (RBC) [Entitic vol] 86.4 fL Normal 81.0-99.0 [facility] Comment on above: Performed By: #### C BC ####[facility] [address] [place], [place] [address]DrIain Brown MONO # 0.6 103/ul Normal 0.3-0.8 [facility] Comment on above: Performed By: #### C BC ####[facility] [address] [place], [place] [address]Dr. Brittany Brown Monocytes/100 WBC (Bld) 5.4 % Normal 1.7-12.0 [facility] Comment on above: Performed By: #### C BC ####[facility] [address] [id number] Brown NEUT # 8.5 103/ul Critically high 1.4-6.5 [facility] Comment on above: Performed By: #### C BC ####[facility] [address] [address]DrIain Brown Neutrophils/100 WBC (Bld) 80.0 % Critically high 43.0-75.0 [facility] Comment on above: Performed By: #### C BC ####[facility] [address] [address]Dr. Brittany Brown Platelet mean volume (Bld) [Entitic vol] 9.6 fL Normal 9.5-13.5 [facility] Comment on above: Performed By: #### C BC ####[facility] [address] [address]Dr. Brittany Brown PLT 250 103/ul Normal 150-450 [facility] Comment on above: Performed By: #### C BC ####[facility] [address] [address]Dr. Brittany Brown RBC 3.75 106/ul Critically low 4.20-5.40 [facility] Comment on above: Performed By: #### C BC ####[facility] [address] [address]Dr. Brittany Brown WBC 10.6 103/ul Normal 4.0-11.0 [facility] Comment on above: Performed By: #### C BC ####[facility] [address] [address]Dr. Brittany Brown GLUCOSE - 1HRon 06-14-2022 Glucose [Mass/Vol] 100 mg/dL Normal 74-106 [facility] Comment on above: Performed By: #### C BC #### [facility] [address] Brittany Brown PAP ACOG PANEL 2: 21 to 29on 05-21-2022 . . Normal [facility] Comment on above: Performed By: #### 4 [id number] ####[facility] [address] [address]DrIain Brown Age Gdln ACOG Testing - [facility] Comment on above: Performed By: #### 4 [id number] ####[facility] [address] [place], [place] [address]DrIain Brown DIAGNOSIS: Comment Normal [facility] Comment on above: Result Comment: NEGA TIVE FOR INTRAEPITHELIAL LESION OR MALIGNANCY. Performed By: #### 4 [id number] ####[facility] [address] [place], [place] [address]DrIain Brown Methodology: Comment [facility] Comment on above: Result Comment: This liquid based ThinPrep(R) pap test was screened with the use of an image guided system. Performed By: #### 4 [id number] ####[facility] [address] [place], [place] [address]DrIain Brown Note: Comment [facility] Comment on above: Result Comment: The Pap smear is a screening test designed to aid in the detection of premalignant and malignant conditions of the uterine cervix. It is not a diagnostic procedure and should not be used as the sole means of detecting cervical cancer. Both false-positive and false-negative reports do occur. . Performed By: #### 4 [id number] ####[facility] [address] [place], [place] [address]DrIain Brown Performed by: Comment Normal [facility] Comment on above: Result Comment: James Guerrier, Paper Tester Performed By: #### 4 [id number] ####[facility] [address] [place], [place] [address]DrIain Brown Reflex Criteria: Comment [facility] Comment on above: Result Comment: The HPV DNA reflex criteria were not met with this specimen result therefore, no HPV testing was performed. . Performed By: #### 4 [id number] ####[facility] [address] [place], [place] [address]Dr. Brittany Brown Specimen adequacy: Comment Normal [facility] Comment on above: Result Comment: Sati sfactory for evaluation. Endocervical and/or squamous metaplastic cells (endocervical component) are present. Performed By: #### 4 [id number] ####[facility] [address] [address]Dr. Brittany Brown CHLAMYDIA/GONOCOCCUS CALEB (SW AB/URINE/PAPon 05-16-2022 Chlamydia trachomatis, CALEB Negative Normal Negative [facility] Comment on above: Performed By: #### C T/NGNA #### [facility] [address] [address] [address] Brittany Brown Neisseria gonorrhoeae, CALEB Negative Normal Negative [facility] Comment on above: Performed By: #### C T/NGNA #### [facility] [address] [place] [address] Dr. Brittany Brown VAGINITIS/VAGINOSIS DNA PROB [facility] 05-15-2022 Briseida species Negative Normal Negative [facility] Comment on above: Performed By: #### C BC #### [facility] [address] [place] [address] Dr. Brittany Brown Gardnerella vaginalis Negative Normal Negative [facility] Comment on above: Performed By: #### C BC #### [facility] [address] [place] [address] Dr. Brittany Brown Trichomonas vaginalis Negative Normal Negative [facility] [facility] Comment on above: Performed By: #### C BC #### [facility] [address] [address] [address] Brittany Brown HEP B SURFACE ANTIGEN SCREEN on 02-15-2022 HBsAg Screen Negative Normal Negative [facility] Comment on above: Performed By: #### H BSANS ####[facility] [address] [address]Dr[address] Brittany Brown HEPATITIS C VIRUS AB W/ REFL EX QUANTon 02-15-2022 HCV AB <0.1 Normal 0.0-0.9 [facility] Comment on above: Performed By: #### C T/NGNA #### [facility] [address] [address] [address] Brittany Brown Interpretation: Comment Normal [facility] Comment on above: Result Comment: Nega tive Not infected with HCV, unless recent infection is suspected or other evidence exists to indicate HCV infection. Performed By: #### C T/NGNA #### [facility] [address] [place], [place] [address] Dr. Brittany Brown HIV 1 AND 2 WITH REFLEXon HIV Screen 4th Generation wRfx Non-Reactive Normal Non Reactive [facility] Comment on above: Result Comment: HIV Negative HIV-1/HIV-2 antibodies and HIV-1 p24 antigen were NOT detected. There is no laboratory evidence of HIV infection. Performed By: #### C BC #### [facility] [address] [address] [address] Brittany Brown RPR QUANTon 02-15-2022 Rapid Plasma Reagin, Quant Non-Reactive Normal NonRea<1:1 [facility] Comment on above: Result Comment: Plea se Note: This test does not meet current guidelines for screening and diagnosis of syphilis. This test is intended for following treatment response in patients being treated for syphilis infection. To screen for syphilis infection, a reflex cascade that includes both RPR and a treponema-specific assay should be utilized, such as Treponema pallidum (Syphilis) Screening [place] (947379) or Rapid Plasma Reagin (RPR) Test With Reflex to Quantitative RPR and Confirmatory Treponema pallidum Antibodies (257629). Performed By: #### R PRQ ####[facility] [address] [id number]. Brittany Brown RUBELLA AB IGGon 02-15-2022 Rubella Antibodies, IgG 28.20 index Normal Immune >0.99 [facility] Comment on above: Result Comment: Non- immune <0.90 Equivocal 0.90 - 0.99 Immune >0.99 Performed By: #### C BC #### [facility] [id number] Brittany Brown CBC AUTO DIFFon 02-14-2022 BASO # 0.0 103/ul Normal 0.0-0.1 [facility] Comment on above: Performed By: #### C BC #### [facility] [address] [address] [address] Brittany Brown Basophils/100 WBC (Bld) 0.3 % Normal 0.2-2.0 [facility] Comment on above: Performed By: #### C BC #### [facility] [address] [address] [address] Brittany Brown EO # 0.1 103/ul Normal 0.0-0.7 [facility] Comment on above: Performed By: #### C BC #### [facility] [address] [address] [address] Brittany Brown Eosinophils/100 WBC (Bld) 1.2 % Normal 0.9-7.0 [facility] Comment on above: Performed By: #### C BC #### [facility] [address] [place] [address] Dr. Brittany Brown Erythrocyte distribution width (RBC) [Ratio] 13.6 % Normal 11.0-15.0 [facility] Comment on above: Performed By: #### C BC #### [facility] [address] [place] [address] Dr. Brittany Brown Hematocrit (Bld) [Volume fraction] 34.7 % Critically low 36.0-48.0 [facility] Comment on above: Performed By: #### C BC #### [facility] [address] [place] [address] Dr. Brittany Brown Hemoglobin (Bld) [Mass/Vol] 11.8 g/dL Critically low 12.0-16.0 [facility] Comment on above: Performed By: #### C BC #### [facility] [address] [place] [address] Dr. Brittany Brown IG # 0.03 10e3/ul Normal 0.00-0.03 [facility] Comment on above: Performed By: #### C BC #### [facility] [address] [address] [address] Brittany Brown IG % 0.3 % Normal 0.0-0.5 [facility] Comment on above: Performed By: #### C BC #### [facility] [address] [place] [address] Dr. Brittany Brown LYMPH # 1.2 103/ul Normal 1.2-3.8 [facility] Comment on above: Performed By: #### C BC #### [facility] [address] [place] [address] Dr. Brittany Brown Lymphocytes/100 WBC (Bld) 13.9 % Critically low 20.5-60.0 [facility] Comment on above: Performed By: #### C BC #### [facility] [address] [place] [address] Dr. Brittany Brown MANUAL DIFF REQ NO Normal [facility] Comment on above: Performed By: #### C BC #### [facility] [address] [place] [address] Dr. Brittany Brown MCH (RBC) [Entitic mass] 27.8 pg Normal 26.7-34.0 [facility] Comment on above: Performed By: #### C BC #### [facility] [address] [place] [address] Dr. Brittany Brown MCHC (RBC) [Mass/Vol] 34.0 g/dL Normal 29.9-35.2 [facility] Comment on above: Performed By: #### C BC #### [facility] [address] [place] [address] Dr. Brittany Brown MCV (RBC) [Entitic vol] 81.6 fL Normal 81.0-99.0 [facility] Comment on above: Performed By: #### C BC #### [facility] [address] [place] [address] Dr. Brittany Brown MONO # 0.5 103/ul Normal 0.3-0.8 [facility] Comment on above: Performed By: #### C BC #### [facility] [address] [place] [address] Dr. Brittany Brown Monocytes/100 WBC (Bld) 5.9 % Normal 1.7-12.0 [facility] Comment on above: Performed By: #### C BC #### [facility] [address] [address] [address] Brittany Brown NEUT # 6.8 103/ul Critically high 1.4-6.5 [facility] Comment on above: Performed By: #### C BC #### [facility] [address] [place] [address] Dr. Brittany Brown Neutrophils/100 WBC (Bld) 78.4 % Critically high 43.0-75.0 [facility] Comment on above: Performed By: #### C BC #### [facility] [address] [place] [address] Dr. Brittany Brown Platelet mean volume (Bld) [Entitic vol] 9.9 fL Normal 9.5-13.5 [facility] Comment on above: Performed By: #### C BC #### [facility] [address] [place] [address] Dr. Brittany Brown PLT 271 103/ul Normal 150-450 [facility] Comment on above: Performed By: #### C BC #### [facility] [address] [place] [address] Dr. Brittany Brown RBC 4.25 106/ul Normal 4.20-5.40 [facility] Comment on above: Performed By: #### C BC #### [facility] [address] [place] [address] Dr. Brittany Brown WBC 8.7 103/ul Normal 4.0-11.0 [facility] Comment on above: Performed By: #### C BC #### [facility] [address] [place] [address] Dr. Brittany Brown CULTURE URINEon 02-14-2022 CULTURE URINE Culture Observations: NO GROWTH. Normal [facility] Comment on above: Performed By: #### C T/NGNA #### [facility] [address] [place] [address] Dr. Brittany Brown GLYCOHEMOGLOBIN A1Con 2021 ADA RECOMMENDATION SEE BELOW Normal [facility] Comment on above: Result Comment: ADA RECOMMENDED LIMIT 4.0 - 6.0 ADA THERAPEUTIC TARGET < 7.0 ACTION SUGGESTED > 7.0 Performed By: #### A 1C #### [facility] [address] [address] [address] Brittany Brown Glucose [Mass/Vol] 111 mg/dL Normal [facility] Comment on above: Performed By: #### A 1C #### [facility] [address] [place], [place] [address] Dr. Brittany Brown HbA1c (Bld) [Mass fraction] 5.5 % Normal 4.5-6.2 [facility] Comment on above: Performed By: #### A 1C #### [facility] [address] [address] [address] Brittany Brown TERRELL BOX TEST PT SEND OUTo n 02-14-2022 SENT TO REF LAB 02/14/2022 Normal [facility] Comment on above: Performed By: #### N BOX #### [facility] [address] [address] [address] Brittany Brown TYPE AND SCREENon 02-14-2022 TYPE AND SCREEN Negative Normal [facility] Comment on above: Performed By: #### T NS #### [facility] [address] [address] [address] Brittany Brown US PREG TVon 02-01-2022 [...] DI BRIZUELA Date: 2022-01-31 22:14 Normal [facility] HCG-BETA SUBUNIT QUANTon hCG,Beta Subunit,Qnt,Serum 868 mIU/mL Normal [facility] Comment on above: Result Comment: Fema le (Non-) 0 - 5 (Postmenopausal) 0 - 8 . Female () Weeks of Gestation 3 6 - 71 4 10 - 750 5 217 - 7138 6 158 - 00007 7 3697 -544997 8 45127 -338778 9 22788 -196165 10 57956 -790695 12 76147 -396020 14 50925 - 65025 15 12515 - 30194 16 9040 - 80927 17 8175 - 99727 18 8099 - 54849 [employer] ECLIA methodology Performed By: #### H CGSUB #### [facility] [address] [place] [address] Dr. Brittany Brown HCG-BETA SUBUNIT QUANTon hCG,Beta Subunit,Qnt,Serum 364 mIU/mL Normal [facility] Comment on above: Result Comment: Fema le (Non-) 0 - 5 (Postmenopausal) 0 - 8 . Female () Weeks of Gestation 3 6 - 71 4 10 - 750 5 217 - 7138 6 158 - 08857 7 3697 -427046 8 69769 -441755 9 03327 -069334 10 68479 -422216 12 05654 -496004 14 89687 - 88951 15 31690 - 18714 16 9040 - 96976 17 8175 - 28778 18 8099 - 83133 [employer] ECLIA methodology Performed By: #### C BC #### [facility] [address] [place] [address] Dr. Brittany Brown Vital Signs Date Time Vital Sign Value Performing Clinician Facility 03-29-2024 10:18040 Body mass index (BMI) [Ratio] 23 kg/m2 [employer] Work Phone: [facility] 03-29-2024 10:18040 Body weight 60.78 kg [employer] Work Phone: [facility] 03-29-2024 10:18-0400 Diastolic blood pressure 60 mm[Hg] [employer] Work Phone: [facility] 03-29-2024 10:18-0400 Systolic blood pressure 100 mm[Hg] Jaiden Mejias DO Work Phone: [facility] 12-04-2023 15:48-0400 Body height 160.02 cm [facility] 12-04-2023 15:48-0400 Body mass index (BMI) [Ratio] 24 kg/m2 [facility] 12-04-2023 15:48-0400 Body weight 61.68 kg [facility] 12-04-2023 15:48-0400 Diastolic blood pressure 79 mm[Hg] [facility] 12-04-2023 15:48-0400 Heart rate 77 /min [facility] 12-04-2023 15:48-0400 Systolic blood pressure 108 mm[Hg] [facility] 10-21-2023 15:30-0400 Body height 160.02 cm [facility] 10-21-2023 15:30-0400 Body mass index (BMI) [Ratio] 24.3 kg/m2 [facility] 10-21-2023 15:30-0400 Body temperature 97.8 [degF] [facility] 10-21-2023 15:30-0400 Body weight 62.14 kg [facility] 10-21-2023 15:30-0400 Diastolic blood pressure 83 mm[Hg] [facility] 10-21-2023 15:30-0400 Heart rate 85 /min [facility] 10-21-2023 15:30-0400 Systolic blood pressure 119 mm[Hg] [facility] 08-12-2023 11:33-0500 Body height 160.02 cm [facility] 08-12-2023 11:33-0500 Body mass index (BMI) [Ratio] 24 kg/m2 [facility] 08-12-2023 11:33-0500 Body weight 61.74 kg [facility] 08-12-2023 11:33-0500 Diastolic blood pressure 77 mm[Hg] [facility] 08-12-2023 11:33-0500 Heart rate 81 /min [facility] 02-27-2024 11:33-0500 Systolic blood pressure 108 mm[Hg] [facility] 04-20-2023 09:00-0500 Body height 160.02 cm Chelo Valencia Other [facility] Other 04-20-2023 09:00-0500 Body mass index (BMI) [Ratio] 24.23 kg/m2 Chelo Valencia Other [facility] Other 04-20-2023 09:00-0500 Body temperature 98.1 [degF] Chelo Valencia Other [facility] Other 04-20-2023 09:00-0500 Body weight 62.05 kg Chelo Valencia Other [facility] Other 04-20-2023 09:00-0500 Respiratory rate 18 /min Chelo Valencia Other [facility] Other 04-20-2023 09:00-0500 SaO2% (BldA) [Mass fraction] 97 % Chelo Valencia Other [facility] Other Encounters Encounter Date Encounter Type Care [...] encounter procedure MD Aj Marsh Work Phone: [facility] [address] Work Phone: Start: 12-16-2023 End: 12-16-2023 ambulatory MD Aj Marsh Work Phone: [facility] Work Phone: Start: 12-04-2023 End: 12-04-2023 ambulatory [facility] Work Phone: Start: 12-04-2023 End: 12-04-2023 Patient encounter procedure [facility] Work Phone: Start: 10-21-2023 End: 10-21-2023 ambulatory [facility] Work Phone: Start: 10-21-2023 End: 10-21-2023 Patient encounter procedure [facility] Work Phone: Start: 08-12-2023 End: 08-12-2023 Patient encounter procedure [facility] Work Phone: Start: 04-24-2023 End: 04-24-2023 ambulatory Chelo Valencia Other [email or web address] Other Start: 04-24-2023 Telephone encounter Chelo Valencia [facility] [address] Start: 04-20-2023 Office outpatient vi sit 15 minutes Chelo Valencia [facility] Start: 04-20-2023 End: 04-20-2023 ambulatory Chelo Valencia [facility] Other Start: 04-20-2023 End: 04-20-2023 Departed Referred [employer] Chelo Valencia Work Phone: [facility] Work Phone: Start: 09-17-2022 ambulatory NONE LISTED [...] 03-24-2019 End: 03-24-2019 Gynecological examination normal Chelo Valencai Other [employer] Other Start: 07-21-2013 End: 07-21-2013 Telephone encounter [...] EDT Office Visit [facility] [address] [place] [address] Jaiden Mejias DO [address] [place], [place] [id number] [facility] Start: 02-24-2024 End: 02-24-2024 Patient encounter procedure 02/24/2024 11:00 AM EDT Office Visit [facility] [address] [place] [address] Ayanna Bear PA [address] [place], [place] [id number] Arrived [facility] Comment on above: Arrived Start: 12-16-2023 Hemolytic complement CH50 level [facility] Start: 12-16-2023 [facility] Start: 12-10-2023 Patient referral [facility] Work Phone: Start: 04-20-2023 Bacteria identified in Urine by Culture Urine Culture [facility] Start: 02-14-2021 Influenza vaccination INFLUENZ A (Season Ended) [place] Start: 2014 PAP TESTING PAP TESTING [place] Start: 2012 Urine microalbumin profile DTAP,TDAP,TD (1 - Tdap) [place] Start: 2005 Adult depression screening assessment DEPRESSION SCREENING [place] Start: 2004 HPV VACCINE (1 - 2-d ose series) HPV VACCINE (1 - 2-dose series) [place] Beta 2 glycoprotein 1 IgG Ab [Units/volume] in Serum [facility] Beta 2 glycoprotein 1 IgM Ab [Units/volume] in Serum [facility] Cardiolipin IgA Ab [Units/volume] in Serum by Immunoassay [facility] Cardiolipin IgG Ab [Units/volume] in Serum by Immunoassay [facility] Cardiolipin IgM Ab [Units/volume] in Serum by Immunoassay [facility] Complement C2 [Mass/volume] in Serum or Plasma [facility] Complement C3 [Mass/volume] in Serum or Plasma [facility] Complement C4 [Mass/volume] in Serum or Plasma [facility] Lupus anticoagulant [Interpretation] in Platelet poor plasma [facility] Patient referral [facility] Work Phone: Thrombin time [facility] Payers Date Payer Category Payer [facility] BCBS [id number] 2023 Unknown BCBS BCBS [id number] [id number] 2023-Present [phone] [address] [place] [address] [id number] 2023 Unknown [id number] 2023 Self-pay [id number] 2012 Private Health Insurance AETNA A ETNA CHOICE POS II [id number] 2012-2016 POS [id number]. [id number] 1993 Unknown [id number] 2.16.840.1.985770.3.579.2. 593 1993 Unknown [id number] 2.16.840.1.002060.3.579.2. 593 1993 Unknown [id number] 2.16.840.1.901692.3.579.2. 593 1993 Unknown [id number] 2.16.840.1.004777.3.579.2. 593 1993 Unknown [id number] 2.16.840.1.381584.3.579.2. 593 1993 Unknown [id number] 2.16.840.1.152867.3.579.2. 593 1993 Unknown [id number] 2.16.840.1.972322.3.579.2. 593 1993 Unknown [id number] 2.16.840.1.767269.3.579.2. 593 1993 Unknown [id number] 2.16.840.1.970251.3.579.2. 593 1993 Unknown [id number] 2.16.840.1.364997.3.579.2. 593 1993 Unknown [id number] 2.16.840.1.772883.3.579.2. 593 1993 Unknown [id number] 2.16.840.1.368426.3.579.2. 593 1993 Unknown [id number] 2.16.840.1.871737.3.579.2. 593 1993 Unknown [id number] 2.16.840.1.310717.3.579.2. 593 1993 Unknown [id number] 2.16.840.1.824530.3.579.2. 593 1993 Unknown [id number] 2.16.840.1.894096.3.579.2. 593 1993 Unknown [id number] 2.16.840.1.330712.3.579.2. 593 1993 Unknown [id number] 2.16.840.1.848573.3.579.2. 593 1993 Unknown [id number] 2.16.840.1.892105.3.579.2. 1259 1993 Unknown [id number] 2.16.840.1.320799.3.579.2. 9 1993 Unknown [id number] 2.16.840.1.837166.3.579.2. 1259 1993 Unknown [id number] 2.16.840.1.036911.3.579.2. 9 1993 Unknown [id number] 2.16840.1.170195.3.579.2. 1259 1959 Self-pay [id number] 1959 Unknown [id number] Unknown [id number] 2.16840.1.862325.3.579.2. 593 Unknown [id number] 2.16840.1.620154.19 Unknown [employer] BC/BS [id number] Unknown [id number] 2.16840.1.098233.3.579.2. 531 Unknown [id number] 2.840.1.174659.3.579.2. 531 Social History Date Type Detail Facility Start: 07-19-2013 End: 08-05-2023 Tobacco smoking status NHIS Never smoker [facility] Start: 07-19-2013 Tobacco use and exposure Never used [place] Start: 07-19-2013 Alcohol intake Current non-dr support staff of alcohol (finding) [place] Start: 1993 Sex Assigned At Not on file C [facility] Sex Assigned At [facility] Other Start: 1993 Sex Assigned At Female F [facility] Tobacco smoking status WAIS Tobacco smoking consumption unknown [facility] [...] on 04/23/[address] Mejias at [facility]. MEDICATIONS No current outpatient medications ALLERGIES [...] nursing note reviewed. Exam conducted with a director marketing communications present. Vitals: Estimated body mass index is [...] reviewed, and patient is to proceed to [facility] OR. Follow Up: Patient is to follow up between 1-2 weeks post operative to assess proper healing and recovery from procedure. Documented by Abril Ospina LPN on behalf of: Jaiden Mejias DO documented in this encounter [facility] 09-11-2022 Note DISCHARGE SUMMARY DISCHARGE DATE: 09/27/2022 [...] free and no longer on narcotics. [facility] 09-11-2022 Note NOTE DATE: ADDENDUM: Please change discharge date to 09/13/2022. [facility] 09-11-2022 Note DISCHARGE DATE: 08/16 [...] free and no longer on narcotics. [facility] 09-11-2022 Note OPERATIVE NOTE OPERATION [...] Spinal with Duramorph. SURGEON: Jaiden Mejias D.O. PIPE STEM REPAIRER: MIKE Abreu URINE OUTPUT: Yellow and clear. [...] The tubes were identified, grasped with a [place], the LigaSure apparatus was used to come [...] the Recovery Room in stable condition. [facility] 10-12-2013 Evaluation note Encounter Date [...] understanding and is agreeable to treatment plan [facility] [employer] Other Evaluation noteNo assessment information available [facility] Work Phone: Evaluation noteNo [facility] [employer] Other Evaluation note* Diagnosis Onset Date Resolution Status Cervical lymphadenopathy acu te [facility] Work Phone: Evaluation note* Diagnosis Onset Date Resolution Status Sinusitis, acute maxillary a cute Fatigue acute Hair loss acute Positive VIVIEN (antinuclear antibody) [facility] Work Phone: Evaluation note* Diagnosis Onset Date Resolution Status Sinusitis, acute maxillary a cute Complement 4 deficiency acut e Fatigue acute Hair loss acute Positive VIVIEN (antinuclear antibody) [facility] Work Phone: Evaluation note* Diagnosis Pre-operative exam Unspecified pre-operative examination Endometriosis Endometriosis, site unspecified Pelvic pain in female Unspecified symptom associated with female genital organs Dyspareunia in female documented in this encounter [facility] N[facility]ative - Reported* Type Description Date Medical History Lou disease Surgical History 3 PLASTIC SURGERY Surgical History adnoidectomy Surgical History C section Hospitalization History kidney infection [facility] [employer] Other Summary Purpose Family History No Family [...] or prosecute any alcohol or drug abuse patient.[place] Reason for Visit (unrecogniz ed section and content) Reason Onset Date Comments Education Of Patient/family 07/21/2013 Reason Comments Pre-op Visit INFORMATION SOURCE (unrecogn ized section and content) DATE CREATED AUTHOR 10/27/2022 [facility] pital DATE CREATED AUTHOR AUTHOR'S ORGANIZ ATION 03/30/2024 [facility] Specialists EPIC DATE CREATED AUTHOR AUTHOR'S ORGANIZ ATION 04/17/2024 [facility] ysician Group Care Teams (unrecognized sec tion [...] December 16, 2023 End: December 16, 2023 Riveter Relationship Specialty Start Date End Date Aj Marsh MD [address] [place] [address] PCP - General Family Medicine 02/24/24 Riveter Relationship Specialty Start Date End Date Aj Marsh MD [address] [place] [address] PCP - General Family Medicine 02/24/24 Goals [...] BE BASED ON THE PRIMARY CLINICAL RECORDS. [employer] provides no warranty or guarantee of the accuracy or completeness of information in this document.
[2024-04-23 07:26] LABS: Basophils Percent Auto 0.5 % (0.2-2.0); Eosinophils Absolute Auto 0.2 10^3/uL (0.0-0.7); Eosinophils Percent Auto 2.7 % (0.9-7.0); Hematocrit 37.6 % (36.0-48.0); Immature Granulocytes Abs Auto 0.02 10^3/uL (0.00-0.03); Immature Granulocytes Pct Auto 0.3 % (0.0-0.5); Lymphocytes Absolute Auto 1.6 10^3/uL (1.2-3.8); Lymphocytes Percent Auto 22.3 % (20.5-60.0); Mean Corpuscular HGB Conc 34.6 g/dL (29.9-35.2); Mean Corpuscular Volume 83.7 fL (81.0-99.0); Mean Platelet Volume 9.7 fL (9.5-13.5); Monocytes Absolute Auto 0.6 10^3/uL (0.3-0.8); Monocytes Percent Auto 7.5 % (1.7-12.0); Neutrophils Absolute Auto 4.9 10^3/uL (1.4-6.5); Neutrophils Percent Auto 66.7 % (43.0-75.0); Platelet Count 250 10^3/uL (150-450); Red Blood Count 4.49 10^6/uL (4.20-5.40); Red Cell Distribution Width 12.6 % (11.0-15.0); White Blood Count 7.3 10^3/uL (4.0-11.0)
[2024-04-23] MEDS: LACTATED RINGER'S SOLUTION 1,000 ML 50 ML IV (07:50)
[2024-04-23 07:55] LABS: HCG Quantitative <1 mIU/mL
--- NOTE | 2024-04-23 09:45 | PM.ONB ---
Brief Operative Note Date of procedure: 04/23/24 Pre-op diagnosis general: menorrhagia, pelvic pain, dymenorrhea Post-op diagnosis: same as pre-op Procedure: NAME OF PROCEDURE: [d&c hysteroscopy] PROCEDURE: The patient was taken back to the Operating Room where she was prepped and draped in normal sterile fashion after being placed under general anesthesia without difficulty. She was also placed in the dorsal lithotomy position. A weighted speculum was placed in the patient?s vagina. The anterior lip of the cervix was identified and grasped with a single tooth tenaculum. The patient?s uterus was then sounded roughly to [? 8] cm. The patient was then gently dilated using Hegar dilators. The hysteroscope was passed through the patient?s cervix into the uterus. Both ostia were identified. Normal appearing endometrium. No gross evidence of polyps, fibroids or malignancy. The hysteroscope was then removed from the patient's uterus.? At that point, gentle curettage was performed until a gritty texture was noted. The endometrial curettings were sent out to pathology.? The single tooth tenaculum was then removed from the patient's anterior lip of the cervix where excellent hemostasis was noted. . A sponge stick was placed into the patient's vagina. Attention was turned to the patient's abdomen, where a small umbilical incision was made. The fascia was tented using Sharlene clamps and the fascia was entered sharply. Confirmation of intraabdominal placement of the 10 mm port was confirmed under direct visualization using a laparoscope. The patient's abdomen was then insufflated using CO2 gas with approximately 4 liters. A second port was placed left laterally, this was done under direct visualization with a 5 mm port. Survey of the patient's abdomen demonstrated normal liver and gallbladder. Survey of the patient's pelvic anatomy demonstrated normal appearing rt and lt ovary as well as normal appearing uterus. No endometrial implants could be noted, no evidence of any pelvic disease was seen, normal appearing pelvic cavity. All instruments were removed from the patient's abdomen. The patient's abdomen was deinsufflated of CO2 gas. The patient tolerated the procedure well. Sponge stick was removed from the patient's vagina. The patient's infraumbilical fascia was closed using #0 Vicryl on a GI needle. The patient's skin was closed laterally and infraumbilically using 4-0 Vicryl. The patient tolerated the procedure well. Sponge, lap and needle counts were correct x 2. The patient was taken to Recovery Room in stable condition. omental adhesions noted, absent tubes, omental adhesions removed with ligasure. Anesthesia: JOSE GA Surgeon: Jaiden Mejias Binding Cementer French Cord: Michelle Wilkinson Estimated blood loss (mL): 5 Pathology: none sent Condition: stable Disposition: PACU Urinary Catheter Management Urinary Catheter Management Urethral: Cath placed during this visit: no
[2024-04-23] MEDS: PROMETHAZINE HCL 25 MG TABLET PO (10:28)
[2024-04-23] MEDS: LACTATED RINGER'S SOLUTION 1,000 ML 150 ML IV (10:28)
--- NOTE | 2024-04-23 10:29 | PC.NURSE ---
1028: pt complains of nausea on arrival to phase 2,pt medicated with PO Phenergan.
--- NOTE | 2024-04-23 10:55 | PC.NURSE ---
PATIENT IS NAUSEATED , MEDS ALREADY GIVEN NIBBLING ON CRACKERS AND STARRY SODA
[2024-04-23] MEDS: HYDROCODONE/ACET 5-325 MG TABLET 1 TAB PO (11:15)
== END 2024-04-23 12:05 | disposition home or self-care (01) ==
PROVIDERS: PCP Family Medicine; Visit Provider Obstetrics & Gynecology
PROC: (CPT 840; principal; 2024-04-23 08:35)
DX: N80.9 Endometriosis, unspecified (principal); R10.2 Pelvic and perineal pain; N94.10 Unspecified dyspareunia; Z98.51 Tubal ligation status
CPT/HCPCS: 49320; 58558; 36415; 84702; 85025; 88305; J1100; J1885; J2250; J2405; J2704; J3010; Q0169